=== PATIENT | male | born 1930 | race Caucasian/White ===

== ENCOUNTER 2018-02-16 07:30 | Inpatient (IN) | payer MEDICARE ==
[2018-02-16 07:47] LABS: ADD MAN DIFF? NO
[2018-02-16 07:58] LABS: ANION GAP 9 (6-14); BLOOD UREA NITROGEN 19 mg/dL (8-26); BUN/CREATININE RATIO 17 (6-20); CALCIUM 8.6 mg/dL (8.5-10.1); CARBON DIOXIDE 22 mmol/L (21-32); CHLORIDE 110 mmol/L (98-107); CREATININE 1.1 mg/dL (0.7-1.3); GFR 63.3; GLUCOSE 150 mg/dL (70-99); POTASSIUM 3.8 mmol/L (3.5-5.1); SODIUM 141 mmol/L (136-145)
[2018-02-16] MEDS: IV NORMAL SALINE 1000ML BAG 1,000 ML IV ×3 (07:58→09:30)
[2018-02-16 08:03] LABS: ALK PHOS 82 U/L (46-116); ALT (SGPT) 21 U/L (16-63); AST (SGOT) 17 U/L (15-37); TOTAL BILIRUBIN 0.6 mg/dL (0.2-1.0)
[2018-02-16 08:08] LABS: BASO # 0.1 x10^3/uL (0.0-0.2); BASO % 1 % (0-3); EOS # 0.2 x10^3/uL (0.0-0.7); EOS % 3 % (0-3); HEMATOCRIT 31.7 % (39.0-53.0); HEMOGLOBIN 10.9 g/dL (13.0-17.5); LYMPH # 2.5 x10^3/uL (1.0-4.8); LYMPH % 26 % (24-48); MEAN CORPUSCULAR HEMOGLOBIN 31 pg (25-35); MEAN CORPUSCULAR HGB CONC 34 g/dL (31-37); MEAN CORPUSCULAR VOLUME 89 fL (79-100); MONO # 0.8 x10^3/uL (0.0-1.1); MONO % 8 % (0-9); NEUT % 63 % (31-73); PLATELET COUNT 252 x10^3/uL (140-400); RED BLOOD COUNT 3.56 x10^6/uL (4.30-5.70); RED CELL DISTRIBUTION WIDTH 13.7 % (11.5-14.5); WHITE BLOOD COUNT 9.5 x10^3/uL (4.0-11.0)
[2018-02-16 08:19] LABS: INR 1.2 (0.8-1.1); PARTIAL THROMBOPLASTIN TIME 25 SEC (24-38); PROTHROMBIN TIME PATIENT 14.4 SEC (11.7-14.0)
[2018-02-16] MEDS: PANTOPRAZOLE IV PUSH 40 MG VIAL. IVP (08:54)
[2018-02-16] MEDS: PANTOPRAZOLE SODIUM IV DRIP 80 MG in IV NORMAL SALINE 100ML 100 ML IV ×2 (08:55→17:46)
[2018-02-16] MEDS: ONDANSETRON PF 4 MG/2 ML VIAL. IV ×2 (09:19→20:46)
[2018-02-16 18:10] LABS: HEMATOCRIT 24.6 % (39.0-53.0); HEMOGLOBIN 8.6 g/dL (13.0-17.5); MEAN CORPUSCULAR HEMOGLOBIN 32 pg (25-35); MEAN CORPUSCULAR HGB CONC 35 g/dL (31-37); MEAN CORPUSCULAR VOLUME 90 fL (79-100); PLATELET COUNT 191 x10^3/uL (140-400); RED BLOOD COUNT 2.73 x10^6/uL (4.30-5.70); RED CELL DISTRIBUTION WIDTH 14.1 % (11.5-14.5); WHITE BLOOD COUNT 10.3 x10^3/uL (4.0-11.0)
[2018-02-16] MEDS ORDERED: diphenhydrAMINE HCL 25 MG CAPSULE PO (19:00)
[2018-02-16] MEDS ORDERED: ACETAMINOPHEN 325 MG TABLET. PO (19:00)
[2018-02-16] MEDS ORDERED: diphenhydrAMINE ORAL ELIXIR 12.5 MG/5 ML ML PO (19:00)
[2018-02-16 19:40] LABS: IMMEDIATE SPIN CROSSMATCH 1 3
[2018-02-17 00:13] LABS: MRSA BY PCR Negative (Negative)
[2018-02-17] MEDS: PANTOPRAZOLE SODIUM IV DRIP 80 MG in IV NORMAL SALINE 100ML 100 ML IV ×2 (03:09→14:43)
[2018-02-17 05:43] LABS: HEMATOCRIT 24.4 % (39.0-53.0); HEMOGLOBIN 8.6 g/dL (13.0-17.5); MEAN CORPUSCULAR HEMOGLOBIN 32 pg (25-35); MEAN CORPUSCULAR HGB CONC 35 g/dL (31-37); MEAN CORPUSCULAR VOLUME 90 fL (79-100); PLATELET COUNT 157 x10^3/uL (140-400); RED BLOOD COUNT 2.71 x10^6/uL (4.30-5.70); RED CELL DISTRIBUTION WIDTH 13.7 % (11.5-14.5); WHITE BLOOD COUNT 10.4 x10^3/uL (4.0-11.0)
[2018-02-17] MEDS ORDERED: ePHEDrine PF IN SALINE 50 MG/5 ML DISP.SYRIN IV (12:00)
[2018-02-17] MEDS: IV RINGERS,LACTATED 1000ML 1,000 ML IV (12:47)
[2018-02-17] MEDS ORDERED: MORPHINE SULFATE 2 MG/ML DISP.SYRIN. IV (13:00)
[2018-02-17] MEDS ORDERED: PROCHLORPERAZINE 10 MG/2 ML VIAL. IV (13:00)
[2018-02-17] MEDS ORDERED: LIDOCAINE 1% PF 2 ML VIAL. ID (13:00)
[2018-02-17] MEDS ORDERED: fentaNYL PF VIAL 100 MCG/2 ML VIAL IV ×2 (13:00)
[2018-02-17] MEDS ORDERED: ONDANSETRON PF 4 MG/2 ML VIAL. IV (13:00)
[2018-02-17] MEDS: ALPRAZolam 0.5 MG TABLET PO (21:54)
[2018-02-18] MEDS: PANTOPRAZOLE SODIUM IV DRIP 80 MG in IV NORMAL SALINE 100ML 100 ML IV ×2 (01:17→10:05)
[2018-02-18] MEDS: ACETAMINOPHEN 500 MG TABLET PO (04:50)
[2018-02-18 07:30] LABS: HEMOGLOBIN 7.4 g/dL (13.0-17.5); MEAN CORPUSCULAR HGB CONC 36 g/dL (31-37)
[2018-02-18 07:48] LABS: HEMATOCRIT 20.7 % (39.0-53.0)
[2018-02-18 11:13] LABS: IMMEDIATE SPIN CROSSMATCH 1 1
[2018-02-18] MEDS: BENZOCAINE/MENTHOL LOZENGE. PO (20:46)
[2018-02-18] MEDS: ALPRAZolam 0.5 MG TABLET PO (23:30)
[2018-02-19] MEDS: PANTOPRAZOLE SODIUM IV DRIP 80 MG in IV NORMAL SALINE 100ML 100 ML IV ×3 (00:23→16:45)
[2018-02-19] MEDS: ACETAMINOPHEN 500 MG TABLET PO (06:41)
[2018-02-19 07:33] LABS: HEMATOCRIT 21.1 % (39.0-53.0); HEMOGLOBIN 7.5 g/dL (13.0-17.5); MEAN CORPUSCULAR HEMOGLOBIN 32 pg (25-35); MEAN CORPUSCULAR HGB CONC 36 g/dL (31-37); MEAN CORPUSCULAR VOLUME 89 fL (79-100); PLATELET COUNT 158 x10^3/uL (140-400); RED BLOOD COUNT 2.37 x10^6/uL (4.30-5.70); RED CELL DISTRIBUTION WIDTH 14.1 % (11.5-14.5); WHITE BLOOD COUNT 8.5 x10^3/uL (4.0-11.0)
[2018-02-19 07:46] LABS: ANION GAP 5 (6-14); BLOOD UREA NITROGEN 12 mg/dL (8-26); CALCIUM 7.4 mg/dL (8.5-10.1); CARBON DIOXIDE 27 mmol/L (21-32); CHLORIDE 110 mmol/L (98-107); GFR 70.7; GLUCOSE 100 mg/dL (70-99); POTASSIUM 3.7 mmol/L (3.5-5.1); SODIUM 142 mmol/L (136-145)
[2018-02-19] MEDS: MAGNESIUM CITRATE 296 ML SOLUTION. PO (17:29)
[2018-02-19] MEDS: POLYETHYLENE GLYCOL 3350 238 GM POWDER PO (17:30)
[2018-02-19] MEDS: BISACODYL 5 MG TABLET.DR. PO (22:04)
[2018-02-19] MEDS: ALPRAZolam 0.5 MG TABLET PO (22:07)
[2018-02-20] MEDS: PANTOPRAZOLE SODIUM IV DRIP 80 MG in IV NORMAL SALINE 100ML 100 ML IV ×2 (01:28→13:54)
[2018-02-20] MEDS: IV RINGERS,LACTATED 1000ML 1,000 ML IV ×3 (07:00→21:37)
[2018-02-20] MEDS ORDERED: PROPOFOL 20 ML IV (09:23)
[2018-02-20] MEDS ORDERED: LIDOCAINE 2% PF Vial for OR 5 ML VIAL. (09:23)
[2018-02-20] MEDS: ACETAMINOPHEN 500 MG TABLET PO (23:16)
[2018-02-20] MEDS: ALPRAZolam 0.5 MG TABLET PO (23:16)
[2018-02-21] MEDS: PANTOPRAZOLE IV PUSH 40 MG VIAL. IVP (07:54)
[2018-02-21] MEDS: ONDANSETRON PF 4 MG/2 ML VIAL. IV (07:55)
[2018-02-21] MEDS: ACETAMINOPHEN 500 MG TABLET PO (08:45)
== END 2018-02-21 13:08 | disposition home or self-care (01) | DRG 378 ==
LOC: 5 SOUTH 02-17 15:17 → ER 07:30 → 1 WEST ICU 09:00
PROC: 0DJ08ZZ Inspection of Upper Intestinal Tract, Via Natural or Artificial Opening Endoscopic (ICD-10-PCS; 2018-02-17 13:00)
PROC: 30233N1 Transfusion of Nonautologous Red Blood Cells into Peripheral Vein, Percutaneous Approach (ICD-10-PCS; principal; 2018-02-17 13:08)
PROC: 0DJD8ZZ Inspection of Lower Intestinal Tract, Via Natural or Artificial Opening Endoscopic (ICD-10-PCS; 2018-02-17 13:08)
DX: K57.31 Diverticulosis of large intestine without perforation or abscess with bleeding (principal); D62 Acute posthemorrhagic anemia; J90 Pleural effusion, not elsewhere classified; F03.90 Unspecified dementia, unspecified severity, without behavioral disturbance, psychotic disturbance, mood disturbance, and anxiety; F41.9 Anxiety disorder, unspecified; I10 Essential (primary) hypertension; I25.10 Atherosclerotic heart disease of native coronary artery without angina pectoris; K92.1 Melena; K44.9 Diaphragmatic hernia without obstruction or gangrene; K64.0 First degree hemorrhoids; Z82.49 Family history of ischemic heart disease and other diseases of the circulatory system; Z95.1 Presence of aortocoronary bypass graft; Z90.49 Acquired absence of other specified parts of digestive tract
CPT/HCPCS: 36415; 45378; 74176; 78278; 80048; 80053; 85014; 85018; 85025; 85027; 85610; 85730; 86850; 86900; 86901; 86920; 87641; 93005; 96361; 96374; 96375; 97110-GP; 97116-GP; 97162-GP; 97166-GO; 97530-GO; 97530-GP; 97535-GO; 99285; 99285-25; A9560; C9113; J2001; J2405; J2704; J7030; P9016

== ENCOUNTER 2018-12-25 15:29 | Inpatient (IN) | payer MEDICARE ==
[~2018-12-25] VITALS: Ht 172.7 cm; Wt 64.2 kg
[~2018-12-25 15:29] MED LIST: ALPR0.254 PO; CRESTOR10 MG PO; DONE5TAB56 PO; ESCITALOPRAM OX10 MG PO; METO1TAB32 PO; TAMS0.4C97 PO
[2018-12-25] MEDS ORDERED: FUROSEMIDE 20 MG/2 ML VIAL. IV ONE (16:00)
[2018-12-25] MEDS ORDERED: MORPHINE SULFATE 2 MG/ML VIAL. IV ONE (16:00)
--- NOTE | 2018-12-25 16:09 | PHYS DOC ---
Past Medical History Past Medical History: CAD, Dementia, High Cholesterol, Hypertension Past Surgical History: Appendectomy, Cholecystectomy, Coronary Bypass Surgery Alcohol Use: None Drug Use: None Adult General Chief Complaint Chief Complaint: SHORTNESS OF BREATH HPI HPI Patient is an 88-year-old male who presents to the emergency department for evaluation of multiple medical complaints. His main complaint is increasing shortness of breath, and dyspnea on exertion and orthopnea, which has been developing over the past several weeks, but worsening recently. The patient also complains of generalized fatigue and weakness. Additionally, yesterday, the patient fell asleep while at his kitchen table, and fell off the chair he was sitting on onto the floor, and injured his right ribs. He is having pain with palpation and movement of his right ribs. He has not had a cough. Exertion and laying flat worsen his shortness of breath. There are no alleviating factors to his symptoms. He denies any chest pain other than on his right ribs after the fall. Review of Systems Review of Systems Constitutional: Denies fever or chills [] Eyes: Denies change in visual acuity, redness, or eye pain [] HENT: Denies nasal congestion or sore throat [] Respiratory: Denies cough. Reports shortness of breath [] Cardiovascular: No additional information not addressed in HPI [] GI: Denies abdominal pain, nausea, vomiting, bloody stools or diarrhea [] : Denies dysuria or hematuria [] Musculoskeletal: Denies back pain or joint pain [] Integument: Denies rash or skin lesions [] Neurologic: Denies headache, focal weakness or sensory changes [] Endocrine: Denies polyuria or polydipsia [] All other systems were reviewed and found to be within normal limits, except as documented in this note. Current Medications Current Medications Current Medications Medications (Trade) Dose Ordered Sig/Cindy Start Time Stop Time Status Last Admin Dose Admin Furosemide (Lasix) 40 mg 1X ONCE 12/25/18 16:00 12/25/18 16:01 DC 12/25/18 16:09 40 MG Morphine Sulfate (Morphine Sulfate) 4 mg 1X ONCE 12/25/18 16:00 12/25/18 16:01 DC 12/25/18 16:10 4 MG Allergies Allergies Allergies Coded Allergies Type Severity Reaction Last Updated Verified No Known Drug Allergies 02/16/18 No Physical Exam Physical Exam PHYSICAL EXAM: CONSTITUTIONAL: Well developed, well nourished HEAD: normocephalic, atraumatic EENT: PERRL, EOMI. Conjunctivae normal color, sclerae non-icteric; moist mucous membranes. NECK: Supple, non-tender; no meningismus. LUNGS: There are diminished breath sounds at the lung bases bilaterally with some mild faint crackles, otherwise, Lungs CTA, breathing is mildly labored, Normal air movement. HEART: Regular rate and rhythm, no murmur CHEST: No deformity; there is tenderness to palpation to the right rib area, without crepitus or obvious deformity. ABDOMEN: The abdomen is soft, and non-tender, no masses or bruits. EXTREM: Normal ROM; no deformity, no calf tenderness. Normal pulses palpable in all extremities. There is trace bilateral pedal edema. SKIN: No rash; no diaphoresis NEURO: Alert; normal speech and cognition; CN's grossly intact; strength grossly intact without focal deficit. BACK: No CVA TTP. Current Patient Data Vital Signs Vital Signs Date Time Temp Pulse Resp B/P (MAP) Pulse Ox O2 Delivery O2 Flow Rate FiO2 12/25/18 15:29 97.9 89 25 109/76 (87) 94 Room Air 97.9 Lab Values Laboratory Tests Test 12/25/18 16:00 12/25/18 17:00 White Blood Count 9.6 x10^3/uL (4.0-11.0) Red Blood Count 3.83 x10^6/uL (4.30-5.70) L Hemoglobin 11.9 g/dL (13.0-17.5) L Hematocrit 35.1 % (39.0-53.0) L Mean Corpuscular Volume 92 fL (79-100) Mean Corpuscular Hemoglobin 31 pg (25-35) Mean Corpuscular Hemoglobin Concent 34 g/dL (31-37) Red Cell Distribution Width 14.2 % (11.5-14.5) Platelet Count 301 x10^3/uL (140-400) Neutrophils (%) (Auto) 78 % (31-73) H Lymphocytes (%) (Auto) 10 % (24-48) L Monocytes (%) (Auto) 11 % (0-9) H Eosinophils (%) (Auto) 1 % (0-3) Basophils (%) (Auto) 0 % (0-3) Neutrophils # (Auto) 7.5 x10^3uL (1.8-7.7) Lymphocytes # (Auto) 0.9 x10^3/uL (1.0-4.8) L Monocytes # (Auto) 1.1 x10^3/uL (0.0-1.1) Eosinophils # (Auto) 0.1 x10^3/uL (0.0-0.7) Basophils # (Auto) 0.0 x10^3/uL (0.0-0.2) Sodium Level 144 mmol/L (136-145) Potassium Level 4.0 mmol/L (3.5-5.1) Chloride Level 107 mmol/L (98-107) Carbon Dioxide Level 24 mmol/L (21-32) Anion Gap 13 (6-14) Blood Urea Nitrogen 29 mg/dL (8-26) H Creatinine 1.2 mg/dL (0.7-1.3) Estimated GFR (Cockcroft-Gault) 57.1 BUN/Creatinine Ratio 24 (6-20) H Glucose Level 97 mg/dL (70-99) Calcium Level 8.7 mg/dL (8.5-10.1) Magnesium Level 2.0 mg/dL (1.8-2.4) Total Bilirubin 1.5 mg/dL (0.2-1.0) H Aspartate Amino Transferase (AST) 26 U/L (15-37) Alanine Aminotransferase (ALT) 41 U/L (16-63) Alkaline Phosphatase 85 U/L (46-116) Troponin I Quantitative 0.099 ng/mL (0.000-0.055) AH-Mhh-L-Type Natriuretic Peptide 14254 pg/mL (0-449) H Total Protein 6.2 g/dL (6.4-8.2) L Albumin 3.2 g/dL (3.4-5.0) L Albumin/Globulin Ratio 1.1 (1.0-1.7) Thyroid Stimulating Hormone (TSH) 1.756 uIU/mL (0.358-3.74) Free Thyroxine 1.45 ng/dL (0.76-1.46) Urine Collection Type Unknown Urine Color Yellow Urine Clarity Clear Urine pH 5.5 Urine Specific Howard 1.015 Urine Protein 30 mg/dL (NEG-TRACE) Urine Glucose (UA) Negative mg/dL (NEG) Urine Ketones (Stick) Negative mg/dL (NEG) Urine Blood Negative (NEG) Urine Nitrite Negative (NEG) Urine Bilirubin Negative (NEG) Urine Urobilinogen Dipstick 0.2 mg/dL (0.2 mg/dL) Urine Leukocyte Esterase Negative (NEG) Urine RBC 0 /HPF (0-2) Urine WBC 0 /HPF (0-4) Urine Bacteria 0 /HPF (0-FEW) Urine Hyaline Casts Few /HPF Urine Mucus Mod /LPF Laboratory Tests 12/25/18 16:00 Laboratory Tests 12/25/18 16:00 EKG EKG [] Interpretation Time: Normal sinus rhythm at a rate of 81 bpm, left axis deviation, left anterior fascicular block, lateral T wave inversion, there are no acute ischemic ST/T changes, the EKG is unchanged compared to patient's prior EKG from January 2018. Radiology/Procedures Radiology/Procedures []PROCEDURE: RIBS RIGHT RIBS RIGHT, CHEST PA LATERAL Clinical indications: Shortness of breath. 2 VIEW CHEST X-RAY COMPARISON: None available. Findings: Bilateral pleural effusions left greater than right are seen. There is mild bilateral interstitial pulmonary edema present. Prominent left lung base consolidative infiltrate is seen which may represent alveolar pulmonary edema. No pneumothorax is seen. Heart size is enlarged. Sternotomy is evident. The mediastinum is unremarkable otherwise. The pulmonary vasculature is unremarkable. Mild compression deformity of a midthoracic vertebral body is seen of indeterminate age IMPRESSION: Mild to moderate CHF. Mild compression deformity of a midthoracic vertebral body of indeterminate age. 4 VIEW RIGHT RIB DETAIL SERIES FINDINGS: There is mild deformity of the lateral aspect of the right third rib and mild deformity of the lateral aspect of the right fifth rib consistent with old healed fractures. No acute-appearing fracture is evident. IMPRESSION: Old healed right third and fifth rib fractures. Course & Med Decision Making Course & Med Decision Making Pertinent Labs and Imaging studies reviewed. (See chart for details) []5:35 PM:The patient's condition remains stable. I spoke with the hospitalist, who accepted the patient to the hospital for further evaluation and treatment. Dragon Disclaimer Dragon Disclaimer This electronic medical record was generated, in whole or in part, using a voice recognition dictation system. Departure Departure Impression: Primary Impression: CHF exacerbation Additional Impression: Dyspnea Disposition: 09 ADMITTED INPATIENT Admitting Physician: JUN Condition: STABLE Referrals: RAINER SALES MD (PCP) Problem Qualifiers LAUREN RUBY MD Dec 25, 2018 16:08
[2018-12-25 16:10] LABS: BASO % 0 % (0-3); EOS # 0.1 x10^3/uL (0.0-0.7); EOS % 1 % (0-3); HEMATOCRIT 35.1 % (39.0-53.0); HEMOGLOBIN 11.9 g/dL (13.0-17.5); LYMPH # 0.9 x10^3/uL (1.0-4.8); LYMPH % 10 % (24-48); MEAN CORPUSCULAR HEMOGLOBIN 31 pg (25-35); MEAN CORPUSCULAR HGB CONC 34 g/dL (31-37); MEAN CORPUSCULAR VOLUME 92 fL (79-100); MONO # 1.1 x10^3/uL (0.0-1.1); MONO % 11 % (0-9); NEUT # 7.5 x10^3uL (1.8-7.7); NEUT % 78 % (31-73); PLATELET COUNT 301 x10^3/uL (140-400); RED BLOOD COUNT 3.83 x10^6/uL (4.30-5.70); RED CELL DISTRIBUTION WIDTH 14.2 % (11.5-14.5); WHITE BLOOD COUNT 9.6 x10^3/uL (4.0-11.0)
[2018-12-25 16:26] LABS: CALCIUM 8.7 mg/dL (8.5-10.1); CREATININE 1.2 mg/dL (0.7-1.3); GFR 57.1
[2018-12-25 16:32] LABS: ALBUMIN 3.2 g/dL (3.4-5.0); ALBUMIN/GLOBULIN RATIO 1.1 (1.0-1.7); TOTAL BILIRUBIN 1.5 mg/dL (0.2-1.0); TOTAL PROTEIN 6.2 g/dL (6.4-8.2)
[2018-12-25 16:40] LABS: FREE T4 1.45 ng/dL (0.76-1.46); THYROID STIM HORMONE (TSH) 1.756 uIU/mL (0.358-3.74)
[2018-12-25 17:13] LABS: BILIRUBIN,URINE NEGATIVE (NEG); COLOR,URINE YELLOW; NITRITE,URINE NEGATIVE (NEG); PH,URINE 5.5; PROTEIN,URINE 30 mg/dL (NEG-TRACE); UROBILINOGEN,URINE 0.2 mg/dL (0.2 mg/dL)
--- NOTE | 2018-12-25 17:15 | RAD ---
RIBS RIGHT, CHEST PA LATERAL Clinical indications: Shortness of breath. 2 VIEW CHEST X-RAY COMPARISON: None available. Findings: Bilateral pleural effusions left greater than right are seen. There is mild bilateral interstitial pulmonary edema present. Prominent left lung base consolidative infiltrate is seen which may represent alveolar pulmonary edema. No pneumothorax is seen. Heart size is enlarged. Sternotomy is evident. The mediastinum is unremarkable otherwise. The pulmonary vasculature is unremarkable. Mild compression deformity of a midthoracic vertebral body is seen of indeterminate age IMPRESSION: Mild to moderate CHF. Mild compression deformity of a midthoracic vertebral body of indeterminate age. 4 VIEW RIGHT RIB DETAIL SERIES FINDINGS: There is mild deformity of the lateral aspect of the right third rib and mild deformity of the lateral aspect of the right fifth rib consistent with old healed fractures. No acute-appearing fracture is evident. IMPRESSION: Old healed right third and fifth rib fractures. Electronically signed by: Alireza Bucio MD (12/25/2018 5:11 PM) [id number]
[2018-12-25 17:16] LABS: CLARITY,URINE CLEAR
[2018-12-25 17:17] LABS: BACTERIA,URINE 0 /HPF (0-FEW); HYALINE CASTS, URINE FEW /HPF; RBC,URINE 0 /HPF (0-2); WBC,URINE 0 /HPF (0-4)
[2018-12-25 18:45] VITALS: BP 116/71
[2018-12-25] MEDS: TEMAZEPAM 15 MG CAPSULE PO PRN (22:22)
--- NOTE | 2018-12-25 22:57 | HP ---
ADMIT DATE: 12/25/2018 CHIEF COMPLAINT: Shortness of breath. HISTORY OF PRESENT ILLNESS: The patient is a pleasant 88-year-old male who has dementia. He thinks it is 1980. He is very pleasantly confused though very nice and cooperative. He basically presented with shortness of breath today. While in the ER, we did some imaging including a chest x-ray, which is showing possible vascular congestion by my eye. He also has an elevated BNP of 17,038. Rates his symptoms at 9/10. He has associated weakness. It has been occurring off and on for weeks. Moving makes it worse. I discussed the case with ER physician. We are going to admit the patient and diurese him and consult Cardiology. PAST MEDICAL HISTORY: Dementia, hypertension, hyperlipidemia, appendectomy, cholecystectomy, coronary artery bypass grafting. ALLERGIES: None. FAMILY HISTORY: Diabetes. SOCIAL HISTORY: Does not drink, smoke or take drugs. MEDICATIONS: Reviewed, please refer to the MRAD. REVIEW OF SYSTEMS: Unable to obtain. The patient is too confused. PHYSICAL EXAMINATION: VITAL SIGNS: Temperature afebrile, pulse 82, respirations 16, blood pressure 112/73. GENERAL: He is alert, cooperative, very pleasantly confused. HEART: Distant S1, S2. LUNGS: Bibasilar crackles. ABDOMEN: Soft. EXTREMITIES: 1+ edema. SKIN: No rash. ENDOCRINE: No thyromegaly. LYMPHATICS: No cervical nodes. HEMATOPOIETIC: No bruises. PSYCHIATRIC: He is anxious. LABORATORY DATA: Electrolytes are normal other than a BUN of 29, BNP of 17,038, hemoglobin 11.9. ASSESSMENT AND PLAN: Acute on chronic systolic and diastolic heart failure. The patient will be admitted. We will consult Cardiology, cardiac monitoring, serial enzymes, serial EKGs, IV Lasix, home meds, PT, OT, frequent labs. DVT prophylaxis. Full code. KRYS COON DO DR: LAZARO/dylan JOB#: [id number] / [id number]
[2018-12-25 23:22] VITALS: BP 106/63
[2018-12-26] VITALS (17 sets, daily range): BP systolic 95–129; BP diastolic 57–74
--- NOTE | 2018-12-26 02:53 | EKG ---
[facility] [address] [place] [address] Test Date: 2018-12-25 Test Time: 15:55:38 Pat Name: PRITI NORTON Department: Room: Gender: M Help Desk Support Specialist: : [id number] Requested By: LAUREN RUBY Order Number: [id number] Reading MD: Measurements Intervals [place] Rate: 81 P: -24 AK: 118 QRS: -33 QRSD: 124 T: 142 QT: 430 QTc: 506 Interpretive Statements SINUS RHYTHM LEFT ATRIAL ABNORMALITY ABNORMAL LEFT AXIS DEVIATION LVH WITH REPOLARIZATION ABNORMALITY ABNORMAL ECG RI6.01 Unconfirmed report No previous ECG available for comparison
[2018-12-26 10:08] LABS: CALCIUM 8.6 mg/dL (8.5-10.1); CREATININE 1.3 mg/dL (0.7-1.3); GFR 52.1; MAGNESIUM 2.2 mg/dL (1.8-2.4); POTASSIUM 3.5 mmol/L (3.5-5.1)
[2018-12-26] MEDS ORDERED: POTASSIUM CHLORIDE 20 MEQ TABLET.ER. PO ONE (11:15)
[2018-12-26] MEDS ORDERED: FUROSEMIDE 40 MG/4 ML VIAL. IVP ONE (11:15)
--- NOTE | 2018-12-26 11:29 | PDOC2 ---
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 He has been having SOA in the last 2-3 days. Positive for orthopnea. He was sitting up in a chair and dozed off and fell forward and landed his right chest on his choes which is right now is tender to touch. Denies any passing out or frequent dizziness. Denies any chest tightness in the last few days but [employer]. Denies any nausea, palpitations or diaphoresis. He was noted with old right rib fractures but denies any frequent falls. No prior hx of VTE. Also he is almost out of his meds and has been skipping his meds as well. He has not seen a completion manager in a while. He lives alone and has a daughter that sees him. PAST MEDICAL HISTORY Cardiovascular: CAD, HTN, Hyperlipidemia Pulmonary: No pertinent hx CENTRAL NERVOUS SYSTEM: Dementia GI: Diverticulosis, GI bleed, Hemorrhoids Heme/Onc: Anemia NOS Hepatobiliary: No pertinent hx Psych: Anxiety Musculoskeletal: Osteoarthritis Rheumatologic: No pertinent hx Infectious disease: No pertinent hx ENT: Other (cataracts) Renal/: Benign prostatic enlarg. Endocrine: No pertinent hx Dermatology: No pertinent hx PAST SURGICAL HISTORY Past Surgical History: CABG, Cataract Removal FAMILY HISTORY Family History: Family History Unknown SOCIAL HISTORY Smoke: No ALCOHOL: none Drugs: None Lives: Alone CURRENT MEDICATIONS CURRENT MEDICATIONS Current Medications Medications (Trade) Dose Ordered Sig/Cindy Route PRN Reason Start Time Stop Time Status Last Admin Dose Admin Morphine Sulfate (Morphine Sulfate) 4 mg 1X ONCE IV 12/25/18 16:00 12/25/18 16:01 DC 12/25/18 16:10 Furosemide (Lasix) 40 mg 1X ONCE IV 12/25/18 16:00 12/25/18 16:01 DC 12/25/18 16:09 Temazepam (Restoril) 15 mg PRN QHS PRN PO INSOMNIA 12/25/18 22:15 12/25/18 22:22 ALLERGIES ALLERGIES: Coded Allergies: No Known Drug Allergies (Unverified , 02/16/18) ROS Review of System 14 point ROS evaluated with pertinent positives noted per HPI PHYSICAL EXAM General: Alert, Cooperative, No acute distress, Other (oriented to place) HEENT: Atraumatic, Mucous membr. moist/pink Heart: Regular rate (SR), Normal S1, Normal S2, Other (4/6 systolic murmur to NICOLE and 3/6 systolic murmur to LLS border) Abdomen: Soft, No tenderness Extremities: No cyanosis, Other (1+ bilateral LE pitting edema) Skin: No breakdown, No significant lesion Neuro: Normal speech, Sensation intact Psych/Mental Status: Other (Oriented to self and place, cooperative) MUSCULOSKELETAL: Osteoarthritic changes both hands VITALS VITALS Vital Signs Date Time Temp Pulse Resp B/P (MAP) Pulse Ox O2 Delivery O2 Flow Rate FiO2 12/26/18 08:00 Room Air 12/26/18 07:00 97.6 80 18 111/65 (80) 99 2.0 97.6 LABS Lab: Laboratory Tests Test 12/25/18 16:00 12/25/18 17:00 12/26/18 09:03 White Blood Count 9.6 x10^3/uL (4.0-11.0) Red Blood Count 3.83 x10^6/uL (4.30-5.70) Hemoglobin 11.9 g/dL (13.0-17.5) Hematocrit 35.1 % (39.0-53.0) Mean Corpuscular Volume 92 fL (79-100) Mean Corpuscular Hemoglobin 31 pg (25-35) Mean Corpuscular Hemoglobin Concent 34 g/dL (31-37) Red Cell Distribution Width 14.2 % (11.5-14.5) Platelet Count 301 x10^3/uL (140-400) Neutrophils (%) (Auto) 78 % (31-73) Lymphocytes (%) (Auto) 10 % (24-48) Monocytes (%) (Auto) 11 % (0-9) Eosinophils (%) (Auto) 1 % (0-3) Basophils (%) (Auto) 0 % (0-3) Neutrophils # (Auto) 7.5 x10^3uL (1.8-7.7) Lymphocytes # (Auto) 0.9 x10^3/uL (1.0-4.8) Monocytes # (Auto) 1.1 x10^3/uL (0.0-1.1) Eosinophils # (Auto) 0.1 x10^3/uL (0.0-0.7) Basophils # (Auto) 0.0 x10^3/uL (0.0-0.2) Sodium Level 144 mmol/L (136-145) 144 mmol/L (136-145) Potassium Level 4.0 mmol/L (3.5-5.1) 3.5 mmol/L (3.5-5.1) Chloride Level 107 mmol/L (98-107) 106 mmol/L (98-107) Carbon Dioxide Level 24 mmol/L (21-32) 24 mmol/L (21-32) Anion Gap 13 (6-14) 14 (6-14) Blood Urea Nitrogen 29 mg/dL (8-26) 32 mg/dL (8-26) Creatinine 1.2 mg/dL (0.7-1.3) 1.3 mg/dL (0.7-1.3) Estimated GFR (Cockcroft-Gault) 57.1 52.1 BUN/Creatinine Ratio 24 (6-20) Glucose Level 97 mg/dL (70-99) 158 mg/dL (70-99) Calcium Level 8.7 mg/dL (8.5-10.1) 8.6 mg/dL (8.5-10.1) Magnesium Level 2.0 mg/dL (1.8-2.4) 2.2 mg/dL (1.8-2.4) Total Bilirubin 1.5 mg/dL (0.2-1.0) Aspartate Amino Transf (AST/SGOT) 26 U/L (15-37) Alanine Aminotransferase (ALT/SGPT) 41 U/L (16-63) Alkaline Phosphatase 85 U/L (46-116) Troponin I Quantitative 0.099 ng/mL (0.000-0.055) 0.104 ng/mL (0.000-0.055) YH-Dro-A-Type Natriuretic Peptide 85004 pg/mL (0-449) Total Protein 6.2 g/dL (6.4-8.2) Albumin 3.2 g/dL (3.4-5.0) Albumin/Globulin Ratio 1.1 (1.0-1.7) Thyroid Stimulating Hormone (TSH) 1.756 uIU/mL (0.358-3.74) Free Thyroxine 1.45 ng/dL (0.76-1.46) Urine Collection Type Unknown Urine Color Yellow Urine Clarity Clear Urine pH 5.5 Urine Specific Mcintosh 1.015 Urine Protein 30 mg/dL (NEG-TRACE) Urine Glucose (UA) Negative mg/dL (NEG) Urine Ketones (Stick) Negative mg/dL (NEG) Urine Blood Negative (NEG) Urine Nitrite Negative (NEG) Urine Bilirubin Negative (NEG) Urine Urobilinogen Dipstick 0.2 mg/dL (0.2 mg/dL) Urine Leukocyte Esterase Negative (NEG) Urine RBC 0 /HPF (0-2) Urine WBC 0 /HPF (0-4) Urine Bacteria 0 /HPF (0-FEW) Urine Hyaline Casts Few /HPF Urine Mucus Mod /LPF Triglycerides Level 68 mg/dL (0-150) Cholesterol Level 108 mg/dL (0-200) LDL Cholesterol, Calculated 67 mg/dL (0-100) VLDL Cholesterol, Calculated 14 mg/dL (0-40) Non-HDL Cholesterol Calculated 81 mg/dL (0-129) HDL Cholesterol 27 mg/dL (40-60) Cholesterol/HDL Ratio 4.0 ASSESSMENT/PLAN ASSESSMENT/PLAN 1. Acute on chronic CHF with possible combined systolic/diastolic dysfunction: SOA better 2. Mechanical fall with no acute injuries 3. Suspect multiple past falls/osteoporosis given noted old right rib fractures and thoracic vertebral compression deformity. Syncope could not be ruled out. 4. Atypical CP: right chest: MSK. landed on his shoe with fall 5. CAD: remote CABG 6. HTN: controlled 7. HLP 8. High risk for falls/injury with underlying dementia: lives alone and still drives with possibly revoked license 9. Mild troponin elevation: peaked at 0.1, possibly demand mediated type 2. EKG SR/LVH virtually same by comparison 10. Noncompliance: has been skipping meds, some meds are gone. 11. Hx of GI bleed 12. Murmur Recommendations 1. Will need to address goals of care and better supervision or assisted living placement. Consult SS. 2. Will need ischemic workup, pending TTE result. 3. Lasix therapy. Resume home meds. ASA 4. Check CK. Check orthostatic readings. Addendum 1200 Will obtain records from [facility] Discussed with Daughter Yvette Soto and pt in regards to LHC with underlying CAD and severe cardiomyopathy, risks and benefits explained and agreeable to proceed. IBNA TOBIN MD 12/26/18 1603: CARDIAC CONSULT ASSESSMENT/PLAN ASSESSMENT/PLAN Pt. seen and examined. 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 Critically ill 88 y.o man with lifestyle limiting dyspnea. Will plan for LHC and AV assessment today. Likely plan for PCI today and aortic valvuloplasty on sunday. GERONIMO BROWN APRN Dec 26, 2018 11:29 BINA TOBIN MD Dec 26, 2018 16:03
[2018-12-26] MEDS: ASPIRIN ENTERIC COATED 81 MG TABLET.DR. PO SCH (11:41)
--- NOTE | 2018-12-26 11:48 | CARD ---
MR#: [id number] Date of Study: 12/26/2018 Ordering Physician: GERONIMO BROWN, Referring Physician: KRYS COON Tech: Eneida Guthrie RDCS APPROVED REPORT EXAM: Two-dimensional and M-mode echocardiogram with Doppler and color Doppler. Other Information Quality : Good INDICATION Congestive Heart Failure 2D DIMENSIONS RVDd3.6 (2.9-3.5cm)Left Atrium(2D)4.7 (1.6-4.0cm) IVSd1.1 (0.7-1.1cm)Aortic Root(2D)2.6 (2.0-3.7cm) LVDd5.6 (3.9-5.9cm)LVOT Diameter2.0 (1.8-2.4cm) PWd1.1 (0.7-1.1cm)LVDs5.3 (2.5-4.0cm) FS (%) 5.2 %SV17.9 ml LVEF(%)11.7 (>50%) Aortic Valve AoV Peak Manuel.382.1cm/sAoV VTI79.1cm AO Peak GR.58.4mmHgLVOT Peak Manuel.69.6cm/s AO Mean GR.38mmHgAVA (VMAX)0.60cm2 CHELY (VTI)0.51hl9TD P 1/2 Daqm588fg Mitral Valve MV E Gxdtplyx284.1cm/sMV DECEL YIBF47ph MV A Bbdbayeq13.8cm/sE/A Ratio2.2 Tricuspid Valve TR P. Jspzimvk431ln/sRAP TORHYOQE13egJj TR Peak Gr.62doBvRTFJ14nyNa LEFT VENTRICLE The left ventricle is normal size. There is normal left ventricular wall thickness. Left ventricle ej ection fraction is severely impaired. The Ejection Fraction is 10-15%. There is severe global hypokin esis of the left ventricle. Transmitral Doppler flow pattern is Grade I-abnormal relaxation pattern. RIGHT VENTRICLE The right ventricle is normal size. The right ventricular systolic function is normal. ATRIA The left atrium is mildly dilated. The right atrium size is normal. The interatrial septum is intact with no evidence for an atrial septal defect or patent foramen ovale as noted on 2-D or Doppler imagi ng. AORTIC VALVE The aortic valve is heavily calcified and displays decreased opening. Doppler and Color Flow revealed moderate to severe aortic regurgitation. Calculated aortic valve area is 0.6 cm2 with maximum pressu re gradient of 58 mmHg and mean pressure gradient of 38 mmHg. Doppler and color-flow analysis reveale d severe aortic stenosis. MITRAL VALVE The mitral valve is calcified but opens well. There is no evidence of mitral valve prolapse. There is no mitral valve stenosis. Doppler and Color-flow revealed mild to moderate mitral regurgitation. TRICUSPID VALVE The tricuspid valve is normal in structure and function. Doppler and Color Flow revealed mild tricusp id regurgitation. There is moderate-severe pulmonary hypertension. The PA pressure was estimated at 6 8 mmHg. There is no tricuspid valve stenosis. PULMONIC VALVE The pulmonary valve is normal in structure and function. Doppler and Color Flow revealed moderate pul senthil valvular regurgitation. There is no pulmonic valvular stenosis. GREAT VESSELS The aortic root is normal in size. The ascending aorta is mildly dilated at 3.5 cm. The IVC is dilate d and collapses <50% with inspiration. PERICARDIAL EFFUSION There is no evidence of significant pericardial effusion. Critical Notification Critical Value: No <Conclusion> Left ventricle ejection fraction is severely impaired. The Ejection Fraction is 10-15%. There is severe global hypokinesis of the left ventricle. Calculated aortic valve area is 0.6 cm2 with maximum pressure gradient of 58 mmHg and mean pressure g radient of 38 mmHg. Doppler and color-flow analysis revealed severe aortic stenosis. Doppler and Color-flow revealed mild to moderate mitral regurgitation. Doppler and Color Flow revealed mild tricuspid regurgitation. There is moderate-severe pulmonary hype rtension. The PA pressure was estimated at 68 mmHg. Doppler and Color Flow revealed moderate pulmonic valvular regurgitation. Signed by : Tim Leroy, Electronically Approved : 12/26/2018 11:48:08
--- NOTE | 2018-12-26 12:09 | NUR ---
SS following for discharge planning. SS reviewed pt chart. Pt is from home alone and does not have a drivers license but still drives. Pt having confusion and cognitive deficits. SS spoke with pt's daughter Brittney over the phone to discuss pt's previous living situation. Pt's daughter reported that pt has lived in his home for over forty years and refuses to leave. She reported that she has tried to convince pt to move in with her family but pt refuses. She reported that she has also looked at facilities for pt and pt refuses to go to facilities as well. Brittney reported that she assists with finances, home care, and meals but is aware pt needs to be in a facility or living with family. Brittney reported having no DPOA paperwork at this time. SS discussed the probable need for senior care unit for pt at discharge. Brittney agreed. PT/OT ordered. SS will continue to follow for discharge planning.
--- NOTE | 2018-12-26 15:27 | PDOC ---
PROGRESS NOTES Chief Complaint Chief Complaint Acute on chronic systolic heart failure. chest pain, angina, CKD 2-3 History of Present Illness History of Present Illness left heart cath in AM cont current CV following Vitals Vitals Vital Signs Date Time Temp Pulse Resp B/P (MAP) Pulse Ox O2 Delivery O2 Flow Rate FiO2 12/26/18 11:00 98.3 82 18 106/64 (78) 99 Nasal Cannula 2.0 98.3 Physical Exam General: Alert, Cooperative, No acute distress, Other (oriented to place) Heart: Regular rate (SR), Normal S1, Normal S2, Other (4/6 systolic murmur to NICOLE and 3/6 systolic murmur to LLS border) Lungs: Clear Abdomen: Soft, No tenderness Extremities: No cyanosis, Other (1+ bilateral LE pitting edema) Skin: No breakdown, No significant lesion Labs LABS Laboratory Tests Test 12/25/18 16:00 12/25/18 17:00 12/26/18 09:03 White Blood Count 9.6 x10^3/uL (4.0-11.0) Red Blood Count 3.83 x10^6/uL (4.30-5.70) Hemoglobin 11.9 g/dL (13.0-17.5) Hematocrit 35.1 % (39.0-53.0) Mean Corpuscular Volume 92 fL (79-100) Mean Corpuscular Hemoglobin 31 pg (25-35) Mean Corpuscular Hemoglobin Concent 34 g/dL (31-37) Red Cell Distribution Width 14.2 % (11.5-14.5) Platelet Count 301 x10^3/uL (140-400) Neutrophils (%) (Auto) 78 % (31-73) Lymphocytes (%) (Auto) 10 % (24-48) Monocytes (%) (Auto) 11 % (0-9) Eosinophils (%) (Auto) 1 % (0-3) Basophils (%) (Auto) 0 % (0-3) Neutrophils # (Auto) 7.5 x10^3uL (1.8-7.7) Lymphocytes # (Auto) 0.9 x10^3/uL (1.0-4.8) Monocytes # (Auto) 1.1 x10^3/uL (0.0-1.1) Eosinophils # (Auto) 0.1 x10^3/uL (0.0-0.7) Basophils # (Auto) 0.0 x10^3/uL (0.0-0.2) Sodium Level 144 mmol/L (136-145) 144 mmol/L (136-145) Potassium Level 4.0 mmol/L (3.5-5.1) 3.5 mmol/L (3.5-5.1) Chloride Level 107 mmol/L (98-107) 106 mmol/L (98-107) Carbon Dioxide Level 24 mmol/L (21-32) 24 mmol/L (21-32) Anion Gap 13 (6-14) 14 (6-14) Blood Urea Nitrogen 29 mg/dL (8-26) 32 mg/dL (8-26) Creatinine 1.2 mg/dL (0.7-1.3) 1.3 mg/dL (0.7-1.3) Estimated GFR (Cockcroft-Gault) 57.1 52.1 BUN/Creatinine Ratio 24 (6-20) Glucose Level 97 mg/dL (70-99) 158 mg/dL (70-99) Calcium Level 8.7 mg/dL (8.5-10.1) 8.6 mg/dL (8.5-10.1) Magnesium Level 2.0 mg/dL (1.8-2.4) 2.2 mg/dL (1.8-2.4) Total Bilirubin 1.5 mg/dL (0.2-1.0) Aspartate Amino Transf (AST/SGOT) 26 U/L (15-37) Alanine Aminotransferase (ALT/SGPT) 41 U/L (16-63) Alkaline Phosphatase 85 U/L (46-116) Troponin I Quantitative 0.099 ng/mL (0.000-0.055) 0.104 ng/mL (0.000-0.055) HY-Uin-E-Type Natriuretic Peptide 47507 pg/mL (0-449) Total Protein 6.2 g/dL (6.4-8.2) Albumin 3.2 g/dL (3.4-5.0) Albumin/Globulin Ratio 1.1 (1.0-1.7) Thyroid Stimulating Hormone (TSH) 1.756 uIU/mL (0.358-3.74) Free Thyroxine 1.45 ng/dL (0.76-1.46) Urine Collection Type Unknown Urine Color Yellow Urine Clarity Clear Urine pH 5.5 Urine Specific Ider 1.015 Urine Protein 30 mg/dL (NEG-TRACE) Urine Glucose (UA) Negative mg/dL (NEG) Urine Ketones (Stick) Negative mg/dL (NEG) Urine Blood Negative (NEG) Urine Nitrite Negative (NEG) Urine Bilirubin Negative (NEG) Urine Urobilinogen Dipstick 0.2 mg/dL (0.2 mg/dL) Urine Leukocyte Esterase Negative (NEG) Urine RBC 0 /HPF (0-2) Urine WBC 0 /HPF (0-4) Urine Bacteria 0 /HPF (0-FEW) Urine Hyaline Casts Few /HPF Urine Mucus Mod /LPF Creatine Kinase 96 U/L (39-308) Triglycerides Level 68 mg/dL (0-150) Cholesterol Level 108 mg/dL (0-200) LDL Cholesterol, Calculated 67 mg/dL (0-100) VLDL Cholesterol, Calculated 14 mg/dL (0-40) Non-HDL Cholesterol Calculated 81 mg/dL (0-129) HDL Cholesterol 27 mg/dL (40-60) Cholesterol/HDL Ratio 4.0 Assessment and Plan Assessmemt and Plan Problems Medical Problems: (1) CHF exacerbation Status: Acute (2) Dyspnea Status: Acute Comment Review of Relevant I have reviewed the following items jayce (where applicable) has been applied. Labs Laboratory Tests Test 12/25/18 16:00 12/25/18 17:00 12/26/18 09:03 White Blood Count 9.6 x10^3/uL (4.0-11.0) Red Blood Count 3.83 x10^6/uL (4.30-5.70) Hemoglobin 11.9 g/dL (13.0-17.5) Hematocrit 35.1 % (39.0-53.0) Mean Corpuscular Volume 92 fL (79-100) Mean Corpuscular Hemoglobin 31 pg (25-35) Mean Corpuscular Hemoglobin Concent 34 g/dL (31-37) Red Cell Distribution Width 14.2 % (11.5-14.5) Platelet Count 301 x10^3/uL (140-400) Neutrophils (%) (Auto) 78 % (31-73) Lymphocytes (%) (Auto) 10 % (24-48) Monocytes (%) (Auto) 11 % (0-9) Eosinophils (%) (Auto) 1 % (0-3) Basophils (%) (Auto) 0 % (0-3) Neutrophils # (Auto) 7.5 x10^3uL (1.8-7.7) Lymphocytes # (Auto) 0.9 x10^3/uL (1.0-4.8) Monocytes # (Auto) 1.1 x10^3/uL (0.0-1.1) Eosinophils # (Auto) 0.1 x10^3/uL (0.0-0.7) Basophils # (Auto) 0.0 x10^3/uL (0.0-0.2) Sodium Level 144 mmol/L (136-145) 144 mmol/L (136-145) Potassium Level 4.0 mmol/L (3.5-5.1) 3.5 mmol/L (3.5-5.1) Chloride Level 107 mmol/L (98-107) 106 mmol/L (98-107) Carbon Dioxide Level 24 mmol/L (21-32) 24 mmol/L (21-32) Anion Gap 13 (6-14) 14 (6-14) Blood Urea Nitrogen 29 mg/dL (8-26) 32 mg/dL (8-26) Creatinine 1.2 mg/dL (0.7-1.3) 1.3 mg/dL (0.7-1.3) Estimated GFR (Cockcroft-Gault) 57.1 52.1 BUN/Creatinine Ratio 24 (6-20) Glucose Level 97 mg/dL (70-99) 158 mg/dL (70-99) Calcium Level 8.7 mg/dL (8.5-10.1) 8.6 mg/dL (8.5-10.1) Magnesium Level 2.0 mg/dL (1.8-2.4) 2.2 mg/dL (1.8-2.4) Total Bilirubin 1.5 mg/dL (0.2-1.0) Aspartate Amino Transf (AST/SGOT) 26 U/L (15-37) Alanine Aminotransferase (ALT/SGPT) 41 U/L (16-63) Alkaline Phosphatase 85 U/L (46-116) Troponin I Quantitative 0.099 ng/mL (0.000-0.055) 0.104 ng/mL (0.000-0.055) SY-Ohz-D-Type Natriuretic Peptide 89483 pg/mL (0-449) Total Protein 6.2 g/dL (6.4-8.2) Albumin 3.2 g/dL (3.4-5.0) Albumin/Globulin Ratio 1.1 (1.0-1.7) Thyroid Stimulating Hormone (TSH) 1.756 uIU/mL (0.358-3.74) Free Thyroxine 1.45 ng/dL (0.76-1.46) Urine Collection Type Unknown Urine Color Yellow Urine Clarity Clear Urine pH 5.5 Urine Specific Ider 1.015 Urine Protein 30 mg/dL (NEG-TRACE) Urine Glucose (UA) Negative mg/dL (NEG) Urine Ketones (Stick) Negative mg/dL (NEG) Urine Blood Negative (NEG) Urine Nitrite Negative (NEG) Urine Bilirubin Negative (NEG) Urine Urobilinogen Dipstick 0.2 mg/dL (0.2 mg/dL) Urine Leukocyte Esterase Negative (NEG) Urine RBC 0 /HPF (0-2) Urine WBC 0 /HPF (0-4) Urine Bacteria 0 /HPF (0-FEW) Urine Hyaline Casts Few /HPF Urine Mucus Mod /LPF Creatine Kinase 96 U/L (39-308) Triglycerides Level 68 mg/dL (0-150) Cholesterol Level 108 mg/dL (0-200) LDL Cholesterol, Calculated 67 mg/dL (0-100) VLDL Cholesterol, Calculated 14 mg/dL (0-40) Non-HDL Cholesterol Calculated 81 mg/dL (0-129) HDL Cholesterol 27 mg/dL (40-60) Cholesterol/HDL Ratio 4.0 Laboratory Tests Test 12/25/18 16:00 12/25/18 17:00 12/26/18 09:03 White Blood Count 9.6 x10^3/uL (4.0-11.0) Red Blood Count 3.83 x10^6/uL (4.30-5.70) Hemoglobin 11.9 g/dL (13.0-17.5) Hematocrit 35.1 % (39.0-53.0) Mean Corpuscular Volume 92 fL (79-100) Mean Corpuscular Hemoglobin 31 pg (25-35) Mean Corpuscular Hemoglobin Concent 34 g/dL (31-37) Red Cell Distribution Width 14.2 % (11.5-14.5) Platelet Count 301 x10^3/uL (140-400) Neutrophils (%) (Auto) 78 % (31-73) Lymphocytes (%) (Auto) 10 % (24-48) Monocytes (%) (Auto) 11 % (0-9) Eosinophils (%) (Auto) 1 % (0-3) Basophils (%) (Auto) 0 % (0-3) Neutrophils # (Auto) 7.5 x10^3uL (1.8-7.7) Lymphocytes # (Auto) 0.9 x10^3/uL (1.0-4.8) Monocytes # (Auto) 1.1 x10^3/uL (0.0-1.1) Eosinophils # (Auto) 0.1 x10^3/uL (0.0-0.7) Basophils # (Auto) 0.0 x10^3/uL (0.0-0.2) Sodium Level 144 mmol/L (136-145) 144 mmol/L (136-145) Potassium Level 4.0 mmol/L (3.5-5.1) 3.5 mmol/L (3.5-5.1) Chloride Level 107 mmol/L (98-107) 106 mmol/L (98-107) Carbon Dioxide Level 24 mmol/L (21-32) 24 mmol/L (21-32) Anion Gap 13 (6-14) 14 (6-14) Blood Urea Nitrogen 29 mg/dL (8-26) 32 mg/dL (8-26) Creatinine 1.2 mg/dL (0.7-1.3) 1.3 mg/dL (0.7-1.3) Estimated GFR (Cockcroft-Gault) 57.1 52.1 BUN/Creatinine Ratio 24 (6-20) Glucose Level 97 mg/dL (70-99) 158 mg/dL (70-99) Calcium Level 8.7 mg/dL (8.5-10.1) 8.6 mg/dL (8.5-10.1) Magnesium Level 2.0 mg/dL (1.8-2.4) 2.2 mg/dL (1.8-2.4) Total Bilirubin 1.5 mg/dL (0.2-1.0) Aspartate Amino Transf (AST/SGOT) 26 U/L (15-37) Alanine Aminotransferase (ALT/SGPT) 41 U/L (16-63) Alkaline Phosphatase 85 U/L (46-116) Troponin I Quantitative 0.099 ng/mL (0.000-0.055) 0.104 ng/mL (0.000-0.055) UL-Nkw-I-Type Natriuretic Peptide 91809 pg/mL (0-449) Total Protein 6.2 g/dL (6.4-8.2) Albumin 3.2 g/dL (3.4-5.0) Albumin/Globulin Ratio 1.1 (1.0-1.7) Thyroid Stimulating Hormone (TSH) 1.756 uIU/mL (0.358-3.74) Free Thyroxine 1.45 ng/dL (0.76-1.46) Urine Collection Type Unknown Urine Color Yellow Urine Clarity Clear Urine pH 5.5 Urine Specific Ider 1.015 Urine Protein 30 mg/dL (NEG-TRACE) Urine Glucose (UA) Negative mg/dL (NEG) Urine Ketones (Stick) Negative mg/dL (NEG) Urine Blood Negative (NEG) Urine Nitrite Negative (NEG) Urine Bilirubin Negative (NEG) Urine Urobilinogen Dipstick 0.2 mg/dL (0.2 mg/dL) Urine Leukocyte Esterase Negative (NEG) Urine RBC 0 /HPF (0-2) Urine WBC 0 /HPF (0-4) Urine Bacteria 0 /HPF (0-FEW) Urine Hyaline Casts Few /HPF Urine Mucus Mod /LPF Creatine Kinase 96 U/L (39-308) Triglycerides Level 68 mg/dL (0-150) Cholesterol Level 108 mg/dL (0-200) LDL Cholesterol, Calculated 67 mg/dL (0-100) VLDL Cholesterol, Calculated 14 mg/dL (0-40) Non-HDL Cholesterol Calculated 81 mg/dL (0-129) HDL Cholesterol 27 mg/dL (40-60) Cholesterol/HDL Ratio 4.0 Medications Current Medications Morphine Sulfate (Morphine Sulfate) 4 mg 1X ONCE IV Last administered on 12/25/18at 16:10; Start 12/25/18 at 16:00; Stop 12/25/18 at 16:01; Status DC Furosemide (Lasix) 40 mg 1X ONCE IV Last administered on 12/25/18 16:09; Start 12/25/18 at 16:00; Stop 12/25/18 at 16:01; Status DC Temazepam (Restoril) 15 mg PRN QHS PRN PO INSOMNIA Last administered on 12/25/18at 22:22; Start 12/25/18 at 22:15 Furosemide (Lasix) 40 mg 1X ONCE IVP Last administered on 12/26/18at 11:41; Start 12/26/18 at 11:15; Stop 12/26/18 at 11:19; Status DC Potassium Chloride (Klor-Con) 20 meq 1X ONCE PO Last administered on 12/26/18at 11:41; Start 12/26/18 at 11:15; Stop 12/26/18 at 11:19; Status DC Aspirin (Ecotrin) 81 mg DAILYWBKFT PO Last administered on 12/26/18at 11:41; Start 12/26/18 at 12:00 Active Scripts Active Reported Metoprolol ER-Hctz 50-12.5 mg (Metoprolol Succinate/Hctz) 1 Each Tab.er.24h 1 Each PO DAILY Crestor (Rosuvastatin Calcium) 10 Mg Tablet 10 Mg PO HS Escitalopram Oxalate 10 Mg Tablet 1 Tab PO DAILY Aricept (Donepezil Hcl) 5 Mg Tablet 1 Tab PO DAILY Flomax (Tamsulosin Hcl) 0.4 Mg Cap.er.24h 0.4 Mg PO DAILY Vitals/I & O Vital Sign - Last 24 Hours 12/25/18 12/25/18 12/25/18 12/25/18 15:29 16:15 16:20 16:29 Temp 97.9 97.9 Pulse 89 80 78 80 Resp 19 21 B/P (MAP) 109/76 (87) 102/66 (78) 98/62 (74) 98/65 (76) Pulse Ox 94 95 92 96 O2 Delivery Room Air Room Air Room Air Room Air 12/25/18 12/25/18 12/25/18 12/25/18 16:33 17:04 17:34 18:04 Pulse 80 88 82 Resp 22 23 16 B/P (MAP) 110/71 (84) 114/77 (89) 123/78 (93) 119/73 (88) Pulse Ox 95 95 92 O2 Delivery Room Air Room Air Room Air Room Air 12/25/18 12/25/18 12/25/18 12/25/18 18:34 18:45 20:00 21:12 Temp 98.2 98.2 Pulse 84 82 Resp 19 B/P (MAP) 112/73 (86) 116/71 (86) Pulse Ox 95 O2 Delivery Room Air Room Air Room Air Room Air 12/25/18 12/26/18 12/26/18 12/26/18 23:22 03:20 07:00 08:00 Temp 98.1 98.2 97.6 98.1 98.2 97.6 Pulse 76 87 80 Resp 19 18 18 B/P (MAP) 106/63 (77) 129/71 (90) 111/65 (80) Pulse Ox 95 100 99 O2 Delivery Room Air Nasal Cannula Nasal Cannula Room Air O2 Flow Rate 2.0 2.0 12/26/18 11:00 Temp 98.3 98.3 Pulse 82 Resp 18 B/P (MAP) 106/64 (78) Pulse Ox 99 O2 Delivery Nasal Cannula O2 Flow Rate 2.0 Intake and Output 12/25/18 12/25/18 12/26/18 15:00 23:00 07:00 Intake Total 200 ml Output Total 1600 ml 300 ml Balance -1600 ml -100 ml LANIE DAVIS MD Dec 26, 2018 15:27
[2018-12-26] MEDS: TAMSULOSIN 0.4 MG CAP.ER.24H. PO SCH (16:00)
[2018-12-26] MEDS: ENOXAPARIN 40 MG/0.4 ML SYRINGE. SQ SCH (16:00)
[2018-12-26] MEDS: METOPROLOL SUCC 24HR ER 50 MG TAB.ER.24H. PO SCH (16:00)
[2018-12-26] MEDS: DONEPEZIL HCL 5 MG TABLET. PO SCH (16:00)
[2018-12-26] MEDS: hydroCHLOROthiazide 12.5 MG CAPSULE PO SCH (16:00)
[2018-12-26] MEDS: CITALOPRAM 20 MG TABLET. PO SCH (16:00)
[2018-12-26] MEDS ORDERED: LIDOCAINE 1% Multi-Dose 20 ML VIAL. ONE (16:05)
[2018-12-26] MEDS ORDERED: IODIXANOL 320 MG/ML 100 ML VIAL. ONE (16:05)
[2018-12-26] MEDS ORDERED: fentaNYL PF VIAL 100 MCG/2 ML VIAL ONE (16:15)
[2018-12-26] MEDS ORDERED: MIDAZOLAM HCL/PF 2 MG/2 ML VIAL. ONE (16:15)
[2018-12-26] MEDS ORDERED: IODIXANOL 320 MG/ML 100 ML VIAL. IART ONE (16:45)
[2018-12-26] MEDS ORDERED: fentaNYL PF VIAL 100 MCG/2 ML VIAL IV ONE (16:45)
[2018-12-26] MEDS ORDERED: MIDAZOLAM HCL/PF 2 MG/2 ML VIAL. IV ONE (16:45)
[2018-12-26] MEDS ORDERED: LIDOCAINE 1% Multi-Dose 20 ML VIAL. INJ ONE (16:45)
--- NOTE | 2018-12-26 17:28 | CARD ---
MR#: [id number] Date of Study: 12/26/2018 Ordering Physician: GERONIMO BROWN, Referring Physician: KRYS COON, Tech: RT Олег (R) ZORAIDA APPROVED REPORT Technologist: RT Олег (R) ZORAIDA Nurse: Katia Molina R.N. Procedure(s) performed: MOD SED: CONTRAST: 67ML FLUORO TIME: 10.7 MIN DOSE:38.9 Gycm2 LHC, Coronary angiography, Bypass angiography. Aortic valve study HISTORY The patient is a 88 year-old male with a history of : coronary artery disease, hypertension, dyslipid emia. INDICATION The indication(s) include : non-STEMI . Heart Failure Heart Failure: Yes If Yes, Newly Diagnosed: Yes If Yes, HF Type: Diastolic Systolic If Yes, NYHA Class: Class III PROCEDURE NARRATIVE After explaining the risks and benefits of the procedure and alternatives, informed consent was obtai dora from the patient's family. The patient was brought electively to the cardiac catheterization lab in a fasting state. A timeout was performed confirming the patient's name, date of , procedure, and site of procedure. All necessary personnel were wearing the appropriate protective equipment an d radiation monitor devices. (See nursing notes for medications administered). The right groin was sterilely prepped and draped in the usual fashion. The right groin was infiltrated with 10 mL of 2% lidocaine for subcutaneous anesthesia. A 6 F sheath was inserted into the right femoral artery witho ut difficulty. Right and left coronary angiography was performed using a JR4 and JL4 catheter. Left ventricular end diastolic pressure was obtained with a dual lumen pigtail catheter and pullback was performed after an aortic valve study. All catheter exchanges and advancements were performed over a guidewire. At case completion the right femoral sheath was removed and hemostasis was achieved with manual compression. There were no acute complications. HEMODYNAMICS: AO: 140/90 LVEDP 35 mm Hg Aortic valve gradient: 38 mm Hg. LEFT VENTRICULOGRAM: Deferred due to known EF of 15% by echo. CORONARY ANGIOGRAPHY: LM is a moderate caliber vessel with a diffuse 50% stenosis. LAD is a moderate caliber vessel with a proximal 100% occlusion. The mid to distal vessel fills via a patent STANFORD graft and has no significant disease. Ramus is a moderate caliber vessel with a proximal to mid 70% stenosis. LCx is a moderate caliber vessel with a proximal occlusion. The distal OM1 and LCx vessels are seen t o fill via RPDA collaterals. RCA is a large caliber dominant vessel with a proximal 100% occlusion. The distal vessel and PDA are seen to fill via a patent vein graft. BYPASS ANGIOGRAPHY: STANFORD to LAD - Widely patent, tortuous without anastomotic stenosis. SVG to RCA - Ectatic vein graft with patent proximal and mid stents. No anastomotic stenosis. Conclusion 1. Acute on chronic systolic and diastolic HF 2. Severe three vessel coronary artery disease. 3. 2/2 grafts patent 4. Severe aortic stenosis. Recommendations 1. Plan for medical optimization over the next 48 hours. Aortic valvuloplasty as a bridge to possible TAVR on Sunday12/30/2018. Signed by : Tim Leroy, Electronically Approved : 12/26/2018 17:27:35
[2018-12-26] MEDS: LIDO:MAALOX 1:1 20 ML SINGLE DOSE. PO PRN (21:34)
[2018-12-26] MEDS: ATORVASTATIN CALCIUM 40 MG TABLET. PO SCH (21:34)
[2018-12-26] MEDS: TEMAZEPAM 15 MG CAPSULE PO PRN (21:34)
[2018-12-27] MEDS ORDERED: TEMAZEPAM 15 MG CAPSULE PO ONE (01:00)
[2018-12-27] MEDS: ACETAMINOPHEN 325 MG TABLET. PO PRN (01:40)
[2018-12-27 07:00] VITALS: BP 101/56
[2018-12-27] MEDS ORDERED: METOPROLOL SUCCINATE PO SCH (09:00)
[2018-12-27] MEDS ORDERED: HCTZ PO SCH (09:00)
[2018-12-27] MEDS: METOPROLOL SUCC 24HR ER 50 MG TAB.ER.24H. PO SCH (09:00)
[2018-12-27] MEDS: hydroCHLOROthiazide 12.5 MG CAPSULE PO SCH (09:00)
[2018-12-27] MEDS: CITALOPRAM 20 MG TABLET. PO SCH (09:34)
[2018-12-27] MEDS: ASPIRIN ENTERIC COATED 81 MG TABLET.DR. PO SCH (09:34)
[2018-12-27] MEDS: TAMSULOSIN 0.4 MG CAP.ER.24H. PO SCH (09:35)
[2018-12-27] MEDS: DONEPEZIL HCL 5 MG TABLET. PO SCH (09:35)
[2018-12-27 11:00] VITALS: BP 100/63
--- NOTE | 2018-12-27 11:23 | NUR ---
SS following up with discharge planning. PT/OT recommending jail unit. SS contacted pt's daughter and discussed. Pt's daughter agreeable and requested that referral be sent to [facility], ; fax [phone]. SS phoned and faxed referral. SS awaiting acceptance decision and insurance determination and will proceed accordingly with discharge planning. Pt's RN notified.
--- NOTE | 2018-12-27 11:31 | PDOC ---
GERONIMO BROWN DIRECTOR DENTAL SERVICES 12/27/18 1131: CARDIO Progress Notes Date and Time Date of Service 12/27/2018 Time of Evaluation 1100 Subjective Subjective: No shortness of breath, No Palpitations, Other (right chest pain from fall) Vitals Vitals Vital Signs Date Time Temp Pulse Resp B/P (MAP) Pulse Ox O2 Delivery O2 Flow Rate FiO2 12/27/18 11:00 97.8 86 18 100/63 (75) 99 Room Air 97.8 12/26/18 19:36 2.0 Weight Weight [ ] Input and Output Intake and Output Intake and Output 12/27/18 07:00 Output Total 1100 ml Balance -1100 ml Output Urine Total 1100 ml Physical Exam HEENT: Neck Supple W Full Motion Chest: Symmetric LUNGS: Other (diminished bases) Heart: RRR (SR), murmurs (ssytolic murmur 4/6 to NICOLE border) Extremities: No Calf Tenderness, Other (trace LE edema) Neurology: alert, oriented (to self and place), follow commands Assessment Assessment 1. Acute on chronic diastolic/systolic CHF: compensated 2. Mechanical fall with no acute injuries 3. Suspect multiple past falls/osteoporosis given noted old right rib fractures and thoracic vertebral compression deformity. Syncope could not be ruled out. 4. Atypical CP: right chest: MSK. landed on his shoe with fall. better 5. CAD: remote CABG. STANFORD to LAD and SVG to RCA patent. See yesterday [facility] report no intervention 6. Severe NICM/ICM 7. Severe 8. HTN: controlled 9.. HLP 10. Dementia with med noncompliance 11. Hx of GI bleed Recommendations 1. Will need to address goals of care and better supervision or assisted living placement. SS following 2. ASA. Continue with secondary prevention measures. 3. Lasix therapy. Decrease toprol. 4. Valvuloplasty on Sunday and TAVR referral 5. Future AICD consideration pending optimization and family/pt decision in regards to goals of care. 6. High risk for falls and injuries, remains to drive despite license being revoked. SS following 7. Lidocaine patch to right chest BINA TOBIN MD 12/27/18 1524: CARDIO Progress Notes Plan Plan Pt. seen and examined. Agree with above ONLINE TRADER note. Doing well this morning. Mildly agitated. At nursing station because of confusion. No chest pain. No dyspnea. If family agreeable, plan for valvuloplasty sunday, otherwise, continue med tx. Would not recommend ICD given his dementia and age. Thanks GERONIMO BROWN APRN Dec 27, 2018 11:31 BINA TOBIN MD Dec 27, 2018 15:24
[2018-12-27] MEDS ORDERED: POLYETHYLENE GLYCOL 3350 17 GM PACKET. PO PRN (12:45)
[2018-12-27] MEDS: LIDOCAINE (700MG/PATCH) PATCH. TD SCH (12:55)
--- NOTE | 2018-12-27 12:55 | PDOC ---
PROGRESS NOTES Chief Complaint Chief Complaint Acute on chronic systolic heart failure. CAD known s/p CABG chest pain, angina, w. atypical pain, poss bruise CKD 2-3 Mechanical fall with acquired weakness and debility severe aortic stensosi dementia History of Present Illness History of Present Illness feels well, consitpated today str better no event cont current Valvuloplasty on Sunday and TAVR referral cont LASIX left heart cath in AM cont current CV following Vitals Vitals Vital Signs Date Time Temp Pulse Resp B/P (MAP) Pulse Ox O2 Delivery O2 Flow Rate FiO2 12/27/18 11:00 97.8 86 18 100/63 (75) 99 Room Air 97.8 12/26/18 19:36 2.0 Physical Exam General: Alert, Cooperative, No acute distress, Other (oriented to place) Heart: Regular rate (SR), Normal S1, Normal S2, Other (4/6 systolic murmur to NICOLE and 3/6 systolic murmur to LLS border) Lungs: Clear Abdomen: Soft, No tenderness Extremities: No cyanosis, Other (1+ bilateral LE pitting edema) Skin: No breakdown, No significant lesion Review of Systems Review of Systems n on.v.d Assessment and Plan Assessmemt and Plan Problems Medical Problems: (1) CHF exacerbation Status: Acute (2) Dyspnea Status: Acute Comment Review of Relevant I have reviewed the following items jayce (where applicable) has been applied. Labs Laboratory Tests Test 12/25/18 16:00 12/25/18 17:00 12/26/18 09:03 White Blood Count 9.6 x10^3/uL (4.0-11.0) Red Blood Count 3.83 x10^6/uL (4.30-5.70) Hemoglobin 11.9 g/dL (13.0-17.5) Hematocrit 35.1 % (39.0-53.0) Mean Corpuscular Volume 92 fL (79-100) Mean Corpuscular Hemoglobin 31 pg (25-35) Mean Corpuscular Hemoglobin Concent 34 g/dL (31-37) Red Cell Distribution Width 14.2 % (11.5-14.5) Platelet Count 301 x10^3/uL (140-400) Neutrophils (%) (Auto) 78 % (31-73) Lymphocytes (%) (Auto) 10 % (24-48) Monocytes (%) (Auto) 11 % (0-9) Eosinophils (%) (Auto) 1 % (0-3) Basophils (%) (Auto) 0 % (0-3) Neutrophils # (Auto) 7.5 x10^3uL (1.8-7.7) Lymphocytes # (Auto) 0.9 x10^3/uL (1.0-4.8) Monocytes # (Auto) 1.1 x10^3/uL (0.0-1.1) Eosinophils # (Auto) 0.1 x10^3/uL (0.0-0.7) Basophils # (Auto) 0.0 x10^3/uL (0.0-0.2) Sodium Level 144 mmol/L (136-145) 144 mmol/L (136-145) Potassium Level 4.0 mmol/L (3.5-5.1) 3.5 mmol/L (3.5-5.1) Chloride Level 107 mmol/L (98-107) 106 mmol/L (98-107) Carbon Dioxide Level 24 mmol/L (21-32) 24 mmol/L (21-32) Anion Gap 13 (6-14) 14 (6-14) Blood Urea Nitrogen 29 mg/dL (8-26) 32 mg/dL (8-26) Creatinine 1.2 mg/dL (0.7-1.3) 1.3 mg/dL (0.7-1.3) Estimated GFR (Cockcroft-Gault) 57.1 52.1 BUN/Creatinine Ratio 24 (6-20) Glucose Level 97 mg/dL (70-99) 158 mg/dL (70-99) Calcium Level 8.7 mg/dL (8.5-10.1) 8.6 mg/dL (8.5-10.1) Magnesium Level 2.0 mg/dL (1.8-2.4) 2.2 mg/dL (1.8-2.4) Total Bilirubin 1.5 mg/dL (0.2-1.0) Aspartate Amino Transf (AST/SGOT) 26 U/L (15-37) Alanine Aminotransferase (ALT/SGPT) 41 U/L (16-63) Alkaline Phosphatase 85 U/L (46-116) Troponin I Quantitative 0.099 ng/mL (0.000-0.055) 0.104 ng/mL (0.000-0.055) SN-Ygf-U-Type Natriuretic Peptide 77393 pg/mL (0-449) Total Protein 6.2 g/dL (6.4-8.2) Albumin 3.2 g/dL (3.4-5.0) Albumin/Globulin Ratio 1.1 (1.0-1.7) Thyroid Stimulating Hormone (TSH) 1.756 uIU/mL (0.358-3.74) Free Thyroxine 1.45 ng/dL (0.76-1.46) Urine Collection Type Unknown Urine Color Yellow Urine Clarity Clear Urine pH 5.5 Urine Specific [place] 1.015 Urine Protein 30 mg/dL (NEG-TRACE) Urine Glucose (UA) Negative mg/dL (NEG) Urine Ketones (Stick) Negative mg/dL (NEG) Urine Blood Negative (NEG) Urine Nitrite Negative (NEG) Urine Bilirubin Negative (NEG) Urine Urobilinogen Dipstick 0.2 mg/dL (0.2 mg/dL) Urine Leukocyte Esterase Negative (NEG) Urine RBC 0 /HPF (0-2) Urine WBC 0 /HPF (0-4) Urine Bacteria 0 /HPF (0-FEW) Urine Hyaline Casts Few /HPF Urine Mucus Mod /LPF Creatine Kinase 96 U/L (39-308) Triglycerides Level 68 mg/dL (0-150) Cholesterol Level 108 mg/dL (0-200) LDL Cholesterol, Calculated 67 mg/dL (0-100) VLDL Cholesterol, Calculated 14 mg/dL (0-40) Non-HDL Cholesterol Calculated 81 mg/dL (0-129) HDL Cholesterol 27 mg/dL (40-60) Cholesterol/HDL Ratio 4.0 Medications Current Medications Morphine Sulfate (Morphine Sulfate) 4 mg 1X ONCE IV Last administered on 12/25/18at 16:10; Start 12/25/18 at 16:00; Stop 12/25/18 at 16:01; Status DC Furosemide (Lasix) 40 mg 1X ONCE IV Last administered on 12/25/18at 16:09; Start 12/25/18 at 16:00; Stop 12/25/18 at 16:01; Status DC Temazepam (Restoril) 15 mg PRN QHS PRN PO INSOMNIA Last administered on 12/26/18at 21:34; Start 12/25/18 at 22:15; Stop 12/26/18 at 23:33; Status DC Furosemide (Lasix) 40 mg 1X ONCE IVP Last administered on 12/26/18at 11:41; Start 12/26/18 at 11:15; Stop 12/26/18 at 11:19; Status DC Potassium Chloride (Klor-Con) 20 meq 1X ONCE PO Last administered on 12/26/18at 11:41; Start 12/26/18 at 11:15; Stop 12/26/18 at 11:19; Status DC Aspirin (Ecotrin) 81 mg DAILYWBKFT PO Last administered on 12/27/18at 09:34; Start 12/26/18 at 12:00 Enoxaparin Sodium (Lovenox Per Pharmacy Prophylaxis Dosing) 1 each PRN DAILY PRN MC SEE COMMENTS; Start 12/26/18 at 15:15 Tamsulosin HCl (Flomax) 0.4 mg DAILY PO Last administered on 12/27/18at 09:35; Start 12/26/18 at 16:00 Donepezil HCl (Aricept) 5 mg DAILY PO Last administered on 12/27/18at 09:35; Start 12/26/18 at 16:00 Citalopram Hydrobromide (CeleXA) 20 mg DAILY PO Last administered on 12/27/18at 09:34; Start 12/26/18 at 16:00 Non-Formulary Medication (Metoprolol Succinate/Hctz (Metoprolol ER-Hctz 50-12.5 mg)) 1 each DAILY PO ; Start 12/27/18 at 09:00; Status UNV Atorvastatin Calcium (Lipitor) 40 mg QHS PO Last administered on 12/26/18at 21:34; Start 12/26/18 at 21:00 Metoprolol Succinate (Toprol Xl) 50 mg DAILY PO ; Start 12/26/18 at 16:00; Stop 12/27/18 at 11:26; Status DC Hydrochlorothiazide (Microzide) 12.5 mg DAILY PO ; Start 12/26/18 at 16:00; Stop 12/27/18 at 11:26; Status DC Enoxaparin Sodium (Lovenox 40mg Syringe) 40 mg Q24H SQ ; Start 12/26/18 at 16:00 Iodixanol (Visipaque 320) 100 ml STK-MED ONCE .ROUTE ; Start 12/26/18 at 16:05; Stop 12/26/18 at 16:06; Status DC Lidocaine HCl (Lidocaine 1% 20ml Vial) 20 ml STK-MED ONCE .ROUTE ; Start 12/26/18 at 16:05; Stop 12/26/18 at 16:06; Status DC Heparin Sodium/ Sodium Chloride 1,000 ml @ As Directed STK-MED ONCE .ROUTE ; Start 12/26/18 at 16:06; Stop 12/26/18 at 16:07; Status DC Fentanyl Citrate (Fentanyl 2ml Vial) 100 mcg STK-MED ONCE .ROUTE ; Start 12/26/18 at 16:15; Stop 12/26/18 at 16:16; Status DC Midazolam HCl (Versed) 2 mg STK-MED ONCE .ROUTE ; Start 12/26/18 at 16:15; Stop 12/26/18 at 16:16; Status DC Heparin Sodium/ Sodium Chloride (HEPARIN for ARTERIAL LINE FLUSH) 1,000 unit 1X ONCE IART Last administered on 12/26/18at 17:22; Start 12/26/18 at 16:45; Stop 12/26/18 at 16:46; Status DC Heparin Sodium/ Sodium Chloride (HEPARIN for ARTERIAL LINE FLUSH) 1,000 unit 1X ONCE IART Last administered on 12/26/18at 17:22; Start 12/26/18 at 16:45; Stop 12/26/18 at 16:46; Status DC Midazolam HCl (Versed) 2 mg 1X ONCE IV Last administered on 12/26/18 17:25; Start 12/26/18 at 16:45; Stop 12/26/18 at 16:46; Status DC Fentanyl Citrate (Fentanyl 2ml Vial) 100 mcg 1X ONCE IV Last administered on 12/26/18at 17:25; Start 12/26/18 at 16:45; Stop 12/26/18 at 16:46; Status DC Iodixanol (Visipaque 320) 100 ml 1X ONCE IART Last administered on 12/26/18at 17:23; Start 12/26/18 at 16:45; Stop 12/26/18 at 16:46; Status DC Lidocaine HCl (Lidocaine 1% 20ml Vial) 20 ml 1X ONCE INJ Last administered on 12/26/18at 17:24; Start 12/26/18 at 16:45; Stop 12/26/18 at 16:46; Status DC Multi-Ingredient Mouthwash/Gargle (Gi Cocktail) 20 ml PRN QID PRN PO CHEST PAIN Last administered on 12/26/18at 21:34; Start 12/26/18 at 21:30 Temazepam (Restoril) 15 mg PRN QHS PRN PO INSOMNIA, MAY REPEAT X1; Start 12/26/18 at 23:45 Temazepam (Restoril) 15 mg 1X ONCE PO Last administered on 12/27/18at 01:40; Start 12/27/18 at 01:00; Stop 12/27/18 at 01:01; Status DC Acetaminophen (Tylenol) 650 mg PRN Q6HRS PRN PO MILD PAIN 1-3 Last administered on 12/27/18at 01:40; Start 12/27/18 at 01:30 Oxycodone HCl (Roxicodone) 5 mg PRN Q6HRS PRN PO PAIN; Start 12/27/18 at 11:15 Metoprolol Succinate (Toprol Xl) 25 mg DAILY PO ; Start 12/28/18 at 09:00 Furosemide (Lasix) 20 mg DAILY PO ; Start 12/27/18 at 12:00 Potassium Chloride (Klor-Con) 10 meq DAILYWBKFT PO ; Start 12/27/18 at 12:00 Lidocaine (Lidoderm) 1 patch DAILY TD ; Start 12/27/18 at 12:00 Miscellaneous (Lidoderm Patch Removal) 1 ea QHS MC ; Start 12/27/18 at 21:00 Active Scripts Active Reported Metoprolol ER-Hctz 50-12.5 mg (Metoprolol Succinate/Hctz) 1 Each Tab.er.24h 1 Each PO DAILY Crestor (Rosuvastatin Calcium) 10 Mg Tablet 10 Mg PO HS Escitalopram Oxalate 10 Mg Tablet 1 Tab PO DAILY Aricept (Donepezil Hcl) 5 Mg Tablet 1 Tab PO DAILY Flomax (Tamsulosin Hcl) 0.4 Mg Cap.er.24h 0.4 Mg PO DAILY Vitals/I & O Vital Sign - Last 24 Hours 12/26/18 12/26/18 12/26/18 12/26/18 15:00 16:00 17:17 17:25 Temp 97.6 97.6 Pulse 82 82 85 Resp 18 14 18 B/P (MAP) 105/61 (76) 105/61 Pulse Ox 100 99 98 O2 Delivery Nasal Cannula Nasal Cannula Nasal Cannula O2 Flow Rate 2.0 2.0 2.0 12/26/18 12/26/18 12/26/18 12/26/18 17:36 17:51 18:00 18:06 Pulse 78 79 79 Resp 18 18 18 18 B/P (MAP) 118/72 (87) 113/70 (84) 113/70 (84) 109/65 (80) Pulse Ox 100 100 99 100 O2 Delivery Nasal Cannula Nasal Cannula Nasal Cannula Nasal Cannula O2 Flow Rate 2.0 2.0 2.0 2.0 12/26/18 12/26/18 12/26/18 12/26/18 18:21 18:51 19:06 19:20 Temp 97.9 97.9 Pulse 78 77 87 83 Resp 18 18 18 B/P (MAP) 103/63 (76) 100/62 (75) 97/64 (75) 97/64 (75) Pulse Ox 100 100 100 100 O2 Delivery Nasal Cannula Nasal Cannula Nasal Cannula Nasal Cannula O2 Flow Rate 2.0 2.0 2.0 2.0 12/26/18 12/26/18 12/26/18 12/26/18 19:33 19:34 19:36 19:45 Pulse 85 B/P (MAP) 98/62 (74) Pulse Ox 100 100 100 O2 Delivery Room Air Room Air Nasal Cannula Room Air O2 Flow Rate 2.0 2.0 2.0 12/26/18 12/26/18 12/26/18 12/27/18 20:36 21:36 23:11 02:50 Temp 98.0 98.0 Pulse 79 88 62 84 Resp 20 B/P (MAP) 100/65 (77) 95/62 (73) 104/57 (73) Pulse Ox 99 92 92 O2 Delivery Room Air Room Air Room Air 12/27/18 12/27/18 12/27/18 12/27/18 07:00 08:00 09:00 11:00 Temp 96.5 97.8 96.5 97.8 Pulse 83 86 Resp 18 18 B/P (MAP) 101/56 (71) 80/52 100/63 (75) Pulse Ox 97 99 O2 Delivery Room Air Room Air Room Air Intake and Output 12/26/18 12/26/18 12/27/18 15:00 23:00 07:00 Output Total 500 ml 200 ml 400 ml Balance -500 ml -200 ml -400 ml LANIE DAVIS MD Dec 27, 2018 12:55
[2018-12-27] MEDS: POTASSIUM CHLORIDE 10 MEQ TABLET.ER. PO SCH (12:57)
[2018-12-27] MEDS: FUROSEMIDE 20 MG TABLET PO SCH (12:58)
[2018-12-27] MEDS: oxyCODONE IR 5 MG TABLET PO PRN ×2 (12:59→20:26)
[2018-12-27] MEDS: POLYETHYLENE GLYCOL 3350 17 GM PACKET. PO SCH (13:00)
[2018-12-27] MEDS: DOCUSATE SODIUM 100 MG CAPSULE. PO SCH (13:00)
[2018-12-27 13:08] LABS: CALCIUM 8.7 mg/dL (8.5-10.1); CREATININE 1.4 mg/dL (0.7-1.3); GFR 47.8; MAGNESIUM 2.6 mg/dL (1.8-2.4); POTASSIUM 4.3 mmol/L (3.5-5.1)
[2018-12-27 14:35] VITALS: BP 111/78
[2018-12-27] MEDS: ENOXAPARIN 40 MG/0.4 ML SYRINGE. SQ SCH (16:00)
[2018-12-27 19:35] VITALS: BP 109/65
[2018-12-27] MEDS: PATCH REMOVAL. MC SCH (20:25)
[2018-12-27] MEDS: TEMAZEPAM 15 MG CAPSULE PO PRN (20:25)
[2018-12-27] MEDS: ATORVASTATIN CALCIUM 40 MG TABLET. PO SCH (20:26)
[2018-12-27 23:28] VITALS: BP 108/61
[2018-12-28] MEDS: oxyCODONE IR 5 MG TABLET PO PRN ×2 (02:47→20:56)
[2018-12-28 03:00] VITALS: BP 105/67
[2018-12-28 07:00] VITALS: BP 113/71
[2018-12-28] MEDS: DOCUSATE SODIUM 100 MG CAPSULE. PO SCH (08:14)
[2018-12-28] MEDS: TAMSULOSIN 0.4 MG CAP.ER.24H. PO SCH (08:17)
[2018-12-28] MEDS: POLYETHYLENE GLYCOL 3350 17 GM PACKET. PO SCH (08:17)
[2018-12-28] MEDS: DONEPEZIL HCL 5 MG TABLET. PO SCH (08:17)
[2018-12-28] MEDS: CITALOPRAM 20 MG TABLET. PO SCH (08:18)
[2018-12-28] MEDS: ASPIRIN ENTERIC COATED 81 MG TABLET.DR. PO SCH (08:18)
[2018-12-28] MEDS: FUROSEMIDE 20 MG TABLET PO SCH (08:18)
[2018-12-28] MEDS: POTASSIUM CHLORIDE 10 MEQ TABLET.ER. PO SCH (08:19)
[2018-12-28] MEDS: METOPROLOL SUCC 24HR ER 25 MG TAB.ER.24H. PO SCH (08:23)
[2018-12-28] MEDS: LIDOCAINE (700MG/PATCH) PATCH. TD SCH (08:28)
[2018-12-28 11:00] VITALS: BP 103/64
[2018-12-28] MEDS: ENOXAPARIN 40 MG/0.4 ML SYRINGE. SQ SCH (16:00)
--- NOTE | 2018-12-28 16:04 | PDOC ---
PROGRESS NOTES Chief Complaint Chief Complaint Acute on chronic systolic heart failure. CAD known s/p CABG chest pain, angina, w. atypical pain, poss bruise CKD 2-3 Mechanical fall with acquired weakness and debility severe aortic stensosi dementia History of Present Illness History of Present Illness feels well, some confusion, has sat at desk with staff for help with orientation str better no event cont current Valvuloplasty on Sunday and TAVR referral cont LASIX Vitals Vitals Vital Signs Date Time Temp Pulse Resp B/P (MAP) Pulse Ox O2 Delivery O2 Flow Rate FiO2 12/28/18 11:00 97.8 86 20 103/64 (77) 96 Room Air 97.8 12/27/18 13:59 2.0 Physical Exam General: Alert, Cooperative, No acute distress, Other (oriented to place) Heart: Regular rate (SR), Normal S1, Normal S2, Other (4/6 systolic murmur to NICOLE and 3/6 systolic murmur to LLS border) Lungs: Clear Abdomen: Soft, No tenderness Extremities: No cyanosis, Other (1+ bilateral LE pitting edema) Skin: No breakdown, No significant lesion Assessment and Plan Assessmemt and Plan Problems Medical Problems: (1) CHF exacerbation Status: Acute (2) Dyspnea Status: Acute Comment Review of Relevant I have reviewed the following items jayce (where applicable) has been applied. Labs Laboratory Tests Test 12/27/18 12:30 Sodium Level 142 mmol/L (136-145) Potassium Level 4.3 mmol/L (3.5-5.1) Chloride Level 107 mmol/L (98-107) Carbon Dioxide Level 24 mmol/L (21-32) Anion Gap 11 (6-14) Blood Urea Nitrogen 38 mg/dL (8-26) Creatinine 1.4 mg/dL (0.7-1.3) Estimated GFR (Cockcroft-Gault) 47.8 Glucose Level 133 mg/dL (70-99) Calcium Level 8.7 mg/dL (8.5-10.1) Magnesium Level 2.6 mg/dL (1.8-2.4) Medications Current Medications Morphine Sulfate (Morphine Sulfate) 4 mg 1X ONCE IV Last administered on 12/25/18at 16:10; Start 12/25/18 at 16:00; Stop 12/25/18 at 16:01; Status DC Furosemide (Lasix) 40 mg 1X ONCE IV Last administered on 12/25/18 16:09; Start 12/25/18 at 16:00; Stop 12/25/18 at 16:01; Status DC Temazepam (Restoril) 15 mg PRN QHS PRN PO INSOMNIA Last administered on 12/26/18at 21:34; Start 12/25/18 at 22:15; Stop 12/26/18 at 23:33; Status DC Furosemide (Lasix) 40 mg 1X ONCE IVP Last administered on 12/26/18 11:41; Start 12/26/18 at 11:15; Stop 12/26/18 at 11:19; Status DC Potassium Chloride (Klor-Con) 20 meq 1X ONCE PO Last administered on 12/26/18 11:41; Start 12/26/18 at 11:15; Stop 12/26/18 at 11:19; Status DC Aspirin (Ecotrin) 81 mg DAILYWBKFT PO Last administered on 12/28/18 08:18; Start 12/26/18 at 12:00 Enoxaparin Sodium (Lovenox Per Pharmacy Prophylaxis Dosing) 1 each PRN DAILY PRN MC SEE COMMENTS; Start 12/26/18 at 15:15 Tamsulosin HCl (Flomax) 0.4 mg DAILY PO Last administered on 12/28/18 08:17; Start 12/26/18 at 16:00 Donepezil HCl (Aricept) 5 mg DAILY PO Last administered on 12/28/18at 08:17; Start 12/26/18 at 16:00 Citalopram Hydrobromide (CeleXA) 20 mg DAILY PO Last administered on 12/28/18 08:18; Start 12/26/18 at 16:00 Non-Formulary Medication (Metoprolol Succinate/Hctz (Metoprolol ER-Hctz 50-12.5 mg)) 1 each DAILY PO ; Start 12/27/18 at 09:00; Status UNV Atorvastatin Calcium (Lipitor) 40 mg QHS PO Last administered on 12/27/18at 20:26; Start 12/26/18 at 21:00 Metoprolol Succinate (Toprol Xl) 50 mg DAILY PO ; Start 12/26/18 at 16:00; Stop 12/27/18 at 11:26; Status DC Hydrochlorothiazide (Microzide) 12.5 mg DAILY PO ; Start 12/26/18 at 16:00; Stop 12/27/18 at 11:26; Status DC Enoxaparin Sodium (Lovenox 40mg Syringe) 40 mg Q24H SQ ; Start 12/26/18 at 16:00 Iodixanol (Visipaque 320) 100 ml STK-MED ONCE .ROUTE ; Start 12/26/18 at 16:05; Stop 12/26/18 at 16:06; Status DC Lidocaine HCl (Lidocaine 1% 20ml Vial) 20 ml STK-MED ONCE .ROUTE ; Start 12/26/18 at 16:05; Stop 12/26/18 at 16:06; Status DC Heparin Sodium/ Sodium Chloride 1,000 ml @ As Directed STK-MED ONCE .ROUTE ; Start 12/26/18 at 16:06; Stop 12/26/18 at 16:07; Status DC Fentanyl Citrate (Fentanyl 2ml Vial) 100 mcg STK-MED ONCE .ROUTE ; Start 12/26/18 at 16:15; Stop 12/26/18 at 16:16; Status DC Midazolam HCl (Versed) 2 mg STK-MED ONCE .ROUTE ; Start 12/26/18 at 16:15; Stop 12/26/18 at 16:16; Status DC Heparin Sodium/ Sodium Chloride (HEPARIN for ARTERIAL LINE FLUSH) 1,000 unit 1X ONCE IART Last administered on 12/26/18at 17:22; Start 12/26/18 at 16:45; Stop 12/26/18 at 16:46; Status DC Heparin Sodium/ Sodium Chloride (HEPARIN for ARTERIAL LINE FLUSH) 1,000 unit 1X ONCE IART Last administered on 12/26/18at 17:22; Start 12/26/18 at 16:45; Stop 12/26/18 at 16:46; Status DC Midazolam HCl (Versed) 2 mg 1X ONCE IV Last administered on 12/26/18at 17:25; Start 12/26/18 at 16:45; Stop 12/26/18 at 16:46; Status DC Fentanyl Citrate (Fentanyl 2ml Vial) 100 mcg 1X ONCE IV Last administered on 12/26/18at 17:25; Start 12/26/18 at 16:45; Stop 12/26/18 at 16:46; Status DC Iodixanol (Visipaque 320) 100 ml 1X ONCE IART Last administered on 12/26/18 17:23; Start 12/26/18 at 16:45; Stop 12/26/18 at 16:46; Status DC Lidocaine HCl (Lidocaine 1% 20ml Vial) 20 ml 1X ONCE INJ Last administered on 12/26/18 17:24; Start 12/26/18 at 16:45; Stop 12/26/18 at 16:46; Status DC Multi-Ingredient Mouthwash/Gargle (Gi Cocktail) 20 ml PRN QID PRN PO CHEST PAIN Last administered on 12/26/18 21:34; Start 12/26/18 at 21:30 Temazepam (Restoril) 15 mg PRN QHS PRN PO INSOMNIA, MAY REPEAT X1 Last administered on 12/27/18 20:25; Start 12/26/18 at 23:45 Temazepam (Restoril) 15 mg 1X ONCE PO Last administered on 12/27/18 01:40; Start 12/27/18 at 01:00; Stop 12/27/18 at 01:01; Status DC Acetaminophen (Tylenol) 650 mg PRN Q6HRS PRN PO MILD PAIN 1-3 Last administered on 12/27/18 01:40; Start 12/27/18 at 01:30 Oxycodone HCl (Roxicodone) 5 mg PRN Q6HRS PRN PO PAIN Last administered on 12/28/18 02:47; Start 12/27/18 at 11:15 Metoprolol Succinate (Toprol Xl) 25 mg DAILY PO Last administered on 12/28/18 08:23; Start 12/28/18 at 09:00 Furosemide (Lasix) 20 mg DAILY PO Last administered on 12/28/18 08:18; Start 12/27/18 at 12:00 Potassium Chloride (Klor-Con) 10 meq DAILYWBKFT PO Last administered on 12/28/18 08:19; Start 12/27/18 at 12:00 Lidocaine (Lidoderm) 1 patch DAILY TD Last administered on 12/28/18 08:28; Start 12/27/18 at 12:00 Miscellaneous (Lidoderm Patch Removal) 1 ea QHS MC Last administered on 12/27/18 20:25; Start 12/27/18 at 21:00 Docusate Sodium (Colace) 100 mg DAILY PO Last administered on 12/28/18at 08:14; Start 12/27/18 at 13:00 Polyethylene Glycol (miraLAX PACKET) 17 gm PRN DAILY PRN PO CONSTIPATION; Start 12/27/18 at 12:45 Polyethylene Glycol (miraLAX PACKET) 17 gm DAILY PO Last administered on 12/28/18at 08:17; Start 12/27/18 at 13:00 Active Scripts Active Reported Metoprolol ER-Hctz 50-12.5 mg (Metoprolol Succinate/Hctz) 1 Each Tab.er.24h 1 Each PO DAILY Crestor (Rosuvastatin Calcium) 10 Mg Tablet 10 Mg PO HS Escitalopram Oxalate 10 Mg Tablet 1 Tab PO DAILY Aricept (Donepezil Hcl) 5 Mg Tablet 1 Tab PO DAILY Flomax (Tamsulosin Hcl) 0.4 Mg Cap.er.24h 0.4 Mg PO DAILY Vitals/I & O Vital Sign - Last 24 Hours 12/27/18 12/27/18 12/27/18 12/27/18 19:25 19:35 20:26 23:28 Temp 97.5 97.7 97.5 97.7 Pulse 81 75 Resp 19 17 B/P (MAP) 109/65 (80) 108/61 (77) Pulse Ox 98 96 O2 Delivery Room Air Room Air Nasal Cannula Room Air 12/28/18 12/28/18 12/28/18 12/28/18 03:00 03:47 07:00 08:00 Temp 97.1 97.8 97.1 97.8 Pulse 71 83 Resp 18 12 B/P (MAP) 105/67 (80) 113/71 (85) Pulse Ox 98 96 O2 Delivery Room Air Room Air Room Air Room Air 12/28/18 12/28/18 08:23 11:00 Temp 97.8 97.8 Pulse 89 86 Resp 20 B/P (MAP) 113/64 103/64 (77) Pulse Ox 96 O2 Delivery Room Air Intake and Output 12/27/18 12/27/18 12/28/18 14:59 22:59 06:59 Intake Total 360 ml Output Total 50 ml 400 ml Balance -50 ml 360 ml -400 ml LANIE DAVIS MD Dec 28, 2018 16:04
[2018-12-28 19:44] VITALS: BP 101/69
[2018-12-28] MEDS: ACETAMINOPHEN 325 MG TABLET. PO PRN (20:05)
[2018-12-28] MEDS: ATORVASTATIN CALCIUM 40 MG TABLET. PO SCH (20:55)
[2018-12-28] MEDS: TEMAZEPAM 15 MG CAPSULE PO PRN (20:55)
[2018-12-28] MEDS: PATCH REMOVAL. MC SCH (21:00)
[2018-12-28 23:18] VITALS: BP 95/60
[2018-12-29 03:42] VITALS: BP 115/66
[2018-12-29 07:00] VITALS: BP 117/69
[2018-12-29] MEDS: CITALOPRAM 20 MG TABLET. PO SCH (08:48)
[2018-12-29] MEDS: ACETAMINOPHEN 325 MG TABLET. PO PRN (08:48)
[2018-12-29] MEDS: POTASSIUM CHLORIDE 10 MEQ TABLET.ER. PO SCH (08:48)
[2018-12-29] MEDS: ASPIRIN ENTERIC COATED 81 MG TABLET.DR. PO SCH (08:48)
[2018-12-29] MEDS: DONEPEZIL HCL 5 MG TABLET. PO SCH (08:49)
[2018-12-29] MEDS: METOPROLOL SUCC 24HR ER 25 MG TAB.ER.24H. PO SCH (08:49)
[2018-12-29] MEDS: TAMSULOSIN 0.4 MG CAP.ER.24H. PO SCH (08:49)
[2018-12-29] MEDS: FUROSEMIDE 20 MG TABLET PO SCH (08:49)
[2018-12-29] MEDS: POLYETHYLENE GLYCOL 3350 17 GM PACKET. PO SCH (08:50)
[2018-12-29] MEDS: LIDOCAINE (700MG/PATCH) PATCH. TD SCH (08:50)
[2018-12-29] MEDS: DOCUSATE SODIUM 100 MG CAPSULE. PO SCH (08:50)
[2018-12-29 08:59] LABS: ALBUMIN 3.1 g/dL (3.4-5.0); ALBUMIN/GLOBULIN RATIO 0.9 (1.0-1.7); CALCIUM 8.8 mg/dL (8.5-10.1); CREATININE 1.4 mg/dL (0.7-1.3); GFR 47.8; POTASSIUM 4.2 mmol/L (3.5-5.1); TOTAL BILIRUBIN 1.1 mg/dL (0.2-1.0); TOTAL PROTEIN 6.6 g/dL (6.4-8.2)
[2018-12-29 11:12] VITALS: BP 94/60
[2018-12-29 15:00] VITALS: BP 90/60
[2018-12-29] MEDS: LIDO:MAALOX 1:1 20 ML SINGLE DOSE. PO PRN ×2 (16:18→21:56)
[2018-12-29] MEDS: ENOXAPARIN 40 MG/0.4 ML SYRINGE. SQ SCH (16:18)
--- NOTE | 2018-12-29 19:00 | PDOC ---
PROGRESS NOTES Chief Complaint Chief Complaint Acute on chronic systolic heart failure. CAD known s/p CABG chest pain, angina, w. atypical pain, poss bruise CKD 2-3 Mechanical fall with acquired weakness and debility severe aortic stenosis dementia History of Present Illness History of Present Illness has some complaints today, but feels improved has been confused, strength is cont to get better no event cont current Valvuloplasty on Sunday and TAVR referral cont LASIX Vitals Vitals Vital Signs Date Time Temp Pulse Resp B/P (MAP) Pulse Ox O2 Delivery O2 Flow Rate FiO2 12/29/18 15:00 97.6 81 20 90/60 (70) 98 Room Air 97.6 12/29/18 08:00 2.0 Physical Exam General: Alert, Cooperative, No acute distress, Other (oriented to place) Heart: Regular rate (SR), Normal S1, Normal S2, Other (4/6 systolic murmur to NICOLE and 3/6 systolic murmur to LLS border) Lungs: Clear Abdomen: Soft, No tenderness Extremities: No cyanosis, Other (1+ bilateral LE pitting edema) Skin: No breakdown, No significant lesion Labs LABS Laboratory Tests Test 12/29/18 08:15 Sodium Level 141 mmol/L (136-145) Potassium Level 4.2 mmol/L (3.5-5.1) Chloride Level 104 mmol/L (98-107) Carbon Dioxide Level 27 mmol/L (21-32) Anion Gap 10 (6-14) Blood Urea Nitrogen 30 mg/dL (8-26) Creatinine 1.4 mg/dL (0.7-1.3) Estimated GFR (Cockcroft-Gault) 47.8 BUN/Creatinine Ratio 21 (6-20) Glucose Level 154 mg/dL (70-99) Calcium Level 8.8 mg/dL (8.5-10.1) Total Bilirubin 1.1 mg/dL (0.2-1.0) Aspartate Amino Transf (AST/SGOT) 39 U/L (15-37) Alanine Aminotransferase (ALT/SGPT) 60 U/L (16-63) Alkaline Phosphatase 150 U/L (46-116) Total Protein 6.6 g/dL (6.4-8.2) Albumin 3.1 g/dL (3.4-5.0) Albumin/Globulin Ratio 0.9 (1.0-1.7) Assessment and Plan Assessmemt and Plan Problems Medical Problems: (1) CHF exacerbation Status: Acute (2) Dyspnea Status: Acute Comment Review of Relevant I have reviewed the following items jayce (where applicable) has been applied. Labs Laboratory Tests Test 12/29/18 08:15 Sodium Level 141 mmol/L (136-145) Potassium Level 4.2 mmol/L (3.5-5.1) Chloride Level 104 mmol/L (98-107) Carbon Dioxide Level 27 mmol/L (21-32) Anion Gap 10 (6-14) Blood Urea Nitrogen 30 mg/dL (8-26) Creatinine 1.4 mg/dL (0.7-1.3) Estimated GFR (Cockcroft-Gault) 47.8 BUN/Creatinine Ratio 21 (6-20) Glucose Level 154 mg/dL (70-99) Calcium Level 8.8 mg/dL (8.5-10.1) Total Bilirubin 1.1 mg/dL (0.2-1.0) Aspartate Amino Transf (AST/SGOT) 39 U/L (15-37) Alanine Aminotransferase (ALT/SGPT) 60 U/L (16-63) Alkaline Phosphatase 150 U/L (46-116) Total Protein 6.6 g/dL (6.4-8.2) Albumin 3.1 g/dL (3.4-5.0) Albumin/Globulin Ratio 0.9 (1.0-1.7) Laboratory Tests Test 12/29/18 08:15 Sodium Level 141 mmol/L (136-145) Potassium Level 4.2 mmol/L (3.5-5.1) Chloride Level 104 mmol/L (98-107) Carbon Dioxide Level 27 mmol/L (21-32) Anion Gap 10 (6-14) Blood Urea Nitrogen 30 mg/dL (8-26) Creatinine 1.4 mg/dL (0.7-1.3) Estimated GFR (Cockcroft-Gault) 47.8 BUN/Creatinine Ratio 21 (6-20) Glucose Level 154 mg/dL (70-99) Calcium Level 8.8 mg/dL (8.5-10.1) Total Bilirubin 1.1 mg/dL (0.2-1.0) Aspartate Amino Transf (AST/SGOT) 39 U/L (15-37) Alanine Aminotransferase (ALT/SGPT) 60 U/L (16-63) Alkaline Phosphatase 150 U/L (46-116) Total Protein 6.6 g/dL (6.4-8.2) Albumin 3.1 g/dL (3.4-5.0) Albumin/Globulin Ratio 0.9 (1.0-1.7) Medications Current Medications Morphine Sulfate (Morphine Sulfate) 4 mg 1X ONCE IV Last administered on 12/25/18 16:10; Start 12/25/18 at 16:00; Stop 12/25/18 at 16:01; Status DC Furosemide (Lasix) 40 mg 1X ONCE IV Last administered on 12/25/18 16:09; Start 12/25/18 at 16:00; Stop 12/25/18 at 16:01; Status DC Temazepam (Restoril) 15 mg PRN QHS PRN PO INSOMNIA Last administered on 12/26/18 21:34; Start 12/25/18 at 22:15; Stop 12/26/18 at 23:33; Status DC Furosemide (Lasix) 40 mg 1X ONCE IVP Last administered on 12/26/18 11:41; Start 12/26/18 at 11:15; Stop 12/26/18 at 11:19; Status DC Potassium Chloride (Klor-Con) 20 meq 1X ONCE PO Last administered on 12/26/18 11:41; Start 12/26/18 at 11:15; Stop 12/26/18 at 11:19; Status DC Aspirin (Ecotrin) 81 mg DAILYWBKFT PO Last administered on 12/29/18 08:48; Start 12/26/18 at 12:00 Enoxaparin Sodium (Lovenox Per Pharmacy Prophylaxis Dosing) 1 each PRN DAILY PRN MC SEE COMMENTS; Start 12/26/18 at 15:15 Tamsulosin HCl (Flomax) 0.4 mg DAILY PO Last administered on 12/29/18 08:49; Start 12/26/18 at 16:00 Donepezil HCl (Aricept) 5 mg DAILY PO Last administered on 12/29/18 08:49; Start 12/26/18 at 16:00 Citalopram Hydrobromide (CeleXA) 20 mg DAILY PO Last administered on 12/29/18at 08:48; Start 12/26/18 at 16:00 Non-Formulary Medication (Metoprolol Succinate/Hctz (Metoprolol ER-Hctz 50-12.5 mg)) 1 each DAILY PO ; Start 12/27/18 at 09:00; Status UNV Atorvastatin Calcium (Lipitor) 40 mg QHS PO Last administered on 12/28/18at 20:55; Start 12/26/18 at 21:00 Metoprolol Succinate (Toprol Xl) 50 mg DAILY PO ; Start 12/26/18 at 16:00; Stop 12/27/18 at 11:26; Status DC Hydrochlorothiazide (Microzide) 12.5 mg DAILY PO ; Start 12/26/18 at 16:00; Stop 12/27/18 at 11:26; Status DC Enoxaparin Sodium (Lovenox 40mg Syringe) 40 mg Q24H SQ Last administered on 12/29/18at 16:18; Start 12/26/18 at 16:00 Iodixanol (Visipaque 320) 100 ml STK-MED ONCE .ROUTE ; Start 12/26/18 at 16:05; Stop 12/26/18 at 16:06; Status DC Lidocaine HCl (Lidocaine 1% 20ml Vial) 20 ml STK-MED ONCE .ROUTE ; Start 12/26/18 at 16:05; Stop 12/26/18 at 16:06; Status DC Heparin Sodium/ Sodium Chloride 1,000 ml @ As Directed STK-MED ONCE .ROUTE ; Start 12/26/18 at 16:06; Stop 12/26/18 at 16:07; Status DC Fentanyl Citrate (Fentanyl 2ml Vial) 100 mcg STK-MED ONCE .ROUTE ; Start 12/26/18 at 16:15; Stop 12/26/18 at 16:16; Status DC Midazolam HCl (Versed) 2 mg STK-MED ONCE .ROUTE ; Start 12/26/18 at 16:15; Stop 12/26/18 at 16:16; Status DC Heparin Sodium/ Sodium Chloride (HEPARIN for ARTERIAL LINE FLUSH) 1,000 unit 1X ONCE IART Last administered on 12/26/18at 17:22; Start 12/26/18 at 16:45; Stop 12/26/18 at 16:46; Status DC Heparin Sodium/ Sodium Chloride (HEPARIN for ARTERIAL LINE FLUSH) 1,000 unit 1X ONCE IART Last administered on 12/26/18 17:22; Start 12/26/18 at 16:45; Stop 12/26/18 at 16:46; Status DC Midazolam HCl (Versed) 2 mg 1X ONCE IV Last administered on 12/26/18 17:25; Start 12/26/18 at 16:45; Stop 12/26/18 at 16:46; Status DC Fentanyl Citrate (Fentanyl 2ml Vial) 100 mcg 1X ONCE IV Last administered on 12/26/18 17:25; Start 12/26/18 at 16:45; Stop 12/26/18 at 16:46; Status DC Iodixanol (Visipaque 320) 100 ml 1X ONCE IART Last administered on 12/26/18 17:23; Start 12/26/18 at 16:45; Stop 12/26/18 at 16:46; Status DC Lidocaine HCl (Lidocaine 1% 20ml Vial) 20 ml 1X ONCE INJ Last administered on 12/26/18 17:24; Start 12/26/18 at 16:45; Stop 12/26/18 at 16:46; Status DC Multi-Ingredient Mouthwash/Gargle (Gi Cocktail) 20 ml PRN QID PRN PO CHEST PAIN Last administered on 12/29/18 16:18; Start 12/26/18 at 21:30 Temazepam (Restoril) 15 mg PRN QHS PRN PO INSOMNIA, MAY REPEAT X1 Last administered on 12/28/18 20:55; Start 12/26/18 at 23:45 Temazepam (Restoril) 15 mg 1X ONCE PO Last administered on 12/27/18 01:40; Start 12/27/18 at 01:00; Stop 12/27/18 at 01:01; Status DC Acetaminophen (Tylenol) 650 mg PRN Q6HRS PRN PO MILD PAIN 1-3 Last administered on 12/29/18 08:48; Start 12/27/18 at 01:30 Oxycodone HCl (Roxicodone) 5 mg PRN Q6HRS PRN PO PAIN Last administered on 12/28/18 20:56; Start 12/27/18 at 11:15 Metoprolol Succinate (Toprol Xl) 25 mg DAILY PO Last administered on 12/29/18 08:49; Start 12/28/18 at 09:00 Furosemide (Lasix) 20 mg DAILY PO Last administered on 12/29/18 08:49; Start 12/27/18 at 12:00 Potassium Chloride (Klor-Con) 10 meq DAILYWBKFT PO Last administered on 12/29/18 08:48; Start 12/27/18 at 12:00 Lidocaine (Lidoderm) 1 patch DAILY TD Last administered on 12/29/18 08:50; Start 12/27/18 at 12:00 Miscellaneous (Lidoderm Patch Removal) 1 ea QHS MC Last administered on 12/28/18 21:00; Start 12/27/18 at 21:00 Docusate Sodium (Colace) 100 mg DAILY PO Last administered on 12/29/18 08:50; Start 12/27/18 at 13:00 Polyethylene Glycol (miraLAX PACKET) 17 gm PRN DAILY PRN PO CONSTIPATION; Start 12/27/18 at 12:45 Polyethylene Glycol (miraLAX PACKET) 17 gm DAILY PO Last administered on 12/29/18 08:50; Start 12/27/18 at 13:00 Active Scripts Active Reported Metoprolol ER-Hctz 50-12.5 mg (Metoprolol Succinate/Hctz) 1 Each Tab.er.24h 1 Each PO DAILY Crestor (Rosuvastatin Calcium) 10 Mg Tablet 10 Mg PO HS Escitalopram Oxalate 10 Mg Tablet 1 Tab PO DAILY Aricept (Donepezil Hcl) 5 Mg Tablet 1 Tab PO DAILY Flomax (Tamsulosin Hcl) 0.4 Mg Cap.er.24h 0.4 Mg PO DAILY Vitals/I & O Vital Sign - Last 24 Hours 12/28/18 12/28/18 12/28/18 12/28/18 19:44 19:45 20:56 22:02 Temp 97.6 97.6 Pulse 86 Resp 24 B/P (MAP) 101/69 (80) Pulse Ox 99 O2 Delivery Room Air Room Air Room Air Room Air O2 Flow Rate 2.0 12/28/18 12/29/18 12/29/18 12/29/18 23:18 03:42 07:00 08:00 Temp 97.2 97.2 97.5 97.2 97.2 97.5 Pulse 72 80 87 Resp 16 20 B/P (MAP) 95/60 (72) 115/66 (82) 117/69 (85) Pulse Ox 98 96 O2 Delivery Room Air Room Air Room Air Room Air O2 Flow Rate 2.0 12/29/18 12/29/18 12/29/18 08:49 11:12 15:00 Temp 97.5 97.6 97.5 97.6 Pulse 83 83 81 Resp 24 20 B/P (MAP) 117/69 94/60 (71) 90/60 (70) Pulse Ox 100 98 O2 Delivery Room Air Room Air Intake and Output 12/28/18 12/28/18 12/29/18 15:00 23:00 07:00 Intake Total 510 ml 50 ml Output Total 150 ml 350 ml 0 ml Balance -150 ml 160 ml 50 ml LANIE DAVIS MD Dec 29, 2018 19:00
[2018-12-29 19:40] VITALS: BP 105/62
[2018-12-29] MEDS: PATCH REMOVAL. MC SCH (21:00)
[2018-12-29] MEDS: ATORVASTATIN CALCIUM 40 MG TABLET. PO SCH (21:54)
[2018-12-29] MEDS: oxyCODONE IR 5 MG TABLET PO PRN (21:55)
[2018-12-29] MEDS: TEMAZEPAM 15 MG CAPSULE PO PRN (21:55)
[2018-12-29 22:50] VITALS: BP 84/54
[2018-12-30] VITALS (21 sets, daily range): BP systolic 83–109; BP diastolic 44–67
[2018-12-30] MEDS ORDERED: LIDOCAINE 1% Multi-Dose 20 ML VIAL. ONE (07:48)
[2018-12-30] MEDS ORDERED: IODIXANOL 320 MG/ML 100 ML VIAL. ONE ×2 (07:48→09:08)
[2018-12-30] MEDS: ASPIRIN ENTERIC COATED 81 MG TABLET.DR. PO SCH (08:21)
[2018-12-30] MEDS: METOPROLOL SUCC 24HR ER 25 MG TAB.ER.24H. PO SCH (08:21)
[2018-12-30] MEDS ORDERED: fentaNYL PF VIAL 100 MCG/2 ML VIAL ONE (08:23)
[2018-12-30] MEDS ORDERED: MIDAZOLAM HCL/PF 2 MG/2 ML VIAL. ONE (08:24)
[2018-12-30] MEDS ORDERED: HEPARIN for IV BOLUS 10,000 UNIT/10 ML VIAL. ONE (08:29)
[2018-12-30] MEDS ORDERED: DEXTROSE 50% 25 GM / 50ML DISP.SYRIN. IV PRN (08:30)
[2018-12-30 08:41] LABS: PROTHROMBIN TIME PATIENT 16.1 SEC (11.7-14.0)
--- NOTE | 2018-12-30 09:03 | PDOC ---
Provider Note Provider Note Mr. Epstein is 88 y.o and with severe LV dysfunction, ischemic CMP and severe aortic stenosis. He has dementia and has been having lifestyle limiting dyspnea. His heart cath revealed patent grafts and no other clear intervenable lesions. He had severely elevated left sided filling pressures and has been diuresed over the weekend. I have discussed his issues with his family (daughter) and explained to her the nature of his disease. He is currently not a candidate for TAVR given his severe LV dysfunction and unclear prognosis and age. If we are able to help improve his AV stenosis with a valvuloplasty then he might derive some palliative benefit with respect to his breathing and if he has improved LV function (low probability), then he may eventually be a candidate for TAVR I have explained to family and the patient that this is high risk and due to his severe LV dysfunction, complications include bleeding, severe valvular insufficiency, stroke and . The family understands and wishes to proceed. BINA TOBIN MD Dec 30, 2018 09:03
--- NOTE | 2018-12-30 09:04 | PDOC ---
MODERATE SEDATION ASSESSMENT RISKS/ALTERNATIVES Risks/Alternatives Risks and alternatives of this type of sedation and procedure discussed with: RISK/ALTERNATIVES: Sig. Other H & P ON CHART H & P H & P on chart and reviewed for co-morbid conditions and appropriate labs. H&P ON CHART: Yes STATUS PREG STATUS ASSESSED: N/A MEDS/ALLERGIES REVIEWED Meds/Allergies Reviewed Medications and Allergies including time and route of recently administered narcotics and sedatives. MEDS/ALLERGIES REVIEWED: Yes ASA RATING ASA RATING: II AIRWAY ASSESSMENT Airway Assessment Airway patency, oral function limitations, presence of caps, crowns, dentures, partials, and ability to extend neck assessed. AIRWAY ASSESSMENT: Yes MALLAMPATI SCORE MALLAMPATI SCORE: II PRE-SEDATION ASSESSMENT PRE-SEDATION ASSESSMENT: Yes BINA TOBIN MD Dec 30, 2018 09:04
[2018-12-30] MEDS ORDERED: PHENYLEPHRINE in 0.9% NACL PF 1 MG/10 ML SYRINGE. IV ONE (09:14)
[2018-12-30] MEDS ORDERED: ASPIRIN 325 MG TABLET ONE (10:28)
[2018-12-30] MEDS ORDERED: CLOPIDOGREL BISULFATE 75 MG TABLET ONE (10:28)
[2018-12-30] MEDS ORDERED: ASPIRIN 325 MG TABLET PO ONE (10:30)
[2018-12-30] MEDS ORDERED: IODIXANOL 320 MG/ML 100 ML VIAL. IART ONE (10:30)
[2018-12-30] MEDS ORDERED: CONTRAST GIVEN. MC PRN (10:30)
[2018-12-30] MEDS ORDERED: CLOPIDOGREL BISULFATE 75 MG TABLET PO ONE (10:30)
[2018-12-30] MEDS ORDERED: MIDAZOLAM HCL/PF 2 MG/2 ML VIAL. IV ONE (10:30)
[2018-12-30] MEDS ORDERED: HEPARIN for IV BOLUS 10,000 UNIT/10 ML VIAL. IV ONE (10:30)
[2018-12-30] MEDS ORDERED: fentaNYL PF VIAL 100 MCG/2 ML VIAL IV ONE (10:30)
[2018-12-30] MEDS ORDERED: LIDOCAINE 1% Multi-Dose 20 ML VIAL. INJ ONE (10:30)
--- NOTE | 2018-12-30 10:58 | CARD ---
MR#: [id number] Date of Study: 12/30/2018 Ordering Physician: BINA LEROY, Referring Physician: KRYS COON Tech: RT Morro (R) ZORAIDA APPROVED REPORT Technologist: RT Morro (R) ZORAIDA Nurse: Katia Molina R.N. Procedure(s) performed: Fluoro time 13.6 minutes dose 35.6210 Gycm2 Contrast 12cc's Visipaque Moderate Sedation 94 minutes LHC, Aortic valvuloplasty HISTORY The patient is a 88 year-old male with a history of : coronary artery disease, hypertension, dyslipid emia. INDICATION The indication(s) include : dyspnea, valvular heart disease. PROCEDURE NARRATIVE After explaining the risks and benefits of the procedure and alternatives, informed consent was obtai dora. The patient was brought electively to the cardiac catheterization lab in a fasting state. A karina eout was performed confirming the patient's name, date of , procedure, and site of procedure. A ll necessary personnel were wearing the appropriate protective equipment and radiation monitor device s. (See nursing notes for medications administered). ACCESS: Under 2% lidocaine local anesthesia a 6 Swiss sheath was placed in the left common femoral artery vi a the modified Seldinger technique using a micropuncture kit and fluoroscopic guidance. Next, a 5 Fer nch sheath was placed in the left common femoral vein with a similar technique. PROCEDURE DETAILS: Heparin was used Swiss regulation. The ACT was 250. The venous sheath was upsized to a 6F 45 cm Cook sheath. Over this a 6 Swiss curved pacemaker was placed in the RV apex with excellent thresholds be ing obtained.Next, the 6 Swiss sheath was removed and the Precose suture device was placed. The fulton th was upsized to a 11 Swiss short 12 cm sheath. Next, with the aid of a JR4 catheter and a straigh t wire the left ventricle was accessed. Over a J-tipped guidewire a pigtail catheter was then placed in the left ventricle. EDP was obtained at 37 mmHg. Next, the pigtail catheter was removed and a Ampl tre Super Stiff wire was placed in the left ventricle. Over this wire, a true 18 mm aortic valvoplast y balloon was advanced to the aortic valve. Rapid pacing was initiated at 150 bpm and balloon aortic valvoplasty was performed twice. The balloon was removed and repeat aortic valve gradients were obtai dora and showed successful valvuloplasty with decrease of his mid gradients from 39-28. There is no ev idence of significant aortic regurgitation. The patient developed a left bundle branch block secondar y to the valvoplasty. No acute issues noted. After confirmation of excellent hemodynamics the 6 Swiss venous sheath was sutured in place. The paxton g Swiss sheath was removed and the previously deployed preclosed suture was then tied down. There wa s excellent hemostasis. Distal pulses were unchanged. The patient tolerated the procedure well and th ere were no immediate complications. HEMODYNAMICS: AO: 100/50 LVEDP 37mm Hg Conclusion 1. Severely elevated left sided filling pressures consistent with acute on chronic systolic and diast olic HF 2. Successful balloon aortic valvuloplasty with an 18 mm True balloon reducing the gradient from 39 m m (severe) to 28 mm Hg (moderate stenosis). Recommendations 1. Continued diuresis and medical optimization 2. Depending on goals of care and symptoms, could consider referral to [facility] for TAVR in 2-3 months. 3. ASA 81mg daily and Plavix 75mg daily for 1 month. Signed by : Bina Leroy, Electronically Approved : 12/30/2018 10:58:36
--- NOTE | 2018-12-30 11:35 | PDOC ---
PROGRESS NOTES Chief Complaint Chief Complaint Acute on chronic systolic heart failure. CAD known s/p CABG chest pain, angina, w. atypical pain, poss bruise CKD 2-3 Mechanical fall with acquired weakness and debility severe aortic stenosis dementia History of Present Illness History of Present Illness has some complaints today, but feels improved has been confused, strength is cont to get better no event cont current S/p aortic valvuloplasty and TAVR referral Cont LASIX Vitals Vitals Vital Signs Date Time Temp Pulse Resp B/P (MAP) Pulse Ox O2 Delivery O2 Flow Rate FiO2 12/30/18 10:45 97.4 81 20 109/65 (80) 94 Nasal Cannula 2.0 97.4 Physical Exam General: Alert, Cooperative, No acute distress, Other (oriented to place) Heart: Regular rate (SR), Normal S1, Normal S2, Other (4/6 systolic murmur to NICOLE and 3/6 systolic murmur to LLS border) Lungs: Clear Abdomen: Soft, No tenderness Extremities: No cyanosis, Other (1+ bilateral LE pitting edema) Skin: No breakdown, No significant lesion Labs LABS Laboratory Tests Test 12/30/18 08:20 Prothrombin Time 16.1 SEC (11.7-14.0) Prothromb Time International Ratio 1.3 (0.8-1.1) Assessment and Plan Assessmemt and Plan Problems Medical Problems: (1) CHF exacerbation Status: Acute (2) Dyspnea Status: Acute Comment Review of Relevant I have reviewed the following items jayce (where applicable) has been applied. Labs Laboratory Tests Test 12/29/18 08:15 12/30/18 08:20 Sodium Level 141 mmol/L (136-145) Potassium Level 4.2 mmol/L (3.5-5.1) Chloride Level 104 mmol/L (98-107) Carbon Dioxide Level 27 mmol/L (21-32) Anion Gap 10 (6-14) Blood Urea Nitrogen 30 mg/dL (8-26) Creatinine 1.4 mg/dL (0.7-1.3) Estimated GFR (Cockcroft-Gault) 47.8 BUN/Creatinine Ratio 21 (6-20) Glucose Level 154 mg/dL (70-99) Calcium Level 8.8 mg/dL (8.5-10.1) Total Bilirubin 1.1 mg/dL (0.2-1.0) Aspartate Amino Transf (AST/SGOT) 39 U/L (15-37) Alanine Aminotransferase (ALT/SGPT) 60 U/L (16-63) Alkaline Phosphatase 150 U/L (46-116) Total Protein 6.6 g/dL (6.4-8.2) Albumin 3.1 g/dL (3.4-5.0) Albumin/Globulin Ratio 0.9 (1.0-1.7) Prothrombin Time 16.1 SEC (11.7-14.0) Prothromb Time International Ratio 1.3 (0.8-1.1) Laboratory Tests Test 12/30/18 08:20 Prothrombin Time 16.1 SEC (11.7-14.0) Prothromb Time International Ratio 1.3 (0.8-1.1) Medications Current Medications Morphine Sulfate (Morphine Sulfate) 4 mg 1X ONCE IV Last administered on 12/25/18 16:10; Start 12/25/18 at 16:00; Stop 12/25/18 at 16:01; Status DC Furosemide (Lasix) 40 mg 1X ONCE IV Last administered on 12/25/18at 16:09; Start 12/25/18 at 16:00; Stop 12/25/18 at 16:01; Status DC Temazepam (Restoril) 15 mg PRN QHS PRN PO INSOMNIA Last administered on 12/26/18 21:34; Start 12/25/18 at 22:15; Stop 12/26/18 at 23:33; Status DC Furosemide (Lasix) 40 mg 1X ONCE IVP Last administered on 12/26/18 11:41; Start 12/26/18 at 11:15; Stop 12/26/18 at 11:19; Status DC Potassium Chloride (Klor-Con) 20 meq 1X ONCE PO Last administered on 12/26/18at 11:41; Start 12/26/18 at 11:15; Stop 12/26/18 at 11:19; Status DC Aspirin (Ecotrin) 81 mg DAILYWBKFT PO Last administered on 12/30/18at 08:21; Start 12/26/18 at 12:00 Enoxaparin Sodium (Lovenox Per Pharmacy Prophylaxis Dosing) 1 each PRN DAILY PRN MC SEE COMMENTS; Start 12/26/18 at 15:15 Tamsulosin HCl (Flomax) 0.4 mg DAILY PO Last administered on 12/29/18at 08:49; Start 12/26/18 at 16:00 Donepezil HCl (Aricept) 5 mg DAILY PO Last administered on 12/29/18at 08:49; Start 12/26/18 at 16:00 Citalopram Hydrobromide (CeleXA) 20 mg DAILY PO Last administered on 12/29/18at 08:48; Start 12/26/18 at 16:00 Non-Formulary Medication (Metoprolol Succinate/Hctz (Metoprolol ER-Hctz 50-12.5 mg)) 1 each DAILY PO ; Start 12/27/18 at 09:00; Status UNV Atorvastatin Calcium (Lipitor) 40 mg QHS PO Last administered on 12/29/18at 21:54; Start 12/26/18 at 21:00 Metoprolol Succinate (Toprol Xl) 50 mg DAILY PO ; Start 12/26/18 at 16:00; Stop 12/27/18 at 11:26; Status DC Hydrochlorothiazide (Microzide) 12.5 mg DAILY PO ; Start 12/26/18 at 16:00; Stop 12/27/18 at 11:26; Status DC Enoxaparin Sodium (Lovenox 40mg Syringe) 40 mg Q24H SQ Last administered on 12/29/18at 16:18; Start 12/26/18 at 16:00 Iodixanol (Visipaque 320) 100 ml STK-MED ONCE .ROUTE ; Start 12/26/18 at 16:05; Stop 12/26/18 at 16:06; Status DC Lidocaine HCl (Lidocaine 1% 20ml Vial) 20 ml STK-MED ONCE .ROUTE ; Start 12/26/18 at 16:05; Stop 12/26/18 at 16:06; Status DC Heparin Sodium/ Sodium Chloride 1,000 ml @ As Directed STK-MED ONCE .ROUTE ; Start 12/26/18 at 16:06; Stop 12/26/18 at 16:07; Status DC Fentanyl Citrate (Fentanyl 2ml Vial) 100 mcg STK-MED ONCE .ROUTE ; Start 12/26/18 at 16:15; Stop 12/26/18 at 16:16; Status DC Midazolam HCl (Versed) 2 mg STK-MED ONCE .ROUTE ; Start 12/26/18 at 16:15; Stop 12/26/18 at 16:16; Status DC Heparin Sodium/ Sodium Chloride (HEPARIN for ARTERIAL LINE FLUSH) 1,000 unit 1X ONCE IART Last administered on 12/26/18 17:22; Start 12/26/18 at 16:45; Stop 12/26/18 at 16:46; Status DC Heparin Sodium/ Sodium Chloride (HEPARIN for ARTERIAL LINE FLUSH) 1,000 unit 1X ONCE IART Last administered on 12/26/18at 17:22; Start 12/26/18 at 16:45; Stop 12/26/18 at 16:46; Status DC Midazolam HCl (Versed) 2 mg 1X ONCE IV Last administered on 12/26/18 17:25; Start 12/26/18 at 16:45; Stop 12/26/18 at 16:46; Status DC Fentanyl Citrate (Fentanyl 2ml Vial) 100 mcg 1X ONCE IV Last administered on 12/26/18 17:25; Start 12/26/18 at 16:45; Stop 12/26/18 at 16:46; Status DC Iodixanol (Visipaque 320) 100 ml 1X ONCE IART Last administered on 12/26/18 17:23; Start 12/26/18 at 16:45; Stop 12/26/18 at 16:46; Status DC Lidocaine HCl (Lidocaine 1% 20ml Vial) 20 ml 1X ONCE INJ Last administered on 12/26/18at 17:24; Start 12/26/18 at 16:45; Stop 12/26/18 at 16:46; Status DC Multi-Ingredient Mouthwash/Gargle (Gi Cocktail) 20 ml PRN QID PRN PO CHEST PAIN Last administered on 12/29/18 21:56; Start 12/26/18 at 21:30 Temazepam (Restoril) 15 mg PRN QHS PRN PO INSOMNIA, MAY REPEAT X1 Last administered on 12/29/18 21:55; Start 12/26/18 at 23:45 Temazepam (Restoril) 15 mg 1X ONCE PO Last administered on 12/27/18at 01:40; Start 12/27/18 at 01:00; Stop 12/27/18 at 01:01; Status DC Acetaminophen (Tylenol) 650 mg PRN Q6HRS PRN PO MILD PAIN 1-3 Last administered on 12/29/18 08:48; Start 12/27/18 at 01:30 Oxycodone HCl (Roxicodone) 5 mg PRN Q6HRS PRN PO PAIN Last administered on 12/29/18 21:55; Start 12/27/18 at 11:15 Metoprolol Succinate (Toprol Xl) 25 mg DAILY PO Last administered on 12/30/18 08:21; Start 12/28/18 at 09:00 Furosemide (Lasix) 20 mg DAILY PO Last administered on 12/29/18 08:49; Start 12/27/18 at 12:00 Potassium Chloride (Klor-Con) 10 meq DAILYWBKFT PO Last administered on 12/29/18 08:48; Start 12/27/18 at 12:00 Lidocaine (Lidoderm) 1 patch DAILY TD Last administered on 12/29/18 08:50; Start 12/27/18 at 12:00 Miscellaneous (Lidoderm Patch Removal) 1 ea QHS MC Last administered on 21:00; Start 12/27/18 at 21:00 Docusate Sodium (Colace) 100 mg DAILY PO Last administered on 12/29/18 08:50; Start 12/27/18 at 13:00 Polyethylene Glycol (miraLAX PACKET) 17 gm PRN DAILY PRN PO CONSTIPATION; Start 12/27/18 at 12:45 Polyethylene Glycol (miraLAX PACKET) 17 gm DAILY PO Last administered on 12/29/18 08:50; Start 12/27/18 at 13:00 Iodixanol (Visipaque 320) 100 ml STK-MED ONCE .ROUTE ; Start 12/30/18 at 07:48; Stop 12/30/18 at 07:49; Status DC Lidocaine HCl (Lidocaine 1% 20ml Vial) 20 ml STK-MED ONCE .ROUTE ; Start 12/30/18 at 07:48; Stop 12/30/18 at 07:49; Status DC Heparin Sodium/ Sodium Chloride 1,000 ml @ As Directed STK-MED ONCE .ROUTE ; Start 12/30/18 at 07:48; Stop 12/30/18 at 07:49; Status DC Heparin Sodium/ Sodium Chloride 500 ml @ As Directed STK-MED ONCE .ROUTE ; Start 12/30/18 at 07:59; Stop 12/30/18 at 08:00; Status DC Insulin Human Lispro (HumaLOG) 0-5 UNITS TIDWMEALS SQ ; Start 12/30/18 at 12:00 Dextrose (Dextrose 50%-Water Syringe) 12.5 gm PRN Q15MIN PRN IV SEE COMMENTS; Start 12/30/18 at 08:30 Fentanyl Citrate (Fentanyl 2ml Vial) 100 mcg STK-MED ONCE .ROUTE ; Start 12/30/18 at 08:23; Stop 12/30/18 at 08:24; Status DC Midazolam HCl (Versed) 2 mg STK-MED ONCE .ROUTE ; Start 12/30/18 at 08:24; Stop 12/30/18 at 08:25; Status DC Heparin Sodium (Porcine) (Heparin Sodium) 10,000 unit STK-MED ONCE .ROUTE ; Start 12/30/18 at 08:29; Stop 12/30/18 at 08:30; Status DC Iodixanol (Visipaque 320) 100 ml STK-MED ONCE .ROUTE ; Start 12/30/18 at 09:08; Stop 12/30/18 at 09:09; Status DC Dopamine HCl/ Dextrose 0 ml @ As Directed STK-MED ONCE IV ; Start 12/30/18 at 09:14; Stop 12/30/18 at 09:15; Status DC Phenylephrine HCl (PHENYLEPHRINE in 0.9% NACL PF) 1 mg STK-MED ONCE IV ; Start 12/30/18 at 09:14; Stop 12/30/18 at 09:15; Status DC Heparin Sodium/ Sodium Chloride (HEPARIN for ARTERIAL LINE FLUSH) 1,000 unit 1X ONCE IART Last administered on 12/30/18at 10:30; Start 12/30/18 at 10:30; Stop 12/30/18 at 10:31; Status DC Midazolam HCl (Versed) 1 mg 1X ONCE IV Last administered on 12/30/18at 10:30; Start 12/30/18 at 10:30; Stop 12/30/18 at 10:31; Status DC Fentanyl Citrate (Fentanyl 2ml Vial) 50 mcg 1X ONCE IV Last administered on 12/30/18at 10:30; Start 12/30/18 at 10:30; Stop 12/30/18 at 10:31; Status DC Iodixanol (Visipaque 320) 100 ml 1X ONCE IART Last administered on 12/30/18at 10:30; Start 12/30/18 at 10:30; Stop 12/30/18 at 10:31; Status DC Heparin Sodium (Porcine) (Heparin Sodium) 5,500 unit 1X ONCE IV Last administered on 12/30/18at 10:30; Start 12/30/18 at 10:30; Stop 12/30/18 at 10:31; Status DC Lidocaine HCl (Lidocaine 1% 20ml Vial) 17 ml 1X ONCE INJ Last administered on 12/30/18at 10:30; Start 12/30/18 at 10:30; Stop 12/30/18 at 10:31; Status DC Info (CONTRAST GIVEN -- Rx MONITORING) 1 each PRN DAILY PRN MC SEE COMMENTS; Start 12/30/18 at 10:30; Stop 01/01/19 at 10:29 Clopidogrel Bisulfate (Plavix) 600 mg 1X ONCE PO Last administered on 12/30/18 at 10:30; Start 12/30/18 at 10:30; Stop 12/30/18 at 10:33; Status DC Aspirin ([employer] Aspirin) 325 mg 1X ONCE PO Last administered on 12/30/18at 10:30; Start 12/30/18 at 10:30; Stop 12/30/18 at 10:33; Status DC Clopidogrel Bisulfate (Plavix) 75 mg STK-MED ONCE .ROUTE ; Start 12/30/18 at 10:28; Stop 12/30/18 at 10:29; Status DC Aspirin (Ry Aspirin) 325 mg STK-MED ONCE .ROUTE ; Start 12/30/18 at 10:28; Stop 12/30/18 at 10:29; Status DC Active Scripts Active Reported Metoprolol ER-Hctz 50-12.5 mg (Metoprolol Succinate/Hctz) 1 Each Tab.er.24h 1 Each PO DAILY Crestor (Rosuvastatin Calcium) 10 Mg Tablet 10 Mg PO HS Escitalopram Oxalate 10 Mg Tablet 1 Tab PO DAILY Aricept (Donepezil Hcl) 5 Mg Tablet 1 Tab PO DAILY Flomax (Tamsulosin Hcl) 0.4 Mg Cap.er.24h 0.4 Mg PO DAILY Vitals/I & O Vital Sign - Last 24 Hours 12/29/18 12/29/18 12/29/18 12/29/18 15:00 19:40 20:20 21:55 Temp 97.6 97.8 97.6 97.8 Pulse 81 85 Resp 20 18 20 B/P (MAP) 90/60 (70) 105/62 (76) Pulse Ox 98 99 99 O2 Delivery Room Air Room Air Room Air Nasal Cannula O2 Flow Rate 2.0 12/29/18 12/29/18 12/30/18 12/30/18 22:50 23:00 03:20 07:25 Temp 97.7 97.8 97.3 97.7 97.8 97.3 Pulse 73 79 80 Resp 20 16 20 18 B/P (MAP) 84/54 (64) 104/67 (79) 103/44 (63) Pulse Ox 96 96 99 99 O2 Delivery Nasal Cannula Room Air Nasal Cannula Nasal Cannula O2 Flow Rate 1.0 1.0 1.5 12/30/18 12/30/18 12/30/18 12/30/18 08:00 08:21 10:30 10:45 Temp 97.4 97.4 Pulse 80 81 Resp 18 20 B/P (MAP) 103/64 109/65 (80) Pulse Ox 94 O2 Delivery Nasal Cannula Nasal Cannula O2 Flow Rate 1.0 2.0 Intake and Output 12/29/18 12/29/18 12/30/18 15:00 23:00 07:00 Intake Total 178 ml 100 ml Output Total 100 ml 50 ml 150 ml Balance 78 ml -50 ml -50 ml Images 12/26/18 LHC - 1. Acute on chronic systolic and diastolic HF 2. Severe three vessel coronary artery disease. 3. 2/2 grafts patent 4. Severe aortic stenosis. STAS HIGUERA MD Dec 30, 2018 11:35
[2018-12-30] MEDS: INSULIN LISPRO 300 UNITS/3 ML INSULN.PEN. SQ SCH ×2 (12:00→17:00)
--- NOTE | 2018-12-30 12:04 | NUR ---
SS following up with discharge planning. SS phoned and faxed clinical updates to [facility] and [facility], ; fax [phone]. SS spoke with Jann in admissions. Jann reported that he would contact SS with an acceptance decision today.
--- NOTE | 2018-12-30 13:05 | NUR ---
SS following up with discharge planning. Pt accepted at [facility] pending insurance authorization.
[2018-12-30] MEDS: DOCUSATE SODIUM 100 MG CAPSULE. PO SCH (14:21)
[2018-12-30] MEDS: CITALOPRAM 20 MG TABLET. PO SCH (14:21)
[2018-12-30] MEDS: DONEPEZIL HCL 5 MG TABLET. PO SCH (14:21)
[2018-12-30] MEDS: POTASSIUM CHLORIDE 10 MEQ TABLET.ER. PO SCH (14:21)
[2018-12-30] MEDS: FUROSEMIDE 20 MG TABLET PO SCH (14:22)
[2018-12-30] MEDS: LIDOCAINE (700MG/PATCH) PATCH. TD SCH (14:22)
[2018-12-30] MEDS: TAMSULOSIN 0.4 MG CAP.ER.24H. PO SCH (14:22)
[2018-12-30] MEDS: POLYETHYLENE GLYCOL 3350 17 GM PACKET. PO SCH (14:23)
[2018-12-30] MEDS ORDERED: FUROSEMIDE 20 MG/2 ML VIAL. IVP ONE (16:00)
[2018-12-30] MEDS: LIDO:MAALOX 1:1 20 ML SINGLE DOSE. PO PRN (16:28)
[2018-12-30] MEDS: ENOXAPARIN 40 MG/0.4 ML SYRINGE. SQ SCH (16:30)
[2018-12-30] MEDS: oxyCODONE IR 5 MG TABLET PO PRN (18:21)
[2018-12-30] MEDS: PATCH REMOVAL. MC SCH (21:00)
[2018-12-30] MEDS: TEMAZEPAM 15 MG CAPSULE PO PRN (22:00)
[2018-12-30] MEDS: ATORVASTATIN CALCIUM 40 MG TABLET. PO SCH (22:04)
[2018-12-30] MEDS: ACETAMINOPHEN 325 MG TABLET. PO PRN (22:04)
[2018-12-31] VITALS (7 sets, daily range): BP systolic 86–99; BP diastolic 54–61
--- NOTE | 2018-12-31 07:51 | PDOC ---
PROGRESS NOTES Chief Complaint Chief Complaint Acute on chronic systolic heart failure. CAD known s/p CABG Chest pain, angina, w. atypical pain, poss bruise CKD 2-3 Mechanical fall with acquired weakness and debility Severe aortic stenosis s/p valvuloplasty Dementia History of Present Illness History of Present Illness Mr Munguia is a 88yo M w/ PMHx dementia, CAD s/p CABG, systolic CHF, CKD2. He thinks it is 1979. He is very pleasantly confused though very nice and cooperative. He presented with shortness of breath, found in ED with a chest x-ray showing possible vascular congestion and elevated BNP of 17,038. He has associated weakness. It had been occurring off and on for weeks. Moving makes it worse. Seen by cardiology, underwent LHC on 12/26/18, revealing acute on chronic systolic and diastolic HF with EF 15%, severe three vessel coronary artery disease, 2/2 grafts patent, and severe aortic stenosis. As he was symptom atic on 12/30/18 underwent aortic valvuloplasty with symptomatic improvement, and now will await TAVR referral from cardiology. Seen by PT/OT, needs skilled services. Feeling better today, less difficulty getting a deep breath. Still pleasantly confused. Eating breakfast currently, sitting up in bed. Vitals Vitals Vital Signs Date Time Temp Pulse Resp B/P (MAP) Pulse Ox O2 Delivery O2 Flow Rate FiO2 12/31/18 03:20 98.0 67 18 95/57 (70) 99 Nasal Cannula 1.0 98.0 Physical Exam General: Alert, Cooperative, No acute distress, Other (oriented to place) Heart: Regular rate (SR), Normal S1, Normal S2, Other (4/6 systolic murmur to NICOLE and 3/6 systolic murmur to LLS border) Lungs: Clear Abdomen: Soft, No tenderness Extremities: No cyanosis, Other (1+ bilateral LE pitting edema) Skin: No breakdown, No significant lesion Labs LABS Laboratory Tests Test 12/30/18 08:20 12/30/18 13:20 12/30/18 16:39 12/30/18 20:39 Prothrombin Time 16.1 SEC (11.7-14.0) Prothromb Time International Ratio 1.3 (0.8-1.1) Glucose (Fingerstick) 140 mg/dL (70-99) 139 mg/dL (70-99) 151 mg/dL (70-99) Assessment and Plan Assessmemt and Plan Problems Medical Problems: (1) CHF exacerbation Status: Acute (2) Dyspnea Status: Acute Comment Review of Relevant I have reviewed the following items jayce (where applicable) has been applied. Labs Laboratory Tests Test 12/29/18 08:15 12/30/18 08:20 12/30/18 13:20 12/30/18 16:39 Sodium Level 141 mmol/L (136-145) Potassium Level 4.2 mmol/L (3.5-5.1) Chloride Level 104 mmol/L (98-107) Carbon Dioxide Level 27 mmol/L (21-32) Anion Gap 10 (6-14) Blood Urea Nitrogen 30 mg/dL (8-26) Creatinine 1.4 mg/dL (0.7-1.3) Estimated GFR (Cockcroft-Gault) 47.8 BUN/Creatinine Ratio 21 (6-20) Glucose Level 154 mg/dL (70-99) Calcium Level 8.8 mg/dL (8.5-10.1) Total Bilirubin 1.1 mg/dL (0.2-1.0) Aspartate Amino Transf (AST/SGOT) 39 U/L (15-37) Alanine Aminotransferase (ALT/SGPT) 60 U/L (16-63) Alkaline Phosphatase 150 U/L (46-116) Total Protein 6.6 g/dL (6.4-8.2) Albumin 3.1 g/dL (3.4-5.0) Albumin/Globulin Ratio 0.9 (1.0-1.7) Prothrombin Time 16.1 SEC (11.7-14.0) Prothromb Time International Ratio 1.3 (0.8-1.1) Glucose (Fingerstick) 140 mg/dL (70-99) 139 mg/dL (70-99) Test 12/30/18 20:39 Glucose (Fingerstick) 151 mg/dL (70-99) Laboratory Tests Test 12/30/18 08:20 12/30/18 13:20 12/30/18 16:39 12/30/18 20:39 Prothrombin Time 16.1 SEC (11.7-14.0) Prothromb Time International Ratio 1.3 (0.8-1.1) Glucose (Fingerstick) 140 mg/dL (70-99) 139 mg/dL (70-99) 151 mg/dL (70-99) Medications Current Medications Morphine Sulfate (Morphine Sulfate) 4 mg 1X ONCE IV Last administered on 12/25/18 16:10; Start 12/25/18 at 16:00; Stop 12/25/18 at 16:01; Status DC Furosemide (Lasix) 40 mg 1X ONCE IV Last administered on 12/25/18 16:09; Start 12/25/18 at 16:00; Stop 12/25/18 at 16:01; Status DC Temazepam (Restoril) 15 mg PRN QHS PRN PO INSOMNIA Last administered on 12/26/18 21:34; Start 12/25/18 at 22:15; Stop 12/26/18 at 23:33; Status DC Furosemide (Lasix) 40 mg 1X ONCE IVP Last administered on 12/26/18 11:41; Start 12/26/18 at 11:15; Stop 12/26/18 at 11:19; Status DC Potassium Chloride (Klor-Con) 20 meq 1X ONCE PO Last administered on 12/26/18 11:41; Start 12/26/18 at 11:15; Stop 12/26/18 at 11:19; Status DC Aspirin (Ecotrin) 81 mg DAILYWBKFT PO Last administered on 12/30/18at 08:21; Start 12/26/18 at 12:00 Enoxaparin Sodium (Lovenox Per Pharmacy Prophylaxis Dosing) 1 each PRN DAILY PRN MC SEE COMMENTS; Start 12/26/18 at 15:15 Tamsulosin HCl (Flomax) 0.4 mg DAILY PO Last administered on 12/30/18at 14:22; Start 12/26/18 at 16:00 Donepezil HCl (Aricept) 5 mg DAILY PO Last administered on 12/30/18 14:21; Start 12/26/18 at 16:00 Citalopram Hydrobromide (CeleXA) 20 mg DAILY PO Last administered on 12/30/18 14:21; Start 12/26/18 at 16:00 Non-Formulary Medication (Metoprolol Succinate/Hctz (Metoprolol ER-Hctz 50-12.5 mg)) 1 each DAILY PO ; Start 12/27/18 at 09:00; Status UNV Atorvastatin Calcium (Lipitor) 40 mg QHS PO Last administered on 12/30/18at 22:04; Start 12/26/18 at 21:00 Metoprolol Succinate (Toprol Xl) 50 mg DAILY PO ; Start 12/26/18 at 16:00; Stop 12/27/18 at 11:26; Status DC Hydrochlorothiazide (Microzide) 12.5 mg DAILY PO ; Start 12/26/18 at 16:00; Stop 12/27/18 at 11:26; Status DC Enoxaparin Sodium (Lovenox 40mg Syringe) 40 mg Q24H SQ Last administered on 12/30/18at 16:30; Start 12/26/18 at 16:00 Iodixanol (Visipaque 320) 100 ml STK-MED ONCE .ROUTE ; Start 12/26/18 at 16:05; Stop 12/26/18 at 16:06; Status DC Lidocaine HCl (Lidocaine 1% 20ml Vial) 20 ml STK-MED ONCE .ROUTE ; Start 12/26/18 at 16:05; Stop 12/26/18 at 16:06; Status DC Heparin Sodium/ Sodium Chloride 1,000 ml @ As Directed STK-MED ONCE .ROUTE ; Start 12/26/18 at 16:06; Stop 12/26/18 at 16:07; Status DC Fentanyl Citrate (Fentanyl 2ml Vial) 100 mcg STK-MED ONCE .ROUTE ; Start 12/26/18 at 16:15; Stop 12/26/18 at 16:16; Status DC Midazolam HCl (Versed) 2 mg STK-MED ONCE .ROUTE ; Start 12/26/18 at 16:15; Stop 12/26/18 at 16:16; Status DC Heparin Sodium/ Sodium Chloride (HEPARIN for ARTERIAL LINE FLUSH) 1,000 unit 1X ONCE IART Last administered on 12/26/18at 17:22; Start 12/26/18 at 16:45; Stop 12/26/18 at 16:46; Status DC Heparin Sodium/ Sodium Chloride (HEPARIN for ARTERIAL LINE FLUSH) 1,000 unit 1X ONCE IART Last administered on 12/26/18at 17:22; Start 12/26/18 at 16:45; Stop 12/26/18 at 16:46; Status DC Midazolam HCl (Versed) 2 mg 1X ONCE IV Last administered on 12/26/18 17:25; Start 12/26/18 at 16:45; Stop 12/26/18 at 16:46; Status DC Fentanyl Citrate (Fentanyl 2ml Vial) 100 mcg 1X ONCE IV Last administered on 12/26/18 17:25; Start 12/26/18 at 16:45; Stop 12/26/18 at 16:46; Status DC Iodixanol (Visipaque 320) 100 ml 1X ONCE IART Last administered on 12/26/18 17:23; Start 12/26/18 at 16:45; Stop 12/26/18 at 16:46; Status DC Lidocaine HCl (Lidocaine 1% 20ml Vial) 20 ml 1X ONCE INJ Last administered on 12/26/18 17:24; Start 12/26/18 at 16:45; Stop 12/26/18 at 16:46; Status DC Multi-Ingredient Mouthwash/Gargle (Gi Cocktail) 20 ml PRN QID PRN PO CHEST PAIN Last administered on 12/30/18 16:28; Start 12/26/18 at 21:30 Temazepam (Restoril) 15 mg PRN QHS PRN PO INSOMNIA, MAY REPEAT X1 Last administered on 12/30/18 22:00; Start 12/26/18 at 23:45 Temazepam (Restoril) 15 mg 1X ONCE PO Last administered on 12/27/18 01:40; Start 12/27/18 at 01:00; Stop 12/27/18 at 01:01; Status DC Acetaminophen (Tylenol) 650 mg PRN Q6HRS PRN PO MILD PAIN 1-3 Last administered on 12/30/18 22:04; Start 12/27/18 at 01:30 Oxycodone HCl (Roxicodone) 5 mg PRN Q6HRS PRN PO PAIN Last administered on 12/30/18 18:21; Start 12/27/18 at 11:15 Metoprolol Succinate (Toprol Xl) 25 mg DAILY PO Last administered on 12/30/18 08:21; Start 12/28/18 at 09:00 Furosemide (Lasix) 20 mg DAILY PO Last administered on 12/30/18 14:22; Start 12/27/18 at 12:00 Potassium Chloride (Klor-Con) 10 meq DAILYWBKFT PO Last administered on 12/30/18at 14:21; Start 12/27/18 at 12:00 Lidocaine (Lidoderm) 1 patch DAILY TD Last administered on 12/30/18at 14:22; Start 12/27/18 at 12:00 Miscellaneous (Lidoderm Patch Removal) 1 ea QHS MC Last administered on 12/30/18at 21:00; Start 12/27/18 at 21:00 Docusate Sodium (Colace) 100 mg DAILY PO Last administered on 12/30/18at 14:21; Start 12/27/18 at 13:00 Polyethylene Glycol (miraLAX PACKET) 17 gm PRN DAILY PRN PO CONSTIPATION; Start 12/27/18 at 12:45 Polyethylene Glycol (miraLAX PACKET) 17 gm DAILY PO Last administered on 12/30/18at 14:23; Start 12/27/18 at 13:00 Iodixanol (Visipaque 320) 100 ml STK-MED ONCE .ROUTE ; Start 12/30/18 at 07:48; Stop 12/30/18 at 07:49; Status DC Lidocaine HCl (Lidocaine 1% 20ml Vial) 20 ml STK-MED ONCE .ROUTE ; Start 12/30/18 at 07:48; Stop 12/30/18 at 07:49; Status DC Heparin Sodium/ Sodium Chloride 1,000 ml @ As Directed STK-MED ONCE .ROUTE ; Start 12/30/18 at 07:48; Stop 12/30/18 at 07:49; Status DC Heparin Sodium/ Sodium Chloride 500 ml @ As Directed STK-MED ONCE .ROUTE ; Start 12/30/18 at 07:59; Stop 12/30/18 at 08:00; Status DC Insulin Human Lispro (HumaLOG) 0-5 UNITS TIDWMEALS SQ ; Start 12/30/18 at 12:00 Dextrose (Dextrose 50%-Water Syringe) 12.5 gm PRN Q15MIN PRN IV SEE COMMENTS; Start 12/30/18 at 08:30 Fentanyl Citrate (Fentanyl 2ml Vial) 100 mcg STK-MED ONCE .ROUTE ; Start 12/30/18 at 08:23; Stop 12/30/18 at 08:24; Status DC Midazolam HCl (Versed) 2 mg STK-MED ONCE .ROUTE ; Start 12/30/18 at 08:24; Stop 12/30/18 at 08:25; Status DC Heparin Sodium (Porcine) (Heparin Sodium) 10,000 unit STK-MED ONCE .ROUTE ; Start 12/30/18 at 08:29; Stop 12/30/18 at 08:30; Status DC Iodixanol (Visipaque 320) 100 ml STK-MED ONCE .ROUTE ; Start 12/30/18 at 09:08; Stop 12/30/18 at 09:09; Status DC Dopamine HCl/ Dextrose 0 ml @ As Directed STK-MED ONCE IV ; Start 12/30/18 at 09:14; Stop 12/30/18 at 09:15; Status DC Phenylephrine HCl (PHENYLEPHRINE in 0.9% NACL PF) 1 mg STK-MED ONCE IV ; Start 12/30/18 at 09:14; Stop 12/30/18 at 09:15; Status DC Heparin Sodium/ Sodium Chloride (HEPARIN for ARTERIAL LINE FLUSH) 1,000 unit 1X ONCE IART Last administered on 12/30/18at 10:30; Start 12/30/18 at 10:30; Stop 12/30/18 at 10:31; Status DC Midazolam HCl (Versed) 1 mg 1X ONCE IV Last administered on 12/30/18at 10:30; Start 12/30/18 at 10:30; Stop 12/30/18 at 10:31; Status DC Fentanyl Citrate (Fentanyl 2ml Vial) 50 mcg 1X ONCE IV Last administered on 12/30/18at 10:30; Start 12/30/18 at 10:30; Stop 12/30/18 at 10:31; Status DC Iodixanol (Visipaque 320) 100 ml 1X ONCE IART Last administered on 12/30/18at 10:30; Start 12/30/18 at 10:30; Stop 12/30/18 at 10:31; Status DC Heparin Sodium (Porcine) (Heparin Sodium) 5,500 unit 1X ONCE IV Last administered on 12/30/18at 10:30; Start 12/30/18 at 10:30; Stop 12/30/18 at 10:31; Status DC Lidocaine HCl (Lidocaine 1% 20ml Vial) 17 ml 1X ONCE INJ Last administered on 12/30/18at 10:30; Start 12/30/18 at 10:30; Stop 12/30/18 at 10:31; Status DC Info (CONTRAST GIVEN -- Rx MONITORING) 1 each PRN DAILY PRN MC SEE COMMENTS; Start 12/30/18 at 10:30; Stop 01/01/19 at 10:29 Clopidogrel Bisulfate (Plavix) 600 mg 1X ONCE PO Last administered on 12/30/18at 10:30; Start 12/30/18 at 10:30; Stop 12/30/18 at 10:33; Status DC Aspirin (Ry Aspirin) 325 mg 1X ONCE PO Last administered on 12/30/18at 10:30; Start 12/30/18 at 10:30; Stop 12/30/18 at 10:33; Status DC Clopidogrel Bisulfate (Plavix) 75 mg STK-MED ONCE .ROUTE ; Start 12/30/18 at 10:28; Stop 12/30/18 at 10:29; Status DC Aspirin (Ry Aspirin) 325 mg STK-MED ONCE .ROUTE ; Start 12/30/18 at 10:28; Stop 12/30/18 at 10:29; Status DC Furosemide (Lasix) 20 mg 1X ONCE IVP Last administered on 12/30/18at 16:29; Start 12/30/18 at 16:00; Stop 12/30/18 at 16:01; Status DC Active Scripts Active Reported Metoprolol ER-Hctz 50-12.5 mg (Metoprolol Succinate/Hctz) 1 Each Tab.er.24h 1 Each PO DAILY Crestor (Rosuvastatin Calcium) 10 Mg Tablet 10 Mg PO HS Escitalopram Oxalate 10 Mg Tablet 1 Tab PO DAILY Aricept (Donepezil Hcl) 5 Mg Tablet 1 Tab PO DAILY Flomax (Tamsulosin Hcl) 0.4 Mg Cap.er.24h 0.4 Mg PO DAILY Vitals/I & O Vital Sign - Last 24 Hours 12/30/18 12/30/18 12/30/18 12/30/18 08:00 08:21 10:30 10:45 Pulse 80 80 Resp 18 B/P (MAP) 103/64 Pulse Ox 94 O2 Delivery Nasal Cannula Nasal Cannula O2 Flow Rate 1.0 2.0 12/30/18 12/30/18 12/30/18 12/30/18 10:45 10:45 11:00 11:15 Temp 97.4 97.4 Pulse 81 109 80 80 Resp 20 B/P (MAP) 109/65 (80) Pulse Ox 94 97 94 94 O2 Delivery Nasal Cannula Nasal Cannula Nasal Cannula Nasal Cannula O2 Flow Rate 2.0 2.0 2.0 2.0 12/30/18 12/30/18 12/30/18 12/30/18 11:30 11:45 12:15 12:30 Pulse 80 80 80 80 Pulse Ox 97 97 97 97 O2 Delivery Nasal Cannula Nasal Cannula Nasal Cannula Nasal Cannula O2 Flow Rate 2.0 2.0 2.0 2.0 12/30/18 12/30/18 12/30/18 12/30/18 12:45 13:00 13:15 13:30 Pulse 80 80 80 80 Pulse Ox 97 97 97 97 O2 Delivery Nasal Cannula Nasal Cannula Nasal Cannula Nasal Cannula O2 Flow Rate 1.0 1.0 1.0 1.0 12/30/18 12/30/18 12/30/18 12/30/18 14:00 14:30 15:00 15:00 Temp 97.3 97.3 Pulse 80 80 79 74 Resp 18 B/P (MAP) 90/55 (67) Pulse Ox 97 97 100 99 O2 Delivery Nasal Cannula Nasal Cannula Nasal Cannula Nasal Cannula O2 Flow Rate 1.0 1.0 1.0 1.5 12/30/18 12/30/18 12/30/18 12/30/18 16:00 17:00 18:00 18:21 Pulse 79 87 85 Pulse Ox 100 100 100 100 O2 Delivery Nasal Cannula Nasal Cannula Nasal Cannula Room Air O2 Flow Rate 1.0 1.0 1.0 1.0 12/30/18 12/30/18 12/30/18 12/30/18 19:25 19:45 20:00 22:55 Temp 98.0 97.7 98.0 97.7 Pulse 84 70 Resp 22 20 18 B/P (MAP) 87/57 (67) 83/52 (62) Pulse Ox 96 96 95 O2 Delivery Nasal Cannula Nasal Cannula Nasal Cannula Nasal Cannula O2 Flow Rate 1.0 1.0 1.0 1.0 12/31/18 03:20 Temp 98.0 98.0 Pulse 67 Resp 18 B/P (MAP) 95/57 (70) Pulse Ox 99 O2 Delivery Nasal Cannula O2 Flow Rate 1.0 Intake and Output 12/30/18 12/30/18 12/31/18 14:59 22:59 06:59 Intake Total 0 ml 200 ml 200 ml Output Total 155 ml Balance 0 ml 45 ml 200 ml Images 12/30/18 - valvuloplasty: 1. Severely elevated left sided filling pressures consistent with acute on chronic systolic and diastolic HF 2. Successful balloon aortic valvuloplasty with an 18 mm True balloon reducing the gradient from 39 mm (severe) to 28 mm Hg (moderate stenosis). Cardiology Recommendations 1. Continued diuresis and medical optimization 2. Depending on goals of care and symptoms, could consider referral to [facility] for TAVR in 2-3 months. 3. ASA 81mg daily and Plavix 75mg daily for 1 month. Nutrition Consultation Dietary Evaluation: Recommendations by RD: Protein supplementation Comments: Continue w/cardaic diet as ordered, honor food preferences, and provide sncaks as requested REC Ensure (strawberry) w/dinner Expected Outcomes/Goals: PO intake to meet >75% est needs Malnutrition Findings: Food and Nutrition Intake (Mod: <75% est energy req 7days Weight Status: Appropriate STAS HIGEURA MD Dec 31, 2018 07:51
[2018-12-31] MEDS: INSULIN LISPRO 300 UNITS/3 ML INSULN.PEN. SQ SCH ×3 (08:00→17:00)
[2018-12-31] MEDS: ASPIRIN ENTERIC COATED 81 MG TABLET.DR. PO SCH (08:43)
[2018-12-31] MEDS: TAMSULOSIN 0.4 MG CAP.ER.24H. PO SCH (08:44)
[2018-12-31] MEDS: FUROSEMIDE 20 MG TABLET PO SCH (08:44)
[2018-12-31] MEDS: DOCUSATE SODIUM 100 MG CAPSULE. PO SCH (08:44)
[2018-12-31] MEDS: POTASSIUM CHLORIDE 10 MEQ TABLET.ER. PO SCH (08:44)
[2018-12-31] MEDS: CITALOPRAM 20 MG TABLET. PO SCH (08:44)
[2018-12-31] MEDS: DONEPEZIL HCL 5 MG TABLET. PO SCH (08:45)
[2018-12-31] MEDS: POLYETHYLENE GLYCOL 3350 17 GM PACKET. PO SCH (08:46)
[2018-12-31] MEDS: LIDOCAINE (700MG/PATCH) PATCH. TD SCH (08:46)
[2018-12-31] MEDS: METOPROLOL SUCC 24HR ER 25 MG TAB.ER.24H. PO SCH (08:48)
--- NOTE | 2018-12-31 10:04 | PDOC3 ---
Discharge Summary Visit Information Date of Admission: Dec 25, 2018 Date of Discharge: Jan 06, 2019 Admitting Diagnosis: Acute systolic CHF exacerbation, Severe aortic stenosis Final Diagnosis Problems Medical Problems: (1) CHF exacerbation Status: Acute (2) Dyspnea Status: Acute Brief Hospital Course Allergies Allergies Coded Allergies Type Severity Reaction Last Updated Verified No Known Drug Allergies 02/16/18 No Vital Signs Vital Signs Date Time Temp Pulse Resp B/P (MAP) Pulse Ox O2 Delivery O2 Flow Rate FiO2 12/31/18 08:48 74 99/61 12/31/18 07:47 Room Air 12/31/18 07:00 97.4 16 97 1.0 97.4 Lab Results Laboratory Tests Test 12/30/18 08:20 12/30/18 13:20 12/30/18 16:39 12/30/18 20:39 Prothrombin Time 16.1 SEC (11.7-14.0) Prothromb Time International Ratio 1.3 (0.8-1.1) Glucose (Fingerstick) 140 mg/dL (70-99) 139 mg/dL (70-99) 151 mg/dL (70-99) Test 12/31/18 07:35 Glucose (Fingerstick) 93 mg/dL (70-99) Laboratory Tests Test 12/30/18 13:20 12/30/18 16:39 12/30/18 20:39 12/31/18 07:35 Glucose (Fingerstick) 140 mg/dL (70-99) 139 mg/dL (70-99) 151 mg/dL (70-99) 93 mg/dL (70-99) Brief Hospital Course Mr Munguia is a 88yo M w/ PMHx dementia, CAD s/p CABG, systolic CHF, CKD2. He thinks it is 1979. He is very pleasantly confused though very nice and cooperative. He presented with shortness of breath, found in ED with a chest x- ray showing possible vascular congestion and elevated BNP of 17,038. He has associated weakness. It had been occurring off and on for weeks. Moving makes it worse. Seen by cardiology, underwent LHC on 12/26/18, revealing acute on chronic systolic and diastolic HF with EF 15%, severe three vessel coronary artery disease, 2/2 grafts patent, and severe aortic stenosis. As he was symptomatic on 12/30/18 underwent aortic valvuloplasty with symptomatic improvement, and now will await TAVR referral from cardiology. Placed on milrinone GTT with lasix after procedure, stabilized for acute rehabilitation. weaned off milrinone. Long d/w family about goals of care results in DNR/DNI, however he wishes to continue to recuperate. Seen by PT/OT, needs skilled services. Acute on chronic systolic heart failure. CAD known s/p CABG Chest pain, angina, w. atypical pain, poss bruise CKD 2-3 Mechanical fall with acquired weakness and debility Severe aortic stenosis s/p valvuloplasty Dementia [facility] 12/30 with valvuloplasty of aortic valve - Conclusion 1. Severely elevated left sided filling pressures consistent with acute on chronic systolic and diastolic HF 2. Successful balloon aortic valvuloplasty with an 18 mm True balloon reducing the gradient from 39 mm (severe) to 28 mm Hg (moderate stenosis). Recommendations 1. Continued diuresis and medical optimization 2. Depending on goals of care and symptoms, could consider referral to [facility] for TAVR in 2-3 months. 3. ASA 81mg daily and Plavix 75mg daily for 1 month. Greater than 30 minutes spent on discharge. Discharge Information Condition at Discharge: Improved Follow Up: Weeks (2) Disposition/Orders: D/C to Another Facility ([facility]) Scheduled Aspirin (Aspirin Ec) 325 Mg Tablet., 1 TAB PO DAILY for CAD/CHF for 30 Days, #30 Ref 5 Prescribed by: STAS HIGUERA MD on 12/31/18 1007 Clopidogrel Bisulfate (Clopidogrel) 75 Mg Tablet, 1 TAB PO DAILY for CD for 30 Days, #30 Ref 5 Prescribed by: STAS HIGUERA MD on 12/31/18 1007 Docusate Sodium (Colace) 100 Mg Capsule, 100 MG PO DAILY for Constipation for 30 Days, #30 Prescribed by: STAS HIGUERA MD on 12/31/18 1007 Escitalopram Oxalate (Escitalopram Oxalate) 10 Mg Tablet, 1 TAB PO DAILY, #30 Ref 3 (Reported) Entered as Reported by: JOSHUA LARSON on 02/18/18 0910 Last Action: Converted on 12/26/18 1527 by LANIE DAVIS Furosemide (Furosemide) 20 Mg Tablet, 20 MG PO DAILY for CHF for 30 Days, #30 Prescribed by: STAS HIGUERA MD on 12/31/18 1007 Metoprolol Succinate (Metoprolol Succinate ( Xl )) 25 Mg Tab.er.24h, 25 MG PO DAILY for CAD/CHF for 30 Days, #30 Ref 5 Prescribed by: STAS HIGUERA MD on 12/31/18 1007 Potassium Chloride (Klor-Con 10) 10 Meq Tablet.er, 10 MEQ PO DAILYWBKFT for CHF/Hypokalemia for 30 Days, #30 Prescribed by: STAS HIGUERA MD on 12/31/18 1007 Rosuvastatin Calcium (Crestor) 10 Mg Tablet, 10 MG PO HS for FOR CHOLESTEROL, #3 0 Ref 0 (Reported) Entered as Reported by: JOSHUA LARSON on 02/18/18909 Last Action: Converted on 12/26/181526 by LANIE DAVIS Tamsulosin Hcl (Flomax) 0.4 Mg Cap.er.24h, 0.4 MG PO DAILY, (Reported) Entered as Reported by: JOSHUA LARSON on 02/18/18909 Last Action: Continued on 12/26/181526 by LANIE DAVIS Scheduled PRN Acetaminophen (Tylenol) 325 Mg Tablet, 650 MG PO PRN Q6HRS PRN for MILD PAIN 1-3 for 30 Days, #120 Prescribed by: STAS HIGUERA MD on 12/31/18 1007 Polyethylene Glycol 3350 (Polyethylene Glycol 3350) 17 Gm Powd.pack, 17 GM PO PRN DAILY PRN for CONSTIPATION for 30 Days, #30 Prescribed by: STAS HIGUERA MD on 12/31/18 1007 Discontinued Medications Donepezil Hcl (Aricept) 5 Mg Tablet, 1 TAB PO DAILY, #90 Ref 3 (Reported) Entered as Reported by: JOSHUA LARSON on 02/18/18909 Last Action: Converted on 12/26/181526 by LANIE DAVIS Metoprolol Succinate/Hctz (Metoprolol ER-Hctz 50-12.5 mg) 1 Each Tab.er.24h, 1 EACH PO DAILY, (Reported) Entered as Reported by: JOSHUA LARSON on 02/18/18909 Last Action: Converted on 12/26/181526 by STAS WHIPPLE MD Dec 31, 2018 10:03
[2018-12-31] MEDS ORDERED: ASPI325T11 PO (10:07)
[2018-12-31] MEDS ORDERED: METO-239 PO (10:07)
[2018-12-31] MEDS ORDERED: ACET325T9 PO (10:07)
[2018-12-31] MEDS ORDERED: CLOP75TA PO (10:07)
[2018-12-31] MEDS ORDERED: POTA10TA12 PO (10:07)
[2018-12-31] MEDS ORDERED: DOCU-109 PO (10:07)
[2018-12-31] MEDS ORDERED: FURO20TA3 PO (10:07)
[2018-12-31] MEDS ORDERED: POLY17PO28 PO (10:07)
--- NOTE | 2018-12-31 10:09 | SNU/HH DC ---
DISCHARGE ORDERS DISCHARGE INFORMATION: DISCHARGE DATE: Jan 06, 2019 FINAL DIAGNOSIS Problems Medical Problems: (1) CHF exacerbation Status: Acute (2) Dyspnea Status: Acute CONDITION ON DISCHARGE: Stable CODE STATUS: Code Status: DNR/DNI PRISON: SNF STAY <30 DAYS: Yes POST DISCHARGE ORDERS: ACTIVITY ORDERS: Resume previous activity WEIGHT BEARING STATUS: Full weight bearing DIET AFTER DISCHARGE: Cardiac WOUND/INCISION CARE: Ice to area for comfort CHECKS AFTER DISCHARGE: CHECKS AFTER DISCHARGE: Check blood press - daily, Check your Temp as needed, Weigh Yourself Daily FOLLOW-UP: PHYSICIAN FOLLOW-UP: Dr. Tim Leroy - Cardiology 2-3 weeks LAB ORDERS FOR FOLLOW-UP: BMP and Mag 01/07/19 TREATMENT/EQUIPMENT ORDERS: Physical Therapy For: Evalulation/Treatment Occupational Therapy For: Evaluation/Treatment DISCHARGE MEDICATIONS: Home Meds Active Scripts Aspirin (ASPIRIN EC) 325 Mg Tablet.dr, 1 TAB PO DAILY for CAD/CHF for 30 Days, #30 TAB 5 Refills Prov:STAS HIGUERA MD 12/31/18 Clopidogrel Bisulfate (CLOPIDOGREL) 75 Mg Tablet, 1 TAB PO DAILY for CD for 30 Days, #30 TAB 5 Refills Prov:STAS HIGUERA MD 12/31/18 Polyethylene Glycol 3350 (POLYETHYLENE GLYCOL 3350) 17 Gm Powd.pack, 17 GM PO PRN DAILY PRN for CONSTIPATION for 30 Days, #30 PKT Prov:STAS HIGUERA MD 12/31/18 Docusate Sodium (COLACE) 100 Mg Capsule, 100 MG PO DAILY for Constipation for 30 Days, #30 CAP Prov:STAS HIGUERA MD 12/31/18 Furosemide (FUROSEMIDE) 20 Mg Tablet, 20 MG PO DAILY for CHF for 30 Days, #30 TAB Prov:STAS HIGUERA MD 12/31/18 Potassium Chloride (KLOR-CON 10) 10 Meq Tablet.er, 10 MEQ PO DAILYWBKFT for CHF/Hypokalemia for 30 Days, #30 TAB.SR Prov:STAS HIGUERA MD 12/31/18 Acetaminophen (TYLENOL) 325 Mg Tablet, 650 MG PO PRN Q6HRS PRN for MILD PAIN 1-3 for 30 Days, #120 TAB Prov:STAS HIGUERA MD 12/31/18 Metoprolol Succinate (METOPROLOL SUCCINATE ( XL )) 25 Mg Tab.er.24h, 25 MG PO DAILY for CAD/CHF for 30 Days, #30 TAB.SR 5 Refills Prov:STAS HIGUERA MD 12/31/18 Reported Medications Rosuvastatin Calcium (CRESTOR) 10 Mg Tablet, 10 MG PO HS for FOR CHOLESTEROL, #30 TAB 0 Refills 02/18/18 Escitalopram Oxalate (ESCITALOPRAM OXALATE) 10 Mg Tablet, 1 TAB PO DAILY, #30 TAB 3 Refills 02/18/18 Tamsulosin Hcl (FLOMAX) 0.4 Mg Cap.er.24h, 0.4 MG PO DAILY, TAB 02/18/18 Discontinued Reported Medications Metoprolol Succinate/Hctz (Metoprolol ER-Hctz 50-12.5 mg) 1 Each Tab.er.24h, 1 EACH PO DAILY, TAB.SR 02/18/18 Donepezil Hcl (ARICEPT) 5 Mg Tablet, 1 TAB PO DAILY, #90 TAB 3 Refills 02/18/18 STAS HIGUERA MD Dec 31, 2018 10:09
[2018-12-31 10:23] LABS: BASO % 0 % (0-3); EOS % 0 % (0-3); HEMATOCRIT 37.6 % (39.0-53.0); HEMOGLOBIN 12.1 g/dL (13.0-17.5); LYMPH # 0.7 x10^3/uL (1.0-4.8); LYMPH % 5 % (24-48); MEAN CORPUSCULAR HEMOGLOBIN 31 pg (25-35); MEAN CORPUSCULAR HGB CONC 32 g/dL (31-37); MEAN CORPUSCULAR VOLUME 96 fL (79-100); MONO # 0.8 x10^3/uL (0.0-1.1); MONO % 6 % (0-9); NEUT # 11.6 x10^3uL (1.8-7.7); NEUT % 88 % (31-73); PLATELET COUNT 223 x10^3/uL (140-400); RED BLOOD COUNT 3.91 x10^6/uL (4.30-5.70); WHITE BLOOD COUNT 13.1 x10^3/uL (4.0-11.0)
[2018-12-31 10:26] LABS: PROTHROMBIN TIME PATIENT 16.1 SEC (11.7-14.0)
[2018-12-31 10:35] LABS: ALBUMIN 2.6 g/dL (3.4-5.0); ALBUMIN/GLOBULIN RATIO 0.9 (1.0-1.7); CALCIUM 8.4 mg/dL (8.5-10.1); CREATININE 1.5 mg/dL (0.7-1.3); GFR 44.2; TOTAL BILIRUBIN 1.1 mg/dL (0.2-1.0); TOTAL PROTEIN 5.6 g/dL (6.4-8.2)
[2018-12-31 10:37] LABS: POTASSIUM 4.7 mmol/L (3.5-5.1)
--- NOTE | 2018-12-31 10:42 | NUR ---
SS following up with discharge planning. SS phoned and faxed discharge orders to [facility], ; fax [phone]. SS currently waiting on insurance authorization through [employer]. SS will await insurance authorization and will proceed accordingly. Pt's RN notified.
[2018-12-31 10:59] LABS: % BANDS 5 % (0-9); % LYMPHS 6 % (24-48); % MONOS 3 % (0-10); % SEGS 86 % (35-66)
[2018-12-31 11:00] LABS: ANISOCYTOSIS SLIGHT; BIZZARE CELLS OCC; PLT ESTIMATE ADEQUATE (ADEQUATE)
[2018-12-31] MEDS ORDERED: FUROSEMIDE 20 MG/2 ML VIAL. IVP ONE (13:45)
--- NOTE | 2018-12-31 15:58 | PDOC2 ---
PALLIATIVE CARE Palliative Care Note Palliative Care Consult requested by Dr. Leroy to address goals of care Medical Assessment per medical record; Acute on chronic systolic heart failure. CAD known s/p CABG Chest pain, angina, w. atypical pain, poss bruise CKD 2-3 Mechanical fall with acquired weakness and debility Severe aortic stenosis s/p valvuloplasty Dementia EF 15 % Patient alert. Sitting up in chair. Patient has little understanding of his medical condition. "Just wants to feel better" No appetite. Denies pain. Spoke with his daughter Yvette. Code Status: Full code. Plan family meeting tomorrow at 1030 JOSÉ MARTIN Dec 31, 2018 15:58
--- NOTE | 2018-12-31 16:06 | PDOC ---
GERONIMO BROWN HAND MODEL 12/31/18 1606: CARDIO Progress Notes Date and Time Date of Service 12/31/2018 Time of Evaluation 1540 Subjective Subjective: No shortness of breath, No Palpitations, Other (right chest pain from fall) Vitals Vitals Vital Signs Date Time Temp Pulse Resp B/P (MAP) Pulse Ox O2 Delivery O2 Flow Rate FiO2 12/31/18 15:00 97.8 82 94/55 (68) 98 Room Air 97.8 12/31/18 11:00 16 1.0 Weight Weight [ ] Input and Output Intake and Output Intake and Output 12/31/18 07:00 Intake Total 400 ml Output Total 155 ml Balance 245 ml Intake Oral 400 ml Output Urine Total 155 ml Laboratory Labs Laboratory Tests Test 12/30/18 16:39 12/30/18 20:39 12/31/18 07:35 12/31/18 09:50 Glucose (Fingerstick) 139 mg/dL (70-99) 151 mg/dL (70-99) 93 mg/dL (70-99) White Blood Count 13.1 x10^3/uL (4.0-11.0) Red Blood Count 3.91 x10^6/uL (4.30-5.70) Hemoglobin 12.1 g/dL (13.0-17.5) Hematocrit 37.6 % (39.0-53.0) Mean Corpuscular Volume 96 fL (79-100) Mean Corpuscular Hemoglobin 31 pg (25-35) Mean Corpuscular Hemoglobin Concent 32 g/dL (31-37) Red Cell Distribution Width 15.0 % (11.5-14.5) Platelet Count 223 x10^3/uL (140-400) Neutrophils (%) (Auto) 88 % (31-73) Lymphocytes (%) (Auto) 5 % (24-48) Monocytes (%) (Auto) 6 % (0-9) Eosinophils (%) (Auto) 0 % (0-3) Basophils (%) (Auto) 0 % (0-3) Neutrophils # (Auto) 11.6 x10^3uL (1.8-7.7) Lymphocytes # (Auto) 0.7 x10^3/uL (1.0-4.8) Monocytes # (Auto) 0.8 x10^3/uL (0.0-1.1) Eosinophils # (Auto) 0.0 x10^3/uL (0.0-0.7) Basophils # (Auto) 0.0 x10^3/uL (0.0-0.2) Segmented Neutrophils % 86 % (35-66) Band Neutrophils % 5 % (0-9) Lymphocytes % 6 % (24-48) Monocytes % 3 % (0-10) Platelet Estimate Adequate (ADEQUATE) Anisocytosis Slight RBC Morphology Bizarre Forms Occ Prothrombin Time 16.1 SEC (11.7-14.0) Prothromb Time International Ratio 1.3 (0.8-1.1) Sodium Level 141 mmol/L (136-145) Potassium Level 4.7 mmol/L (3.5-5.1) Chloride Level 105 mmol/L (98-107) Carbon Dioxide Level 24 mmol/L (21-32) Anion Gap 12 (6-14) Blood Urea Nitrogen 41 mg/dL (8-26) Creatinine 1.5 mg/dL (0.7-1.3) Estimated GFR (Cockcroft-Gault) 44.2 BUN/Creatinine Ratio 27 (6-20) Glucose Level 141 mg/dL (70-99) Calcium Level 8.4 mg/dL (8.5-10.1) Total Bilirubin 1.1 mg/dL (0.2-1.0) Aspartate Amino Transf (AST/SGOT) 287 U/L (15-37) Alanine Aminotransferase (ALT/SGPT) 288 U/L (16-63) Alkaline Phosphatase 355 U/L (46-116) Total Protein 5.6 g/dL (6.4-8.2) Albumin 2.6 g/dL (3.4-5.0) Albumin/Globulin Ratio 0.9 (1.0-1.7) Test 12/31/18 12:03 Glucose (Fingerstick) 143 mg/dL (70-99) Physical Exam HEENT: Neck Supple W Full Motion Chest: Symmetric LUNGS: Other (diminished bases) Heart: RRR (SR no significant ectopies in the last 48 hours. ), murmurs (ssytolic murmur 4/6 to NICOLE border) Extremities: No Calf Tenderness, Other (trace LE edema) Neurology: alert, oriented (to self and place), follow commands Other Exams left groin arteriotomy site intact, no erythema or swelling, neurovascular status to bilateral LE intact. Assessment Assessment 1. 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 Mechanical fall with no acute injuries: syncope could not be ruled out 3. CAD: remote CABG. [place] to LAD and SVG to RCA patent per [facility] 6. 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 Severe : S/P successful valvuloplasty reducing to moderate degree 8. HTN: controlled 9.. HLP 10. Dementia with med noncompliance 11. Transaminitis/diarrhea/leukocytosis 12. Suspect CKD3 13. Hx of GI bleed Recommendations 1. outpt TAVR referral 2. ASA. Continue with secondary prevention measures. 3. Low dose lasix therapy may hold if continued watery stool, continue toprol, 1.5 FR. Discussed with RN hydration adequacy 4. Consult GI 5. ECASA 81 mg/plavix for a month BINA TOBIN MD 12/31/18 0374: CARDIO Progress Notes Plan Plan Patient seen and examined. Agree with above nurse practitioner note. The patient actually has had some decline in his status. He has more dyspnea today. He is severely volume overloaded and has not had a significant urinary response. We will plan for a family meeting to determine goals of care. Options would be aggressive care including initiation of inotropic support and right heart ca theterization and continued optimization. If patient's family wish more conservative options then we'll plan for hospice initiation and continue medical therapy. Aortic valvoplasty was performed for palliation for his dyspnea. He at this time does not appear to be a good candidate for TAVR. GERONIMO BROWN APRN Dec 31, 2018 16:06 BINA TOBIN MD Dec 31, 2018 18:24
[2018-12-31] MEDS ORDERED: CLOPIDOGREL BISULFATE 75 MG TABLET PO ONE (16:15)
--- NOTE | 2018-12-31 16:33 | PDOC2 ---
GI CONSULT Reason For Consult: Transaminitis, diarrhea HPI: HPI: 88 y/o male, questionable historian. H/o CHF and NICM (EF 10-15%) and s/p valvuloplasty today w/ plans for referral for AVR as outpt. Hypotension noted on review of vitals. D/w cardiology - asked to see for abnormal LFTs and loose stools. Palliative care is involved - family meeting tomorrow. He denies reflux/heartburn, dysphagia/odynophagia, n/v, abd pain, diarrhea, con stipation, hematochezia, and melena. Admits to decreased appetite ("food doesn't look good") and weight loss. Denies liver history. Doesn't think he's had blood transfusions. Colonoscopy by Dr. Gonzalez on 02/20/18 for hematochezia and anemia showed diver ticulosis and internal hemorrhoids. Pt does not recall this. Large hiatal hernia and normal liver noted on CT on 02/17/18. He thinks he might have had his gallbladder removal. Has never heard the word pancreas before. Denies h/o PUD. Per RN, had two loose stools today - previous to this had not stooled since 12/28 and was getting Miralax. She says he doesn't eat much and told her he wasn't eating much at home either. No c/o pain. PMH: PMH: CAD, HTN, HLD, dementia, hiatal hernia, diverticulosis, hemorrhoids, anxiety, OA, BPH, CKD CABG, cataract removal FH: Family History: No pertinent hx Social History: Smoke: No ALCOHOL: none Drugs: None ROS: GEN: Denies fevers, chills, sweats HEENT: Denies blurred vision, sore throat CV: Denies chest pain RESP: Denies shortness of air, cough GI: Per HPI : Denies hematuria, dysuria ENDO: Denies weight changes NEURO: Denies confusion, dizziness MSK: Denies weakness, joint pain/swelling SKIN: Denies jaundice, pruritus Vitals: Vitals: Vital Signs Date Time Temp Pulse Resp B/P (MAP) Pulse Ox O2 Delivery O2 Flow Rate FiO2 12/31/18 15:00 97.8 82 94/55 (68) 98 Room Air 97.8 12/31/18 11:00 16 1.0 Labs: Labs: Laboratory Tests Test 12/30/18 16:39 12/30/18 20:39 12/31/18 07:35 12/31/18 09:50 Glucose (Fingerstick) 139 mg/dL (70-99) 151 mg/dL (70-99) 93 mg/dL (70-99) White Blood Count 13.1 x10^3/uL (4.0-11.0) Red Blood Count 3.91 x10^6/uL (4.30-5.70) Hemoglobin 12.1 g/dL (13.0-17.5) Hematocrit 37.6 % (39.0-53.0) Mean Corpuscular Volume 96 fL (79-100) Mean Corpuscular Hemoglobin 31 pg (25-35) Mean Corpuscular Hemoglobin Concent 32 g/dL (31-37) Red Cell Distribution Width 15.0 % (11.5-14.5) Platelet Count 223 x10^3/uL (140-400) Neutrophils (%) (Auto) 88 % (31-73) Lymphocytes (%) (Auto) 5 % (24-48) Monocytes (%) (Auto) 6 % (0-9) Eosinophils (%) (Auto) 0 % (0-3) Basophils (%) (Auto) 0 % (0-3) Neutrophils # (Auto) 11.6 x10^3uL (1.8-7.7) Lymphocytes # (Auto) 0.7 x10^3/uL (1.0-4.8) Monocytes # (Auto) 0.8 x10^3/uL (0.0-1.1) Eosinophils # (Auto) 0.0 x10^3/uL (0.0-0.7) Basophils # (Auto) 0.0 x10^3/uL (0.0-0.2) Segmented Neutrophils % 86 % (35-66) Band Neutrophils % 5 % (0-9) Lymphocytes % 6 % (24-48) Monocytes % 3 % (0-10) Platelet Estimate Adequate (ADEQUATE) Anisocytosis Slight RBC Morphology Bizarre Forms Occ Prothrombin Time 16.1 SEC (11.7-14.0) Prothromb Time International Ratio 1.3 (0.8-1.1) Sodium Level 141 mmol/L (136-145) Potassium Level 4.7 mmol/L (3.5-5.1) Chloride Level 105 mmol/L (98-107) Carbon Dioxide Level 24 mmol/L (21-32) Anion Gap 12 (6-14) Blood Urea Nitrogen 41 mg/dL (8-26) Creatinine 1.5 mg/dL (0.7-1.3) Estimated GFR (Cockcroft-Gault) 44.2 BUN/Creatinine Ratio 27 (6-20) Glucose Level 141 mg/dL (70-99) Calcium Level 8.4 mg/dL (8.5-10.1) Total Bilirubin 1.1 mg/dL (0.2-1.0) Aspartate Amino Transf (AST/SGOT) 287 U/L (15-37) Alanine Aminotransferase (ALT/SGPT) 288 U/L (16-63) Alkaline Phosphatase 355 U/L (46-116) Total Protein 5.6 g/dL (6.4-8.2) Albumin 2.6 g/dL (3.4-5.0) Albumin/Globulin Ratio 0.9 (1.0-1.7) Test 12/31/18 12:03 Glucose (Fingerstick) 143 mg/dL (70-99) Allergies: Coded Allergies: No Known Drug Allergies (Unverified , 02/16/18) Medications: Current Medications Medications (Trade) Dose Ordered Sig/Cindy Route PRN Reason Start Time Stop Time Status Last Admin Dose Admin Furosemide (Lasix) 20 mg 1X ONCE IVP 12/31/18 13:45 12/31/18 13:53 DC 12/31/18 14:35 Imaging: Imaging: CXR IMPRESSION: Mild to moderate CHF. Rib X-Ray IMPRESSION: Old healed right third and fifth rib fractures. Echocardiogram <Conclusion> Left ventricle ejection fraction is severely impaired. The Ejection Fraction is 10-15%. There is severe global hypokinesis of the left ventricle. Calculated aortic valve area is 0.6 cm2 with maximum pressure gradient of 58 mmHg and mean pressure gradient of 38 mmHg. Doppler and color-flow analysis revealed severe aortic stenosis. Doppler and Color-flow revealed mild to moderate mitral regurgitation. Doppler and Color Flow revealed mild tricuspid regurgitation. There is moderate- severe pulmonary hypertension. The PA pressure was estimated at 68 mmHg. Doppler and Color Flow revealed moderate pulmonic valvular regurgitation. Cardiac Cath Conclusion 1. Acute on chronic systolic and diastolic HF 2. Severe three vessel coronary artery disease. 3. 2/2 grafts patent 4. Severe aortic stenosis. Recommendations 1. Plan for medical optimization over the next 48 hours. Aortic valvuloplasty as a bridge to possible TAVR on Sunday12/30/2018. Web Development Director Procedure Conclusion 1. Severely elevated left sided filling pressures consistent with acute on chronic systolic and diastolic HF 2. Successful balloon aortic valvuloplasty with an 18 mm True balloon reducing the gradient from 39 mm (severe) to 28 mm Hg (moderate stenosis). Recommendations 1. Continued diuresis and medical optimization 2. Depending on goals of care and symptoms, could consider referral to [facility] for TAVR in 2-3 months. 3. ASA 81mg daily and Plavix 75mg daily for 1 month. PE: GEN: NAD HEENT: Atraumatic, PERRL LUNGS: CTAB HEART: RRR ABD: NABS, S/ND/NT EXTREMITY: No edema SKIN: No rashes, no jaundice NEURO/PSYCH: awake and alert, forgetful A/P: A/P: CHF, NICM, s/p valvuloplasty, dementia Abnormal LFTs, normocytic anemia Loose stools after Miralax Decreased appetite, weight loss Large hiatal hernia CRC screen - UTD (2018) Diverticulosis, hemorrhoids ?s/p cholecystectomy -- ?related to cardiac issues Will check US and Hepatitis panel for completeness. Await palliative discussion. Monitor stools and check stool studies if indicate. Encourage PO. ?empiric PPI Other per Dr. Gonzalez. STEPHANI STONE Dec 31, 2018 16:33
[2018-12-31] MEDS: ENOXAPARIN 40 MG/0.4 ML SYRINGE. SQ SCH ×2 (17:22→17:28)
[2018-12-31] MEDS: PATCH REMOVAL. MC SCH (21:00)
[2018-12-31] MEDS: ATORVASTATIN CALCIUM 40 MG TABLET. PO SCH (21:42)
[2018-12-31] MEDS: TEMAZEPAM 15 MG CAPSULE PO PRN (21:52)
[2019-01-01] VITALS (18 sets, daily range): BP systolic 75–109; BP diastolic 43–65
--- NOTE | 2019-01-01 07:57 | PDOC ---
PROGRESS NOTES Chief Complaint Chief Complaint Acute on chronic systolic heart failure. EF 10-15% CAD known s/p CABG Chest pain, angina, w. atypical pain, poss bruise CKD 2-3 Mechanical fall with acquired weakness and debility Severe aortic stenosis s/p valvuloplasty Dementia Transaminitis History of Present Illness History of Present Illness Mr Munguia is a 88yo M w/ PMHx dementia, CAD s/p CABG, systolic CHF, CKD2. He thinks it is 1979. He is very pleasantly confused though very nice and cooperative. He presented with shortness of breath, found in ED with a chest x- ray showing possible vascular congestion and elevated BNP of 17,038. He has associated weakness. It had been occurring off and on for weeks. Moving makes it worse. Seen by cardiology, underwent LHC on 12/26/18, revealing acute on chron ic systolic and diastolic HF with EF 15%, severe three vessel coronary artery disease, 2/2 grafts patent, and severe aortic stenosis. As he was symptomatic on 12/30/18 underwent aortic valvuloplasty with symptomatic improvement, and now will await TAVR referral from cardiology. Seen by PT/OT, needs skilled services. Feeling better today, less difficulty getting a deep breath. Still pleasantly confused. Eating breakfast currently, sitting up in bed. Liver enzymes up 12/31 - GI consulted. RUQ US unrevealing except GB sludge. D/W cardiology for further diuresis and milrinone GTT. Based on EF likely not TAVR candidate. D/w family he is a DNR/DNI Vitals Vitals Vital Signs Date Time Temp Pulse Resp B/P (MAP) Pulse Ox O2 Delivery O2 Flow Rate FiO2 01/01/19 03:15 98.1 70 18 108/65 (79) 98 Nasal Cannula 1.0 98.1 Physical Exam General: Alert, Cooperative, No acute distress, Other (oriented to place) Heart: Regular rate (SR), Normal S1, Normal S2, Other (4/6 systolic murmur to NICOLE and 3/6 systolic murmur to LLS border) Lungs: Clear Abdomen: Soft, No tenderness Extremities: No cyanosis, Other (1+ bilateral LE pitting edema) Skin: No breakdown, No significant lesion Labs LABS Laboratory Tests Test 12/31/18 09:50 12/31/18 12:03 12/31/18 16:36 12/31/18 20:53 White Blood Count 13.1 x10^3/uL (4.0-11.0) Red Blood Count 3.91 x10^6/uL (4.30-5.70) Hemoglobin 12.1 g/dL (13.0-17.5) Hematocrit 37.6 % (39.0-53.0) Mean Corpuscular Volume 96 fL (79-100) Mean Corpuscular Hemoglobin 31 pg (25-35) Mean Corpuscular Hemoglobin Concent 32 g/dL (31-37) Red Cell Distribution Width 15.0 % (11.5-14.5) Platelet Count 223 x10^3/uL (140-400) Neutrophils (%) (Auto) 88 % (31-73) Lymphocytes (%) (Auto) 5 % (24-48) Monocytes (%) (Auto) 6 % (0-9) Eosinophils (%) (Auto) 0 % (0-3) Basophils (%) (Auto) 0 % (0-3) Neutrophils # (Auto) 11.6 x10^3uL (1.8-7.7) Lymphocytes # (Auto) 0.7 x10^3/uL (1.0-4.8) Monocytes # (Auto) 0.8 x10^3/uL (0.0-1.1) Eosinophils # (Auto) 0.0 x10^3/uL (0.0-0.7) Basophils # (Auto) 0.0 x10^3/uL (0.0-0.2) Segmented Neutrophils % 86 % (35-66) Band Neutrophils % 5 % (0-9) Lymphocytes % 6 % (24-48) Monocytes % 3 % (0-10) Platelet Estimate Adequate (ADEQUATE) Anisocytosis Slight RBC Morphology Bizarre Forms Occ Prothrombin Time 16.1 SEC (11.7-14.0) Prothromb Time International Ratio 1.3 (0.8-1.1) Sodium Level 141 mmol/L (136-145) Potassium Level 4.7 mmol/L (3.5-5.1) Chloride Level 105 mmol/L (98-107) Carbon Dioxide Level 24 mmol/L (21-32) Anion Gap 12 (6-14) Blood Urea Nitrogen 41 mg/dL (8-26) Creatinine 1.5 mg/dL (0.7-1.3) Estimated GFR (Cockcroft-Gault) 44.2 BUN/Creatinine Ratio 27 (6-20) Glucose Level 141 mg/dL (70-99) Calcium Level 8.4 mg/dL (8.5-10.1) Total Bilirubin 1.1 mg/dL (0.2-1.0) Aspartate Amino Transf (AST/SGOT) 287 U/L (15-37) Alanine Aminotransferase (ALT/SGPT) 288 U/L (16-63) Alkaline Phosphatase 355 U/L (46-116) Total Protein 5.6 g/dL (6.4-8.2) Albumin 2.6 g/dL (3.4-5.0) Albumin/Globulin Ratio 0.9 (1.0-1.7) Hepatitis A IgM Antibody Nonreactive (Nonreactive) Hepatitis B Surface Antigen Nonreactive (Nonreactive) Hepatitis B Core IgM Antibody Nonreactive (Nonreactive) Hepatitis C IgG Antibody Nonreactive (Nonreactive) Glucose (Fingerstick) 143 mg/dL (70-99) 136 mg/dL (70-99) 103 mg/dL (70-99) Assessment and Plan Assessmemt and Plan Problems Medical Problems: (1) CHF exacerbation Status: Acute (2) Dyspnea Status: Acute Comment Review of Relevant I have reviewed the following items jayce (where applicable) has been applied. Labs Laboratory Tests Test 12/30/18 08:20 12/30/18 13:20 12/30/18 16:39 12/30/18 20:39 Prothrombin Time 16.1 SEC (11.7-14.0) Prothromb Time International Ratio 1.3 (0.8-1.1) Glucose (Fingerstick) 140 mg/dL (70-99) 139 mg/dL (70-99) 151 mg/dL (70-99) Test 12/31/18 07:35 12/31/18 09:50 12/31/18 12:03 12/31/18 16:36 Glucose (Fingerstick) 93 mg/dL (70-99) 143 mg/dL (70-99) 136 mg/dL (70-99) White Blood Count 13.1 x10^3/uL (4.0-11.0) Red Blood Count 3.91 x10^6/uL (4.30-5.70) Hemoglobin 12.1 g/dL (13.0-17.5) Hematocrit 37.6 % (39.0-53.0) Mean Corpuscular Volume 96 fL (79-100) Mean Corpuscular Hemoglobin 31 pg (25-35) Mean Corpuscular Hemoglobin Concent 32 g/dL (31-37) Red Cell Distribution Width 15.0 % (11.5-14.5) Platelet Count 223 x10^3/uL (140-400) Neutrophils (%) (Auto) 88 % (31-73) Lymphocytes (%) (Auto) 5 % (24-48) Monocytes (%) (Auto) 6 % (0-9) Eosinophils (%) (Auto) 0 % (0-3) Basophils (%) (Auto) 0 % (0-3) Neutrophils # (Auto) 11.6 x10^3uL (1.8-7.7) Lymphocytes # (Auto) 0.7 x10^3/uL (1.0-4.8) Monocytes # (Auto) 0.8 x10^3/uL (0.0-1.1) Eosinophils # (Auto) 0.0 x10^3/uL (0.0-0.7) Basophils # (Auto) 0.0 x10^3/uL (0.0-0.2) Segmented Neutrophils % 86 % (35-66) Band Neutrophils % 5 % (0-9) Lymphocytes % 6 % (24-48) Monocytes % 3 % (0-10) Platelet Estimate Adequate (ADEQUATE) Anisocytosis Slight RBC Morphology Bizarre Forms Occ Prothrombin Time 16.1 SEC (11.7-14.0) Prothromb Time International Ratio 1.3 (0.8-1.1) Sodium Level 141 mmol/L (136-145) Potassium Level 4.7 mmol/L (3.5-5.1) Chloride Level 105 mmol/L (98-107) Carbon Dioxide Level 24 mmol/L (21-32) Anion Gap 12 (6-14) Blood Urea Nitrogen 41 mg/dL (8-26) Creatinine 1.5 mg/dL (0.7-1.3) Estimated GFR (Cockcroft-Gault) 44.2 BUN/Creatinine Ratio 27 (6-20) Glucose Level 141 mg/dL (70-99) Calcium Level 8.4 mg/dL (8.5-10.1) Total Bilirubin 1.1 mg/dL (0.2-1.0) Aspartate Amino Transf (AST/SGOT) 287 U/L (15-37) Alanine Aminotransferase (ALT/SGPT) 288 U/L (16-63) Alkaline Phosphatase 355 U/L (46-116) Total Protein 5.6 g/dL (6.4-8.2) Albumin 2.6 g/dL (3.4-5.0) Albumin/Globulin Ratio 0.9 (1.0-1.7) Hepatitis A IgM Antibody Nonreactive (Nonreactive) Hepatitis B Surface Antigen Nonreactive (Nonreactive) Hepatitis B Core IgM Antibody Nonreactive (Nonreactive) Hepatitis C IgG Antibody Nonreactive (Nonreactive) Test 12/31/18 20:53 Glucose (Fingerstick) 103 mg/dL (70-99) Laboratory Tests Test 12/31/18 09:50 12/31/18 12:03 12/31/18 16:36 12/31/18 20:53 White Blood Count 13.1 x10^3/uL (4.0-11.0) Red Blood Count 3.91 x10^6/uL (4.30-5.70) Hemoglobin 12.1 g/dL (13.0-17.5) Hematocrit 37.6 % (39.0-53.0) Mean Corpuscular Volume 96 fL (79-100) Mean Corpuscular Hemoglobin 31 pg (25-35) Mean Corpuscular Hemoglobin Concent 32 g/dL (31-37) Red Cell Distribution Width 15.0 % (11.5-14.5) Platelet Count 223 x10^3/uL (140-400) Neutrophils (%) (Auto) 88 % (31-73) Lymphocytes (%) (Auto) 5 % (24-48) Monocytes (%) (Auto) 6 % (0-9) Eosinophils (%) (Auto) 0 % (0-3) Basophils (%) (Auto) 0 % (0-3) Neutrophils # (Auto) 11.6 x10^3uL (1.8-7.7) Lymphocytes # (Auto) 0.7 x10^3/uL (1.0-4.8) Monocytes # (Auto) 0.8 x10^3/uL (0.0-1.1) Eosinophils # (Auto) 0.0 x10^3/uL (0.0-0.7) Basophils # (Auto) 0.0 x10^3/uL (0.0-0.2) Segmented Neutrophils % 86 % (35-66) Band Neutrophils % 5 % (0-9) Lymphocytes % 6 % (24-48) Monocytes % 3 % (0-10) Platelet Estimate Adequate (ADEQUATE) Anisocytosis Slight RBC Morphology Bizarre Forms Occ Prothrombin Time 16.1 SEC (11.7-14.0) Prothromb Time International Ratio 1.3 (0.8-1.1) Sodium Level 141 mmol/L (136-145) Potassium Level 4.7 mmol/L (3.5-5.1) Chloride Level 105 mmol/L (98-107) Carbon Dioxide Level 24 mmol/L (21-32) Anion Gap 12 (6-14) Blood Urea Nitrogen 41 mg/dL (8-26) Creatinine 1.5 mg/dL (0.7-1.3) Estimated GFR (Cockcroft-Gault) 44.2 BUN/Creatinine Ratio 27 (6-20) Glucose Level 141 mg/dL (70-99) Calcium Level 8.4 mg/dL (8.5-10.1) Total Bilirubin 1.1 mg/dL (0.2-1.0) Aspartate Amino Transf (AST/SGOT) 287 U/L (15-37) Alanine Aminotransferase (ALT/SGPT) 288 U/L (16-63) Alkaline Phosphatase 355 U/L (46-116) Total Protein 5.6 g/dL (6.4-8.2) Albumin 2.6 g/dL (3.4-5.0) Albumin/Globulin Ratio 0.9 (1.0-1.7) Hepatitis A IgM Antibody Nonreactive (Nonreactive) Hepatitis B Surface Antigen Nonreactive (Nonreactive) Hepatitis B Core IgM Antibody Nonreactive (Nonreactive) Hepatitis C IgG Antibody Nonreactive (Nonreactive) Glucose (Fingerstick) 143 mg/dL (70-99) 136 mg/dL (70-99) 103 mg/dL (70-99) Medications Current Medications Morphine Sulfate (Morphine Sulfate) 4 mg 1X ONCE IV Last administered on 12/25/18at 16:10; Start 12/25/18 at 16:00; Stop 12/25/18 at 16:01; Status DC Furosemide (Lasix) 40 mg 1X ONCE IV Last administered on 12/25/18at 16:09; Start 12/25/18 at 16:00; Stop 12/25/18 at 16:01; Status DC Temazepam (Restoril) 15 mg PRN QHS PRN PO INSOMNIA Last administered on 12/26/18at 21:34; Start 12/25/18 at 22:15; Stop 12/26/18 at 23:33; Status DC Furosemide (Lasix) 40 mg 1X ONCE IVP Last administered on 12/26/18 11:41; Start 12/26/18 at 11:15; Stop 12/26/18 at 11:19; Status DC Potassium Chloride (Klor-Con) 20 meq 1X ONCE PO Last administered on 12/26/18at 11:41; Start 12/26/18 at 11:15; Stop 12/26/18 at 11:19; Status DC Aspirin (Ecotrin) 81 mg DAILYWBKFT PO Last administered on 12/31/18at 08:43; Start 12/26/18 at 12:00 Enoxaparin Sodium (Lovenox Per Pharmacy Prophylaxis Dosing) 1 each PRN DAILY PRN MC SEE COMMENTS; Start 12/26/18 at 15:15 Tamsulosin HCl (Flomax) 0.4 mg DAILY PO Last administered on 12/31/18at 08:44; Start 12/26/18 at 16:00 Donepezil HCl (Aricept) 5 mg DAILY PO Last administered on 12/31/18at 08:45; Start 12/26/18 at 16:00 Citalopram Hydrobromide (CeleXA) 20 mg DAILY PO Last administered on 12/31/18 08:44; Start 12/26/18 at 16:00 Non-Formulary Medication (Metoprolol Succinate/Hctz (Metoprolol ER-Hctz 50-12.5 mg)) 1 each DAILY PO ; Start 12/27/18 at 09:00; Status UNV Atorvastatin Calcium (Lipitor) 40 mg QHS PO Last administered on 12/31/18at 21:42; Start 12/26/18 at 21:00 Metoprolol Succinate (Toprol Xl) 50 mg DAILY PO ; Start 12/26/18 at 16:00; Stop 12/27/18 at 11:26; Status DC Hydrochlorothiazide (Microzide) 12.5 mg DAILY PO ; Start 12/26/18 at 16:00; Stop 12/27/18 at 11:26; Status DC Enoxaparin Sodium (Lovenox 40mg Syringe) 40 mg Q24H SQ Last administered on 12/31/18at 17:28; Start 12/26/18 at 16:00 Iodixanol (Visipaque 320) 100 ml STK-MED ONCE .ROUTE ; Start 12/26/18 at 16:05; Stop 12/26/18 at 16:06; Status DC Lidocaine HCl (Lidocaine 1% 20ml Vial) 20 ml STK-MED ONCE .ROUTE ; Start 12/26/18 at 16:05; Stop 12/26/18 at 16:06; Status DC Heparin Sodium/ Sodium Chloride 1,000 ml @ As Directed STK-MED ONCE .ROUTE ; Start 12/26/18 at 16:06; Stop 12/26/18 at 16:07; Status DC Fentanyl Citrate (Fentanyl 2ml Vial) 100 mcg STK-MED ONCE .ROUTE ; Start 12/26/18 at 16:15; Stop 12/26/18 at 16:16; Status DC Midazolam HCl (Versed) 2 mg STK-MED ONCE .ROUTE ; Start 12/26/18 at 16:15; Stop 12/26/18 at 16:16; Status DC Heparin Sodium/ Sodium Chloride (HEPARIN for ARTERIAL LINE FLUSH) 1,000 unit 1X ONCE IART Last administered on 12/26/18at 17:22; Start 12/26/18 at 16:45; Stop 12/26/18 at 16:46; Status DC Heparin Sodium/ Sodium Chloride (HEPARIN for ARTERIAL LINE FLUSH) 1,000 unit 1X ONCE IART Last administered on 12/26/18at 17:22; Start 12/26/18 at 16:45; Stop 12/26/18 at 16:46; Status DC Midazolam HCl (Versed) 2 mg 1X ONCE IV Last administered on 12/26/18at 17:25; Start 12/26/18 at 16:45; Stop 12/26/18 at 16:46; Status DC Fentanyl Citrate (Fentanyl 2ml Vial) 100 mcg 1X ONCE IV Last administered on 12/26/18 17:25; Start 12/26/18 at 16:45; Stop 12/26/18 at 16:46; Status DC Iodixanol (Visipaque 320) 100 ml 1X ONCE IART Last administered on 12/26/18 17:23; Start 12/26/18 at 16:45; Stop 12/26/18 at 16:46; Status DC Lidocaine HCl (Lidocaine 1% 20ml Vial) 20 ml 1X ONCE INJ Last administered on 12/26/18 17:24; Start 12/26/18 at 16:45; Stop 12/26/18 at 16:46; Status DC Multi-Ingredient Mouthwash/Gargle (Gi Cocktail) 20 ml PRN QID PRN PO CHEST PAIN Last administered on 12/30/18 16:28; Start 12/26/18 at 21:30 Temazepam (Restoril) 15 mg PRN QHS PRN PO INSOMNIA, MAY REPEAT X1 Last administered on 12/31/18 21:52; Start 12/26/18 at 23:45 Temazepam (Restoril) 15 mg 1X ONCE PO Last administered on 12/27/18 01:40; Start 12/27/18 at 01:00; Stop 12/27/18 at 01:01; Status DC Acetaminophen (Tylenol) 650 mg PRN Q6HRS PRN PO MILD PAIN 1-3 Last administered on 12/30/18 22:04; Start 12/27/18 at 01:30 Oxycodone HCl (Roxicodone) 5 mg PRN Q6HRS PRN PO PAIN Last administered on 12/30/18 18:21; Start 12/27/18 at 11:15 Metoprolol Succinate (Toprol Xl) 25 mg DAILY PO Last administered on 12/31/18 08:48; Start 12/28/18 at 09:00 Furosemide (Lasix) 20 mg DAILY PO Last administered on 12/31/18 08:44; Start 12/27/18 at 12:00 Potassium Chloride (Klor-Con) 10 meq DAILYWBKFT PO Last administered on 12/31/18 08:44; Start 12/27/18 at 12:00 Lidocaine (Lidoderm) 1 patch DAILY TD Last administered on 6/11/19at 08:46; Start 12/27/18 at 12:00 Miscellaneous (Lidoderm Patch Removal) 1 ea QHS MC Last administered on 12/30/18at 21:00; Start 12/27/18 at 21:00 Docusate Sodium (Colace) 100 mg DAILY PO Last administered on 12/31/18at 08:44; Start 12/27/18 at 13:00 Polyethylene Glycol (miraLAX PACKET) 17 gm PRN DAILY PRN PO CONSTIPATION; Start 12/27/18 at 12:45 Polyethylene Glycol (miraLAX PACKET) 17 gm DAILY PO Last administered on 12/31/18at 08:46; Start 12/27/18 at 13:00 Iodixanol (Visipaque 320) 100 ml STK-MED ONCE .ROUTE ; Start 12/30/18 at 07:48; Stop 12/30/18 at 07:49; Status DC Lidocaine HCl (Lidocaine 1% 20ml Vial) 20 ml STK-MED ONCE .ROUTE ; Start 12/30/18 at 07:48; Stop 12/30/18 at 07:49; Status DC Heparin Sodium/ Sodium Chloride 1,000 ml @ As Directed STK-MED ONCE .ROUTE ; Start 12/30/18 at 07:48; Stop 12/30/18 at 07:49; Status DC Heparin Sodium/ Sodium Chloride 500 ml @ As Directed STK-MED ONCE .ROUTE ; Start 12/30/18 at 07:59; Stop 12/30/18 at 08:00; Status DC Insulin Human Lispro (HumaLOG) 0-5 UNITS TIDWMEALS SQ ; Start 12/30/18 at 12:00 Dextrose (Dextrose 50%-Water Syringe) 12.5 gm PRN Q15MIN PRN IV SEE COMMENTS; Start 12/30/18 at 08:30 Fentanyl Citrate (Fentanyl 2ml Vial) 100 mcg STK-MED ONCE .ROUTE ; Start 12/30/18 at 08:23; Stop 12/30/18 at 08:24; Status DC Midazolam HCl (Versed) 2 mg STK-MED ONCE .ROUTE ; Start 12/30/18 at 08:24; Stop 12/30/18 at 08:25; Status DC Heparin Sodium (Porcine) (Heparin Sodium) 10,000 unit STK-MED ONCE .ROUTE ; Start 12/30/18 at 08:29; Stop 12/30/18 at 08:30; Status DC Iodixanol (Visipaque 320) 100 ml STK-MED ONCE .ROUTE ; Start 12/30/18 at 09:08; Stop 12/30/18 at 09:09; Status DC Dopamine HCl/ Dextrose 0 ml @ As Directed STK-MED ONCE IV ; Start 12/30/18 at 09:14; Stop 12/30/18 at 09:15; Status DC Phenylephrine HCl (PHENYLEPHRINE in 0.9% NACL PF) 1 mg STK-MED ONCE IV ; Start 12/30/18 at 09:14; Stop 12/30/18 at 09:15; Status DC Heparin Sodium/ Sodium Chloride (HEPARIN for ARTERIAL LINE FLUSH) 1,000 unit 1X ONCE IART Last administered on 12/30/18at 10:30; Start 12/30/18 at 10:30; Stop 12/30/18 at 10:31; Status DC Midazolam HCl (Versed) 1 mg 1X ONCE IV Last administered on 12/30/18at 10:30; Start 12/30/18 at 10:30; Stop 12/30/18 at 10:31; Status DC Fentanyl Citrate (Fentanyl 2ml Vial) 50 mcg 1X ONCE IV Last administered on 12/30/18at 10:30; Start 12/30/18 at 10:30; Stop 12/30/18 at 10:31; Status DC Iodixanol (Visipaque 320) 100 ml 1X ONCE IART Last administered on 12/30/18at 10:30; Start 12/30/18 at 10:30; Stop 12/30/18 at 10:31; Status DC Heparin Sodium (Porcine) (Heparin Sodium) 5,500 unit 1X ONCE IV Last administered on 12/30/18at 10:30; Start 12/30/18 at 10:30; Stop 12/30/18 at 10:31; Status DC Lidocaine HCl (Lidocaine 1% 20ml Vial) 17 ml 1X ONCE INJ Last administered on 12/30/18at 10:30; Start 12/30/18 at 10:30; Stop 12/30/18 at 10:31; Status DC Info (CONTRAST GIVEN -- Rx MONITORING) 1 each PRN DAILY PRN MC SEE COMMENTS; Start 12/30/18 at 10:30; Stop 01/01/19 at 10:29 Clopidogrel Bisulfate (Plavix) 600 mg 1X ONCE PO Last administered on 12/30/18at 10:30; Start 12/30/18 at 10:30; Stop 12/30/18 at 10:33; Status DC Aspirin (Ry Aspirin) 325 mg 1X ONCE PO Last administered on 12/30/18at 10:30; Start 12/30/18 at 10:30; Stop 12/30/18 at 10:33; Status DC Clopidogrel Bisulfate (Plavix) 75 mg STK-MED ONCE .ROUTE ; Start 12/30/18 at 10:28; Stop 12/30/18 at 10:29; Status DC Aspirin (Ry Aspirin) 325 mg STK-MED ONCE .ROUTE ; Start 12/30/18 at 10:28; Stop 12/30/18 at 10:29; Status DC Furosemide (Lasix) 20 mg 1X ONCE IVP Last administered on 12/30/18at 16:29; Start 12/30/18 at 16:00; Stop 12/30/18 at 16:01; Status DC Furosemide (Lasix) 20 mg 1X ONCE IVP Last administered on 12/31/18at 14:35; Start 12/31/18 at 13:45; Stop 12/31/18 at 13:53; Status DC Clopidogrel Bisulfate (Plavix) 75 mg DAILYWBKFT PO ; Start 01/01/19 at 08:00 Clopidogrel Bisulfate (Plavix) 75 mg 1X ONCE PO Last administered on 12/31/18at 17:23; Start 12/31/18 at 16:15; Stop 12/31/18 at 16:16; Status DC Pantoprazole Sodium (Protonix) 40 mg DAILYAC PO ; Start 01/01/19 at 07:30 Active Scripts Active Aspirin Ec (Aspirin) 325 Mg Tablet.dr 1 Tab PO DAILY 30 Days Clopidogrel (Clopidogrel Bisulfate) 75 Mg Tablet 1 Tab PO DAILY 30 Days Polyethylene Glycol 3350 17 Gm Powd.pack 17 Gm PO PRN DAILY PRN 30 Days Colace (Docusate Sodium) 100 Mg Capsule 100 Mg PO DAILY 30 Days Furosemide 20 Mg Tablet 20 Mg PO DAILY 30 Days Klor-Con 10 (Potassium Chloride) 10 Meq Tablet.er 10 Meq PO DAILYWBKFT 30 Days Tylenol (Acetaminophen) 325 Mg Tablet 650 Mg PO PRN Q6HRS PRN 30 Days Metoprolol Succinate ( Xl ) (Metoprolol Succinate) 25 Mg Tab.er.24h 25 Mg PO DAILY 30 Days Reported Crestor (Rosuvastatin Calcium) 10 Mg Tablet 10 Mg PO HS Escitalopram Oxalate 10 Mg Tablet 1 Tab PO DAILY Flomax (Tamsulosin Hcl) 0.4 Mg Cap.er.24h 0.4 Mg PO DAILY Vitals/I & O Vital Sign - Last 24 Hours 12/31/18 12/31/18 12/31/18 12/31/18 08:48 11:00 11:04 15:00 Temp 97.5 97.8 97.5 97.8 Pulse 74 71 79 82 Resp 16 B/P (MAP) 99/61 86/54 (65) 94/59 (71) 94/55 (68) Pulse Ox 96 98 O2 Delivery Nasal Cannula Room Air O2 Flow Rate 1.0 12/31/18 12/31/18 12/31/18 01/01/19 19:20 20:00 23:15 03:15 Temp 97.9 98.0 98.1 97.9 98.0 98.1 Pulse 76 81 70 Resp 18 18 18 B/P (MAP) 91/54 (66) 99/61 (74) 108/65 (79) Pulse Ox 98 92 98 O2 Delivery Room Air Room Air Room Air Nasal Cannula O2 Flow Rate 1.0 1.0 Intake and Output 12/31/18 12/31/18 01/01/19 14:59 22:59 06:59 Intake Total 340 ml 220 ml Output Total 350 ml 200 ml Balance 340 ml -350 ml 20 ml Nutrition Consultation Dietary Evaluation: Recommendations by RD: Protein supplementation Comments: Continue w/cardaic diet as ordered, honor food preferences, and provide sncaks as requested REC Ensure (strawberry) w/dinner Expected Outcomes/Goals: PO intake to meet >75% est needs Malnutrition Findings: Food and Nutrition Intake (Mod: <75% est energy req 7days Weight Status: Appropriate STAS HIGUERA MD Jan 01, 2019 07:57
[2019-01-01] MEDS: INSULIN LISPRO 300 UNITS/3 ML INSULN.PEN. SQ SCH ×3 (08:00→17:00)
--- NOTE | 2019-01-01 08:28 | RAD ---
Abdominal ultrasound, 12/31/2018: HISTORY: Elevated liver function tests, decreased appetite The gallbladder is within normal limits in size. There is echogenic material along its dependent wall without posterior acoustic shadowing. The appearance that of biliary sludge. No definite gallstones are seen. The gallbladder wall is mildly thickened. The common hepatic duct is of normal caliber. A 1.3 cm hyperechoic nodule is noted in the left lobe of the liver. No other hepatic lesion is seen. The pancreas was poorly defined due to overlying bowel. The spleen is of normal size. The kidneys are of normal size. There is no evidence of hydronephrosis. There is a 3.5 cm cyst arising from the lower pole the left kidney. An additional 1.2 cm left renal cyst is also noted. There is atherosclerotic plaquing of the abdominal aorta. There is slight dilatation of the infrarenal abdominal aorta which measures 2.9 cm. There appears to be a trace amount of ascites. Incidental note is made of small bilateral pleural effusions. IMPRESSION: 1. The gallbladder contains sludge with mild thickening of its kimble. This wall thickening can be due to a variety of causes including liver disease, hypoproteinemia, cardiac disease or cholecystitis. 2. Small hyperechoic liver lesion, most likely a hemangioma. 3. Left renal cysts. 4. Aortic atherosclerosis with slight dilatation of the infrarenal abdominal aorta. 5. Trace ascites. 6. Small bilateral pleural effusions. Electronically signed by: Mukesh Lee MD (01/01/2019 8:25 AM) [facility]
[2019-01-01] MEDS: PANTOPRAZOLE 40 MG TABLET.DR. PO SCH (08:30)
[2019-01-01] MEDS: TAMSULOSIN 0.4 MG CAP.ER.24H. PO SCH (08:30)
[2019-01-01] MEDS: FUROSEMIDE 20 MG TABLET PO SCH (08:30)
[2019-01-01] MEDS: CITALOPRAM 20 MG TABLET. PO SCH (08:31)
[2019-01-01] MEDS: POTASSIUM CHLORIDE 10 MEQ TABLET.ER. PO SCH (08:31)
[2019-01-01] MEDS: CLOPIDOGREL BISULFATE 75 MG TABLET PO SCH (08:31)
[2019-01-01] MEDS: ASPIRIN ENTERIC COATED 81 MG TABLET.DR. PO SCH (08:31)
[2019-01-01] MEDS: DONEPEZIL HCL 5 MG TABLET. PO SCH (08:31)
[2019-01-01] MEDS: METOPROLOL SUCC 24HR ER 25 MG TAB.ER.24H. PO SCH (08:32)
[2019-01-01] MEDS: DOCUSATE SODIUM 100 MG CAPSULE. PO SCH (08:32)
[2019-01-01] MEDS: POLYETHYLENE GLYCOL 3350 17 GM PACKET. PO SCH (08:32)
[2019-01-01] MEDS: LIDOCAINE (700MG/PATCH) PATCH. TD SCH (08:34)
[2019-01-01 09:04] LABS: CALCIUM 8.5 mg/dL (8.5-10.1); CREATININE 1.5 mg/dL (0.7-1.3); GFR 44.2; POTASSIUM 4.3 mmol/L (3.5-5.1)
[2019-01-01 09:11] LABS: ALBUMIN 2.4 g/dL (3.4-5.0); DIRECT BILIRUBIN 0.5 mg/dL (0.0-0.2); TOTAL PROTEIN 5.3 g/dL (6.4-8.2)
--- NOTE | 2019-01-01 09:53 | PDOC ---
TYLER BARKER TOUCHER UP 01/01/19 0953: CARDIO Progress Notes Date and Time Date of Service 01/01/19 Time of Evaluation 0950 Subjective Subjective: No shortness of breath, No Palpitations, Other (dyspneic with minimal exertion. ) Vitals Vitals Vital Signs Date Time Temp Pulse Resp B/P (MAP) Pulse Ox O2 Delivery O2 Flow Rate FiO2 01/01/19 08:32 72 109/62 01/01/19 08:00 Room Air 01/01/19 07:00 97.9 12 95 97.9 01/01/19 03:15 1.0 Weight Weight [ ] Input and Output Intake and Output Intake and Output 01/01/19 07:00 Intake Total 560 ml Output Total 550 ml Balance 10 ml Intake Oral 560 ml Output Urine Total 550 ml # Voids 2 # Bowel Movements 2 Laboratory Labs Laboratory Tests Test 12/31/18 09:50 12/31/18 12:03 12/31/18 16:36 12/31/18 20:53 White Blood Count 13.1 x10^3/uL (4.0-11.0) Red Blood Count 3.91 x10^6/uL (4.30-5.70) Hemoglobin 12.1 g/dL (13.0-17.5) Hematocrit 37.6 % (39.0-53.0) Mean Corpuscular Volume 96 fL (79-100) Mean Corpuscular Hemoglobin 31 pg (25-35) Mean Corpuscular Hemoglobin Concent 32 g/dL (31-37) Red Cell Distribution Width 15.0 % (11.5-14.5) Platelet Count 223 x10^3/uL (140-400) Neutrophils (%) (Auto) 88 % (31-73) Lymphocytes (%) (Auto) 5 % (24-48) Monocytes (%) (Auto) 6 % (0-9) Eosinophils (%) (Auto) 0 % (0-3) Basophils (%) (Auto) 0 % (0-3) Neutrophils # (Auto) 11.6 x10^3uL (1.8-7.7) Lymphocytes # (Auto) 0.7 x10^3/uL (1.0-4.8) Monocytes # (Auto) 0.8 x10^3/uL (0.0-1.1) Eosinophils # (Auto) 0.0 x10^3/uL (0.0-0.7) Basophils # (Auto) 0.0 x10^3/uL (0.0-0.2) Segmented Neutrophils % 86 % (35-66) Band Neutrophils % 5 % (0-9) Lymphocytes % 6 % (24-48) Monocytes % 3 % (0-10) Platelet Estimate Adequate (ADEQUATE) Anisocytosis Slight RBC Morphology Bizarre Forms Occ Prothrombin Time 16.1 SEC (11.7-14.0) Prothromb Time International Ratio 1.3 (0.8-1.1) Sodium Level 141 mmol/L (136-145) Potassium Level 4.7 mmol/L (3.5-5.1) Chloride Level 105 mmol/L (98-107) Carbon Dioxide Level 24 mmol/L (21-32) Anion Gap 12 (6-14) Blood Urea Nitrogen 41 mg/dL (8-26) Creatinine 1.5 mg/dL (0.7-1.3) Estimated GFR (Cockcroft-Gault) 44.2 BUN/Creatinine Ratio 27 (6-20) Glucose Level 141 mg/dL (70-99) Calcium Level 8.4 mg/dL (8.5-10.1) Total Bilirubin 1.1 mg/dL (0.2-1.0) Aspartate Amino Transf (AST/SGOT) 287 U/L (15-37) Alanine Aminotransferase (ALT/SGPT) 288 U/L (16-63) Alkaline Phosphatase 355 U/L (46-116) Total Protein 5.6 g/dL (6.4-8.2) Albumin 2.6 g/dL (3.4-5.0) Albumin/Globulin Ratio 0.9 (1.0-1.7) Hepatitis A IgM Antibody Nonreactive (Nonreactive) Hepatitis B Surface Antigen Nonreactive (Nonreactive) Hepatitis B Core IgM Antibody Nonreactive (Nonreactive) Hepatitis C IgG Antibody Nonreactive (Nonreactive) Glucose (Fingerstick) 143 mg/dL (70-99) 136 mg/dL (70-99) 103 mg/dL (70-99) Test 01/01/19 07:45 01/01/19 08:30 Glucose (Fingerstick) 93 mg/dL (70-99) Sodium Level 141 mmol/L (136-145) Potassium Level 4.3 mmol/L (3.5-5.1) Chloride Level 105 mmol/L (98-107) Carbon Dioxide Level 26 mmol/L (21-32) Anion Gap 10 (6-14) Blood Urea Nitrogen 42 mg/dL (8-26) Creatinine 1.5 mg/dL (0.7-1.3) Estimated GFR (Cockcroft-Gault) 44.2 Glucose Level 122 mg/dL (70-99) Calcium Level 8.5 mg/dL (8.5-10.1) Total Bilirubin 1.0 mg/dL (0.2-1.0) Direct Bilirubin 0.5 mg/dL (0.0-0.2) Aspartate Amino Transf (AST/SGOT) 109 U/L (15-37) Alanine Aminotransferase (ALT/SGPT) 219 U/L (16-63) Alkaline Phosphatase 376 U/L (46-116) Total Protein 5.3 g/dL (6.4-8.2) Albumin 2.4 g/dL (3.4-5.0) Physical Exam HEENT: Neck Supple W Full Motion Chest: Symmetric LUNGS: Other (bibasilar crackles) Heart: RRR (SR no significant ectopies in the last 48 hours. ), murmurs (ssytolic murmur 4/6 to NICOLE border) Extremities: No Calf Tenderness, Other (trace LE edema) Neurology: alert, oriented (to self and place), follow commands Assessment Assessment 1. 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 CAD: remote CABG. [place] to LAD and SVG to RCA patent per C 3. 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 Severe : S/P successful valvuloplasty reducing to moderate degree 5. HTN: controlled 6.. HLP 7. Dementia 8. Transaminitis; ? secondary to hypoperfusion with severe CMP 9. CKD; Recommendations Family wants aggressive care at this time and rehab upon discharge. If no s ignificant improvement following, will go home with hospice. Will start inotropic support with milrinone and diuresis with Lasix. Monitor renal function Catheter for accurate I and O's. D/w RN Supportive care BINA TOBIN MD 01/01/19 2639: CARDIO Progress Notes Plan Plan Pt. seen and examined. Agree with above MANAGER WELLNESS note. He is still volume overloaded. Needs more diuresis. Will plan for medical therapy as above. Thanks TYLER BARKER APRN Jan 01, 2019 09:53 BINA TOBIN MD Jan 01, 2019 17:29
--- NOTE | 2019-01-01 11:21 | PDOC ---
Objective: Objective: Reviewed w/ nurse - drank half an Ensure, no c/o pain, no loose stools. Vital Signs: Vital Signs Date Time Temp Pulse Resp B/P (MAP) Pulse Ox O2 Delivery O2 Flow Rate FiO2 01/01/19 08:32 72 109/62 01/01/19 08:00 Room Air 01/01/19 07:00 97.9 12 95 97.9 01/01/19 03:15 1.0 Labs: Laboratory Tests Test 12/31/18 12:03 12/31/18 16:36 12/31/18 20:53 01/01/19 07:45 Glucose (Fingerstick) 143 mg/dL 136 mg/dL 103 mg/dL 93 mg/dL Test 01/01/19 08:30 Sodium Level 141 mmol/L Potassium Level 4.3 mmol/L Chloride Level 105 mmol/L Carbon Dioxide Level 26 mmol/L Anion Gap 10 Blood Urea Nitrogen 42 mg/dL Creatinine 1.5 mg/dL Estimated GFR (Cockcroft-Gault) 44.2 Glucose Level 122 mg/dL Calcium Level 8.5 mg/dL Total Bilirubin 1.0 mg/dL Direct Bilirubin 0.5 mg/dL Aspartate Amino Transf (AST/SGOT) 109 U/L Alanine Aminotransferase (ALT/SGPT) 219 U/L Alkaline Phosphatase 376 U/L Total Protein 5.3 g/dL Albumin 2.4 g/dL Imaging: Abd US IMPRESSION: 1. The gallbladder contains sludge with mild thickening of its kimble. This wall thickening can be due to a variety of causes including liver disease, hypoproteinemia, cardiac disease or cholecystitis. 2. Small hyperechoic liver lesion, most likely a hemangioma. 3. Left renal cysts. 4. Aortic atherosclerosis with slight dilatation of the infrarenal abdominal aorta. 5. Trace ascites. 6. Small bilateral pleural effusions. PE: palliative care discussion in progress A/P: CHF, h/o hypotension Decreased appetite Abnormal LFTs - AST and ALT a little better, Alk Phos a little worse, bili remains normal GB sludge, mild wall thickening -- Await palliative care discussion. STEPHANI STONE Jan 01, 2019 11:21
[2019-01-01] MEDS ORDERED: FUROSEMIDE 40 MG/4 ML VIAL. IVP ONE (11:45)
--- NOTE | 2019-01-01 11:56 | PDOC2 ---
PALLIATIVE CARE Palliative Care Note Palliative Care Met with patient, daughter Michelle and her Boogie. No other family involved in his care. . Reviewed medical condition; CHF, CKD 3 weakness and debility, severe aortic stenosis s/p valvuloplasy, dementia, Decreased appetite Per GI: Abnormal LFTs - AST and ALT a little better, Alk Phos a little worse, bili remains normal GB sludge Patient was living by himself. No longer driving. Understands his heart is weak. Discussed Code Status; Patient does not want any resuscitation efforts. Daughter confirmed and supports his wishes. Outside the Hospital DNR/DNI form signed. Dr. Ac choe Discussed options for discharge care; Option for Rehabilitation has been discussed: [facility] to try to get stronger. With low EF (15%) patient would qualify for Hospice. Daughter is encouraging patient to come live with her. Does not feel he can care for himself at home. Patient and daughter request to continue with plan for Rehab. Understand that patient would still qualify for Hospice after Rehab. This would provide more support when discharged if goal was to stay home and stay comfortable. Reviewed Rehab serviced. Spoke with [facility] Cardiology. May attempt to diurese more prior to moving to Rehab. Plan: DNR/DNI per patient and family request. Rehab for strengthening. Hospice discussed as option after rehab if patient does not improve significantly JOSÉ MARTIN Jan 01, 2019 11:56
--- NOTE | 2019-01-01 12:12 | NUR ---
SS following up with discharge planning. Pt's family currently requesting full aggressive care. Per cardiology pt not stable for discharge at this time. Pt accepted at [facility]. Pt's RN notified.
[2019-01-01] MEDS: MILRINONE 20MG/100ML PREMIX 100 ML IV PRN (12:50)
[2019-01-01] MEDS: ENOXAPARIN 40 MG/0.4 ML SYRINGE. SQ SCH (17:27)
[2019-01-01] MEDS: PATCH REMOVAL. MC SCH (21:00)
[2019-01-01] MEDS: ATORVASTATIN CALCIUM 40 MG TABLET. PO SCH (22:08)
[2019-01-01] MEDS: TEMAZEPAM 15 MG CAPSULE PO PRN (22:08)
[2019-01-02] VITALS (12 sets, daily range): BP systolic 89–108; BP diastolic 50–69
[2019-01-02] MEDS: PANTOPRAZOLE 40 MG TABLET.DR. PO SCH (07:41)
[2019-01-02] MEDS: ACETAMINOPHEN 325 MG TABLET. PO PRN ×2 (07:41→20:47)
[2019-01-02] MEDS: INSULIN LISPRO 300 UNITS/3 ML INSULN.PEN. SQ SCH ×3 (08:00→17:00)
--- NOTE | 2019-01-02 08:07 | PDOC ---
PROGRESS NOTES Chief Complaint Chief Complaint Acute on chronic systolic heart failure. EF 10-15% CAD known s/p CABG Chest pain, angina, w. atypical pain, poss bruise CKD 2-3 Mechanical fall with acquired weakness and debility Severe aortic stenosis s/p valvuloplasty Dementia Transaminitis History of Present Illness History of Present Illness Mr Munguia is a 88yo M w/ PMHx dementia, CAD s/p CABG, systolic CHF, CKD2. He thinks it is 1979. He is very pleasantly confused though very nice and cooperative. He presented with shortness of breath, found in ED with a chest x- ray showing possible vascular congestion and elevated BNP of 17,038. He has associated weakness. It had been occurring off and on for weeks. Moving makes it worse. Seen by cardiology, underwent LHC on 12/26/18, revealing acute on chron ic systolic and diastolic HF with EF 15%, severe three vessel coronary artery disease, 2/2 grafts patent, and severe aortic stenosis. As he was symptomatic on 12/30/18 underwent aortic valvuloplasty with symptomatic improvement, and now will await TAVR referral from cardiology. Seen by PT/OT, needs skilled services. Feeling better today, less difficulty getting a deep breath. Still pleasantly confused. Eating breakfast currently, sitting up in bed. Liver enzymes up 12/31 - GI consulted. RUQ US unrevealing except GB sludge. D/W cardiology for further diuresis and milrinone GTT. Based on EF likely not TAVR candidate. D/w family he is a DNR/DNI Vitals Vitals Vital Signs Date Time Temp Pulse Resp B/P (MAP) Pulse Ox O2 Delivery O2 Flow Rate FiO2 01/02/19 03:00 98.1 80 18 108/55 (72) 93 Room Air 98.1 Physical Exam General: Alert, Cooperative, No acute distress, Other (oriented to place) Heart: Regular rate (SR), Normal S1, Normal S2, Other (4/6 systolic murmur to NICOLE and 3/6 systolic murmur to LLS border) Lungs: Clear Abdomen: Soft, No tenderness Extremities: No cyanosis, Other (1+ bilateral LE pitting edema) Skin: No breakdown, No significant lesion Labs LABS Laboratory Tests Test 01/01/19 08:30 01/01/19 11:43 01/01/19 17:05 01/01/19 21:47 Sodium Level 141 mmol/L (136-145) Potassium Level 4.3 mmol/L (3.5-5.1) Chloride Level 105 mmol/L (98-107) Carbon Dioxide Level 26 mmol/L (21-32) Anion Gap 10 (6-14) Blood Urea Nitrogen 42 mg/dL (8-26) Creatinine 1.5 mg/dL (0.7-1.3) Estimated GFR (Cockcroft-Gault) 44.2 Glucose Level 122 mg/dL (70-99) Calcium Level 8.5 mg/dL (8.5-10.1) Total Bilirubin 1.0 mg/dL (0.2-1.0) Direct Bilirubin 0.5 mg/dL (0.0-0.2) Aspartate Amino Transf (AST/SGOT) 109 U/L (15-37) Alanine Aminotransferase (ALT/SGPT) 219 U/L (16-63) Alkaline Phosphatase 376 U/L (46-116) Total Protein 5.3 g/dL (6.4-8.2) Albumin 2.4 g/dL (3.4-5.0) Glucose (Fingerstick) 149 mg/dL (70-99) 125 mg/dL (70-99) 141 mg/dL (70-99) Test 01/02/19 07:37 Glucose (Fingerstick) 74 mg/dL (70-99) Assessment and Plan Assessmemt and Plan Problems Medical Problems: (1) CHF exacerbation Status: Acute (2) Dyspnea Status: Acute Comment Review of Relevant I have reviewed the following items jayce (where applicable) has been applied. Labs Laboratory Tests Test 12/31/18 09:50 12/31/18 12:03 12/31/18 16:36 12/31/18 20:53 White Blood Count 13.1 x10^3/uL (4.0-11.0) Red Blood Count 3.91 x10^6/uL (4.30-5.70) Hemoglobin 12.1 g/dL (13.0-17.5) Hematocrit 37.6 % (39.0-53.0) Mean Corpuscular Volume 96 fL (79-100) Mean Corpuscular Hemoglobin 31 pg (25-35) Mean Corpuscular Hemoglobin Concent 32 g/dL (31-37) Red Cell Distribution Width 15.0 % (11.5-14.5) Platelet Count 223 x10^3/uL (140-400) Neutrophils (%) (Auto) 88 % (31-73) Lymphocytes (%) (Auto) 5 % (24-48) Monocytes (%) (Auto) 6 % (0-9) Eosinophils (%) (Auto) 0 % (0-3) Basophils (%) (Auto) 0 % (0-3) Neutrophils # (Auto) 11.6 x10^3uL (1.8-7.7) Lymphocytes # (Auto) 0.7 x10^3/uL (1.0-4.8) Monocytes # (Auto) 0.8 x10^3/uL (0.0-1.1) Eosinophils # (Auto) 0.0 x10^3/uL (0.0-0.7) Basophils # (Auto) 0.0 x10^3/uL (0.0-0.2) Segmented Neutrophils % 86 % (35-66) Band Neutrophils % 5 % (0-9) Lymphocytes % 6 % (24-48) Monocytes % 3 % (0-10) Platelet Estimate Adequate (ADEQUATE) Anisocytosis Slight RBC Morphology Bizarre Forms Occ Prothrombin Time 16.1 SEC (11.7-14.0) Prothromb Time International Ratio 1.3 (0.8-1.1) Sodium Level 141 mmol/L (136-145) Potassium Level 4.7 mmol/L (3.5-5.1) Chloride Level 105 mmol/L (98-107) Carbon Dioxide Level 24 mmol/L (21-32) Anion Gap 12 (6-14) Blood Urea Nitrogen 41 mg/dL (8-26) Creatinine 1.5 mg/dL (0.7-1.3) Estimated GFR (Cockcroft-Gault) 44.2 BUN/Creatinine Ratio 27 (6-20) Glucose Level 141 mg/dL (70-99) Calcium Level 8.4 mg/dL (8.5-10.1) Total Bilirubin 1.1 mg/dL (0.2-1.0) Aspartate Amino Transf (AST/SGOT) 287 U/L (15-37) Alanine Aminotransferase (ALT/SGPT) 288 U/L (16-63) Alkaline Phosphatase 355 U/L (46-116) Total Protein 5.6 g/dL (6.4-8.2) Albumin 2.6 g/dL (3.4-5.0) Albumin/Globulin Ratio 0.9 (1.0-1.7) Hepatitis A IgM Antibody Nonreactive (Nonreactive) Hepatitis B Surface Antigen Nonreactive (Nonreactive) Hepatitis B Core IgM Antibody Nonreactive (Nonreactive) Hepatitis C IgG Antibody Nonreactive (Nonreactive) Glucose (Fingerstick) 143 mg/dL (70-99) 136 mg/dL (70-99) 103 mg/dL (70-99) Test 01/01/19 07:45 01/01/19 08:30 01/01/19 11:43 01/01/19 17:05 Glucose (Fingerstick) 93 mg/dL (70-99) 149 mg/dL (70-99) 125 mg/dL (70-99) Sodium Level 141 mmol/L (136-145) Potassium Level 4.3 mmol/L (3.5-5.1) Chloride Level 105 mmol/L (98-107) Carbon Dioxide Level 26 mmol/L (21-32) Anion Gap 10 (6-14) Blood Urea Nitrogen 42 mg/dL (8-26) Creatinine 1.5 mg/dL (0.7-1.3) Estimated GFR (Cockcroft-Gault) 44.2 Glucose Level 122 mg/dL (70-99) Calcium Level 8.5 mg/dL (8.5-10.1) Total Bilirubin 1.0 mg/dL (0.2-1.0) Direct Bilirubin 0.5 mg/dL (0.0-0.2) Aspartate Amino Transf (AST/SGOT) 109 U/L (15-37) Alanine Aminotransferase (ALT/SGPT) 219 U/L (16-63) Alkaline Phosphatase 376 U/L (46-116) Total Protein 5.3 g/dL (6.4-8.2) Albumin 2.4 g/dL (3.4-5.0) Test 01/01/19 21:47 01/02/19 07:37 Glucose (Fingerstick) 141 mg/dL (70-99) 74 mg/dL (70-99) Laboratory Tests Test 01/01/19 08:30 01/01/19 11:43 01/01/19 17:05 01/01/19 21:47 Sodium Level 141 mmol/L (136-145) Potassium Level 4.3 mmol/L (3.5-5.1) Chloride Level 105 mmol/L (98-107) Carbon Dioxide Level 26 mmol/L (21-32) Anion Gap 10 (6-14) Blood Urea Nitrogen 42 mg/dL (8-26) Creatinine 1.5 mg/dL (0.7-1.3) Estimated GFR (Cockcroft-Gault) 44.2 Glucose Level 122 mg/dL (70-99) Calcium Level 8.5 mg/dL (8.5-10.1) Total Bilirubin 1.0 mg/dL (0.2-1.0) Direct Bilirubin 0.5 mg/dL (0.0-0.2) Aspartate Amino Transf (AST/SGOT) 109 U/L (15-37) Alanine Aminotransferase (ALT/SGPT) 219 U/L (16-63) Alkaline Phosphatase 376 U/L (46-116) Total Protein 5.3 g/dL (6.4-8.2) Albumin 2.4 g/dL (3.4-5.0) Glucose (Fingerstick) 149 mg/dL (70-99) 125 mg/dL (70-99) 141 mg/dL (70-99) Test 01/02/19 07:37 Glucose (Fingerstick) 74 mg/dL (70-99) Medications Current Medications Morphine Sulfate (Morphine Sulfate) 4 mg 1X ONCE IV Last administered on 12/25/18at 16:10; Start 12/25/18 at 16:00; Stop 12/25/18 at 16:01; Status DC Furosemide (Lasix) 40 mg 1X ONCE IV Last administered on 12/25/18at 16:09; Start 12/25/18 at 16:00; Stop 12/25/18 at 16:01; Status DC Temazepam (Restoril) 15 mg PRN QHS PRN PO INSOMNIA Last administered on 12/26/18at 21:34; Start 12/25/18 at 22:15; Stop 12/26/18 at 23:33; Status DC Furosemide (Lasix) 40 mg 1X ONCE IVP Last administered on 12/26/18at 11:41; Start 12/26/18 at 11:15; Stop 12/26/18 at 11:19; Status DC Potassium Chloride (Klor-Con) 20 meq 1X ONCE PO Last administered on 12/26/18at 11:41; Start 12/26/18 at 11:15; Stop 12/26/18 at 11:19; Status DC Aspirin (Ecotrin) 81 mg DAILYWBKFT PO Last administered on 01/01/19at 08:31; Start 12/26/18 at 12:00 Enoxaparin Sodium (Lovenox Per Pharmacy Prophylaxis Dosing) 1 each PRN DAILY PRN MC SEE COMMENTS; Start 12/26/18 at 15:15 Tamsulosin HCl (Flomax) 0.4 mg DAILY PO Last administered on 01/01/19at 08:30; Start 12/26/18 at 16:00 Donepezil HCl (Aricept) 5 mg DAILY PO Last administered on 01/01/19at 08:31; Start 12/26/18 at 16:00 Citalopram Hydrobromide (CeleXA) 20 mg DAILY PO Last administered on 01/01/19at 08:31; Start 12/26/18 at 16:00 Non-Formulary Medication (Metoprolol Succinate/Hctz (Metoprolol ER-Hctz 50-12.5 mg)) 1 each DAILY PO ; Start 12/27/18 at 09:00; Status UNV Atorvastatin Calcium (Lipitor) 40 mg QHS PO Last administered on 01/01/19at 22:08; Start 12/26/18 at 21:00 Metoprolol Succinate (Toprol Xl) 50 mg DAILY PO ; Start 12/26/18 at 16:00; Stop 12/27/18 at 11:26; Status DC Hydrochlorothiazide (Microzide) 12.5 mg DAILY PO ; Start 12/26/18 at 16:00; Stop 12/27/18 at 11:26; Status DC Enoxaparin Sodium (Lovenox 40mg Syringe) 40 mg Q24H SQ Last administered on 01/01/19at 17:27; Start 12/26/18 at 16:00 Iodixanol (Visipaque 320) 100 ml STK-MED ONCE .ROUTE ; Start 12/26/18 at 16:05; Stop 12/26/18 at 16:06; Status DC Lidocaine HCl (Lidocaine 1% 20ml Vial) 20 ml STK-MED ONCE .ROUTE ; Start 12/26/18 at 16:05; Stop 12/26/18 at 16:06; Status DC Heparin Sodium/ Sodium Chloride 1,000 ml @ As Directed STK-MED ONCE .ROUTE ; Start 12/26/18 at 16:06; Stop 12/26/18 at 16:07; Status DC Fentanyl Citrate (Fentanyl 2ml Vial) 100 mcg STK-MED ONCE .ROUTE ; Start 12/26/18 at 16:15; Stop 12/26/18 at 16:16; Status DC Midazolam HCl (Versed) 2 mg STK-MED ONCE .ROUTE ; Start 12/26/18 at 16:15; Stop 12/26/18 at 16:16; Status DC Heparin Sodium/ Sodium Chloride (HEPARIN for ARTERIAL LINE FLUSH) 1,000 unit 1X ONCE IART Last administered on 12/26/18at 17:22; Start 12/26/18 at 16:45; Stop 12/26/18 at 16:46; Status DC Heparin Sodium/ Sodium Chloride (HEPARIN for ARTERIAL LINE FLUSH) 1,000 unit 1X ONCE IART Last administered on 12/26/18at 17:22; Start 12/26/18 at 16:45; Stop 12/26/18 at 16:46; Status DC Midazolam HCl (Versed) 2 mg 1X ONCE IV Last administered on 12/26/18 17:25; Start 12/26/18 at 16:45; Stop 12/26/18 at 16:46; Status DC Fentanyl Citrate (Fentanyl 2ml Vial) 100 mcg 1X ONCE IV Last administered on 12/26/18 17:25; Start 12/26/18 at 16:45; Stop 12/26/18 at 16:46; Status DC Iodixanol (Visipaque 320) 100 ml 1X ONCE IART Last administered on 12/26/18 17:23; Start 12/26/18 at 16:45; Stop 12/26/18 at 16:46; Status DC Lidocaine HCl (Lidocaine 1% 20ml Vial) 20 ml 1X ONCE INJ Last administered on 12/26/18at 17:24; Start 12/26/18 at 16:45; Stop 12/26/18 at 16:46; Status DC Multi-Ingredient Mouthwash/Gargle (Gi Cocktail) 20 ml PRN QID PRN PO CHEST PAIN Last administered on 12/30/18 16:28; Start 12/26/18 at 21:30 Temazepam (Restoril) 15 mg PRN QHS PRN PO INSOMNIA, MAY REPEAT X1 Last administered on 01/01/19 22:08; Start 12/26/18 at 23:45 Temazepam (Restoril) 15 mg 1X ONCE PO Last administered on 12/27/18 01:40; Start 12/27/18 at 01:00; Stop 12/27/18 at 01:01; Status DC Acetaminophen (Tylenol) 650 mg PRN Q6HRS PRN PO MILD PAIN 1-3 Last administered on 01/02/19 07:41; Start 12/27/18 at 01:30 Oxycodone HCl (Roxicodone) 5 mg PRN Q6HRS PRN PO PAIN Last administered on 12/30/18 18:21; Start 12/27/18 at 11:15 Metoprolol Succinate (Toprol Xl) 25 mg DAILY PO Last administered on 01/01/19 08:32; Start 12/28/18 at 09:00 Furosemide (Lasix) 20 mg DAILY PO Last administered on 01/01/19 08:30; Start 12/27/18 at 12:00 Potassium Chloride (Klor-Con) 10 meq DAILYWBKFT PO Last administered on 01/01/19 08:31; Start 12/27/18 at 12:00 Lidocaine (Lidoderm) 1 patch DAILY TD Last administered on 01/01/19 08:34; Start 12/27/18 at 12:00 Miscellaneous (Lidoderm Patch Removal) 1 ea QHS MC Last administered on 01/01/19 21:00; Start 12/27/18 at 21:00 Docusate Sodium (Colace) 100 mg DAILY PO Last administered on 12/31/18 08:44; Start 12/27/18 at 13:00 Polyethylene Glycol (miraLAX PACKET) 17 gm PRN DAILY PRN PO CONSTIPATION; Start 12/27/18 at 12:45 Polyethylene Glycol (miraLAX PACKET) 17 gm DAILY PO Last administered on 12/31/18 08:46; Start 12/27/18 at 13:00 Iodixanol (Visipaque 320) 100 ml STK-MED ONCE .ROUTE ; Start 12/30/18 at 07:48; Stop 12/30/18 at 07:49; Status DC Lidocaine HCl (Lidocaine 1% 20ml Vial) 20 ml STK-MED ONCE .ROUTE ; Start 12/30/18 at 07:48; Stop 12/30/18 at 07:49; Status DC Heparin Sodium/ Sodium Chloride 1,000 ml @ As Directed STK-MED ONCE .ROUTE ; Start 12/30/18 at 07:48; Stop 12/30/18 at 07:49; Status DC Heparin Sodium/ Sodium Chloride 500 ml @ As Directed STK-MED ONCE .ROUTE ; Start 12/30/18 at 07:59; Stop 12/30/18 at 08:00; Status DC Insulin Human Lispro (HumaLOG) 0-5 UNITS TIDWMEALS SQ ; Start 12/30/18 at 12:00 Dextrose (Dextrose 50%-Water Syringe) 12.5 gm PRN Q15MIN PRN IV SEE COMMENTS; Start 12/30/18 at 08:30 Fentanyl Citrate (Fentanyl 2ml Vial) 100 mcg STK-MED ONCE .ROUTE ; Start 12/30/18 at 08:23; Stop 12/30/18 at 08:24; Status DC Midazolam HCl (Versed) 2 mg STK-MED ONCE .ROUTE ; Start 12/30/18 at 08:24; Stop 12/30/18 at 08:25; Status DC Heparin Sodium (Porcine) (Heparin Sodium) 10,000 unit STK-MED ONCE .ROUTE ; Start 12/30/18 at 08:29; Stop 12/30/18 at 08:30; Status DC Iodixanol (Visipaque 320) 100 ml STK-MED ONCE .ROUTE ; Start 12/30/18 at 09:08; Stop 12/30/18 at 09:09; Status DC Dopamine HCl/ Dextrose 0 ml @ As Directed STK-MED ONCE IV ; Start 12/30/18 at 09 :14; Stop 12/30/18 at 09:15; Status DC Phenylephrine HCl (PHENYLEPHRINE in 0.9% NACL PF) 1 mg STK-MED ONCE IV ; Start 12/30/18 at 09:14; Stop 12/30/18 at 09:15; Status DC Heparin Sodium/ Sodium Chloride (HEPARIN for ARTERIAL LINE FLUSH) 1,000 unit 1X ONCE IART Last administered on 12/30/18at 10:30; Start 12/30/18 at 10:30; Stop 12/30/18 at 10:31; Status DC Midazolam HCl (Versed) 1 mg 1X ONCE IV Last administered on 12/30/18 10:30; Start 12/30/18 at 10:30; Stop 12/30/18 at 10:31; Status DC Fentanyl Citrate (Fentanyl 2ml Vial) 50 mcg 1X ONCE IV Last administered on 12/30/18 10:30; Start 12/30/18 at 10:30; Stop 12/30/18 at 10:31; Status DC Iodixanol (Visipaque 320) 100 ml 1X ONCE IART Last administered on 12/30/18 10:30; Start 12/30/18 at 10:30; Stop 12/30/18 at 10:31; Status DC Heparin Sodium (Porcine) (Heparin Sodium) 5,500 unit 1X ONCE IV Last administered on 12/30/18 10:30; Start 12/30/18 at 10:30; Stop 12/30/18 at 10:31; Status DC Lidocaine HCl (Lidocaine 1% 20ml Vial) 17 ml 1X ONCE INJ Last administered on 12/30/18at 10:30; Start 12/30/18 at 10:30; Stop 12/30/18 at 10:31; Status DC Info (CONTRAST GIVEN -- Rx MONITORING) 1 each PRN DAILY PRN MC SEE COMMENTS; Start 12/30/18 at 10:30; Stop 01/01/19 at 10:29; Status DC Clopidogrel Bisulfate (Plavix) 600 mg 1X ONCE PO Last administered on 12/30/18at 10:30; Start 12/30/18 at 10:30; Stop 12/30/18 at 10:33; Status DC Aspirin (CoupFlip Aspirin) 325 mg 1X ONCE PO Last administered on 12/30/18at 10:30; Start 12/30/18 at 10:30; Stop 12/30/18 at 10:33; Status DC Clopidogrel Bisulfate (Plavix) 75 mg STK-MED ONCE .ROUTE ; Start 12/30/18 at 10:28; Stop 12/30/18 at 10:29; Status DC Aspirin (Ry Aspirin) 325 mg STK-MED ONCE .ROUTE ; Start 12/30/18 at 10:28; Stop 12/30/18 at 10:29; Status DC Furosemide (Lasix) 20 mg 1X ONCE IVP Last administered on 12/30/18at 16:29; Start 12/30/18 at 16:00; Stop 12/30/18 at 16:01; Status DC Furosemide (Lasix) 20 mg 1X ONCE IVP Last administered on 12/31/18at 14:35; Start 12/31/18 at 13:45; Stop 12/31/18 at 13:53; Status DC Clopidogrel Bisulfate (Plavix) 75 mg DAILYWBKFT PO Last administered on 01/01/19at 08:31; Start 01/01/19 at 08:00 Clopidogrel Bisulfate (Plavix) 75 mg 1X ONCE PO Last administered on 12/31/18at 17:23; Start 12/31/18 at 16:15; Stop 12/31/18 at 16:16; Status DC Pantoprazole Sodium (Protonix) 40 mg DAILYAC PO Last administered on 01/02/19at 07:41; Start 01/01/19 at 07:30 Milrinone Lactate/ Dextrose 100 ml @ 0 mls/hr CONT PRN IV SEE I/O RECORD Last administered on 01/01/19at 12:50; Start 01/01/19 at 11:45 Furosemide (Lasix) 40 mg 1X ONCE IVP Last administered on 01/01/19at 12:35; Start 01/01/19 at 11:45; Stop 01/01/19 at 11:46; Status DC Active Scripts Active Aspirin Ec (Aspirin) 325 Mg Tablet.dr 1 Tab PO DAILY 30 Days Clopidogrel (Clopidogrel Bisulfate) 75 Mg Tablet 1 Tab PO DAILY 30 Days Polyethylene Glycol 3350 17 Gm Powd.pack 17 Gm PO PRN DAILY PRN 30 Days Colace (Docusate Sodium) 100 Mg Capsule 100 Mg PO DAILY 30 Days Furosemide 20 Mg Tablet 20 Mg PO DAILY 30 Days Klor-Con 10 (Potassium Chloride) 10 Meq Tablet.er 10 Meq PO DAILYWBKFT 30 Days Tylenol (Acetaminophen) 325 Mg Tablet 650 Mg PO PRN Q6HRS PRN 30 Days Metoprolol Succinate ( Xl ) (Metoprolol Succinate) 25 Mg Tab.er.24h 25 Mg PO DAILY 30 Days Reported Crestor (Rosuvastatin Calcium) 10 Mg Tablet 10 Mg PO HS Escitalopram Oxalate 10 Mg Tablet 1 Tab PO DAILY Flomax (Tamsulosin Hcl) 0.4 Mg Cap.er.24h 0.4 Mg PO DAILY Vitals/I & O Vital Sign - Last 24 Hours 01/01/19 01/01/19 01/01/19 01/01/19 08:32 11:00 12:18 12:56 Temp 97.6 97.6 Pulse 72 76 74 78 Resp 16 B/P (MAP) 109/62 78/43 (55) 88/53 (65) 96/57 (70) Pulse Ox 99 O2 Delivery Room Air 01/01/19 01/01/19 01/01/19 01/01/19 13:56 14:33 14:56 15:00 Temp 98.2 98.2 Pulse 76 76 80 79 Resp 12 B/P (MAP) 90/52 (65) 91/53 (66) 96/57 (70) 91/53 (66) Pulse Ox 97 O2 Delivery Room Air 01/01/19 01/01/19 01/01/19 01/01/19 15:56 16:56 17:56 19:00 Temp 97.6 97.6 Pulse 76 80 81 80 Resp 18 B/P (MAP) 93/55 (68) 94/53 (67) 85/49 (61) 90/53 (65) Pulse Ox 97 O2 Delivery Room Air 01/01/19 01/01/19 01/01/19 01/01/19 20:03 21:00 22:00 22:30 Pulse 80 80 78 B/P (MAP) 93/52 (66) 91/51 (64) 84/55 (65) O2 Delivery Room Air 01/01/19 01/01/19 01/01/19 01/02/19 23:00 23:00 23:56 01:00 Temp 97.9 97.9 Pulse 78 80 79 88 Resp 18 B/P (MAP) 75/46 (56) 84/55 (65) 93/57 (69) 103/65 (78) Pulse Ox 96 O2 Delivery Room Air 01/02/19 01/02/19 02:00 03:00 Temp 98.1 98.1 Pulse 78 80 Resp 18 B/P (MAP) 101/64 (76) 108/55 (72) Pulse Ox 93 O2 Delivery Room Air Intake and Output 01/01/19 01/01/19 01/02/19 15:00 23:00 07:00 Intake Total 240 ml 360 ml Output Total 400 ml 550 ml 250 ml Balance -160 ml -190 ml -250 ml Nutrition Consultation Dietary Evaluation: Recommendations by RD: Protein supplementation Comments: Continue w/cardaic diet as ordered, honor food preferences, and provide sncaks as requested REC Ensure (strawberry) w/dinner Expected Outcomes/Goals: PO intake to meet >75% est needs Malnutrition Findings: Food and Nutrition Intake (Mod: <75% est energy req 7days Weight Status: Appropriate STAS HIGUERA MD Jan 02, 2019 08:07
[2019-01-02 08:40] LABS: BASO % 0 % (0-3); EOS # 0.1 x10^3/uL (0.0-0.7); EOS % 1 % (0-3); HEMATOCRIT 34.5 % (39.0-53.0); HEMOGLOBIN 11.5 g/dL (13.0-17.5); LYMPH # 0.7 x10^3/uL (1.0-4.8); LYMPH % 6 % (24-48); MEAN CORPUSCULAR HEMOGLOBIN 30 pg (25-35); MEAN CORPUSCULAR HGB CONC 33 g/dL (31-37); MEAN CORPUSCULAR VOLUME 90 fL (79-100); MONO # 1.3 x10^3/uL (0.0-1.1); MONO % 12 % (0-9); NEUT # 9.3 x10^3uL (1.8-7.7); NEUT % 81 % (31-73); PLATELET COUNT 259 x10^3/uL (140-400); RED BLOOD COUNT 3.83 x10^6/uL (4.30-5.70); RED CELL DISTRIBUTION WIDTH 14.4 % (11.5-14.5); WHITE BLOOD COUNT 11.5 x10^3/uL (4.0-11.0)
[2019-01-02 09:05] LABS: ALBUMIN 2.1 g/dL (3.4-5.0); ALBUMIN/GLOBULIN RATIO 0.6 (1.0-1.7); CALCIUM 8.2 mg/dL (8.5-10.1); CREATININE 1.4 mg/dL (0.7-1.3); GFR 47.8; POTASSIUM 3.8 mmol/L (3.5-5.1); TOTAL BILIRUBIN 0.9 mg/dL (0.2-1.0); TOTAL PROTEIN 5.4 g/dL (6.4-8.2)
[2019-01-02] MEDS: ASPIRIN ENTERIC COATED 81 MG TABLET.DR. PO SCH (09:12)
[2019-01-02] MEDS: DOCUSATE SODIUM 100 MG CAPSULE. PO SCH (09:12)
[2019-01-02] MEDS: TAMSULOSIN 0.4 MG CAP.ER.24H. PO SCH (09:13)
[2019-01-02] MEDS: DONEPEZIL HCL 5 MG TABLET. PO SCH (09:13)
[2019-01-02] MEDS: METOPROLOL SUCC 24HR ER 25 MG TAB.ER.24H. PO SCH (09:13)
[2019-01-02] MEDS: POTASSIUM CHLORIDE 10 MEQ TABLET.ER. PO SCH (09:13)
[2019-01-02] MEDS: CLOPIDOGREL BISULFATE 75 MG TABLET PO SCH (09:14)
[2019-01-02] MEDS: CITALOPRAM 20 MG TABLET. PO SCH (09:14)
[2019-01-02] MEDS: POLYETHYLENE GLYCOL 3350 17 GM PACKET. PO SCH (09:14)
[2019-01-02] MEDS: LIDOCAINE (700MG/PATCH) PATCH. TD SCH (09:16)
[2019-01-02] MEDS: FUROSEMIDE 20 MG TABLET PO SCH (09:20)
--- NOTE | 2019-01-02 12:03 | PDOC ---
Subjective: Subjective: Doesn't feel good, can't elaborate. Wants a pillow for his feet and an extra one for his head. Objective: Vital Signs: Vital Signs Date Time Temp Pulse Resp B/P (MAP) Pulse Ox O2 Delivery O2 Flow Rate FiO2 01/02/19 11:00 97.6 68 16 93/50 (64) 96 Room Air 97.6 Labs: Laboratory Tests Test 01/01/19 17:05 01/01/19 21:47 01/02/19 07:37 01/02/19 08:27 Glucose (Fingerstick) 125 mg/dL 141 mg/dL 74 mg/dL White Blood Count 11.5 x10^3/uL Red Blood Count 3.83 x10^6/uL Hemoglobin 11.5 g/dL Hematocrit 34.5 % Mean Corpuscular Volume 90 fL Mean Corpuscular Hemoglobin 30 pg Mean Corpuscular Hemoglobin Concent 33 g/dL Red Cell Distribution Width 14.4 % Platelet Count 259 x10^3/uL Neutrophils (%) (Auto) 81 % Lymphocytes (%) (Auto) 6 % Monocytes (%) (Auto) 12 % Eosinophils (%) (Auto) 1 % Basophils (%) (Auto) 0 % Neutrophils # (Auto) 9.3 x10^3uL Lymphocytes # (Auto) 0.7 x10^3/uL Monocytes # (Auto) 1.3 x10^3/uL Eosinophils # (Auto) 0.1 x10^3/uL Basophils # (Auto) 0.0 x10^3/uL Sodium Level 142 mmol/L Potassium Level 3.8 mmol/L Chloride Level 105 mmol/L Carbon Dioxide Level 28 mmol/L Anion Gap 9 Blood Urea Nitrogen 43 mg/dL Creatinine 1.4 mg/dL Estimated GFR (Cockcroft-Gault) 47.8 BUN/Creatinine Ratio 31 Glucose Level 112 mg/dL Calcium Level 8.2 mg/dL Total Bilirubin 0.9 mg/dL Aspartate Amino Transf (AST/SGOT) 129 U/L Alanine Aminotransferase (ALT/SGPT) 208 U/L Alkaline Phosphatase 304 U/L Total Protein 5.4 g/dL Albumin 2.1 g/dL Albumin/Globulin Ratio 0.6 PE: GEN: NAD LUNGS: CTAB HEART: RRR ABD: S/ND/NT NEURO/PSYCH: probably confused A/P: CHF, h/o hypotension Decreased appetite Abnormal LFTs - fluctuating -- Continue support per GI. STEPHANI STONE Jan 02, 2019 12:03
--- NOTE | 2019-01-02 12:38 | PDOC ---
TYLER BARKER SLP TEACHER 01/02/19 1238: CARDIO Progress Notes Date and Time Date of Service 01/02/19 Time of Evaluation 1230 Subjective Subjective: No shortness of breath, No Palpitations, Other (c/o feeling tired. Wanting to sleep.) Vitals Vitals Vital Signs Date Time Temp Pulse Resp B/P (MAP) Pulse Ox O2 Delivery O2 Flow Rate FiO2 01/02/19 11:00 97.6 68 16 93/50 (64) 96 Room Air 97.6 Weight Weight [ ] Input and Output Intake and Output Intake and Output 01/02/19 07:00 Intake Total 600 ml Output Total 1200 ml Balance -600 ml Intake Oral 600 ml Output Urine Total 1200 ml Laboratory Labs Laboratory Tests Test 01/01/19 17:05 01/01/19 21:47 01/02/19 07:37 01/02/19 08:27 Glucose (Fingerstick) 125 mg/dL (70-99) 141 mg/dL (70-99) 74 mg/dL (70-99) White Blood Count 11.5 x10^3/uL (4.0-11.0) Red Blood Count 3.83 x10^6/uL (4.30-5.70) Hemoglobin 11.5 g/dL (13.0-17.5) Hematocrit 34.5 % (39.0-53.0) Mean Corpuscular Volume 90 fL (79-100) Mean Corpuscular Hemoglobin 30 pg (25-35) Mean Corpuscular Hemoglobin Concent 33 g/dL (31-37) Red Cell Distribution Width 14.4 % (11.5-14.5) Platelet Count 259 x10^3/uL (140-400) Neutrophils (%) (Auto) 81 % (31-73) Lymphocytes (%) (Auto) 6 % (24-48) Monocytes (%) (Auto) 12 % (0-9) Eosinophils (%) (Auto) 1 % (0-3) Basophils (%) (Auto) 0 % (0-3) Neutrophils # (Auto) 9.3 x10^3uL (1.8-7.7) Lymphocytes # (Auto) 0.7 x10^3/uL (1.0-4.8) Monocytes # (Auto) 1.3 x10^3/uL (0.0-1.1) Eosinophils # (Auto) 0.1 x10^3/uL (0.0-0.7) Basophils # (Auto) 0.0 x10^3/uL (0.0-0.2) Sodium Level 142 mmol/L (136-145) Potassium Level 3.8 mmol/L (3.5-5.1) Chloride Level 105 mmol/L (98-107) Carbon Dioxide Level 28 mmol/L (21-32) Anion Gap 9 (6-14) Blood Urea Nitrogen 43 mg/dL (8-26) Creatinine 1.4 mg/dL (0.7-1.3) Estimated GFR (Cockcroft-Gault) 47.8 BUN/Creatinine Ratio 31 (6-20) Glucose Level 112 mg/dL (70-99) Calcium Level 8.2 mg/dL (8.5-10.1) Total Bilirubin 0.9 mg/dL (0.2-1.0) Aspartate Amino Transf (AST/SGOT) 129 U/L (15-37) Alanine Aminotransferase (ALT/SGPT) 208 U/L (16-63) Alkaline Phosphatase 304 U/L (46-116) Total Protein 5.4 g/dL (6.4-8.2) Albumin 2.1 g/dL (3.4-5.0) Albumin/Globulin Ratio 0.6 (1.0-1.7) Test 01/02/19 11:56 Glucose (Fingerstick) 122 mg/dL (70-99) Physical Exam HEENT: Neck Supple W Full Motion Chest: Symmetric LUNGS: Other (bibasilar crackles) Heart: RRR (SR no significant ectopies in the last 48 hours. ), murmurs (ssytolic murmur 4/6 to NICOLE border) Extremities: No Calf Tenderness, Other (trace LE edema) Neurology: alert, oriented (to self and place), follow commands Assessment Assessment 1. Acute on chronic diastolic/systolic CHF. Neg 600cc over last 24 hrs 2. CAD: remote CABG. [place] to LAD and SVG to RCA patent per [facility] 3. 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 Severe : S/P successful valvuloplasty 5. HTN: marginally low 6. HLP 7. Dementia 8. Transaminitis 9. CKD 10. Ventricular arrhythmia. Occasional bigeminy and 8- beat NSVT on milrinone Recommendations CXR Mg level Continue milrinone and lasix. Monitor tele; if arrhythmias persist, will have to discontinue milrinone Supportive care BINA TOBIN MD 01/02/191951: CARDIO Progress Notes Plan Plan Pt.seen and examined. Agree with above HOME SERVICE TECHNICIAN note Fluid removal has been difficult. Poor snf prognosis. Would discuss with family again regarding hospice care Thanks TYLER BARKER APRN Jan 02, 2019 12:38 BINA TOBIN MD Jan 02, 2019 19:52
[2019-01-02] MEDS ORDERED: FUROSEMIDE 40 MG/4 ML VIAL. IVP ONE (13:30)
--- NOTE | 2019-01-02 14:33 | RAD ---
Chest, 2 views, 01/02/2019: HISTORY: Shortness of breath, congestive heart failure Comparison is made to a study from 12/25/2018. There has been a previous median sternotomy. The heart is enlarged. There is calcific plaquing of the aorta. There are persistent small bilateral pleural effusions effusions with bibasilar atelectasis. The left basilar findings appear to have improved slightly. An inferomedial retrocardiac density on the left has been shown on a previous CT study to be due to a large hiatal hernia. No new pulmonary abnormality is seen. IMPRESSION: 1. Ongoing small bilateral pleural effusions and mild bibasilar atelectasis/infiltrate, with slight interval improvement on the left. 2. Cardiomegaly and aortic atherosclerosis. 3. Large hiatal hernia. Electronically signed by: Mukesh Lee MD (01/02/2019 2:30 PM) [facility]
--- NOTE | 2019-01-02 15:00 | NUR ---
Emar Documentation: only 20mg of IV lasix given per Carmella Cooney APRN due to low blood pressure.
[2019-01-02] MEDS: ENOXAPARIN 40 MG/0.4 ML SYRINGE. SQ SCH (17:37)
[2019-01-02] MEDS: MILRINONE 20MG/100ML PREMIX 100 ML IV PRN (19:28)
[2019-01-02] MEDS: ATORVASTATIN CALCIUM 40 MG TABLET. PO SCH (20:47)
[2019-01-02] MEDS: TEMAZEPAM 15 MG CAPSULE PO PRN (20:47)
[2019-01-02] MEDS: PATCH REMOVAL. MC SCH (20:50)
[2019-01-03] VITALS (23 sets, daily range): BP systolic 86–107; BP diastolic 49–84
[2019-01-03 04:32] LABS: BASO % 0 % (0-3); EOS # 0.2 x10^3/uL (0.0-0.7); EOS % 3 % (0-3); HEMOGLOBIN 10.8 g/dL (13.0-17.5); LYMPH # 0.8 x10^3/uL (1.0-4.8); LYMPH % 9 % (24-48); MEAN CORPUSCULAR HEMOGLOBIN 30 pg (25-35); MEAN CORPUSCULAR HGB CONC 34 g/dL (31-37); MEAN CORPUSCULAR VOLUME 90 fL (79-100); MONO % 12 % (0-9); NEUT # 6.9 x10^3uL (1.8-7.7); NEUT % 77 % (31-73); PLATELET COUNT 233 x10^3/uL (140-400); RED BLOOD COUNT 3.57 x10^6/uL (4.30-5.70); RED CELL DISTRIBUTION WIDTH 14.6 % (11.5-14.5); WHITE BLOOD COUNT 8.9 x10^3/uL (4.0-11.0)
[2019-01-03 04:52] LABS: ALBUMIN 1.9 g/dL (3.4-5.0); ALBUMIN/GLOBULIN RATIO 0.6 (1.0-1.7); CALCIUM 7.9 mg/dL (8.5-10.1); CREATININE 1.3 mg/dL (0.7-1.3); GFR 52.1; POTASSIUM 3.9 mmol/L (3.5-5.1); TOTAL BILIRUBIN 0.6 mg/dL (0.2-1.0); TOTAL PROTEIN 5.1 g/dL (6.4-8.2)
[2019-01-03] MEDS: PANTOPRAZOLE 40 MG TABLET.DR. PO SCH (07:37)
[2019-01-03] MEDS: INSULIN LISPRO 300 UNITS/3 ML INSULN.PEN. SQ SCH ×3 (08:00→17:00)
[2019-01-03] MEDS: CITALOPRAM 20 MG TABLET. PO SCH (08:43)
[2019-01-03] MEDS: DOCUSATE SODIUM 100 MG CAPSULE. PO SCH (08:43)
[2019-01-03] MEDS: TAMSULOSIN 0.4 MG CAP.ER.24H. PO SCH (08:43)
[2019-01-03] MEDS: ASPIRIN ENTERIC COATED 81 MG TABLET.DR. PO SCH (08:43)
[2019-01-03] MEDS: CLOPIDOGREL BISULFATE 75 MG TABLET PO SCH (08:43)
[2019-01-03] MEDS: POTASSIUM CHLORIDE 10 MEQ TABLET.ER. PO SCH (08:43)
[2019-01-03] MEDS: FUROSEMIDE 20 MG TABLET PO SCH (08:43)
[2019-01-03] MEDS: DONEPEZIL HCL 5 MG TABLET. PO SCH (08:44)
[2019-01-03] MEDS: METOPROLOL SUCC 24HR ER 25 MG TAB.ER.24H. PO SCH (08:44)
[2019-01-03] MEDS: LIDOCAINE (700MG/PATCH) PATCH. TD SCH (08:45)
[2019-01-03] MEDS: POLYETHYLENE GLYCOL 3350 17 GM PACKET. PO SCH (08:46)
--- NOTE | 2019-01-03 10:33 | PDOC ---
PROGRESS NOTES Chief Complaint Chief Complaint Acute on chronic systolic heart failure. EF 10-15% CAD known s/p CABG Chest pain, angina, w. atypical pain, poss bruise CKD 2-3 Mechanical fall with acquired weakness and debility Severe aortic stenosis s/p valvuloplasty Dementia Transaminitis History of Present Illness History of Present Illness Mr Munguia is a 88yo M w/ PMHx dementia, CAD s/p CABG, systolic CHF, CKD2. He thinks it is 1979. He is very pleasantly confused though very nice and cooperative. He presented with shortness of breath, found in ED with a chest x- ray showing possible vascular congestion and elevated BNP of 17,038. He has associated weakness. It had been occurring off and on for weeks. Moving makes it worse. Seen by cardiology, underwent LHC on 12/26/18, revealing acute on chron ic systolic and diastolic HF with EF 15%, severe three vessel coronary artery disease, 2/2 grafts patent, and severe aortic stenosis. As he was symptomatic on 12/30/18 underwent aortic valvuloplasty with symptomatic improvement, and now will await TAVR referral from cardiology. Seen by PT/OT, needs skilled services. Feeling better today, less difficulty getting a deep breath. Still pleasantly confused. Eating breakfast currently, sitting up in bed. Liver enzymes up 12/31 - GI consulted. RUQ US unrevealing except GB sludge. LFTs up again today. Cr and BUN down. D/W cardiology for further diuresis and milrinone GTT. Based on EF likely not TAVR candidate. D/w family he is a DNR/DNI Vitals Vitals Vital Signs Date Time Temp Pulse Resp B/P (MAP) Pulse Ox O2 Delivery O2 Flow Rate FiO2 01/03/19 08:44 72 107/60 01/03/19 08:01 Room Air 01/03/19 07:00 96.1 16 95 96.1 Physical Exam General: Alert, Cooperative, No acute distress, Other (oriented to place) Heart: Regular rate (SR), Normal S1, Normal S2, Other (4/6 systolic murmur to NICOLE and 3/6 systolic murmur to LLS border) Lungs: Clear Abdomen: Soft, No tenderness Extremities: No cyanosis, Other (1+ bilateral LE pitting edema) Skin: No breakdown, No significant lesion Labs LABS Laboratory Tests Test 01/02/19 11:56 01/02/19 16:55 01/02/19 20:55 01/03/19 04:25 Glucose (Fingerstick) 122 mg/dL (70-99) 107 mg/dL (70-99) 114 mg/dL (70-99) White Blood Count 8.9 x10^3/uL (4.0-11.0) Red Blood Count 3.57 x10^6/uL (4.30-5.70) Hemoglobin 10.8 g/dL (13.0-17.5) Hematocrit 32.0 % (39.0-53.0) Mean Corpuscular Volume 90 fL (79-100) Mean Corpuscular Hemoglobin 30 pg (25-35) Mean Corpuscular Hemoglobin Concent 34 g/dL (31-37) Red Cell Distribution Width 14.6 % (11.5-14.5) Platelet Count 233 x10^3/uL (140-400) Neutrophils (%) (Auto) 77 % (31-73) Lymphocytes (%) (Auto) 9 % (24-48) Monocytes (%) (Auto) 12 % (0-9) Eosinophils (%) (Auto) 3 % (0-3) Basophils (%) (Auto) 0 % (0-3) Neutrophils # (Auto) 6.9 x10^3uL (1.8-7.7) Lymphocytes # (Auto) 0.8 x10^3/uL (1.0-4.8) Monocytes # (Auto) 1.0 x10^3/uL (0.0-1.1) Eosinophils # (Auto) 0.2 x10^3/uL (0.0-0.7) Basophils # (Auto) 0.0 x10^3/uL (0.0-0.2) Sodium Level 141 mmol/L (136-145) Potassium Level 3.9 mmol/L (3.5-5.1) Chloride Level 105 mmol/L (98-107) Carbon Dioxide Level 30 mmol/L (21-32) Anion Gap 6 (6-14) Blood Urea Nitrogen 36 mg/dL (8-26) Creatinine 1.3 mg/dL (0.7-1.3) Estimated GFR (Cockcroft-Gault) 52.1 BUN/Creatinine Ratio 28 (6-20) Glucose Level 133 mg/dL (70-99) Calcium Level 7.9 mg/dL (8.5-10.1) Total Bilirubin 0.6 mg/dL (0.2-1.0) Aspartate Amino Transf (AST/SGOT) 331 U/L (15-37) Alanine Aminotransferase (ALT/SGPT) 339 U/L (16-63) Alkaline Phosphatase 287 U/L (46-116) Total Protein 5.1 g/dL (6.4-8.2) Albumin 1.9 g/dL (3.4-5.0) Albumin/Globulin Ratio 0.6 (1.0-1.7) Test 01/03/19 07:36 Glucose (Fingerstick) 140 mg/dL (70-99) Assessment and Plan Assessmemt and Plan Problems Medical Problems: (1) CHF exacerbation Status: Acute (2) Dyspnea Status: Acute Comment Review of Relevant I have reviewed the following items jayce (where applicable) has been applied. Labs Laboratory Tests Test 01/01/19 11:43 01/01/19 17:05 01/01/19 21:47 01/02/19 07:37 Glucose (Fingerstick) 149 mg/dL (70-99) 125 mg/dL (70-99) 141 mg/dL (70-99) 74 mg/dL (70-99) Test 01/02/19 08:27 01/02/19 11:56 01/02/19 16:55 01/02/19 20:55 White Blood Count 11.5 x10^3/uL (4.0-11.0) Red Blood Count 3.83 x10^6/uL (4.30-5.70) Hemoglobin 11.5 g/dL (13.0-17.5) Hematocrit 34.5 % (39.0-53.0) Mean Corpuscular Volume 90 fL (79-100) Mean Corpuscular Hemoglobin 30 pg (25-35) Mean Corpuscular Hemoglobin Concent 33 g/dL (31-37) Red Cell Distribution Width 14.4 % (11.5-14.5) Platelet Count 259 x10^3/uL (140-400) Neutrophils (%) (Auto) 81 % (31-73) Lymphocytes (%) (Auto) 6 % (24-48) Monocytes (%) (Auto) 12 % (0-9) Eosinophils (%) (Auto) 1 % (0-3) Basophils (%) (Auto) 0 % (0-3) Neutrophils # (Auto) 9.3 x10^3uL (1.8-7.7) Lymphocytes # (Auto) 0.7 x10^3/uL (1.0-4.8) Monocytes # (Auto) 1.3 x10^3/uL (0.0-1.1) Eosinophils # (Auto) 0.1 x10^3/uL (0.0-0.7) Basophils # (Auto) 0.0 x10^3/uL (0.0-0.2) Sodium Level 142 mmol/L (136-145) Potassium Level 3.8 mmol/L (3.5-5.1) Chloride Level 105 mmol/L (98-107) Carbon Dioxide Level 28 mmol/L (21-32) Anion Gap 9 (6-14) Blood Urea Nitrogen 43 mg/dL (8-26) Creatinine 1.4 mg/dL (0.7-1.3) Estimated GFR (Cockcroft-Gault) 47.8 BUN/Creatinine Ratio 31 (6-20) Glucose Level 112 mg/dL (70-99) Calcium Level 8.2 mg/dL (8.5-10.1) Magnesium Level 2.5 mg/dL (1.8-2.4) Total Bilirubin 0.9 mg/dL (0.2-1.0) Aspartate Amino Transf (AST/SGOT) 129 U/L (15-37) Alanine Aminotransferase (ALT/SGPT) 208 U/L (16-63) Alkaline Phosphatase 304 U/L (46-116) Total Protein 5.4 g/dL (6.4-8.2) Albumin 2.1 g/dL (3.4-5.0) Albumin/Globulin Ratio 0.6 (1.0-1.7) Glucose (Fingerstick) 122 mg/dL (70-99) 107 mg/dL (70-99) 114 mg/dL (70-99) Test 01/03/19 04:25 01/03/19 07:36 White Blood Count 8.9 x10^3/uL (4.0-11.0) Red Blood Count 3.57 x10^6/uL (4.30-5.70) Hemoglobin 10.8 g/dL (13.0-17.5) Hematocrit 32.0 % (39.0-53.0) Mean Corpuscular Volume 90 fL (79-100) Mean Corpuscular Hemoglobin 30 pg (25-35) Mean Corpuscular Hemoglobin Concent 34 g/dL (31-37) Red Cell Distribution Width 14.6 % (11.5-14.5) Platelet Count 233 x10^3/uL (140-400) Neutrophils (%) (Auto) 77 % (31-73) Lymphocytes (%) (Auto) 9 % (24-48) Monocytes (%) (Auto) 12 % (0-9) Eosinophils (%) (Auto) 3 % (0-3) Basophils (%) (Auto) 0 % (0-3) Neutrophils # (Auto) 6.9 x10^3uL (1.8-7.7) Lymphocytes # (Auto) 0.8 x10^3/uL (1.0-4.8) Monocytes # (Auto) 1.0 x10^3/uL (0.0-1.1) Eosinophils # (Auto) 0.2 x10^3/uL (0.0-0.7) Basophils # (Auto) 0.0 x10^3/uL (0.0-0.2) Sodium Level 141 mmol/L (136-145) Potassium Level 3.9 mmol/L (3.5-5.1) Chloride Level 105 mmol/L (98-107) Carbon Dioxide Level 30 mmol/L (21-32) Anion Gap 6 (6-14) Blood Urea Nitrogen 36 mg/dL (8-26) Creatinine 1.3 mg/dL (0.7-1.3) Estimated GFR (Cockcroft-Gault) 52.1 BUN/Creatinine Ratio 28 (6-20) Glucose Level 133 mg/dL (70-99) Calcium Level 7.9 mg/dL (8.5-10.1) Total Bilirubin 0.6 mg/dL (0.2-1.0) Aspartate Amino Transf (AST/SGOT) 331 U/L (15-37) Alanine Aminotransferase (ALT/SGPT) 339 U/L (16-63) Alkaline Phosphatase 287 U/L (46-116) Total Protein 5.1 g/dL (6.4-8.2) Albumin 1.9 g/dL (3.4-5.0) Albumin/Globulin Ratio 0.6 (1.0-1.7) Glucose (Fingerstick) 140 mg/dL (70-99) Laboratory Tests Test 01/02/19 11:56 01/02/19 16:55 01/02/19 20:55 01/03/19 04:25 Glucose (Fingerstick) 122 mg/dL (70-99) 107 mg/dL (70-99) 114 mg/dL (70-99) White Blood Count 8.9 x10^3/uL (4.0-11.0) Red Blood Count 3.57 x10^6/uL (4.30-5.70) Hemoglobin 10.8 g/dL (13.0-17.5) Hematocrit 32.0 % (39.0-53.0) Mean Corpuscular Volume 90 fL (79-100) Mean Corpuscular Hemoglobin 30 pg (25-35) Mean Corpuscular Hemoglobin Concent 34 g/dL (31-37) Red Cell Distribution Width 14.6 % (11.5-14.5) Platelet Count 233 x10^3/uL (140-400) Neutrophils (%) (Auto) 77 % (31-73) Lymphocytes (%) (Auto) 9 % (24-48) Monocytes (%) (Auto) 12 % (0-9) Eosinophils (%) (Auto) 3 % (0-3) Basophils (%) (Auto) 0 % (0-3) Neutrophils # (Auto) 6.9 x10^3uL (1.8-7.7) Lymphocytes # (Auto) 0.8 x10^3/uL (1.0-4.8) Monocytes # (Auto) 1.0 x10^3/uL (0.0-1.1) Eosinophils # (Auto) 0.2 x10^3/uL (0.0-0.7) Basophils # (Auto) 0.0 x10^3/uL (0.0-0.2) Sodium Level 141 mmol/L (136-145) Potassium Level 3.9 mmol/L (3.5-5.1) Chloride Level 105 mmol/L (98-107) Carbon Dioxide Level 30 mmol/L (21-32) Anion Gap 6 (6-14) Blood Urea Nitrogen 36 mg/dL (8-26) Creatinine 1.3 mg/dL (0.7-1.3) Estimated GFR (Cockcroft-Gault) 52.1 BUN/Creatinine Ratio 28 (6-20) Glucose Level 133 mg/dL (70-99) Calcium Level 7.9 mg/dL (8.5-10.1) Total Bilirubin 0.6 mg/dL (0.2-1.0) Aspartate Amino Transf (AST/SGOT) 331 U/L (15-37) Alanine Aminotransferase (ALT/SGPT) 339 U/L (16-63) Alkaline Phosphatase 287 U/L (46-116) Total Protein 5.1 g/dL (6.4-8.2) Albumin 1.9 g/dL (3.4-5.0) Albumin/Globulin Ratio 0.6 (1.0-1.7) Test 01/03/19 07:36 Glucose (Fingerstick) 140 mg/dL (70-99) Medications Current Medications Morphine Sulfate (Morphine Sulfate) 4 mg 1X ONCE IV Last administered on 12/25/18 16:10; Start 12/25/18 at 16:00; Stop 12/25/18 at 16:01; Status DC Furosemide (Lasix) 40 mg 1X ONCE IV Last administered on 12/25/18 16:09; Start 12/25/18 at 16:00; Stop 12/25/18 at 16:01; Status DC Temazepam (Restoril) 15 mg PRN QHS PRN PO INSOMNIA Last administered on 12/26/18at 21:34; Start 12/25/18 at 22:15; Stop 12/26/18 at 23:33; Status DC Furosemide (Lasix) 40 mg 1X ONCE IVP Last administered on 12/26/18at 11:41; Sta rt 12/26/18 at 11:15; Stop 12/26/18 at 11:19; Status DC Potassium Chloride (Klor-Con) 20 meq 1X ONCE PO Last administered on 12/26/18at 11:41; Start 12/26/18 at 11:15; Stop 12/26/18 at 11:19; Status DC Aspirin (Ecotrin) 81 mg DAILYWBKFT PO Last administered on 01/03/19at 08:43; Start 12/26/18 at 12:00 Enoxaparin Sodium (Lovenox Per Pharmacy Prophylaxis Dosing) 1 each PRN DAILY PRN MC SEE COMMENTS; Start 12/26/18 at 15:15 Tamsulosin HCl (Flomax) 0.4 mg DAILY PO Last administered on 01/03/19at 08:43; Start 12/26/18 at 16:00 Donepezil HCl (Aricept) 5 mg DAILY PO Last administered on 01/03/19at 08:44; Start 12/26/18 at 16:00 Citalopram Hydrobromide (CeleXA) 20 mg DAILY PO Last administered on 01/03/19at 08:43; Start 12/26/18 at 16:00 Non-Formulary Medication (Metoprolol Succinate/Hctz (Metoprolol ER-Hctz 50-12.5 mg)) 1 each DAILY PO ; Start 12/27/18 at 09:00; Status UNV Atorvastatin Calcium (Lipitor) 40 mg QHS PO Last administered on 01/02/19at 20:47; Start 12/26/18 at 21:00 Metoprolol Succinate (Toprol Xl) 50 mg DAILY PO ; Start 12/26/18 at 16:00; Stop 12/27/18 at 11:26; Status DC Hydrochlorothiazide (Microzide) 12.5 mg DAILY PO ; Start 12/26/18 at 16:00; Stop 12/27/18 at 11:26; Status DC Enoxaparin Sodium (Lovenox 40mg Syringe) 40 mg Q24H SQ Last administered on 01/02/19at 17:37; Start 12/26/18 at 16:00 Iodixanol (Visipaque 320) 100 ml STK-MED ONCE .ROUTE ; Start 12/26/18 at 16:05; Stop 12/26/18 at 16:06; Status DC Lidocaine HCl (Lidocaine 1% 20ml Vial) 20 ml STK-MED ONCE .ROUTE ; Start 12/26/18 at 16:05; Stop 12/26/18 at 16:06; Status DC Heparin Sodium/ Sodium Chloride 1,000 ml @ As Directed STK-MED ONCE .ROUTE ; Start 12/26/18 at 16:06; Stop 12/26/18 at 16:07; Status DC Fentanyl Citrate (Fentanyl 2ml Vial) 100 mcg STK-MED ONCE .ROUTE ; Start 12/26/18 at 16:15; Stop 12/26/18 at 16:16; Status DC Midazolam HCl (Versed) 2 mg STK-MED ONCE .ROUTE ; Start 12/26/18 at 16:15; Stop 12/26/18 at 16:16; Status DC Heparin Sodium/ Sodium Chloride (HEPARIN for ARTERIAL LINE FLUSH) 1,000 unit 1X ONCE IART Last administered on 12/26/18at 17:22; Start 12/26/18 at 16:45; Stop 12/26/18 at 16:46; Status DC Heparin Sodium/ Sodium Chloride (HEPARIN for ARTERIAL LINE FLUSH) 1,000 unit 1X ONCE IART Last administered on 12/26/18at 17:22; Start 12/26/18 at 16:45; Stop 12/26/18 at 16:46; Status DC Midazolam HCl (Versed) 2 mg 1X ONCE IV Last administered on 12/26/18at 17:25; Start 12/26/18 at 16:45; Stop 12/26/18 at 16:46; Status DC Fentanyl Citrate (Fentanyl 2ml Vial) 100 mcg 1X ONCE IV Last administered on 12/26/18 17:25; Start 12/26/18 at 16:45; Stop 12/26/18 at 16:46; Status DC Iodixanol (Visipaque 320) 100 ml 1X ONCE IART Last administered on 12/26/18 17:23; Start 12/26/18 at 16:45; Stop 12/26/18 at 16:46; Status DC Lidocaine HCl (Lidocaine 1% 20ml Vial) 20 ml 1X ONCE INJ Last administered on 12/26/18 17:24; Start 12/26/18 at 16:45; Stop 12/26/18 at 16:46; Status DC Multi-Ingredient Mouthwash/Gargle (Gi Cocktail) 20 ml PRN QID PRN PO CHEST PAIN Last administered on 12/30/18at 16:28; Start 12/26/18 at 21:30 Temazepam (Restoril) 15 mg PRN QHS PRN PO INSOMNIA, MAY REPEAT X1 Last administered on 01/02/19at 20:47; Start 12/26/18 at 23:45 Temazepam (Restoril) 15 mg 1X ONCE PO Last administered on 12/27/18 01:40; Start 12/27/18 at 01:00; Stop 12/27/18 at 01:01; Status DC Acetaminophen (Tylenol) 650 mg PRN Q6HRS PRN PO MILD PAIN 1-3 Last administered on 01/02/19 20:47; Start 12/27/18 at 01:30 Oxycodone HCl (Roxicodone) 5 mg PRN Q6HRS PRN PO MODERATE, SEVERE PAIN Last administered on 12/30/18 18:21; Start 12/27/18 at 11:15 Metoprolol Succinate (Toprol Xl) 25 mg DAILY PO Last administered on 01/03/19 08:44; Start 12/28/18 at 09:00 Furosemide (Lasix) 20 mg DAILY PO Last administered on 01/03/19 08:43; Start 12/27/18 at 12:00 Potassium Chloride (Klor-Con) 10 meq DAILYWBKFT PO Last administered on 01/03/19 08:43; Start 12/27/18 at 12:00 Lidocaine (Lidoderm) 1 patch DAILY TD Last administered on 01/03/19 08:45; Start 12/27/18 at 12:00 Miscellaneous (Lidoderm Patch Removal) 1 ea QHS MC Last administered on 01/02/19 20:50; Start 12/27/18 at 21:00 Docusate Sodium (Colace) 100 mg DAILY PO Last administered on 01/03/19 08:43; Start 12/27/18 at 13:00 Polyethylene Glycol (miraLAX PACKET) 17 gm PRN DAILY PRN PO CONSTIPATION; Start 12/27/18 at 12:45 Polyethylene Glycol (miraLAX PACKET) 17 gm DAILY PO Last administered on 01/03 08:46; Start 12/27/18 at 13:00 Iodixanol (Visipaque 320) 100 ml STK-MED ONCE .ROUTE ; Start 12/30/18 at 07:48; Stop 12/30/18 at 07:49; Status DC Lidocaine HCl (Lidocaine 1% 20ml Vial) 20 ml STK-MED ONCE .ROUTE ; Start 12/30/18 at 07:48; Stop 12/30/18 at 07:49; Status DC Heparin Sodium/ Sodium Chloride 1,000 ml @ As Directed STK-MED ONCE .ROUTE ; Start 12/30/18 at 07:48; Stop 12/30/18 at 07:49; Status DC Heparin Sodium/ Sodium Chloride 500 ml @ As Directed STK-MED ONCE .ROUTE ; Start 12/30/18 at 07:59; Stop 12/30/18 at 08:00; Status DC Insulin Human Lispro (HumaLOG) 0-5 UNITS TIDWMEALS SQ ; Start 12/30/18 at 12:00 Dextrose (Dextrose 50%-Water Syringe) 12.5 gm PRN Q15MIN PRN IV SEE COMMENTS; Start 12/30/18 at 08:30 Fentanyl Citrate (Fentanyl 2ml Vial) 100 mcg STK-MED ONCE .ROUTE ; Start 12/30/18 at 08:23; Stop 12/30/18 at 08:24; Status DC Midazolam HCl (Versed) 2 mg STK-MED ONCE .ROUTE ; Start 12/30/18 at 08:24; Stop 12/30/18 at 08:25; Status DC Heparin Sodium (Porcine) (Heparin Sodium) 10,000 unit STK-MED ONCE .ROUTE ; Start 12/30/18 at 08:29; Stop 12/30/18 at 08:30; Status DC Iodixanol (Visipaque 320) 100 ml STK-MED ONCE .ROUTE ; Start 12/30/18 at 09:08; Stop 12/30/18 at 09:09; Status DC Dopamine HCl/ Dextrose 0 ml @ As Directed STK-MED ONCE IV ; Start 12/30/18 at 09:14; Stop 12/30/18 at 09:15; Status DC Phenylephrine HCl (PHENYLEPHRINE in 0.9% NACL PF) 1 mg STK-MED ONCE IV ; Start 12/30/18 at 09:14; Stop 12/30/18 at 09:15; Status DC Heparin Sodium/ Sodium Chloride (HEPARIN for ARTERIAL LINE FLUSH) 1,000 unit 1X ONCE IART Last administered on 12/30/18at 10:30; Start 12/30/18 at 10:30; Stop 12/30/18 at 10:31; Status DC Midazolam HCl (Versed) 1 mg 1X ONCE IV Last administered on 12/30/18at 10:30; Start 12/30/18 at 10:30; Stop 12/30/18 at 10:31; Status DC Fentanyl Citrate (Fentanyl 2ml Vial) 50 mcg 1X ONCE IV Last administered on 12/30/18at 10:30; Start 12/30/18 at 10:30; Stop 12/30/18 at 10:31; Status DC Iodixanol (Visipaque 320) 100 ml 1X ONCE IART Last administered on 12/30/18at 10:30; Start 12/30/18 at 10:30; Stop 12/30/18 at 10:31; Status DC Heparin Sodium (Porcine) (Heparin Sodium) 5,500 unit 1X ONCE IV Last administered on 12/30/18at 10:30; Start 12/30/18 at 10:30; Stop 12/30/18 at 10:31; Status DC Lidocaine HCl (Lidocaine 1% 20ml Vial) 17 ml 1X ONCE INJ Last administered on 12/30/18at 10:30; Start 12/30/18 at 10:30; Stop 12/30/18 at 10:31; Status DC Info (CONTRAST GIVEN -- Rx MONITORING) 1 each PRN DAILY PRN MC SEE COMMENTS; Start 12/30/18 at 10:30; Stop 01/01/19 at 10:29; Status DC Clopidogrel Bisulfate (Plavix) 600 mg 1X ONCE PO Last administered on 12/30/18at 10:30; Start 12/30/18 at 10:30; Stop 12/30/18 at 10:33; Status DC Aspirin (Ry Aspirin) 325 mg 1X ONCE PO Last administered on 12/30/18at 10:30; Start 12/30/18 at 10:30; Stop 12/30/18 at 10:33; Status DC Clopidogrel Bisulfate (Plavix) 75 mg STK-MED ONCE .ROUTE ; Start 12/30/18 at 10:28; Stop 12/30/18 at 10:29; Status DC Aspirin (Ry Aspirin) 325 mg STK-MED ONCE .ROUTE ; Start 12/30/18 at 10:28; Stop 12/30/18 at 10:29; Status DC Furosemide (Lasix) 20 mg 1X ONCE IVP Last administered on 12/30/18at 16:29; Start 12/30/18 at 16:00; Stop 12/30/18 at 16:01; Status DC Furosemide (Lasix) 20 mg 1X ONCE IVP Last administered on 12/31/18at 14:35; Start 12/31/18 at 13:45; Stop 12/31/18 at 13:53; Status DC Clopidogrel Bisulfate (Plavix) 75 mg DAILYWBKFT PO Last administered on 01/03/19at 08:43; Start 01/01/19 at 08:00 Clopidogrel Bisulfate (Plavix) 75 mg 1X ONCE PO Last administered on 12/31/18at 17:23; Start 12/31/18 at 16:15; Stop 12/31/18 at 16:16; Status DC Pantoprazole Sodium (Protonix) 40 mg DAILYAC PO Last administered on 01/03/19at 07:37; Start 01/01/19 at 07:30 Milrinone Lactate/ Dextrose 100 ml @ 0 mls/hr CONT PRN IV SEE I/O RECORD Last administered on 01/02/19at 19:28; Start 01/01/19 at 11:45 Furosemide (Lasix) 40 mg 1X ONCE IVP Last administered on 01/01/19at 12:35; Start 01/01/19 at 11:45; Stop 01/01/19 at 11:46; Status DC Furosemide (Lasix) 40 mg 1X ONCE IVP Last administered on 01/02/19at 14:39; Start 01/02/19 at 13:30; Stop 01/02/19 at 13:31; Status DC Active Scripts Active Aspirin Ec (Aspirin) 325 Mg Tablet.dr 1 Tab PO DAILY 30 Days Clopidogrel (Clopidogrel Bisulfate) 75 Mg Tablet 1 Tab PO DAILY 30 Days Polyethylene Glycol 3350 17 Gm Powd.pack 17 Gm PO PRN DAILY PRN 30 Days Colace (Docusate Sodium) 100 Mg Capsule 100 Mg PO DAILY 30 Days Furosemide 20 Mg Tablet 20 Mg PO DAILY 30 Days Klor-Con 10 (Potassium Chloride) 10 Meq Tablet.er 10 Meq PO DAILYWBKFT 30 Days Tylenol (Acetaminophen) 325 Mg Tablet 650 Mg PO PRN Q6HRS PRN 30 Days Metoprolol Succinate ( Xl ) (Metoprolol Succinate) 25 Mg Tab.er.24h 25 Mg PO DAILY 30 Days Reported Crestor (Rosuvastatin Calcium) 10 Mg Tablet 10 Mg PO HS Escitalopram Oxalate 10 Mg Tablet 1 Tab PO DAILY Flomax (Tamsulosin Hcl) 0.4 Mg Cap.er.24h 0.4 Mg PO DAILY Vitals/I & O Vital Sign - Last 24 Hours 01/02/19 01/02/19 01/02/19 01/02/19 11:00 15:00 19:32 19:45 Temp 97.6 97.7 97.9 97.6 97.7 97.9 Pulse 68 70 74 74 Resp 16 16 17 B/P (MAP) 93/50 (64) 93/56 (68) 100/57 (71) 97/69 (78) Pulse Ox 96 97 99 O2 Delivery Room Air Room Air Room Air 01/02/19 01/02/19 01/02/19 01/02/19 20:00 20:45 21:45 22:45 Pulse 71 75 72 B/P (MAP) 90/54 (66) 93/55 (68) 96/50 (65) O2 Delivery Room Air 01/02/19 01/03/19 01/03/19 01/03/19 22:59 00:45 02:15 02:45 Temp 97.9 98.1 97.9 98.1 Pulse 78 74 80 74 Resp 18 18 B/P (MAP) 89/50 (63) 92/53 (66) 94/54 (67) 86/50 (62) Pulse Ox 94 96 O2 Delivery Room Air Room Air 01/03/19 01/03/19 01/03/19 01/03/19 03:45 04:45 05:45 07:00 Temp 96.1 96.1 Pulse 74 74 74 70 Resp 16 B/P (MAP) 88/53 (65) 87/53 (64) 87/84 (85) 93/50 (64) Pulse Ox 95 O2 Delivery Room Air 01/03/19 01/03/19 08:01 08:44 Pulse 72 B/P (MAP) 107/60 O2 Delivery Room Air Intake and Output 01/02/19 01/02/19 01/03/19 15:00 23:00 07:00 Intake Total 180 ml 100 ml Output Total 800 ml 100 ml Balance 180 ml -700 ml -100 ml Nutrition Consultation Dietary Evaluation: Recommendations by RD: Protein supplementation Comments: Continue w/cardaic diet as ordered, honor food preferences, and provide sncaks as requested REC Ensure (strawberry) w/dinner Expected Outcomes/Goals: PO intake to meet >75% est needs Malnutrition Findings: Food and Nutrition Intake (Mod: <75% est energy req 7days Weight Status: Appropriate STAS HIGUERA MD Jan 03, 2019 10:33
--- NOTE | 2019-01-03 11:04 | NUR ---
SS following up with discharge planing. Pt still on Milrinone drip. Pt accepted at [facility] but will need to be off Milrinone drip prior to discharge. SS discussed with [facility]. Pt's insurance authorization for prison unit will today and will need new insurance authorization after today. SS requested that PT/OT see pt on Sunday. SS will continue to follow for discharge planning.
--- NOTE | 2019-01-03 11:39 | PDOC ---
Subjective: Subjective: Ate a little breakfast, can't remember what. Says he ordered some Ensure for lunch. No n/v. Stooling. Just not a great appetite. Objective: Objective: Plans for rehab when off milrinone. Vital Signs: Vital Signs Date Time Temp Pulse Resp B/P (MAP) Pulse Ox O2 Delivery O2 Flow Rate FiO2 01/03/19 11:05 78 87/55 (66) 01/03/19 11:00 97.7 18 96 Room Air 97.7 Labs: Laboratory Tests Test 01/02/19 11:56 01/02/19 16:55 01/02/19 20:55 01/03/19 04:25 Glucose (Fingerstick) 122 mg/dL 107 mg/dL 114 mg/dL White Blood Count 8.9 x10^3/uL Red Blood Count 3.57 x10^6/uL Hemoglobin 10.8 g/dL Hematocrit 32.0 % Mean Corpuscular Volume 90 fL Mean Corpuscular Hemoglobin 30 pg Mean Corpuscular Hemoglobin Concent 34 g/dL Red Cell Distribution Width 14.6 % Platelet Count 233 x10^3/uL Neutrophils (%) (Auto) 77 % Lymphocytes (%) (Auto) 9 % Monocytes (%) (Auto) 12 % Eosinophils (%) (Auto) 3 % Basophils (%) (Auto) 0 % Neutrophils # (Auto) 6.9 x10^3uL Lymphocytes # (Auto) 0.8 x10^3/uL Monocytes # (Auto) 1.0 x10^3/uL Eosinophils # (Auto) 0.2 x10^3/uL Basophils # (Auto) 0.0 x10^3/uL Sodium Level 141 mmol/L Potassium Level 3.9 mmol/L Chloride Level 105 mmol/L Carbon Dioxide Level 30 mmol/L Anion Gap 6 Blood Urea Nitrogen 36 mg/dL Creatinine 1.3 mg/dL Estimated GFR (Cockcroft-Gault) 52.1 BUN/Creatinine Ratio 28 Glucose Level 133 mg/dL Calcium Level 7.9 mg/dL Total Bilirubin 0.6 mg/dL Aspartate Amino Transf (AST/SGOT) 331 U/L Alanine Aminotransferase (ALT/SGPT) 339 U/L Alkaline Phosphatase 287 U/L Total Protein 5.1 g/dL Albumin 1.9 g/dL Albumin/Globulin Ratio 0.6 Test 01/03/19 07:36 01/03/19 11:27 Glucose (Fingerstick) 140 mg/dL 115 mg/dL PE: GEN: NAD, up to chair ABD: NABS, S/ND/NT NEURO/PSYCH: A & O �3 A/P: CHF, anorexia, elevated LFTs -- Encouraged PO. LFTs still fluctuating. Continue PPI. STEPHANI STONE Jan 03, 2019 11:39
--- NOTE | 2019-01-03 12:38 | PDOC ---
CARDIO Progress Notes Date and Time Date of Service 01/03/2019 Time of Evaluation 1220 Subjective Subjective: No Chest Pain, No Palpitations, Other (SOA better) Vitals Vitals Vital Signs Date Time Temp Pulse Resp B/P (MAP) Pulse Ox O2 Delivery O2 Flow Rate FiO2 01/03/19 11:05 78 87/55 (66) 01/03/19 11:00 97.7 18 96 Room Air 97.7 Weight Weight [ ] Input and Output Intake and Output Intake and Output 01/03/19 06:59 Intake Total 280 ml Output Total 900 ml Balance -620 ml Intake Oral 180 ml IV Total 100 ml Output Urine Total 900 ml Laboratory Labs Laboratory Tests Test 01/02/19 16:55 01/02/19 20:55 01/03/19 04:25 01/03/19 07:36 Glucose (Fingerstick) 107 mg/dL (70-99) 114 mg/dL (70-99) 140 mg/dL (70-99) White Blood Count 8.9 x10^3/uL (4.0-11.0) Red Blood Count 3.57 x10^6/uL (4.30-5.70) Hemoglobin 10.8 g/dL (13.0-17.5) Hematocrit 32.0 % (39.0-53.0) Mean Corpuscular Volume 90 fL (79-100) Mean Corpuscular Hemoglobin 30 pg (25-35) Mean Corpuscular Hemoglobin Concent 34 g/dL (31-37) Red Cell Distribution Width 14.6 % (11.5-14.5) Platelet Count 233 x10^3/uL (140-400) Neutrophils (%) (Auto) 77 % (31-73) Lymphocytes (%) (Auto) 9 % (24-48) Monocytes (%) (Auto) 12 % (0-9) Eosinophils (%) (Auto) 3 % (0-3) Basophils (%) (Auto) 0 % (0-3) Neutrophils # (Auto) 6.9 x10^3uL (1.8-7.7) Lymphocytes # (Auto) 0.8 x10^3/uL (1.0-4.8) Monocytes # (Auto) 1.0 x10^3/uL (0.0-1.1) Eosinophils # (Auto) 0.2 x10^3/uL (0.0-0.7) Basophils # (Auto) 0.0 x10^3/uL (0.0-0.2) Sodium Level 141 mmol/L (136-145) Potassium Level 3.9 mmol/L (3.5-5.1) Chloride Level 105 mmol/L (98-107) Carbon Dioxide Level 30 mmol/L (21-32) Anion Gap 6 (6-14) Blood Urea Nitrogen 36 mg/dL (8-26) Creatinine 1.3 mg/dL (0.7-1.3) Estimated GFR (Cockcroft-Gault) 52.1 BUN/Creatinine Ratio 28 (6-20) Glucose Level 133 mg/dL (70-99) Calcium Level 7.9 mg/dL (8.5-10.1) Total Bilirubin 0.6 mg/dL (0.2-1.0) Aspartate Amino Transf (AST/SGOT) 331 U/L (15-37) Alanine Aminotransferase (ALT/SGPT) 339 U/L (16-63) Alkaline Phosphatase 287 U/L (46-116) Total Protein 5.1 g/dL (6.4-8.2) Albumin 1.9 g/dL (3.4-5.0) Albumin/Globulin Ratio 0.6 (1.0-1.7) Test 01/03/19 11:27 Glucose (Fingerstick) 115 mg/dL (70-99) Physical Exam HEENT: Neck Supple W Full Motion Chest: Symmetric LUNGS: Other (bibasilar crackles) Heart: RRR (SR with PVCs), murmurs (ssytolic murmur 3/6 to NICOLE border) Extremities: No Edema, No Calf Tenderness Neurology: alert, oriented (to self and place), follow commands Assessment Assessment 1. 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 CAD: remote CABG. [place] to LAD and SVG to RCA patent per C 3. 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 Severe : S/P successful valvuloplasty 5. HTN: marginally low 6. HLP 7. Dementia 8. Transaminitis: per GI. 9. CKD3 10. Ventricular arrhythmia: periods of brief NSVT overnight otherwise SR with PVCs, less per comparison. Recommendations 1. Lasix and PRN. K replacement. Continue milrinone 2. Toprol XL.ASA/plavix. ACEi/ARB prior to DC pending BP trend 3. Further conversation with family when present in regards to goals of care and treatment plan with pt's poor prognosis. Consider hospice. 4. Supportive care at this time GERONIMO BROWN P[employer]LTRY CUTTER Jan 03, 2019 12:38
[2019-01-03] MEDS ORDERED: POTASSIUM CHLORIDE 20 MEQ TABLET.ER. PO ONE (13:00)
[2019-01-03] MEDS ORDERED: FUROSEMIDE 20 MG/2 ML VIAL. IVP ONE (13:00)
[2019-01-03] MEDS: ENOXAPARIN 40 MG/0.4 ML SYRINGE. SQ SCH (16:31)
[2019-01-03] MEDS: BENZOCAINE/MENTHOL LOZENGE. PO PRN ×2 (18:42→22:30)
[2019-01-03] MEDS: ATORVASTATIN CALCIUM 40 MG TABLET. PO SCH (20:55)
[2019-01-03] MEDS: PATCH REMOVAL. MC SCH (21:00)
[2019-01-03] MEDS: DICLOFENAC SODIUM 1% TOPICAL GEL 100GM TUBE. TP SCH (21:21)
[2019-01-03] MEDS: ACETAMINOPHEN 325 MG TABLET. PO PRN (21:55)
[2019-01-03] MEDS: TEMAZEPAM 15 MG CAPSULE PO PRN (23:56)
[2019-01-04 03:00] VITALS: BP 111/58
[2019-01-04] MEDS: oxyCODONE IR 5 MG TABLET PO PRN ×2 (03:01→21:51)
[2019-01-04 07:00] VITALS: BP 90/50
[2019-01-04] MEDS: INSULIN LISPRO 300 UNITS/3 ML INSULN.PEN. SQ SCH ×3 (08:00→17:00)
--- NOTE | 2019-01-04 08:32 | PDOC ---
PROGRESS NOTES Chief Complaint Chief Complaint Acute on chronic systolic heart failure. EF 10-15% CAD known s/p CABG Chest pain, angina, w. atypical pain, poss bruise CKD 2-3 Mechanical fall with acquired weakness and debility Severe aortic stenosis s/p valvuloplasty Dementia Transaminitis History of Present Illness History of Present Illness Mr Munguia is a 88yo M w/ PMHx dementia, CAD s/p CABG, systolic CHF, CKD2. He thinks it is 1979. He is very pleasantly confused though very nice and cooperative. He presented with shortness of breath, found in ED with a chest x- ray showing possible vascular congestion and elevated BNP of 17,038. He has associated weakness. It had been occurring off and on for weeks. Moving makes it worse. Seen by cardiology, underwent LHC on 12/26/18, revealing acute on chron ic systolic and diastolic HF with EF 15%, severe three vessel coronary artery disease, 2/2 grafts patent, and severe aortic stenosis. As he was symptomatic on 12/30/18 underwent aortic valvuloplasty with symptomatic improvement, and now will await TAVR referral from cardiology. Seen by PT/OT, needs skilled services. Liver enzymes up 12/31 - GI consulted. RUQ US unrevealing except GB sludge. Feeling better today, less difficulty getting a deep breath. Still pleasantly confused. States he has decreased appetite and our food smells badly. LFTs up again today. Cr and BUN down. D/W cardiology for further diuresis and milrinone GTT. Based on EF likely not TAVR candidate. D/w family he is a DNR/DNI. Overall disposition is difficult while on milrinone. Vitals Vitals Vital Signs Date Time Temp Pulse Resp B/P (MAP) Pulse Ox O2 Delivery O2 Flow Rate FiO2 01/04/19 04:06 18 Room Air 01/04/19 03:01 96 01/04/19 03:00 98.6 86 111/58 (75) 98.6 Physical Exam General: Alert, Cooperative, No acute distress, Other (oriented to place) Heart: Regular rate (SR), Normal S1, Normal S2, Other (4/6 systolic murmur to NICOLE and 3/6 systolic murmur to LLS border) Lungs: Clear Abdomen: Soft, No tenderness Extremities: No cyanosis, Other (1+ bilateral LE pitting edema) Skin: No breakdown, No significant lesion Labs LABS Laboratory Tests Test 01/03/19 11:27 01/03/19 17:29 01/03/19 20:37 01/04/19 07:35 Glucose (Fingerstick) 115 mg/dL (70-99) 97 mg/dL (70-99) 131 mg/dL (70-99) 101 mg/dL (70-99) Assessment and Plan Assessmemt and Plan Problems Medical Problems: (1) CHF exacerbation Status: Acute (2) Dyspnea Status: Acute Comment Review of Relevant I have reviewed the following items jayce (where applicable) has been applied. Labs Laboratory Tests Test 01/02/19 11:56 01/02/19 16:55 01/02/19 20:55 01/03/19 04:25 Glucose (Fingerstick) 122 mg/dL (70-99) 107 mg/dL (70-99) 114 mg/dL (70-99) White Blood Count 8.9 x10^3/uL (4.0-11.0) Red Blood Count 3.57 x10^6/uL (4.30-5.70) Hemoglobin 10.8 g/dL (13.0-17.5) Hematocrit 32.0 % (39.0-53.0) Mean Corpuscular Volume 90 fL (79-100) Mean Corpuscular Hemoglobin 30 pg (25-35) Mean Corpuscular Hemoglobin Concent 34 g/dL (31-37) Red Cell Distribution Width 14.6 % (11.5-14.5) Platelet Count 233 x10^3/uL (140-400) Neutrophils (%) (Auto) 77 % (31-73) Lymphocytes (%) (Auto) 9 % (24-48) Monocytes (%) (Auto) 12 % (0-9) Eosinophils (%) (Auto) 3 % (0-3) Basophils (%) (Auto) 0 % (0-3) Neutrophils # (Auto) 6.9 x10^3uL (1.8-7.7) Lymphocytes # (Auto) 0.8 x10^3/uL (1.0-4.8) Monocytes # (Auto) 1.0 x10^3/uL (0.0-1.1) Eosinophils # (Auto) 0.2 x10^3/uL (0.0-0.7) Basophils # (Auto) 0.0 x10^3/uL (0.0-0.2) Sodium Level 141 mmol/L (136-145) Potassium Level 3.9 mmol/L (3.5-5.1) Chloride Level 105 mmol/L (98-107) Carbon Dioxide Level 30 mmol/L (21-32) Anion Gap 6 (6-14) Blood Urea Nitrogen 36 mg/dL (8-26) Creatinine 1.3 mg/dL (0.7-1.3) Estimated GFR (Cockcroft-Gault) 52.1 BUN/Creatinine Ratio 28 (6-20) Glucose Level 133 mg/dL (70-99) Calcium Level 7.9 mg/dL (8.5-10.1) Total Bilirubin 0.6 mg/dL (0.2-1.0) Aspartate Amino Transf (AST/SGOT) 331 U/L (15-37) Alanine Aminotransferase (ALT/SGPT) 339 U/L (16-63) Alkaline Phosphatase 287 U/L (46-116) Total Protein 5.1 g/dL (6.4-8.2) Albumin 1.9 g/dL (3.4-5.0) Albumin/Globulin Ratio 0.6 (1.0-1.7) Test 01/03/19 07:36 01/03/19 11:27 01/03/19 17:29 01/03/19 20:37 Glucose (Fingerstick) 140 mg/dL (70-99) 115 mg/dL (70-99) 97 mg/dL (70-99) 131 mg/dL (70-99) Test 01/04/19 07:35 Glucose (Fingerstick) 101 mg/dL (70-99) Laboratory Tests Test 01/03/19 11:27 01/03/19 17:29 01/03/19 20:37 01/04/19 07:35 Glucose (Fingerstick) 115 mg/dL (70-99) 97 mg/dL (70-99) 131 mg/dL (70-99) 101 mg/dL (70-99) Medications Current Medications Morphine Sulfate (Morphine Sulfate) 4 mg 1X ONCE IV Last administered on 12/25/18at 16:10; Start 12/25/18 at 16:00; Stop 12/25/18 at 16:01; Status DC Furosemide (Lasix) 40 mg 1X ONCE IV Last administered on 12/25/18at 16:09; Start 12/25/18 at 16:00; Stop 12/25/18 at 16:01; Status DC Temazepam (Restoril) 15 mg PRN QHS PRN PO INSOMNIA Last administered on 12/26/18at 21:34; Start 12/25/18 at 22:15; Stop 12/26/18 at 23:33; Status DC Furosemide (Lasix) 40 mg 1X ONCE IVP Last administered on 12/26/18 11:41; Start 12/26/18 at 11:15; Stop 12/26/18 at 11:19; Status DC Potassium Chloride (Klor-Con) 20 meq 1X ONCE PO Last administered on 12/26/18at 11:41; Start 12/26/18 at 11:15; Stop 12/26/18 at 11:19; Status DC Aspirin (Ecotrin) 81 mg DAILYWBKFT PO Last administered on 01/03/19at 08:43; Start 12/26/18 at 12:00 Enoxaparin Sodium (Lovenox Per Pharmacy Prophylaxis Dosing) 1 each PRN DAILY PRN MC SEE COMMENTS; Start 12/26/18 at 15:15 Tamsulosin HCl (Flomax) 0.4 mg DAILY PO Last administered on 01/03/19at 08:43; Start 12/26/18 at 16:00 Donepezil HCl (Aricept) 5 mg DAILY PO Last administered on 01/03/19at 08:44; Start 12/26/18 at 16:00 Citalopram Hydrobromide (CeleXA) 20 mg DAILY PO Last administered on 01/03/19 08:43; Start 12/26/18 at 16:00 Non-Formulary Medication (Metoprolol Succinate/Hctz (Metoprolol ER-Hctz 50-12.5 mg)) 1 each DAILY PO ; Start 12/27/18 at 09:00; Status UNV Atorvastatin Calcium (Lipitor) 40 mg QHS PO Last administered on 01/03/19at 20:55; Start 12/26/18 at 21:00 Metoprolol Succinate (Toprol Xl) 50 mg DAILY PO ; Start 12/26/18 at 16:00; Stop 12/27/18 at 11:26; Status DC Hydrochlorothiazide (Microzide) 12.5 mg DAILY PO ; Start 12/26/18 at 16:00; Stop 12/27/18 at 11:26; Status DC Enoxaparin Sodium (Lovenox 40mg Syringe) 40 mg Q24H SQ Last administered on 01/03/19at 16:31; Start 12/26/18 at 16:00 Iodixanol (Visipaque 320) 100 ml STK-MED ONCE .ROUTE ; Start 12/26/18 at 16:05; Stop 12/26/18 at 16:06; Status DC Lidocaine HCl (Lidocaine 1% 20ml Vial) 20 ml STK-MED ONCE .ROUTE ; Start 12/26/18 at 16:05; Stop 12/26/18 at 16:06; Status DC Heparin Sodium/ Sodium Chloride 1,000 ml @ As Directed STK-MED ONCE .ROUTE ; Start 12/26/18 at 16:06; Stop 12/26/18 at 16:07; Status DC Fentanyl Citrate (Fentanyl 2ml Vial) 100 mcg STK-MED ONCE .ROUTE ; Start 12/26/18 at 16:15; Stop 12/26/18 at 16:16; Status DC Midazolam HCl (Versed) 2 mg STK-MED ONCE .ROUTE ; Start 12/26/18 at 16:15; Stop 12/26/18 at 16:16; Status DC Heparin Sodium/ Sodium Chloride (HEPARIN for ARTERIAL LINE FLUSH) 1,000 unit 1X ONCE IART Last administered on 12/26/18at 17:22; Start 12/26/18 at 16:45; Stop 12/26/18 at 16:46; Status DC Heparin Sodium/ Sodium Chloride (HEPARIN for ARTERIAL LINE FLUSH) 1,000 unit 1X ONCE IART Last administered on 12/26/18at 17:22; Start 12/26/18 at 16:45; Stop 12/26/18 at 16:46; Status DC Midazolam HCl (Versed) 2 mg 1X ONCE IV Last administered on 12/26/18at 17:25; Start 12/26/18 at 16:45; Stop 12/26/18 at 16:46; Status DC Fentanyl Citrate (Fentanyl 2ml Vial) 100 mcg 1X ONCE IV Last administered on 12/26/18at 17:25; Start 12/26/18 at 16:45; Stop 12/26/18 at 16:46; Status DC Iodixanol (Visipaque 320) 100 ml 1X ONCE IART Last administered on 12/26/18 17:23; Start 12/26/18 at 16:45; Stop 12/26/18 at 16:46; Status DC Lidocaine HCl (Lidocaine 1% 20ml Vial) 20 ml 1X ONCE INJ Last administered on 12/26/18 17:24; Start 12/26/18 at 16:45; Stop 12/26/18 at 16:46; Status DC Multi-Ingredient Mouthwash/Gargle (Gi Cocktail) 20 ml PRN QID PRN PO CHEST PAIN Last administered on 12/30/18 16:28; Start 12/26/18 at 21:30 Temazepam (Restoril) 15 mg PRN QHS PRN PO INSOMNIA, MAY REPEAT X1 Last administered on 01/03/19 23:56; Start 12/26/18 at 23:45 Temazepam (Restoril) 15 mg 1X ONCE PO Last administered on 12/27/18 01:40; Start 12/27/18 at 01:00; Stop 12/27/18 at 01:01; Status DC Acetaminophen (Tylenol) 650 mg PRN Q6HRS PRN PO MILD PAIN 1-3 Last administered on 01/03/19 21:55; Start 12/27/18 at 01:30 Oxycodone HCl (Roxicodone) 5 mg PRN Q6HRS PRN PO MODERATE, SEVERE PAIN Last administered on 01/04/19 03:01; Start 12/27/18 at 11:15 Metoprolol Succinate (Toprol Xl) 25 mg DAILY PO Last administered on 01/03/19 08:44; Start 12/28/18 at 09:00 Furosemide (Lasix) 20 mg DAILY PO Last administered on 01/03/19 08:43; Start 12/27/18 at 12:00 Potassium Chloride (Klor-Con) 10 meq DAILYWBKFT PO Last administered on 01/03/19 08:43; Start 12/27/18 at 12:00 Lidocaine (Lidoderm) 1 patch DAILY TD Last administered on 01/03/19 08:45; Start 12/27/18 at 12:00 Miscellaneous (Lidoderm Patch Removal) 1 ea QHS MC Last administered on 01/03/19at 21:00; Start 12/27/18 at 21:00 Docusate Sodium (Colace) 100 mg DAILY PO Last administered on 01/03/19at 08:43; Start 12/27/18 at 13:00 Polyethylene Glycol (miraLAX PACKET) 17 gm PRN DAILY PRN PO CONSTIPATION; Start 12/27/18 at 12:45 Polyethylene Glycol (miraLAX PACKET) 17 gm DAILY PO Last administered on 01/03/19at 08:46; Start 12/27/18 at 13:00 Iodixanol (Visipaque 320) 100 ml STK-MED ONCE .ROUTE ; Start 12/30/18 at 07:48; Stop 12/30/18 at 07:49; Status DC Lidocaine HCl (Lidocaine 1% 20ml Vial) 20 ml STK-MED ONCE .ROUTE ; Start 12/30/18 at 07:48; Stop 12/30/18 at 07:49; Status DC Heparin Sodium/ Sodium Chloride 1,000 ml @ As Directed STK-MED ONCE .ROUTE ; Start 12/30/18 at 07:48; Stop 12/30/18 at 07:49; Status DC Heparin Sodium/ Sodium Chloride 500 ml @ As Directed STK-MED ONCE .ROUTE ; Start 12/30/18 at 07:59; Stop 12/30/18 at 08:00; Status DC Insulin Human Lispro (HumaLOG) 0-5 UNITS TIDWMEALS SQ ; Start 12/30/18 at 12:00 Dextrose (Dextrose 50%-Water Syringe) 12.5 gm PRN Q15MIN PRN IV SEE COMMENTS; Start 12/30/18 at 08:30 Fentanyl Citrate (Fentanyl 2ml Vial) 100 mcg STK-MED ONCE .ROUTE ; Start 12/30/18 at 08:23; Stop 12/30/18 at 08:24; Status DC Midazolam HCl (Versed) 2 mg STK-MED ONCE .ROUTE ; Start 12/30/18 at 08:24; Stop 12/30/18 at 08:25; Status DC Heparin Sodium (Porcine) (Heparin Sodium) 10,000 unit STK-MED ONCE .ROUTE ; Start 12/30/18 at 08:29; Stop 12/30/18 at 08:30; Status DC Iodixanol (Visipaque 320) 100 ml STK-MED ONCE .ROUTE ; Start 12/30/18 at 09:08; Stop 12/30/18 at 09:09; Status DC Dopamine HCl/ Dextrose 0 ml @ As Directed STK-MED ONCE IV ; Start 12/30/18 at 09:14; Stop 12/30/18 at 09:15; Status DC Phenylephrine HCl (PHENYLEPHRINE in 0.9% NACL PF) 1 mg STK-MED ONCE IV ; Start 12/30/18 at 09:14; Stop 12/30/18 at 09:15; Status DC Heparin Sodium/ Sodium Chloride (HEPARIN for ARTERIAL LINE FLUSH) 1,000 unit 1X ONCE IART Last administered on 12/30/18at 10:30; Start 12/30/18 at 10:30; Stop 12/30/18 at 10:31; Status DC Midazolam HCl (Versed) 1 mg 1X ONCE IV Last administered on 12/30/18at 10:30; Start 12/30/18 at 10:30; Stop 12/30/18 at 10:31; Status DC Fentanyl Citrate (Fentanyl 2ml Vial) 50 mcg 1X ONCE IV Last administered on 12/30/18at 10:30; Start 12/30/18 at 10:30; Stop 12/30/18 at 10:31; Status DC Iodixanol (Visipaque 320) 100 ml 1X ONCE IART Last administered on 12/30/18at 10:30; Start 12/30/18 at 10:30; Stop 12/30/18 at 10:31; Status DC Heparin Sodium (Porcine) (Heparin Sodium) 5,500 unit 1X ONCE IV Last administered on 12/30/18at 10:30; Start 12/30/18 at 10:30; Stop 12/30/18 at 10:31; Status DC Lidocaine HCl (Lidocaine 1% 20ml Vial) 17 ml 1X ONCE INJ Last administered on 12/30/18at 10:30; Start 12/30/18 at 10:30; Stop 12/30/18 at 10:31; Status DC Info (CONTRAST GIVEN -- Rx MONITORING) 1 each PRN DAILY PRN MC SEE COMMENTS; Start 12/30/18 at 10:30; Stop 01/01/19 at 10:29; Status DC Clopidogrel Bisulfate (Plavix) 600 mg 1X ONCE PO Last administered on 12/30/18 10:30; Start 12/30/18 at 10:30; Stop 12/30/18 at 10:33; Status DC Aspirin (Ry Aspirin) 325 mg 1X ONCE PO Last administered on 12/30/18at 10:30; Start 12/30/18 at 10:30; Stop 12/30/18 at 10:33; Status DC Clopidogrel Bisulfate (Plavix) 75 mg STK-MED ONCE .ROUTE ; Start 12/30/18 at 10:28; Stop 12/30/18 at 10:29; Status DC Aspirin (Ry Aspirin) 325 mg STK-MED ONCE .ROUTE ; Start 12/30/18 at 10:28; Stop 12/30/18 at 10:29; Status DC Furosemide (Lasix) 20 mg 1X ONCE IVP Last administered on 12/30/18at 16:29; Start 12/30/18 at 16:00; Stop 12/30/18 at 16:01; Status DC Furosemide (Lasix) 20 mg 1X ONCE IVP Last administered on 12/31/18at 14:35; Start 12/31/18 at 13:45; Stop 12/31/18 at 13:53; Status DC Clopidogrel Bisulfate (Plavix) 75 mg DAILYWBKFT PO Last administered on 01/03/19at 08:43; Start 01/01/19 at 08:00 Clopidogrel Bisulfate (Plavix) 75 mg 1X ONCE PO Last administered on 12/31/18 17:23; Start 12/31/18 at 16:15; Stop 12/31/18 at 16:16; Status DC Pantoprazole Sodium (Protonix) 40 mg DAILYAC PO Last administered on 01/03/19at 07:37; Start 01/01/19 at 07:30 Milrinone Lactate/ Dextrose 100 ml @ 0 mls/hr CONT PRN IV SEE I/O RECORD Last administered on 01/02/19 19:28; Start 01/01/19 at 11:45 Furosemide (Lasix) 40 mg 1X ONCE IVP Last administered on 01/01/19at 12:35; Start 01/01/19 at 11:45; Stop 01/01/19 at 11:46; Status DC Furosemide (Lasix) 40 mg 1X ONCE IVP Last administered on 01/02/19at 14:39; Start 01/02/19 at 13:30; Stop 01/02/19 at 13:31; Status DC Furosemide (Lasix) 20 mg 1X ONCE IVP Last administered on 01/03/19at 13:24; Start 01/03/19 at 13:00; Stop 01/03/19 at 13:01; Status DC Potassium Chloride (Klor-Con) 20 meq 1X ONCE PO Last administered on 01/03/19at 13:24; Start 01/03/19 at 13:00; Stop 01/03/19 at 13:01; Status DC Throat Lozenges (Cepacol Sore Throat Lozenge) 1 nikita PRN Q2HRS PRN PO SORE THROAT Last administered on 01/03/19at 22:30; Start 01/03/19 at 18:30 Diclofenac Sodium (Voltaren) 1 natalie BID TP Last administered on 01/03/19at 21:21; Start 01/03/19 at 21:15 Active Scripts Active Aspirin Ec (Aspirin) 325 Mg Tablet.dr 1 Tab PO DAILY 30 Days Clopidogrel (Clopidogrel Bisulfate) 75 Mg Tablet 1 Tab PO DAILY 30 Days Polyethylene Glycol 3350 17 Gm Powd.pack 17 Gm PO PRN DAILY PRN 30 Days Colace (Docusate Sodium) 100 Mg Capsule 100 Mg PO DAILY 30 Days Furosemide 20 Mg Tablet 20 Mg PO DAILY 30 Days Klor-Con 10 (Potassium Chloride) 10 Meq Tablet.er 10 Meq PO DAILYWBKFT 30 Days Tylenol (Acetaminophen) 325 Mg Tablet 650 Mg PO PRN Q6HRS PRN 30 Days Metoprolol Succinate ( Xl ) (Metoprolol Succinate) 25 Mg Tab.er.24h 25 Mg PO DAILY 30 Days Reported Crestor (Rosuvastatin Calcium) 10 Mg Tablet 10 Mg PO HS Escitalopram Oxalate 10 Mg Tablet 1 Tab PO DAILY Flomax (Tamsulosin Hcl) 0.4 Mg Cap.er.24h 0.4 Mg PO DAILY Vitals/I & O Vital Sign - Last 24 Hours 01/03/19 01/03/19 01/03/19 01/03/19 08:41 08:44 11:00 11:05 Temp 97.7 97.7 Pulse 84 72 78 78 Resp 18 B/P (MAP) 107/60 (76) 107/60 88/49 (62) 87/55 (66) Pulse Ox 96 O2 Delivery Room Air 01/03/19 01/03/19 01/03/19 01/03/19 11:41 12:41 13:41 14:23 Pulse 76 82 82 88 B/P (MAP) 98/56 (70) 99/55 (70) 98/58 (71) 104/55 (71) 01/03/19 01/03/19 01/03/19 01/03/19 14:25 14:41 15:00 15:41 Temp 98.0 98.0 Pulse 86 82 86 82 Resp 18 B/P (MAP) 98/53 (68) 105/57 (73) 103/57 (72) 100/56 (71) Pulse Ox 95 O2 Delivery Room Air 01/03/19 01/03/19 01/03/19 01/03/19 16:41 19:16 20:00 23:15 Temp 98.9 99.1 98.9 99.1 Pulse 84 87 86 Resp 16 16 B/P (MAP) 97/56 (70) 93/54 (67) 95/53 (67) Pulse Ox 98 96 O2 Delivery Room Air Room Air Room Air 01/04/19 01/04/19 01/04/19 03:00 03:01 04:06 Temp 98.6 98.6 Pulse 86 Resp 14 18 B/P (MAP) 111/58 (75) Pulse Ox 97 96 O2 Delivery Room Air Room Air Room Air Intake and Output 01/03/19 01/03/19 01/04/19 15:00 23:00 07:00 Intake Total 240 ml 880 ml 200 ml Output Total 370 ml 600 ml 395 ml Balance -130 ml 280 ml -195 ml Nutrition Consultation Dietary Evaluation: Recommendations by RD: Protein supplementation Comments: Continue w/cardaic diet as ordered, honor food preferences, and provide sncaks as requested REC Ensure (strawberry) TID Expected Outcomes/Goals: PO intake to meet >75% est needs - not met, goal ongoing Malnutrition Findings: Food and Nutrition Intake (Mod: <75% est energy req 7days Weight Status: Appropriate STAS HIGUERA MD Jan 04, 2019 08:32
[2019-01-04] MEDS: POLYETHYLENE GLYCOL 3350 17 GM PACKET. PO SCH (09:00)
[2019-01-04] MEDS: DICLOFENAC SODIUM 1% TOPICAL GEL 100GM TUBE. TP SCH ×2 (09:00→20:36)
[2019-01-04] MEDS: METOPROLOL SUCC 24HR ER 25 MG TAB.ER.24H. PO SCH ×2 (09:00→09:58)
[2019-01-04 09:43] LABS: ALBUMIN 2.1 g/dL (3.4-5.0); ALBUMIN/GLOBULIN RATIO 0.6 (1.0-1.7); CALCIUM 8.3 mg/dL (8.5-10.1); CREATININE 1.1 mg/dL (0.7-1.3); GFR 63.2; POTASSIUM 4.2 mmol/L (3.5-5.1); TOTAL BILIRUBIN 0.6 mg/dL (0.2-1.0); TOTAL PROTEIN 5.5 g/dL (6.4-8.2)
[2019-01-04] MEDS: TAMSULOSIN 0.4 MG CAP.ER.24H. PO SCH (09:57)
[2019-01-04] MEDS: CLOPIDOGREL BISULFATE 75 MG TABLET PO SCH (09:57)
[2019-01-04] MEDS: DOCUSATE SODIUM 100 MG CAPSULE. PO SCH (09:57)
[2019-01-04] MEDS: POTASSIUM CHLORIDE 10 MEQ TABLET.ER. PO SCH (09:58)
[2019-01-04] MEDS: DONEPEZIL HCL 5 MG TABLET. PO SCH (09:58)
[2019-01-04] MEDS: FUROSEMIDE 20 MG TABLET PO SCH (09:59)
[2019-01-04] MEDS: PANTOPRAZOLE 40 MG TABLET.DR. PO SCH (09:59)
[2019-01-04] MEDS: ASPIRIN ENTERIC COATED 81 MG TABLET.DR. PO SCH (09:59)
[2019-01-04] MEDS: LIDOCAINE (700MG/PATCH) PATCH. TD SCH (10:00)
[2019-01-04] MEDS: CITALOPRAM 20 MG TABLET. PO SCH (10:01)
[2019-01-04] MEDS ORDERED: guaiFENesin ORAL 200 MG/10 ML LIQUID. PO PRN (10:45)
[2019-01-04 11:00] VITALS: BP 99/55
[2019-01-04] MEDS: MILRINONE 20MG/100ML PREMIX 100 ML IV PRN (13:13)
[2019-01-04] MEDS: BENZOCAINE/MENTHOL LOZENGE. PO PRN (14:42)
[2019-01-04 15:00] VITALS: BP 93/60
[2019-01-04] MEDS: ENOXAPARIN 40 MG/0.4 ML SYRINGE. SQ SCH (16:21)
[2019-01-04 19:25] VITALS: BP 132/69
[2019-01-04] MEDS: LIDO:MAALOX 1:1 20 ML SINGLE DOSE. PO PRN (20:36)
[2019-01-04] MEDS: ATORVASTATIN CALCIUM 40 MG TABLET. PO SCH (20:36)
[2019-01-04] MEDS: PATCH REMOVAL. MC SCH (21:00)
[2019-01-04] MEDS: TEMAZEPAM 15 MG CAPSULE PO PRN (22:05)
[2019-01-04 23:38] VITALS: BP 85/74
[2019-01-05 03:05] VITALS: BP 113/53
[2019-01-05 07:00] VITALS: BP 79/53
[2019-01-05] MEDS: INSULIN LISPRO 300 UNITS/3 ML INSULN.PEN. SQ SCH ×3 (07:28→17:00)
--- NOTE | 2019-01-05 07:57 | PDOC ---
PROGRESS NOTES Chief Complaint Chief Complaint Acute on chronic systolic heart failure. EF 10-15% CAD known s/p CABG Chest pain, angina, w. atypical pain, poss bruise CKD 2-3 Mechanical fall with acquired weakness and debility Severe aortic stenosis s/p valvuloplasty Dementia Transaminitis History of Present Illness History of Present Illness Mr Munguia is a 88yo M w/ PMHx dementia, CAD s/p CABG, systolic CHF, CKD2. He thinks it is 1979. He is very pleasantly confused though very nice and cooperative. He presented with shortness of breath, found in ED with a chest x- ray showing possible vascular congestion and elevated BNP of 17,038. He has associated weakness. It had been occurring off and on for weeks. Moving makes it worse. Seen by cardiology, underwent LHC on 12/26/18, revealing acute on chron ic systolic and diastolic HF with EF 15%, severe three vessel coronary artery disease, 2/2 grafts patent, and severe aortic stenosis. As he was symptomatic on 12/30/18 underwent aortic valvuloplasty with symptomatic improvement, and now will await TAVR referral from cardiology. Seen by PT/OT, needs skilled services. Liver enzymes up 12/31 - GI consulted. RUQ US unrevealing except GB sludge. Feeling better today, less difficulty getting a deep breath. Still pleasantly confused. States he has decreased appetite and our food smells badly. LFTs down as well as Cr. He ambulated down the halls with therapy today, wishes to go to rehab D/W cardiology for further diuresis and milrinone GTT. Based on EF likely not TAVR candidate. D/w family he is a DNR/DNI. Overall disposition is difficult while on milrinone, will downtitrate with plans to d/c to rehab, hopefully in next 24 hours. Vitals Vitals Vital Signs Date Time Temp Pulse Resp B/P (MAP) Pulse Ox O2 Delivery O2 Flow Rate FiO2 01/05/19 07:00 97.5 89 14 79/53 (62) 92 Nasal Cannula 1.0 97.5 Physical Exam General: Alert, Cooperative, No acute distress, Other (oriented to place) Heart: Regular rate (SR), Normal S1, Normal S2, Other (4/6 systolic murmur to NICOLE and 3/6 systolic murmur to LLS border) Lungs: Clear Abdomen: Soft, No tenderness Extremities: No cyanosis, Other (1+ bilateral LE pitting edema) Skin: No breakdown, No significant lesion Labs LABS Laboratory Tests Test 01/04/19 09:05 01/04/19 12:07 01/04/19 17:12 01/04/19 20:36 Sodium Level 138 mmol/L (136-145) Potassium Level 4.2 mmol/L (3.5-5.1) Chloride Level 102 mmol/L (98-107) Carbon Dioxide Level 31 mmol/L (21-32) Anion Gap 5 (6-14) Blood Urea Nitrogen 33 mg/dL (8-26) Creatinine 1.1 mg/dL (0.7-1.3) Estimated GFR (Cockcroft-Gault) 63.2 BUN/Creatinine Ratio 30 (6-20) Glucose Level 139 mg/dL (70-99) Calcium Level 8.3 mg/dL (8.5-10.1) Total Bilirubin 0.6 mg/dL (0.2-1.0) Aspartate Amino Transf (AST/SGOT) 193 U/L (15-37) Alanine Aminotransferase (ALT/SGPT) 317 U/L (16-63) Alkaline Phosphatase 261 U/L (46-116) Total Protein 5.5 g/dL (6.4-8.2) Albumin 2.1 g/dL (3.4-5.0) Albumin/Globulin Ratio 0.6 (1.0-1.7) Glucose (Fingerstick) 101 mg/dL (70-99) 124 mg/dL (70-99) 96 mg/dL (70-99) Test 01/05/19 07:16 Glucose (Fingerstick) 100 mg/dL (70-99) Assessment and Plan Assessmemt and Plan Problems Medical Problems: (1) CHF exacerbation Status: Acute (2) Dyspnea Status: Acute Comment Review of Relevant I have reviewed the following items jayce (where applicable) has been applied. Labs Laboratory Tests Test 01/03/19 11:27 01/03/19 17:29 01/03/19 20:37 01/04/19 07:35 Glucose (Fingerstick) 115 mg/dL (70-99) 97 mg/dL (70-99) 131 mg/dL (70-99) 101 mg/dL (70-99) Test 01/04/19 09:05 01/04/19 12:07 01/04/19 17:12 01/04/19 20:36 Sodium Level 138 mmol/L (136-145) Potassium Level 4.2 mmol/L (3.5-5.1) Chloride Level 102 mmol/L (98-107) Carbon Dioxide Level 31 mmol/L (21-32) Anion Gap 5 (6-14) Blood Urea Nitrogen 33 mg/dL (8-26) Creatinine 1.1 mg/dL (0.7-1.3) Estimated GFR (Cockcroft-Gault) 63.2 BUN/Creatinine Ratio 30 (6-20) Glucose Level 139 mg/dL (70-99) Calcium Level 8.3 mg/dL (8.5-10.1) Total Bilirubin 0.6 mg/dL (0.2-1.0) Aspartate Amino Transf (AST/SGOT) 193 U/L (15-37) Alanine Aminotransferase (ALT/SGPT) 317 U/L (16-63) Alkaline Phosphatase 261 U/L (46-116) Total Protein 5.5 g/dL (6.4-8.2) Albumin 2.1 g/dL (3.4-5.0) Albumin/Globulin Ratio 0.6 (1.0-1.7) Glucose (Fingerstick) 101 mg/dL (70-99) 124 mg/dL (70-99) 96 mg/dL (70-99) Test 01/05/19 07:16 Glucose (Fingerstick) 100 mg/dL (70-99) Laboratory Tests Test 01/04/19 09:05 01/04/19 12:07 01/04/19 17:12 01/04/19 20:36 Sodium Level 138 mmol/L (136-145) Potassium Level 4.2 mmol/L (3.5-5.1) Chloride Level 102 mmol/L (98-107) Carbon Dioxide Level 31 mmol/L (21-32) Anion Gap 5 (6-14) Blood Urea Nitrogen 33 mg/dL (8-26) Creatinine 1.1 mg/dL (0.7-1.3) Estimated GFR (Cockcroft-Gault) 63.2 BUN/Creatinine Ratio 30 (6-20) Glucose Level 139 mg/dL (70-99) Calcium Level 8.3 mg/dL (8.5-10.1) Total Bilirubin 0.6 mg/dL (0.2-1.0) Aspartate Amino Transf (AST/SGOT) 193 U/L (15-37) Alanine Aminotransferase (ALT/SGPT) 317 U/L (16-63) Alkaline Phosphatase 261 U/L (46-116) Total Protein 5.5 g/dL (6.4-8.2) Albumin 2.1 g/dL (3.4-5.0) Albumin/Globulin Ratio 0.6 (1.0-1.7) Glucose (Fingerstick) 101 mg/dL (70-99) 124 mg/dL (70-99) 96 mg/dL (70-99) Test 01/05/19 07:16 Glucose (Fingerstick) 100 mg/dL (70-99) Medications Current Medications Morphine Sulfate (Morphine Sulfate) 4 mg 1X ONCE IV Last administered on 12/25/18 16:10; Start 12/25/18 at 16:00; Stop 12/25/18 at 16:01; Status DC Furosemide (Lasix) 40 mg 1X ONCE IV Last administered on 12/25/18at 16:09; Start 12/25/18 at 16:00; Stop 12/25/18 at 16:01; Status DC Temazepam (Restoril) 15 mg PRN QHS PRN PO INSOMNIA Last administered on 12/26/18at 21:34; Start 12/25/18 at 22:15; Stop 12/26/18 at 23:33; Status DC Furosemide (Lasix) 40 mg 1X ONCE IVP Last administered on 12/26/18at 11:41; Start 12/26/18 at 11:15; Stop 12/26/18 at 11:19; Status DC Potassium Chloride (Klor-Con) 20 meq 1X ONCE PO Last administered on 12/26/18 11:41; Start 12/26/18 at 11:15; Stop 12/26/18 at 11:19; Status DC Aspirin (Ecotrin) 81 mg DAILYWBKFT PO Last administered on 01/04/19at 09:59; Start 12/26/18 at 12:00 Enoxaparin Sodium (Lovenox Per Pharmacy Prophylaxis Dosing) 1 each PRN DAILY PRN MC SEE COMMENTS; Start 12/26/18 at 15:15 Tamsulosin HCl (Flomax) 0.4 mg DAILY PO Last administered on 01/04/19at 09:57; Start 12/26/18 at 16:00 Donepezil HCl (Aricept) 5 mg DAILY PO Last administered on 01/04/19at 09:58; Start 12/26/18 at 16:00 Citalopram Hydrobromide (CeleXA) 20 mg DAILY PO Last administered on 01/04/19at 10:01; Start 12/26/18 at 16:00 Non-Formulary Medication (Metoprolol Succinate/Hctz (Metoprolol ER-Hctz 50-12.5 mg)) 1 each DAILY PO ; Start 12/27/18 at 09:00; Status UNV Atorvastatin Calcium (Lipitor) 40 mg QHS PO Last administered on 01/04/19at 20:36; Start 12/26/18 at 21:00 Metoprolol Succinate (Toprol Xl) 50 mg DAILY PO ; Start 12/26/18 at 16:00; Stop 12/27/18 at 11:26; Status DC Hydrochlorothiazide (Microzide) 12.5 mg DAILY PO ; Start 12/26/18 at 16:00; Stop 12/27/18 at 11:26; Status DC Enoxaparin Sodium (Lovenox 40mg Syringe) 40 mg Q24H SQ Last administered on 01/04/19at 16:21; Start 12/26/18 at 16:00 Iodixanol (Visipaque 320) 100 ml STK-MED ONCE .ROUTE ; Start 12/26/18 at 16:05; Stop 12/26/18 at 16:06; Status DC Lidocaine HCl (Lidocaine 1% 20ml Vial) 20 ml STK-MED ONCE .ROUTE ; Start 12/26/18 at 16:05; Stop 12/26/18 at 16:06; Status DC Heparin Sodium/ Sodium Chloride 1,000 ml @ As Directed STK-MED ONCE .ROUTE ; Start 12/26/18 at 16:06; Stop 12/26/18 at 16:07; Status DC Fentanyl Citrate (Fentanyl 2ml Vial) 100 mcg STK-MED ONCE .ROUTE ; Start 12/26/18 at 16:15; Stop 12/26/18 at 16:16; Status DC Midazolam HCl (Versed) 2 mg STK-MED ONCE .ROUTE ; Start 12/26/18 at 16:15; Stop 12/26/18 at 16:16; Status DC Heparin Sodium/ Sodium Chloride (HEPARIN for ARTERIAL LINE FLUSH) 1,000 unit 1X ONCE IART Last administered on 12/26/18 17:22; Start 12/26/18 at 16:45; Stop 12/26/18 at 16:46; Status DC Heparin Sodium/ Sodium Chloride (HEPARIN for ARTERIAL LINE FLUSH) 1,000 unit 1X ONCE IART Last administered on 12/26/18at 17:22; Start 12/26/18 at 16:45; Stop 12/26/18 at 16:46; Status DC Midazolam HCl (Versed) 2 mg 1X ONCE IV Last administered on 12/26/18 17:25; Start 12/26/18 at 16:45; Stop 12/26/18 at 16:46; Status DC Fentanyl Citrate (Fentanyl 2ml Vial) 100 mcg 1X ONCE IV Last administered on 12/26/18 17:25; Start 12/26/18 at 16:45; Stop 12/26/18 at 16:46; Status DC Iodixanol (Visipaque 320) 100 ml 1X ONCE IART Last administered on 12/26/18 17:23; Start 12/26/18 at 16:45; Stop 12/26/18 at 16:46; Status DC Lidocaine HCl (Lidocaine 1% 20ml Vial) 20 ml 1X ONCE INJ Last administered on 12/26/18 17:24; Start 12/26/18 at 16:45; Stop 12/26/18 at 16:46; Status DC Multi-Ingredient Mouthwash/Gargle (Gi Cocktail) 20 ml PRN QID PRN PO CHEST PAIN Last administered on 01/04/19 20:36; Start 12/26/18 at 21:30 Temazepam (Restoril) 15 mg PRN QHS PRN PO INSOMNIA, MAY REPEAT X1 Last administered on 01/04/19at 22:05; Start 12/26/18 at 23:45 Temazepam (Restoril) 15 mg 1X ONCE PO Last administered on 12/27/18 01:40; Start 12/27/18 at 01:00; Stop 12/27/18 at 01:01; Status DC Acetaminophen (Tylenol) 650 mg PRN Q6HRS PRN PO MILD PAIN 1-3 Last administered on 01/03/19 21:55; Start 12/27/18 at 01:30 Oxycodone HCl (Roxicodone) 5 mg PRN Q6HRS PRN PO MODERATE, SEVERE PAIN Last administered on 01/04/19 21:51; Start 12/27/18 at 11:15 Metoprolol Succinate (Toprol Xl) 25 mg DAILY PO Last administered on 01/03/19 08:44; Start 12/28/18 at 09:00 Furosemide (Lasix) 20 mg DAILY PO Last administered on 01/04/19 09:59; Start 12/27/18 at 12:00 Potassium Chloride (Klor-Con) 10 meq DAILYWBKFT PO Last administered on 01/04/19 09:58; Start 12/27/18 at 12:00 Lidocaine (Lidoderm) 1 patch DAILY TD Last administered on 01/04/19 10:00; Start 12/27/18 at 12:00 Miscellaneous (Lidoderm Patch Removal) 1 ea QHS MC Last administered on 01/04/19 21:00; Start 12/27/18 at 21:00 Docusate Sodium (Colace) 100 mg DAILY PO Last administered on 01/04/19 09:57; Start 12/27/18 at 13:00 Polyethylene Glycol (miraLAX PACKET) 17 gm PRN DAILY PRN PO CONSTIPATION; Start 12/27/18 at 12:45 Polyethylene Glycol (miraLAX PACKET) 17 gm DAILY PO Last administered on 01/03/19 08:46; Start 12/27/18 at 13:00 Iodixanol (Visipaque 320) 100 ml STK-MED ONCE .ROUTE ; Start 12/30/18 at 07:48; Stop 12/30/18 at 07:49; Status DC Lidocaine HCl (Lidocaine 1% 20ml Vial) 20 ml STK-MED ONCE .ROUTE ; Start 12/30/18 at 07:48; Stop 12/30/18 at 07:49; Status DC Heparin Sodium/ Sodium Chloride 1,000 ml @ As Directed STK-MED ONCE .ROUTE ; Start 12/30/18 at 07:48; Stop 12/30/18 at 07:49; Status DC Heparin Sodium/ Sodium Chloride 500 ml @ As Directed STK-MED ONCE .ROUTE ; Start 12/30/18 at 07:59; Stop 12/30/18 at 08:00; Status DC Insulin Human Lispro (HumaLOG) 0-5 UNITS TIDWMEALS SQ ; Start 12/30/18 at 12:00 Dextrose (Dextrose 50%-Water Syringe) 12.5 gm PRN Q15MIN PRN IV SEE COMMENTS; Start 12/30/18 at 08:30 Fentanyl Citrate (Fentanyl 2ml Vial) 100 mcg STK-MED ONCE .ROUTE ; Start 12/30/18 at 08:23; Stop 12/30/18 at 08:24; Status DC Midazolam HCl (Versed) 2 mg STK-MED ONCE .ROUTE ; Start 12/30/18 at 08:24; Stop 12/30/18 at 08:25; Status DC Heparin Sodium (Porcine) (Heparin Sodium) 10,000 unit STK-MED ONCE .ROUTE ; Start 12/30/18 at 08:29; Stop 12/30/18 at 08:30; Status DC Iodixanol (Visipaque 320) 100 ml STK-MED ONCE .ROUTE ; Start 12/30/18 at 09:08; Stop 12/30/18 at 09:09; Status DC Dopamine HCl/ Dextrose 0 ml @ As Directed STK-MED ONCE IV ; Start 12/30/18 at 09:14; Stop 12/30/18 at 09:15; Status DC Phenylephrine HCl (PHENYLEPHRINE in 0.9% NACL PF) 1 mg STK-MED ONCE IV ; Start 12/30/18 at 09:14; Stop 12/30/18 at 09:15; Status DC Heparin Sodium/ Sodium Chloride (HEPARIN for ARTERIAL LINE FLUSH) 1,000 unit 1X ONCE IART Last administered on 12/30/18at 10:30; Start 12/30/18 at 10:30; Stop 12/30/18 at 10:31; Status DC Midazolam HCl (Versed) 1 mg 1X ONCE IV Last administered on 12/30/18at 10:30; Start 12/30/18 at 10:30; Stop 12/30/18 at 10:31; Status DC Fentanyl Citrate (Fentanyl 2ml Vial) 50 mcg 1X ONCE IV Last administered on 12/30/18at 10:30; Start 12/30/18 at 10:30; Stop 12/30/18 at 10:31; Status DC Iodixanol (Visipaque 320) 100 ml 1X ONCE IART Last administered on 12/30/18at 10:30; Start 12/30/18 at 10:30; Stop 12/30/18 at 10:31; Status DC Heparin Sodium (Porcine) (Heparin Sodium) 5,500 unit 1X ONCE IV Last administered on 12/30/18at 10:30; Start 12/30/18 at 10:30; Stop 12/30/18 at 10:31; Status DC Lidocaine HCl (Lidocaine 1% 20ml Vial) 17 ml 1X ONCE INJ Last administered on 12/30/18at 10:30; Start 12/30/18 at 10:30; Stop 12/30/18 at 10:31; Status DC Info (CONTRAST GIVEN -- Rx MONITORING) 1 each PRN DAILY PRN MC SEE COMMENTS; Start 12/30/18 at 10:30; Stop 01/01/19 at 10:29; Status DC Clopidogrel Bisulfate (Plavix) 600 mg 1X ONCE PO Last administered on 12/30/18at 10:30; Start 12/30/18 at 10:30; Stop 12/30/18 at 10:33; Status DC Aspirin ([place] Aspirin) 325 mg 1X ONCE PO Last administered on 12/30/18at 10:30; Start 12/30/18 at 10:30; Stop 12/30/18 at 10:33; Status DC Clopidogrel Bisulfate (Plavix) 75 mg STK-MED ONCE .ROUTE ; Start 12/30/18 at 10:28; Stop 12/30/18 at 10:29; Status DC Aspirin (Ry Aspirin) 325 mg STK-MED ONCE .ROUTE ; Start 12/30/18 at 10:28; Stop 12/30/18 at 10:29; Status DC Furosemide (Lasix) 20 mg 1X ONCE IVP Last administered on 12/30/18at 16:29; Start 12/30/18 at 16:00; Stop 12/30/18 at 16:01; Status DC Furosemide (Lasix) 20 mg 1X ONCE IVP Last administered on 12/31/18at 14:35; Start 12/31/18 at 13:45; Stop 12/31/18 at 13:53; Status DC Clopidogrel Bisulfate (Plavix) 75 mg DAILYWBKFT PO Last administered on 01/04/19 09:57; Start 01/01/19 at 08:00 Clopidogrel Bisulfate (Plavix) 75 mg 1X ONCE PO Last administered on 12/31/18 17:23; Start 12/31/18 at 16:15; Stop 12/31/18 at 16:16; Status DC Pantoprazole Sodium (Protonix) 40 mg DAILYAC PO Last administered on 01/04/19 09:59; Start 01/01/19 at 07:30 Milrinone Lactate/ Dextrose 100 ml @ 0 mls/hr CONT PRN IV SEE I/O RECORD Last administered on 01/04/19 13:13; Start 01/01/19 at 11:45 Furosemide (Lasix) 40 mg 1X ONCE IVP Last administered on 01/01/19 12:35; Start 01/01/19 at 11:45; Stop 01/01/19 at 11:46; Status DC Furosemide (Lasix) 40 mg 1X ONCE IVP Last administered on 01/02/19 14:39; Start 01/02/19 at 13:30; Stop 01/02/19 at 13:31; Status DC Furosemide (Lasix) 20 mg 1X ONCE IVP Last administered on 01/03/19 13:24; Start 01/03/19 at 13:00; Stop 01/03/19 at 13:01; Status DC Potassium Chloride (Klor-Con) 20 meq 1X ONCE PO Last administered on 01/03/19 13:24; Start 01/03/19 at 13:00; Stop 01/03/19 at 13:01; Status DC Throat Lozenges (Cepacol Sore Throat Lozenge) 1 nikita PRN Q2HRS PRN PO SORE THROAT Last administered on 01/04/19 14:42; Start 01/03/19 at 18:30 Diclofenac Sodium (Voltaren) 1 natalie BID TP Last administered on 01/04/19 20:36; Start 01/03/19 at 21:15 Guaifenesin (Robitussin) 200 mg PRN Q4HRS PRN PO COUGH Last administered on 01/04/19 13:20; Start 01/04/19 at 10:45 Active Scripts Active Aspirin Ec (Aspirin) 325 Mg Tablet.dr 1 Tab PO DAILY 30 Days Clopidogrel (Clopidogrel Bisulfate) 75 Mg Tablet 1 Tab PO DAILY 30 Days Polyethylene Glycol 3350 17 Gm Powd.pack 17 Gm PO PRN DAILY PRN 30 Days Colace (Docusate Sodium) 100 Mg Capsule 100 Mg PO DAILY 30 Days Furosemide 20 Mg Tablet 20 Mg PO DAILY 30 Days Klor-Con 10 (Potassium Chloride) 10 Meq Tablet.er 10 Meq PO DAILYWBKFT 30 Days Tylenol (Acetaminophen) 325 Mg Tablet 650 Mg PO PRN Q6HRS PRN 30 Days Metoprolol Succinate ( Xl ) (Metoprolol Succinate) 25 Mg Tab.er.24h 25 Mg PO DAILY 30 Days Reported Crestor (Rosuvastatin Calcium) 10 Mg Tablet 10 Mg PO HS Escitalopram Oxalate 10 Mg Tablet 1 Tab PO DAILY Flomax (Tamsulosin Hcl) 0.4 Mg Cap.er.24h 0.4 Mg PO DAILY Vitals/I & O Vital Sign - Last 24 Hours 01/04/19 01/04/19 01/04/19 01/04/19 08:00 09:00 11:00 15:00 Temp 98.0 98.4 98.0 98.4 Pulse 81 85 94 Resp 16 12 B/P (MAP) 86/52 99/55 (70) 93/60 (71) Pulse Ox 96 94 O2 Delivery Room Air Nasal Cannula Room Air O2 Flow Rate 2.0 01/04/19 01/04/19 01/04/19 01/04/19 19:25 20:20 21:51 23:00 Temp 98.7 98.7 Pulse 99 Resp 19 16 16 B/P (MAP) 132/69 (90) Pulse Ox 99 O2 Delivery Room Air Room Air Room Air 01/04/19 01/05/19 01/05/19 23:38 03:05 07:00 Temp 98.4 97.5 98.4 97.5 Pulse 96 84 89 Resp 17 18 14 B/P (MAP) 85/74 (78) 113/53 (73) 79/53 (62) Pulse Ox 94 92 O2 Delivery Room Air Room Air Nasal Cannula O2 Flow Rate 1.0 Intake and Output 01/04/19 01/04/19 01/05/19 15:00 23:00 07:00 Intake Total 573 ml 250 ml 228.8 ml Output Total 300 ml 120 ml 750 ml Balance 273 ml 130 ml -521.2 ml Nutrition Consultation Dietary Evaluation: Recommendations by RD: Protein supplementation Comments: Continue w/cardaic diet as ordered, honor food preferences, and provide sncaks as requested REC Ensure (strawberry) TID Expected Outcomes/Goals: PO intake to meet >75% est needs - not met, goal ongoing Malnutrition Findings: Food and Nutrition Intake (Mod: <75% est energy req 7days Weight Status: Appropriate STAS HIGUERA MD Jan 05, 2019 07:57
[2019-01-05] MEDS: DICLOFENAC SODIUM 1% TOPICAL GEL 100GM TUBE. TP SCH ×2 (09:00→21:00)
[2019-01-05] MEDS: METOPROLOL SUCC 24HR ER 25 MG TAB.ER.24H. PO SCH (09:00)
[2019-01-05] MEDS: POLYETHYLENE GLYCOL 3350 17 GM PACKET. PO SCH (09:00)
[2019-01-05] MEDS: DOCUSATE SODIUM 100 MG CAPSULE. PO SCH (09:44)
[2019-01-05] MEDS: TAMSULOSIN 0.4 MG CAP.ER.24H. PO SCH (09:44)
[2019-01-05] MEDS: CLOPIDOGREL BISULFATE 75 MG TABLET PO SCH (09:45)
[2019-01-05] MEDS: DONEPEZIL HCL 5 MG TABLET. PO SCH (09:45)
[2019-01-05] MEDS: ASPIRIN ENTERIC COATED 81 MG TABLET.DR. PO SCH (09:45)
[2019-01-05] MEDS: CITALOPRAM 20 MG TABLET. PO SCH (09:45)
[2019-01-05] MEDS: PANTOPRAZOLE 40 MG TABLET.DR. PO SCH (09:45)
[2019-01-05] MEDS: POTASSIUM CHLORIDE 10 MEQ TABLET.ER. PO SCH (09:45)
[2019-01-05] MEDS: LIDOCAINE (700MG/PATCH) PATCH. TD SCH (09:45)
[2019-01-05] MEDS: FUROSEMIDE 20 MG TABLET PO SCH (09:46)
[2019-01-05 11:00] VITALS: BP 92/54
--- NOTE | 2019-01-05 12:35 | PDOC ---
G I PROGRESS NOTE Subjective Seems in pretty good spirits. Eating better. Likes Ensure. Physical Exam Lungs clear anteriorly. RRR Abdomen soft, not tender nor distended. Review of Relevant I have reviewed the following items jayce (where applicable) has been applied. Labs Laboratory Tests Test 01/03/19 17:29 01/03/19 20:37 01/04/19 07:35 01/04/19 09:05 Glucose (Fingerstick) 97 mg/dL (70-99) 131 mg/dL (70-99) 101 mg/dL (70-99) Sodium Level 138 mmol/L (136-145) Potassium Level 4.2 mmol/L (3.5-5.1) Chloride Level 102 mmol/L (98-107) Carbon Dioxide Level 31 mmol/L (21-32) Anion Gap 5 (6-14) Blood Urea Nitrogen 33 mg/dL (8-26) Creatinine 1.1 mg/dL (0.7-1.3) Estimated GFR (Cockcroft-Gault) 63.2 BUN/Creatinine Ratio 30 (6-20) Glucose Level 139 mg/dL (70-99) Calcium Level 8.3 mg/dL (8.5-10.1) Total Bilirubin 0.6 mg/dL (0.2-1.0) Aspartate Amino Transf (AST/SGOT) 193 U/L (15-37) Alanine Aminotransferase (ALT/SGPT) 317 U/L (16-63) Alkaline Phosphatase 261 U/L (46-116) Total Protein 5.5 g/dL (6.4-8.2) Albumin 2.1 g/dL (3.4-5.0) Albumin/Globulin Ratio 0.6 (1.0-1.7) Test 01/04/19 12:07 01/04/19 17:12 01/04/19 20:36 01/05/19 07:16 Glucose (Fingerstick) 101 mg/dL (70-99) 124 mg/dL (70-99) 96 mg/dL (70-99) 100 mg/dL (70-99) Test 01/05/19 11:30 Glucose (Fingerstick) 131 mg/dL (70-99) Laboratory Tests Test 01/04/19 17:12 01/04/19 20:36 01/05/19 07:16 01/05/19 11:30 Glucose (Fingerstick) 124 mg/dL (70-99) 96 mg/dL (70-99) 100 mg/dL (70-99) 131 mg/dL (70-99) Vitals/I & O Vital Sign - Last 24 Hours 01/04/19 01/04/19 01/04/19 01/04/19 15:00 19:25 20:20 21:51 Temp 98.4 98.7 98.4 98.7 Pulse 94 99 Resp 07 10 16 B/P (MAP) 93/60 (71) 132/69 (90) Pulse Ox 94 99 O2 Delivery Room Air Room Air Room Air 01/04/19 01/04/19 01/05/19 01/05/19 23:00 23:38 03:05 07:00 Temp 98.4 97.5 98.4 97.5 Pulse 96 84 89 Resp 16 17 18 14 B/P (MAP) 85/74 (78) 113/53 (73) 79/53 (62) Pulse Ox 94 92 O2 Delivery Room Air Room Air Room Air Nasal Cannula O2 Flow Rate 1.0 01/05/19 01/05/19 09:00 11:00 Temp 98.1 98.1 Pulse 89 85 Resp 14 B/P (MAP) 85/49 92/54 (67) Pulse Ox 97 O2 Delivery Nasal Cannula O2 Flow Rate 1.0 Intake and Output 01/04/19 01/04/19 01/05/19 15:00 23:00 07:00 Intake Total 573 ml 250 ml 228.8 ml Output Total 300 ml 120 ml 750 ml Balance 273 ml 130 ml -521.2 ml Problem List Problems Medical Problems: (1) CHF exacerbation Status: Acute (2) Dyspnea Status: Acute Assessment Abnormal LFT's; still most likely meds and/or congestive hepatopathy. Plan of Care: Continue current Tx, Mgmt PAL MILLS MD Jan 05, 2019 12:35
[2019-01-05 15:00] VITALS: BP 94/53
[2019-01-05] MEDS: ENOXAPARIN 40 MG/0.4 ML SYRINGE. SQ SCH (16:45)
[2019-01-05 19:52] VITALS: BP 97/55
[2019-01-05] MEDS: PATCH REMOVAL. MC SCH (21:00)
[2019-01-05] MEDS: ATORVASTATIN CALCIUM 40 MG TABLET. PO SCH (21:35)
[2019-01-05] MEDS: TEMAZEPAM 15 MG CAPSULE PO PRN (21:35)
[2019-01-05] MEDS: oxyCODONE IR 5 MG TABLET PO PRN (21:35)
[2019-01-05 23:19] VITALS: BP 98/61
[2019-01-06 03:14] VITALS: BP 132/84
[2019-01-06 07:00] VITALS: BP 98/56
[2019-01-06] MEDS: INSULIN LISPRO 300 UNITS/3 ML INSULN.PEN. SQ SCH ×3 (08:00→17:00)
[2019-01-06] MEDS: POLYETHYLENE GLYCOL 3350 17 GM PACKET. PO SCH (08:32)
[2019-01-06] MEDS: LIDOCAINE (700MG/PATCH) PATCH. TD SCH (08:33)
[2019-01-06] MEDS: METOPROLOL SUCC 24HR ER 25 MG TAB.ER.24H. PO SCH (08:34)
[2019-01-06] MEDS: CLOPIDOGREL BISULFATE 75 MG TABLET PO SCH (08:34)
[2019-01-06] MEDS: POTASSIUM CHLORIDE 10 MEQ TABLET.ER. PO SCH (08:35)
[2019-01-06] MEDS: FUROSEMIDE 20 MG TABLET PO SCH (08:35)
[2019-01-06] MEDS: ASPIRIN ENTERIC COATED 81 MG TABLET.DR. PO SCH (08:35)
[2019-01-06] MEDS: TAMSULOSIN 0.4 MG CAP.ER.24H. PO SCH (08:35)
[2019-01-06] MEDS: CITALOPRAM 20 MG TABLET. PO SCH (08:35)
[2019-01-06] MEDS: PANTOPRAZOLE 40 MG TABLET.DR. PO SCH (08:36)
[2019-01-06] MEDS: DOCUSATE SODIUM 100 MG CAPSULE. PO SCH (08:36)
[2019-01-06] MEDS: DONEPEZIL HCL 5 MG TABLET. PO SCH (08:36)
[2019-01-06] MEDS: MILRINONE 20MG/100ML PREMIX 100 ML IV PRN (08:44)
[2019-01-06] MEDS: DICLOFENAC SODIUM 1% TOPICAL GEL 100GM TUBE. TP SCH ×2 (08:44→20:55)
[2019-01-06 10:51] VITALS: BP 98/56
--- NOTE | 2019-01-06 11:29 | PDOC ---
Subjective: Subjective: Still doesn't feel good. Out of breath but was up walking. Likes vanilla Ensure better than strawberry now. Objective: Objective: D/w RN - drinks Ensure but not eating much otherwise. Vital Signs: Vital Signs Date Time Temp Pulse Resp B/P (MAP) Pulse Ox O2 Delivery O2 Flow Rate FiO2 01/06/19 10:51 98.2 82 18 98/56 (70) 98 Nasal Cannula 1.0 98.2 Labs: Laboratory Tests Test 01/05/19 11:30 01/05/19 16:56 01/05/19 20:22 01/06/19 07:39 Glucose (Fingerstick) 131 mg/dL 115 mg/dL 130 mg/dL 135 mg/dL PE: GEN: NAD, up in recliner LUNGS: NC HEART: RRR ABD: NABS, S/ND/NT NEURO/PSYCH: A & O �3 A/P: Elevated LFTs likely 2/2 CHF Anorexia -- Continue PPI and Ensure. STEPHANI STONE Jan 06, 2019 11:29
--- NOTE | 2019-01-06 12:22 | NUR ---
SS following up with discharge planning. Pt currently on Milrinone drip. SS phoned and faxed clinical updates to [facility], ; fax [phone]. [facility] submitting for insurance authorization. SS will continue to follow for discharge planning. Pt will need to be off drip prior to discharge to nursing home unit.
--- NOTE | 2019-01-06 14:21 | PDOC ---
PROGRESS NOTES Chief Complaint Chief Complaint Acute on chronic systolic heart failure. EF 10-15% CAD known s/p CABG Chest pain, angina, w. atypical pain, poss bruise CKD 2-3 Mechanical fall with acquired weakness and debility Severe aortic stenosis s/p valvuloplasty Dementia Transaminitis History of Present Illness History of Present Illness Asleep I did not awaken Still on milrinone drip Colleague note: Mr Munguia is a 88yo M w/ PMHx dementia, CAD s/p CABG, systolic CHF, CKD2. He thinks it is 1979. He is very pleasantly confused though very nice and cooperative. He presented with shortness of breath, found in ED with a chest x- ray showing possible vascular congestion and elevated BNP of 17,038. GI consulted. RUQ US unrevealing except GB sludge. . D/w family he is a DNR/DNI. Overall disposition is difficult while on milrinone, will downtitrate with plans to d/c to rehab, hopefully in next 24 hours. Vitals Vitals Vital Signs Date Time Temp Pulse Resp B/P (MAP) Pulse Ox O2 Delivery O2 Flow Rate FiO2 01/06/19 10:51 98.2 82 18 98/56 (70) 98 Nasal Cannula 1.0 98.2 Physical Exam General: Alert, Cooperative, No acute distress, Other (oriented to place) Heart: Regular rate (SR), Normal S1, Normal S2, Other (4/6 systolic murmur to NICOLE and 3/6 systolic murmur to LLS border) Lungs: Clear Abdomen: Soft, No tenderness Extremities: No cyanosis, Other (1+ bilateral LE pitting edema) Skin: No breakdown, No significant lesion Labs LABS Laboratory Tests Test 01/05/19 16:56 01/05/19 20:22 01/06/19 07:39 01/06/19 11:33 Glucose (Fingerstick) 115 mg/dL (70-99) 130 mg/dL (70-99) 135 mg/dL (70-99) 126 mg/dL (70-99) Review of Systems Review of Systems A 14 point ROS was completed with the following noted as positive: Other systems reviewed and negative. \CONSTITUTIONAL: No fever or chills EYES: No recent changes SKIN: No rash or itching CARDIOVASCULAR: No chest pain, syncope, palpitations, or edema RESPIRATORY: No SOB or cough GASTROINTESTINAL: No nausea, vomiting or abdominal pain NEUROLOGICAL: No headaches or weakness ENDOCRINE: No cold or heat intolerance GENITOURINARY: No urgency or frequency of urination MUSCULOSKELETAL: No back pain or joint pain LYMPHATICS: No enlarged lymph nodes PSYCHIATRIC: No anxiety or depression Assessment and Plan Assessmemt and Plan Problems Medical Problems: (1) CHF exacerbation Status: Acute (2) Dyspnea Status: Acute Comment Review of Relevant I have reviewed the following items jayce (where applicable) has been applied. Labs Laboratory Tests Test 01/04/19 17:12 01/04/19 20:36 01/05/19 07:16 01/05/19 11:30 Glucose (Fingerstick) 124 mg/dL (70-99) 96 mg/dL (70-99) 100 mg/dL (70-99) 131 mg/dL (70-99) Test 01/05/19 16:56 01/05/19 20:22 01/06/19 07:39 01/06/19 11:33 Glucose (Fingerstick) 115 mg/dL (70-99) 130 mg/dL (70-99) 135 mg/dL (70-99) 126 mg/dL (70-99) Laboratory Tests Test 01/05/19 16:56 01/05/19 20:22 01/06/19 07:39 01/06/19 11:33 Glucose (Fingerstick) 115 mg/dL (70-99) 130 mg/dL (70-99) 135 mg/dL (70-99) 126 mg/dL (70-99) Medications Current Medications Morphine Sulfate (Morphine Sulfate) 4 mg 1X ONCE IV Last administered on 12/25/18at 16:10; Start 12/25/18 at 16:00; Stop 12/25/18 at 16:01; Status DC Furosemide (Lasix) 40 mg 1X ONCE IV Last administered on 12/25/18at 16:09; Start 12/25/18 at 16:00; Stop 12/25/18 at 16:01; Status DC Temazepam (Restoril) 15 mg PRN QHS PRN PO INSOMNIA Last administered on 12/26/18at 21:34; Start 12/25/18 at 22:15; Stop 12/26/18 at 23:33; Status DC Furosemide (Lasix) 40 mg 1X ONCE IVP Last administered on 12/26/18at 11:41; Start 12/26/18 at 11:15; Stop 12/26/18 at 11:19; Status DC Potassium Chloride (Klor-Con) 20 meq 1X ONCE PO Last administered on 12/26/18at 11:41; Start 12/26/18 at 11:15; Stop 12/26/18 at 11:19; Status DC Aspirin (Ecotrin) 81 mg DAILYWBKFT PO Last administered on 01/06/19at 08:35; Start 12/26/18 at 12:00 Enoxaparin Sodium (Lovenox Per Pharmacy Prophylaxis Dosing) 1 each PRN DAILY PRN MC SEE COMMENTS; Start 12/26/18 at 15:15 Tamsulosin HCl (Flomax) 0.4 mg DAILY PO Last administered on 01/06/19at 08:35; Start 12/26/18 at 16:00 Donepezil HCl (Aricept) 5 mg DAILY PO Last administered on 01/06/19at 08:36; Start 12/26/18 at 16:00 Citalopram Hydrobromide (CeleXA) 20 mg DAILY PO Last administered on 01/06/19at 08:35; Start 12/26/18 at 16:00 Non-Formulary Medication (Metoprolol Succinate/Hctz (Metoprolol ER-Hctz 50-12.5 mg)) 1 each DAILY PO ; Start 12/27/18 at 09:00; Status UNV Atorvastatin Calcium (Lipitor) 40 mg QHS PO Last administered on 01/05/19at 21:35; Start 12/26/18 at 21:00 Metoprolol Succinate (Toprol Xl) 50 mg DAILY PO ; Start 12/26/18 at 16:00; Stop 12/27/18 at 11:26; Status DC Hydrochlorothiazide (Microzide) 12.5 mg DAILY PO ; Start 12/26/18 at 16:00; Stop 12/27/18 at 11:26; Status DC Enoxaparin Sodium (Lovenox 40mg Syringe) 40 mg Q24H SQ Last administered on 01/05/19at 16:45; Start 12/26/18 at 16:00 Iodixanol (Visipaque 320) 100 ml STK-MED ONCE .ROUTE ; Start 12/26/18 at 16:05; Stop 12/26/18 at 16:06; Status DC Lidocaine HCl (Lidocaine 1% 20ml Vial) 20 ml STK-MED ONCE .ROUTE ; Start 12/26/18 at 16:05; Stop 12/26/18 at 16:06; Status DC Heparin Sodium/ Sodium Chloride 1,000 ml @ As Directed STK-MED ONCE .ROUTE ; Start 12/26/18 at 16:06; Stop 12/26/18 at 16:07; Status DC Fentanyl Citrate (Fentanyl 2ml Vial) 100 mcg STK-MED ONCE .ROUTE ; Start 12/26/18 at 16:15; Stop 12/26/18 at 16:16; Status DC Midazolam HCl (Versed) 2 mg STK-MED ONCE .ROUTE ; Start 12/26/18 at 16:15; Stop 12/26/18 at 16:16; Status DC Heparin Sodium/ Sodium Chloride (HEPARIN for ARTERIAL LINE FLUSH) 1,000 unit 1X ONCE IART Last administered on 12/26/18at 17:22; Start 12/26/18 at 16:45; Stop 12/26/18 at 16:46; Status DC Heparin Sodium/ Sodium Chloride (HEPARIN for ARTERIAL LINE FLUSH) 1,000 unit 1X ONCE IART Last administered on 12/26/18at 17:22; Start 12/26/18 at 16:45; Stop 12/26/18 at 16:46; Status DC Midazolam HCl (Versed) 2 mg 1X ONCE IV Last administered on 12/26/18at 17:25; Start 12/26/18 at 16:45; Stop 12/26/18 at 16:46; Status DC Fentanyl Citrate (Fentanyl 2ml Vial) 100 mcg 1X ONCE IV Last administered on 12/26/18at 17:25; Start 12/26/18 at 16:45; Stop 12/26/18 at 16:46; Status DC Iodixanol (Visipaque 320) 100 ml 1X ONCE IART Last administered on 12/26/18at 17:23; Start 12/26/18 at 16:45; Stop 12/26/18 at 16:46; Status DC Lidocaine HCl (Lidocaine 1% 20ml Vial) 20 ml 1X ONCE INJ Last administered on 12/26/18at 17:24; Start 12/26/18 at 16:45; Stop 12/26/18 at 16:46; Status DC Multi-Ingredient Mouthwash/Gargle (Gi Cocktail) 20 ml PRN QID PRN PO CHEST PAIN Last administered on 01/04/19 20:36; Start 12/26/18 at 21:30 Temazepam (Restoril) 15 mg PRN QHS PRN PO INSOMNIA, MAY REPEAT X1 Last administered on 01/05/19 21:35; Start 12/26/18 at 23:45 Temazepam (Restoril) 15 mg 1X ONCE PO Last administered on 12/27/18 01:40; Start 12/27/18 at 01:00; Stop 12/27/18 at 01:01; Status DC Acetaminophen (Tylenol) 650 mg PRN Q6HRS PRN PO MILD PAIN 1-3 Last administered on 01/03/19 21:55; Start 12/27/18 at 01:30 Oxycodone HCl (Roxicodone) 5 mg PRN Q6HRS PRN PO MODERATE, SEVERE PAIN Last administered on 01/05/19 21:35; Start 12/27/18 at 11:15 Metoprolol Succinate (Toprol Xl) 25 mg DAILY PO Last administered on 01/06/19 08:34; Start 12/28/18 at 09:00 Furosemide (Lasix) 20 mg DAILY PO Last administered on 01/06/19 08:35; Start 12/27/18 at 12:00 Potassium Chloride (Klor-Con) 10 meq DAILYWBKFT PO Last administered on 01/06/19 08:35; Start 12/27/18 at 12:00 Lidocaine (Lidoderm) 1 patch DAILY TD Last administered on 01/06/19 08:33; Start 12/27/18 at 12:00 Miscellaneous (Lidoderm Patch Removal) 1 ea QHS MC Last administered on 21:00; Start 12/27/18 at 21:00 Docusate Sodium (Colace) 100 mg DAILY PO Last administered on 01/06/19 08:36; Start 12/27/18 at 13:00 Polyethylene Glycol (miraLAX PACKET) 17 gm PRN DAILY PRN PO CONSTIPATION; Start 12/27/18 at 12:45 Polyethylene Glycol (miraLAX PACKET) 17 gm DAILY PO Last administered on 6/17/19at 08:32; Start 12/27/18 at 13:00 Iodixanol (Visipaque 320) 100 ml STK-MED ONCE .ROUTE ; Start 12/30/18 at 07:48; Stop 12/30/18 at 07:49; Status DC Lidocaine HCl (Lidocaine 1% 20ml Vial) 20 ml STK-MED ONCE .ROUTE ; Start 12/30/18 at 07:48; Stop 12/30/18 at 07:49; Status DC Heparin Sodium/ Sodium Chloride 1,000 ml @ As Directed STK-MED ONCE .ROUTE ; Start 12/30/18 at 07:48; Stop 12/30/18 at 07:49; Status DC Heparin Sodium/ Sodium Chloride 500 ml @ As Directed STK-MED ONCE .ROUTE ; Start 12/30/18 at 07:59; Stop 12/30/18 at 08:00; Status DC Insulin Human Lispro (HumaLOG) 0-5 UNITS TIDWMEALS SQ ; Start 12/30/18 at 12:00 Dextrose (Dextrose 50%-Water Syringe) 12.5 gm PRN Q15MIN PRN IV SEE COMMENTS; Start 12/30/18 at 08:30 Fentanyl Citrate (Fentanyl 2ml Vial) 100 mcg STK-MED ONCE .ROUTE ; Start 12/30/18 at 08:23; Stop 12/30/18 at 08:24; Status DC Midazolam HCl (Versed) 2 mg STK-MED ONCE .ROUTE ; Start 12/30/18 at 08:24; Stop 12/30/18 at 08:25; Status DC Heparin Sodium (Porcine) (Heparin Sodium) 10,000 unit STK-MED ONCE .ROUTE ; Start 12/30/18 at 08:29; Stop 12/30/18 at 08:30; Status DC Iodixanol (Visipaque 320) 100 ml STK-MED ONCE .ROUTE ; Start 12/30/18 at 09:08; Stop 12/30/18 at 09:09; Status DC Dopamine HCl/ Dextrose 0 ml @ As Directed STK-MED ONCE IV ; Start 12/30/18 at 09:14; Stop 12/30/18 at 09:15; Status DC Phenylephrine HCl (PHENYLEPHRINE in 0.9% NACL PF) 1 mg STK-MED ONCE IV ; Start 12/30/18 at 09:14; Stop 12/30/18 at 09:15; Status DC Heparin Sodium/ Sodium Chloride (HEPARIN for ARTERIAL LINE FLUSH) 1,000 unit 1X ONCE IART Last administered on 12/30/18at 10:30; Start 12/30/18 at 10:30; Stop 12/30/18 at 10:31; Status DC Midazolam HCl (Versed) 1 mg 1X ONCE IV Last administered on 12/30/18at 10:30; Start 12/30/18 at 10:30; Stop 12/30/18 at 10:31; Status DC Fentanyl Citrate (Fentanyl 2ml Vial) 50 mcg 1X ONCE IV Last administered on 12/30/18 10:30; Start 12/30/18 at 10:30; Stop 12/30/18 at 10:31; Status DC Iodixanol (Visipaque 320) 100 ml 1X ONCE IART Last administered on 12/30/18at 10:30; Start 12/30/18 at 10:30; Stop 12/30/18 at 10:31; Status DC Heparin Sodium (Porcine) (Heparin Sodium) 5,500 unit 1X ONCE IV Last administered on 12/30/18at 10:30; Start 12/30/18 at 10:30; Stop 12/30/18 at 10:31; Status DC Lidocaine HCl (Lidocaine 1% 20ml Vial) 17 ml 1X ONCE INJ Last administered on 12/30/18 10:30; Start 12/30/18 at 10:30; Stop 12/30/18 at 10:31; Status DC Info (CONTRAST GIVEN -- Rx MONITORING) 1 each PRN DAILY PRN MC SEE COMMENTS; Start 12/30/18 at 10:30; Stop 01/01/19 at 10:29; Status DC Clopidogrel Bisulfate (Plavix) 600 mg 1X ONCE PO Last administered on 12/30/18at 10:30; Start 12/30/18 at 10:30; Stop 12/30/18 at 10:33; Status DC Aspirin ([facility] Aspirin) 325 mg 1X ONCE PO Last administered on 12/30/18at 10:30; Start 12/30/18 at 10:30; Stop 12/30/18 at 10:33; Status DC Clopidogrel Bisulfate (Plavix) 75 mg STK-MED ONCE .ROUTE ; Start 12/30/18 at 10:28; Stop 12/30/18 at 10:29; Status DC Aspirin (Ry Aspirin) 325 mg STK-MED ONCE .ROUTE ; Start 12/30/18 at 10:28; Stop 12/30/18 at 10:29; Status DC Furosemide (Lasix) 20 mg 1X ONCE IVP Last administered on 12/30/18at 16:29; Start 12/30/18 at 16:00; Stop 12/30/18 at 16:01; Status DC Furosemide (Lasix) 20 mg 1X ONCE IVP Last administered on 12/31/18at 14:35; Start 12/31/18 at 13:45; Stop 12/31/18 at 13:53; Status DC Clopidogrel Bisulfate (Plavix) 75 mg DAILYWBKFT PO Last administered on 01/06/19at 08:34; Start 01/01/19 at 08:00 Clopidogrel Bisulfate (Plavix) 75 mg 1X ONCE PO Last administered on 12/31/18at 17:23; Start 12/31/18 at 16:15; Stop 12/31/18 at 16:16; Status DC Pantoprazole Sodium (Protonix) 40 mg DAILYAC PO Last administered on 01/06/19at 08:36; Start 01/01/19 at 07:30 Milrinone Lactate/ Dextrose 100 ml @ 0 mls/hr CONT PRN IV SEE I/O RECORD Last administered on 01/06/19at 08:44; Start 01/01/19 at 11:45 Furosemide (Lasix) 40 mg 1X ONCE IVP Last administered on 01/01/19at 12:35; Start 01/01/19 at 11:45; Stop 01/01/19 at 11:46; Status DC Furosemide (Lasix) 40 mg 1X ONCE IVP Last administered on 01/02/19at 14:39; Start 01/02/19 at 13:30; Stop 01/02/19 at 13:31; Status DC Furosemide (Lasix) 20 mg 1X ONCE IVP Last administered on 01/03/19at 13:24; Start 01/03/19 at 13:00; Stop 01/03/19 at 13:01; Status DC Potassium Chloride (Klor-Con) 20 meq 1X ONCE PO Last administered on 01/03/19at 13:24; Start 01/03/19 at 13:00; Stop 01/03/19 at 13:01; Status DC Throat Lozenges (Cepacol Sore Throat Lozenge) 1 nikita PRN Q2HRS PRN PO SORE THROAT Last administered on 01/04/19 14:42; Start 01/03/19 at 18:30 Diclofenac Sodium (Voltaren) 1 natalie BID TP Last administered on 01/04/19at 20:36; Start 01/03/19 at 21:15 Guaifenesin (Robitussin) 200 mg PRN Q4HRS PRN PO COUGH Last administered on 01/04/19at 13:20; Start 01/04/19 at 10:45 Active Scripts Active Aspirin Ec (Aspirin) 325 Mg Tablet.dr 1 Tab PO DAILY 30 Days Clopidogrel (Clopidogrel Bisulfate) 75 Mg Tablet 1 Tab PO DAILY 30 Days Polyethylene Glycol 3350 17 Gm Powd.pack 17 Gm PO PRN DAILY PRN 30 Days Colace (Docusate Sodium) 100 Mg Capsule 100 Mg PO DAILY 30 Days Furosemide 20 Mg Tablet 20 Mg PO DAILY 30 Days Klor-Con 10 (Potassium Chloride) 10 Meq Tablet.er 10 Meq PO DAILYWBKFT 30 Days Tylenol (Acetaminophen) 325 Mg Tablet 650 Mg PO PRN Q6HRS PRN 30 Days Metoprolol Succinate ( Xl ) (Metoprolol Succinate) 25 Mg Tab.er.24h 25 Mg PO DAILY 30 Days Reported Crestor (Rosuvastatin Calcium) 10 Mg Tablet 10 Mg PO HS Escitalopram Oxalate 10 Mg Tablet 1 Tab PO DAILY Flomax (Tamsulosin Hcl) 0.4 Mg Cap.er.24h 0.4 Mg PO DAILY Vitals/I & O Vital Sign - Last 24 Hours 01/05/19 01/05/19 01/05/19 01/05/19 15:00 19:25 19:52 21:35 Temp 97.6 97.8 97.6 97.8 Pulse 86 93 Resp 16 17 B/P (MAP) 94/53 (67) 97/55 (69) Pulse Ox 95 99 O2 Delivery Nasal Cannula Nasal Cannula Nasal Cannula Nasal Cannula O2 Flow Rate 1.0 1.5 1.0 1.5 01/05/19 01/06/19 01/06/19 01/06/19 23:19 03:14 07:00 08:00 Temp 97.9 98.0 98.0 97.9 98.0 98.0 Pulse 85 77 85 Resp 17 18 18 B/P (MAP) 98/61 (73) 132/84 (100) 98/56 (70) Pulse Ox 97 99 96 O2 Delivery Nasal Cannula Nasal Cannula Nasal Cannula Nasal Cannula O2 Flow Rate 1.0 1.0 1.0 1.5 01/06/19 01/06/19 08:34 10:51 Temp 98.2 98.2 Pulse 85 82 Resp 18 B/P (MAP) 98/56 98/56 (70) Pulse Ox 98 O2 Delivery Nasal Cannula O2 Flow Rate 1.0 Intake and Output 01/05/19 01/05/19 01/06/19 15:00 23:00 07:00 Intake Total 473 ml 273 ml 829 ml Output Total 225 ml 200 ml 550 ml Balance 248 ml 73 ml 279 ml Nutrition Consultation Dietary Evaluation: Recommendations by RD: Protein supplementation Comments: Continue w/cardaic diet as ordered, honor food preferences, and provide sncaks as requested REC Ensure (strawberry) TID Expected Outcomes/Goals: PO intake to meet >75% est needs - not met, goal ongoing Malnutrition Findings: Food and Nutrition Intake (Mod: <75% est energy req 7days Weight Status: Appropriate KIEL RIZZO MD Jan 06, 2019 14:21
[2019-01-06 15:00] VITALS: BP 87/51
[2019-01-06] MEDS: ACETAMINOPHEN 325 MG TABLET. PO PRN (16:51)
[2019-01-06] MEDS: ENOXAPARIN 40 MG/0.4 ML SYRINGE. SQ SCH (16:53)
--- NOTE | 2019-01-06 17:01 | PDOC ---
CARDIO Progress Notes Date and Time Date of Service 01/06/19 Time of Evaluation 1410 Subjective Subjective: No Chest Pain, No Palpitations, Other (mild SOA upon exertion. Much better at rest. Wanting to go to rehab) Vitals Vitals Vital Signs Date Time Temp Pulse Resp B/P (MAP) Pulse Ox O2 Delivery O2 Flow Rate FiO2 01/06/19 15:00 97.9 86 16 87/51 (63) 99 Nasal Cannula 1.0 97.9 Weight Weight [ ] Input and Output Intake and Output Intake and Output 01/06/19 07:00 Intake Total 1575 ml Output Total 975 ml Balance 600 ml Intake Oral 1546 ml IV Total 29 ml Output Urine Total 975 ml Laboratory Labs Laboratory Tests Test 01/05/19 16:56 01/05/19 20:22 01/06/19 07:39 01/06/19 11:33 Glucose (Fingerstick) 115 mg/dL (70-99) 130 mg/dL (70-99) 135 mg/dL (70-99) 126 mg/dL (70-99) Physical Exam HEENT: Neck Supple W Full Motion Chest: Symmetric LUNGS: Other (diminished bases) Heart: RRR (SR with PVCs), murmurs (ssytolic murmur 3/6 to NICOLE border) Extremities: No Edema, No Calf Tenderness Neurology: alert, oriented (to self and place), follow commands Assessment Assessment 1. Acute on chronic diastolic/systolic CHF. 2. CAD: remote CABG. [place] to LAD and SVG to RCA patent per LHC 3. 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 Severe : S/P successful valvuloplasty 5. HTN: marginally low 6. HLP 7. Dementia 8. Transaminitis; better Recommendations Titrate off milrinone Continue oral Lasix. No PAUL/ARB due to hypotension ASA/Plavix. Toprol as able. No statin with elevated LFTs Supportive care Long-term prognosis guarded TYLER BARKER APRN Jan 06, 2019 17:01
[2019-01-06 19:36] VITALS: BP 92/53
[2019-01-06] MEDS: LIDO:MAALOX 1:1 20 ML SINGLE DOSE. PO PRN (20:50)
[2019-01-06] MEDS: oxyCODONE IR 5 MG TABLET PO PRN (20:51)
[2019-01-06] MEDS: PATCH REMOVAL. MC SCH (20:55)
[2019-01-06 23:30] VITALS: BP 102/66
[2019-01-07] MEDS: TEMAZEPAM 15 MG CAPSULE PO PRN ×2 (00:04→22:34)
[2019-01-07 03:00] VITALS: BP 100/63
[2019-01-07 07:00] VITALS: BP 84/51
[2019-01-07] MEDS: INSULIN LISPRO 300 UNITS/3 ML INSULN.PEN. SQ SCH ×3 (08:00→17:00)
[2019-01-07] MEDS: ASPIRIN ENTERIC COATED 81 MG TABLET.DR. PO SCH (08:14)
[2019-01-07] MEDS: CLOPIDOGREL BISULFATE 75 MG TABLET PO SCH (08:14)
[2019-01-07] MEDS: LIDOCAINE (700MG/PATCH) PATCH. TD SCH (08:14)
[2019-01-07] MEDS: TAMSULOSIN 0.4 MG CAP.ER.24H. PO SCH (08:14)
[2019-01-07] MEDS: PANTOPRAZOLE 40 MG TABLET.DR. PO SCH (08:15)
[2019-01-07] MEDS: FUROSEMIDE 20 MG TABLET PO SCH (08:15)
[2019-01-07] MEDS: DONEPEZIL HCL 5 MG TABLET. PO SCH (08:15)
[2019-01-07] MEDS: CITALOPRAM 20 MG TABLET. PO SCH (08:15)
[2019-01-07] MEDS: POTASSIUM CHLORIDE 10 MEQ TABLET.ER. PO SCH (08:15)
[2019-01-07] MEDS: POLYETHYLENE GLYCOL 3350 17 GM PACKET. PO SCH (08:16)
[2019-01-07] MEDS: ENOXAPARIN 40 MG/0.4 ML SYRINGE. SQ SCH (08:16)
[2019-01-07] MEDS: DOCUSATE SODIUM 100 MG CAPSULE. PO SCH (08:16)
[2019-01-07] MEDS: DICLOFENAC SODIUM 1% TOPICAL GEL 100GM TUBE. TP SCH ×2 (08:17→21:00)
[2019-01-07] MEDS: METOPROLOL SUCC 24HR ER 25 MG TAB.ER.24H. PO SCH (09:00)
--- NOTE | 2019-01-07 10:46 | PDOC ---
PROGRESS NOTES Chief Complaint Chief Complaint Acute on chronic systolic heart failure. EF 10-15% CAD known s/p CABG Chest pain, angina, w. atypical pain, poss bruise CKD 2-3 Mechanical fall with acquired weakness and debility Severe aortic stenosis s/p valvuloplasty Dementia Transaminitis Hypotension History of Present Illness History of Present Illness Up in chair On hardly any milrinone drip, 1.2 only Last cardiology note says to titrate SNU cannot take milrinone drip Patient has no complaints Hypotensive-RN had to hold some of his BP meds this AM Plan: milrinone drip per cards BP meds with withholding parameters dw RN Pan Vitals Vitals Vital Signs Date Time Temp Pulse Resp B/P (MAP) Pulse Ox O2 Delivery O2 Flow Rate FiO2 01/07/19 08:00 Room Air 1.5 01/07/19 07:00 97.4 83 16 84/51 (62) 99 97.4 Physical Exam General: Alert, Cooperative, No acute distress, Other (oriented to place) Heart: Regular rate (SR), Normal S1, Normal S2, Other (4/6 systolic murmur to NICOLE and 3/6 systolic murmur to LLS border) Lungs: Clear Abdomen: Soft, No tenderness Extremities: No cyanosis, Other (1+ bilateral LE pitting edema) Skin: No breakdown, No significant lesion Labs LABS Laboratory Tests Test 01/06/19 11:33 01/06/19 17:11 01/06/19 21:20 01/07/19 07:42 Glucose (Fingerstick) 126 mg/dL (70-99) 113 mg/dL (70-99) 118 mg/dL (70-99) 125 mg/dL (70-99) Review of Systems Review of Systems A 14 point ROS was completed with the following noted as positive: Other systems reviewed and negative. \CONSTITUTIONAL: No fever or chills EYES: No recent changes SKIN: No rash or itching CARDIOVASCULAR: No chest pain, syncope, palpitations, or edema RESPIRATORY: No SOB or cough GASTROINTESTINAL: No nausea, vomiting or abdominal pain NEUROLOGICAL: No headaches or weakness ENDOCRINE: No cold or heat intolerance GENITOURINARY: No urgency or frequency of urination MUSCULOSKELETAL: No back pain or joint pain LYMPHATICS: No enlarged lymph nodes PSYCHIATRIC: No anxiety or depression Assessment and Plan Assessmemt and Plan Problems Medical Problems: (1) CHF exacerbation Status: Acute (2) Dyspnea Status: Acute Comment Review of Relevant I have reviewed the following items jayce (where applicable) has been applied. Labs Laboratory Tests Test 01/05/19 11:30 01/05/19 16:56 01/05/19 20:22 01/06/19 07:39 Glucose (Fingerstick) 131 mg/dL (70-99) 115 mg/dL (70-99) 130 mg/dL (70-99) 135 mg/dL (70-99) Test 01/06/19 11:33 01/06/19 17:11 01/06/19 21:20 01/07/19 07:42 Glucose (Fingerstick) 126 mg/dL (70-99) 113 mg/dL (70-99) 118 mg/dL (70-99) 125 mg/dL (70-99) Laboratory Tests Test 01/06/19 11:33 01/06/19 17:11 01/06/19 21:20 01/07/19 07:42 Glucose (Fingerstick) 126 mg/dL (70-99) 113 mg/dL (70-99) 118 mg/dL (70-99) 125 mg/dL (70-99) Medications Current Medications Morphine Sulfate (Morphine Sulfate) 4 mg 1X ONCE IV Last administered on 12/25/18 16:10; Start 12/25/18 at 16:00; Stop 12/25/18 at 16:01; Status DC Furosemide (Lasix) 40 mg 1X ONCE IV Last administered on 12/25/18 16:09; Start 12/25/18 at 16:00; Stop 12/25/18 at 16:01; Status DC Temazepam (Restoril) 15 mg PRN QHS PRN PO INSOMNIA Last administered on 12/26/18 21:34; Start 12/25/18 at 22:15; Stop 12/26/18 at 23:33; Status DC Furosemide (Lasix) 40 mg 1X ONCE IVP Last administered on 12/26/18at 11:41; Start 12/26/18 at 11:15; Stop 12/26/18 at 11:19; Status DC Potassium Chloride (Klor-Con) 20 meq 1X ONCE PO Last administered on 12/26/18at 11:41; Start 12/26/18 at 11:15; Stop 12/26/18 at 11:19; Status DC Aspirin (Ecotrin) 81 mg DAILYWBKFT PO Last administered on 01/07/19at 08:14; Start 12/26/18 at 12:00 Enoxaparin Sodium (Lovenox Per Pharmacy Prophylaxis Dosing) 1 each PRN DAILY PRN MC SEE COMMENTS; Start 12/26/18 at 15:15 Tamsulosin HCl (Flomax) 0.4 mg DAILY PO Last administered on 01/07/19at 08:14; Start 12/26/18 at 16:00 Donepezil HCl (Aricept) 5 mg DAILY PO Last administered on 01/07/19at 08:15; Start 12/26/18 at 16:00 Citalopram Hydrobromide (CeleXA) 20 mg DAILY PO Last administered on 01/07/19at 08:15; Start 12/26/18 at 16:00 Non-Formulary Medication (Metoprolol Succinate/Hctz (Metoprolol ER-Hctz 50-12.5 mg)) 1 each DAILY PO ; Start 12/27/18 at 09:00; Status UNV Atorvastatin Calcium (Lipitor) 40 mg QHS PO Last administered on 01/05/19at 21:35; Start 12/26/18 at 21:00; Stop 01/06/19 at 17:01; Status DC Metoprolol Succinate (Toprol Xl) 50 mg DAILY PO ; Start 12/26/18 at 16:00; Stop 12/27/18 at 11:26; Status DC Hydrochlorothiazide (Microzide) 12.5 mg DAILY PO ; Start 12/26/18 at 16:00; Stop 12/27/18 at 11:26; Status DC Enoxaparin Sodium (Lovenox 40mg Syringe) 40 mg Q24H SQ Last administered on 01/07/19at 08:16; Start 12/26/18 at 16:00 Iodixanol (Visipaque 320) 100 ml STK-MED ONCE .ROUTE ; Start 12/26/18 at 16:05; Stop 12/26/18 at 16:06; Status DC Lidocaine HCl (Lidocaine 1% 20ml Vial) 20 ml STK-MED ONCE .ROUTE ; Start 12/26/18 at 16:05; Stop 12/26/18 at 16:06; Status DC Heparin Sodium/ Sodium Chloride 1,000 ml @ As Directed STK-MED ONCE .ROUTE ; Start 12/26/18 at 16:06; Stop 12/26/18 at 16:07; Status DC Fentanyl Citrate (Fentanyl 2ml Vial) 100 mcg STK-MED ONCE .ROUTE ; Start 12/26/18 at 16:15; Stop 12/26/18 at 16:16; Status DC Midazolam HCl (Versed) 2 mg STK-MED ONCE .ROUTE ; Start 12/26/18 at 16:15; Stop 12/26/18 at 16:16; Status DC Heparin Sodium/ Sodium Chloride (HEPARIN for ARTERIAL LINE FLUSH) 1,000 unit 1X ONCE IART Last administered on 12/26/18at 17:22; Start 12/26/18 at 16:45; Stop 12/26/18 at 16:46; Status DC Heparin Sodium/ Sodium Chloride (HEPARIN for ARTERIAL LINE FLUSH) 1,000 unit 1X ONCE IART Last administered on 12/26/18at 17:22; Start 12/26/18 at 16:45; Stop 12/26/18 at 16:46; Status DC Midazolam HCl (Versed) 2 mg 1X ONCE IV Last administered on 12/26/18at 17:25; Start 12/26/18 at 16:45; Stop 12/26/18 at 16:46; Status DC Fentanyl Citrate (Fentanyl 2ml Vial) 100 mcg 1X ONCE IV Last administered on 12/26/18 17:25; Start 12/26/18 at 16:45; Stop 12/26/18 at 16:46; Status DC Iodixanol (Visipaque 320) 100 ml 1X ONCE IART Last administered on 12/26/18at 17:23; Start 12/26/18 at 16:45; Stop 12/26/18 at 16:46; Status DC Lidocaine HCl (Lidocaine 1% 20ml Vial) 20 ml 1X ONCE INJ Last administered on 12/26/18at 17:24; Start 12/26/18 at 16:45; Stop 12/26/18 at 16:46; Status DC Multi-Ingredient Mouthwash/Gargle (Gi Cocktail) 20 ml PRN QID PRN PO CHEST PAIN Last administered on 01/06/19at 20:50; Start 12/26/18 at 21:30 Temazepam (Restoril) 15 mg PRN QHS PRN PO INSOMNIA, MAY REPEAT X1 Last administered on 01/07/19 00:04; Start 12/26/18 at 23:45 Temazepam (Restoril) 15 mg 1X ONCE PO Last administered on 12/27/18 01:40; Start 12/27/18 at 01:00; Stop 12/27/18 at 01:01; Status DC Acetaminophen (Tylenol) 650 mg PRN Q6HRS PRN PO MILD PAIN 1-3 Last administered on 01/06/19 16:51; Start 12/27/18 at 01:30 Oxycodone HCl (Roxicodone) 5 mg PRN Q6HRS PRN PO MODERATE, SEVERE PAIN Last administered on 01/06/19 20:51; Start 12/27/18 at 11:15 Metoprolol Succinate (Toprol Xl) 25 mg DAILY PO Last administered on 01/06/19 08:34; Start 12/28/18 at 09:00 Furosemide (Lasix) 20 mg DAILY PO Last administered on 01/07/19 08:15; Start 12/27/18 at 12:00 Potassium Chloride (Klor-Con) 10 meq DAILYWBKFT PO Last administered on 01/07/19 08:15; Start 12/27/18 at 12:00 Lidocaine (Lidoderm) 1 patch DAILY TD Last administered on 01/07/19 08:14; Start 12/27/18 at 12:00 Miscellaneous (Lidoderm Patch Removal) 1 ea QHS MC Last administered on 01/06/19at 20:55; Start 12/27/18 at 21:00 Docusate Sodium (Colace) 100 mg DAILY PO Last administered on 01/07/19at 08:16; Start 12/27/18 at 13:00 Polyethylene Glycol (miraLAX PACKET) 17 gm PRN DAILY PRN PO CONSTIPATION; Start 12/27/18 at 12:45 Polyethylene Glycol (miraLAX PACKET) 17 gm DAILY PO Last administered on 01/07/19at 08:16; Start 12/27/18 at 13:00 Iodixanol (Visipaque 320) 100 ml STK-MED ONCE .ROUTE ; Start 12/30/18 at 07:48; Stop 12/30/18 at 07:49; Status DC Lidocaine HCl (Lidocaine 1% 20ml Vial) 20 ml STK-MED ONCE .ROUTE ; Start 12/30/18 at 07:48; Stop 12/30/18 at 07:49; Status DC Heparin Sodium/ Sodium Chloride 1,000 ml @ As Directed STK-MED ONCE .ROUTE ; Start 12/30/18 at 07:48; Stop 12/30/18 at 07:49; Status DC Heparin Sodium/ Sodium Chloride 500 ml @ As Directed STK-MED ONCE .ROUTE ; Start 12/30/18 at 07:59; Stop 12/30/18 at 08:00; Status DC Insulin Human Lispro (HumaLOG) 0-5 UNITS TIDWMEALS SQ ; Start 12/30/18 at 12:00 Dextrose (Dextrose 50%-Water Syringe) 12.5 gm PRN Q15MIN PRN IV SEE COMMENTS; Start 12/30/18 at 08:30 Fentanyl Citrate (Fentanyl 2ml Vial) 100 mcg STK-MED ONCE .ROUTE ; Start 12/30/18 at 08:23; Stop 12/30/18 at 08:24; Status DC Midazolam HCl (Versed) 2 mg STK-MED ONCE .ROUTE ; Start 12/30/18 at 08:24; Stop 12/30/18 at 08:25; Status DC Heparin Sodium (Porcine) (Heparin Sodium) 10,000 unit STK-MED ONCE .ROUTE ; Start 12/30/18 at 08:29; Stop 12/30/18 at 08:30; Status DC Iodixanol (Visipaque 320) 100 ml STK-MED ONCE .ROUTE ; Start 12/30/18 at 09:08; Stop 12/30/18 at 09:09; Status DC Dopamine HCl/ Dextrose 0 ml @ As Directed STK-MED ONCE IV ; Start 12/30/18 at 09:14; Stop 12/30/18 at 09:15; Status DC Phenylephrine HCl (PHENYLEPHRINE in 0.9% NACL PF) 1 mg STK-MED ONCE IV ; Start 12/30/18 at 09:14; Stop 12/30/18 at 09:15; Status DC Heparin Sodium/ Sodium Chloride (HEPARIN for ARTERIAL LINE FLUSH) 1,000 unit 1X ONCE IART Last administered on 12/30/18at 10:30; Start 12/30/18 at 10:30; Stop 12/30/18 at 10:31; Status DC Midazolam HCl (Versed) 1 mg 1X ONCE IV Last administered on 12/30/18at 10:30; Start 12/30/18 at 10:30; Stop 12/30/18 at 10:31; Status DC Fentanyl Citrate (Fentanyl 2ml Vial) 50 mcg 1X ONCE IV Last administered on 12/30/18at 10:30; Start 12/30/18 at 10:30; Stop 12/30/18 at 10:31; Status DC Iodixanol (Visipaque 320) 100 ml 1X ONCE IART Last administered on 12/30/18at 10:30; Start 12/30/18 at 10:30; Stop 12/30/18 at 10:31; Status DC Heparin Sodium (Porcine) (Heparin Sodium) 5,500 unit 1X ONCE IV Last administered on 12/30/18 10:30; Start 12/30/18 at 10:30; Stop 12/30/18 at 10:31; Status DC Lidocaine HCl (Lidocaine 1% 20ml Vial) 17 ml 1X ONCE INJ Last administered on 12/30/18at 10:30; Start 12/30/18 at 10:30; Stop 12/30/18 at 10:31; Status DC Info (CONTRAST GIVEN -- Rx MONITORING) 1 each PRN DAILY PRN MC SEE COMMENTS; Start 12/30/18 at 10:30; Stop 01/01/19 at 10:29; Status DC Clopidogrel Bisulfate (Plavix) 600 mg 1X ONCE PO Last administered on 12/30/18at 10:30; Start 12/30/18 at 10:30; Stop 12/30/18 at 10:33; Status DC Aspirin (Ry Aspirin) 325 mg 1X ONCE PO Last administered on 12/30/18at 10:30; Start 12/30/18 at 10:30; Stop 12/30/18 at 10:33; Status DC Clopidogrel Bisulfate (Plavix) 75 mg STK-MED ONCE .ROUTE ; Start 12/30/18 at 10:28; Stop 12/30/18 at 10:29; Status DC Aspirin (Ry Aspirin) 325 mg STK-MED ONCE .ROUTE ; Start 12/30/18 at 10:28; Stop 12/30/18 at 10:29; Status DC Furosemide (Lasix) 20 mg 1X ONCE IVP Last administered on 12/30/18at 16:29; Start 12/30/18 at 16:00; Stop 12/30/18 at 16:01; Status DC Furosemide (Lasix) 20 mg 1X ONCE IVP Last administered on 12/31/18at 14:35; Start 12/31/18 at 13:45; Stop 12/31/18 at 13:53; Status DC Clopidogrel Bisulfate (Plavix) 75 mg DAILYWBKFT PO Last administered on 01/07/19at 08:14; Start 01/01/19 at 08:00 Clopidogrel Bisulfate (Plavix) 75 mg 1X ONCE PO Last administered on 12/31/18at 17:23; Start 12/31/18 at 16:15; Stop 12/31/18 at 16:16; Status DC Pantoprazole Sodium (Protonix) 40 mg DAILYAC PO Last administered on 01/07/19at 08:15; Start 01/01/19 at 07:30 Milrinone Lactate/ Dextrose 100 ml @ 0 mls/hr CONT PRN IV SEE I/O RECORD Last administered on 01/06/19at 08:44; Start 01/01/19 at 11:45 Furosemide (Lasix) 40 mg 1X ONCE IVP Last administered on 01/01/19at 12:35; Start 01/01/19 at 11:45; Stop 01/01/19 at 11:46; Status DC Furosemide (Lasix) 40 mg 1X ONCE IVP Last administered on 01/02/19at 14:39; Start 01/02/19 at 13:30; Stop 01/02/19 at 13:31; Status DC Furosemide (Lasix) 20 mg 1X ONCE IVP Last administered on 01/03/19at 13:24; Start 01/03/19 at 13:00; Stop 01/03/19 at 13:01; Status DC Potassium Chloride (Klor-Con) 20 meq 1X ONCE PO Last administered on 01/03/19 13:24; Start 01/03/19 at 13:00; Stop 01/03/19 at 13:01; Status DC Throat Lozenges (Cepacol Sore Throat Lozenge) 1 nikita PRN Q2HRS PRN PO SORE THROAT Last administered on 01/04/19at 14:42; Start 01/03/19 at 18:30 Diclofenac Sodium (Voltaren) 1 natalie BID TP Last administered on 01/04/19at 20:36; Start 01/03/19 at 21:15 Guaifenesin (Robitussin) 200 mg PRN Q4HRS PRN PO COUGH Last administered on 01/04/19at 13:20; Start 01/04/19 at 10:45 Active Scripts Active Aspirin Ec (Aspirin) 325 Mg Tablet.dr 1 Tab PO DAILY 30 Days Clopidogrel (Clopidogrel Bisulfate) 75 Mg Tablet 1 Tab PO DAILY 30 Days Polyethylene Glycol 3350 17 Gm Powd.pack 17 Gm PO PRN DAILY PRN 30 Days Colace (Docusate Sodium) 100 Mg Capsule 100 Mg PO DAILY 30 Days Furosemide 20 Mg Tablet 20 Mg PO DAILY 30 Days Klor-Con 10 (Potassium Chloride) 10 Meq Tablet.er 10 Meq PO DAILYWBKFT 30 Days Tylenol (Acetaminophen) 325 Mg Tablet 650 Mg PO PRN Q6HRS PRN 30 Days Metoprolol Succinate ( Xl ) (Metoprolol Succinate) 25 Mg Tab.er.24h 25 Mg PO DAILY 30 Days Reported Crestor (Rosuvastatin Calcium) 10 Mg Tablet 10 Mg PO HS Escitalopram Oxalate 10 Mg Tablet 1 Tab PO DAILY Flomax (Tamsulosin Hcl) 0.4 Mg Cap.er.24h 0.4 Mg PO DAILY Vitals/I & O Vital Sign - Last 24 Hours 01/06/19 01/06/19 01/06/19 01/06/19 10:51 15:00 19:36 20:00 Temp 98.2 97.9 98.0 98.2 97.9 98.0 Pulse 82 86 84 Resp 18 16 18 B/P (MAP) 98/56 (70) 87/51 (63) 92/53 (66) Pulse Ox 98 99 99 O2 Delivery Nasal Cannula Nasal Cannula Nasal Cannula Room Air O2 Flow Rate 1.0 1.0 2.0 1.5 01/06/19 01/07/19 01/07/19 01/07/19 23:30 03:00 07:00 08:00 Temp 98.1 98.0 97.4 98.1 98.0 97.4 Pulse 94 89 83 Resp 18 20 16 B/P (MAP) 102/66 (78) 100/63 (75) 84/51 (62) Pulse Ox 97 96 99 O2 Delivery Nasal Cannula Nasal Cannula Nasal Cannula Room Air O2 Flow Rate 2.0 2.0 1.0 1.5 Intake and Output 01/06/19 01/06/19 01/07/19 15:00 23:00 07:00 Intake Total 2100 ml 750 ml Output Total 400 ml 150 ml 550 ml Balance -400 ml 1950 ml 200 ml Nutrition Consultation Dietary Evaluation: Recommendations by RD: Protein supplementation Comments: Continue w/cardaic diet as ordered, honor food preferences, and provide sncaks as requested REC Ensure (strawberry) TID Expected Outcomes/Goals: PO intake to meet >75% est needs - not met, goal ongoing Malnutrition Findings: Food and Nutrition Intake (Mod: <75% est energy req 7days Weight Status: Appropriate KIEL RIZZO MD Jan 07, 2019 10:46
[2019-01-07 11:00] VITALS: BP 87/54
[2019-01-07] MEDS: LIDO:MAALOX 1:1 20 ML SINGLE DOSE. PO PRN (12:34)
--- NOTE | 2019-01-07 14:58 | PDOC ---
Subjective: Subjective: Feels the same, asks who I am. Just drank some Ensure, not hungry otherwise. Objective: Objective: 2 stools charted. Vital Signs: Vital Signs Date Time Temp Pulse Resp B/P (MAP) Pulse Ox O2 Delivery O2 Flow Rate FiO2 01/07/19 11:00 97.7 83 14 87/54 (65) 97 Room Air 97.7 01/07/19 08:00 1.5 Labs: Laboratory Tests Test 01/06/19 17:11 01/06/19 21:20 01/07/19 07:42 01/07/19 12:29 Glucose (Fingerstick) 113 mg/dL 118 mg/dL 125 mg/dL 97 mg/dL PE: GEN: NAD LUNGS: room air ABD: S/ND/NT NEURO/PSYCH: A & O �3 A/P: Elevated LFTs likely 2/2 CHF Anorexia - on PPI and Ensure -- Stable GI-osorio. STEPHANI STONE Jan 07, 2019 14:58
[2019-01-07 15:00] VITALS: BP 87/55
[2019-01-07 15:47] LABS: BASO % 0 % (0-3); EOS # 0.2 x10^3/uL (0.0-0.7); EOS % 2 % (0-3); HEMATOCRIT 32.8 % (39.0-53.0); HEMOGLOBIN 10.9 g/dL (13.0-17.5); LYMPH # 0.8 x10^3/uL (1.0-4.8); LYMPH % 8 % (24-48); MEAN CORPUSCULAR HEMOGLOBIN 30 pg (25-35); MEAN CORPUSCULAR HGB CONC 33 g/dL (31-37); MEAN CORPUSCULAR VOLUME 88 fL (79-100); MONO # 0.8 x10^3/uL (0.0-1.1); MONO % 8 % (0-9); NEUT # 8.3 x10^3uL (1.8-7.7); NEUT % 83 % (31-73); PLATELET COUNT 318 x10^3/uL (140-400); RED BLOOD COUNT 3.72 x10^6/uL (4.30-5.70); RED CELL DISTRIBUTION WIDTH 14.7 % (11.5-14.5)
[2019-01-07 15:59] LABS: CALCIUM 8.5 mg/dL (8.5-10.1); CREATININE 1.1 mg/dL (0.7-1.3); GFR 63.2; MAGNESIUM 2.5 mg/dL (1.8-2.4); POTASSIUM 4.7 mmol/L (3.5-5.1)
[2019-01-07 16:45] LABS: ALBUMIN 2.3 g/dL (3.4-5.0); DIRECT BILIRUBIN 0.2 mg/dL (0.0-0.2); TOTAL BILIRUBIN 0.6 mg/dL (0.2-1.0); TOTAL PROTEIN 6.1 g/dL (6.4-8.2)
--- NOTE | 2019-01-07 17:17 | PDOC ---
GERONIMO BROWN SALARY AND WAGE ADMINISTRATOR 01/07/19 1717: CARDIO Progress Notes Date and Time Date of Service 01/07/2019 Time of Evaluation 1710 Subjective Subjective: No Chest Pain, No shortness of breath, No Palpitations, Other (WOODRUFF) Vitals Vitals Vital Signs Date Time Temp Pulse Resp B/P (MAP) Pulse Ox O2 Delivery O2 Flow Rate FiO2 01/07/19 15:00 97.8 80 16 87/55 (66) 96 Nasal Cannula 1.0 97.8 Weight Weight [ ] Input and Output Intake and Output Intake and Output 01/07/19 07:00 Intake Total 2850 ml Output Total 1100 ml Balance 1750 ml Intake Oral 2850 ml Output Urine Total 1100 ml # Voids 2 # Bowel Movements 1 Laboratory Labs Laboratory Tests Test 01/06/19 21:20 01/07/19 07:42 01/07/19 12:29 01/07/19 15:25 Glucose (Fingerstick) 118 mg/dL (70-99) 125 mg/dL (70-99) 97 mg/dL (70-99) White Blood Count 10.0 x10^3/uL (4.0-11.0) Red Blood Count 3.72 x10^6/uL (4.30-5.70) Hemoglobin 10.9 g/dL (13.0-17.5) Hematocrit 32.8 % (39.0-53.0) Mean Corpuscular Volume 88 fL (79-100) Mean Corpuscular Hemoglobin 30 pg (25-35) Mean Corpuscular Hemoglobin Concent 33 g/dL (31-37) Red Cell Distribution Width 14.7 % (11.5-14.5) Platelet Count 318 x10^3/uL (140-400) Neutrophils (%) (Auto) 83 % (31-73) Lymphocytes (%) (Auto) 8 % (24-48) Monocytes (%) (Auto) 8 % (0-9) Eosinophils (%) (Auto) 2 % (0-3) Basophils (%) (Auto) 0 % (0-3) Neutrophils # (Auto) 8.3 x10^3uL (1.8-7.7) Lymphocytes # (Auto) 0.8 x10^3/uL (1.0-4.8) Monocytes # (Auto) 0.8 x10^3/uL (0.0-1.1) Eosinophils # (Auto) 0.2 x10^3/uL (0.0-0.7) Basophils # (Auto) 0.0 x10^3/uL (0.0-0.2) Sodium Level 135 mmol/L (136-145) Potassium Level 4.7 mmol/L (3.5-5.1) Chloride Level 100 mmol/L (98-107) Carbon Dioxide Level 27 mmol/L (21-32) Anion Gap 8 (6-14) Blood Urea Nitrogen 37 mg/dL (8-26) Creatinine 1.1 mg/dL (0.7-1.3) Estimated GFR (Cockcroft-Gault) 63.2 Glucose Level 170 mg/dL (70-99) Calcium Level 8.5 mg/dL (8.5-10.1) Magnesium Level 2.5 mg/dL (1.8-2.4) Total Bilirubin 0.6 mg/dL (0.2-1.0) Direct Bilirubin 0.2 mg/dL (0.0-0.2) Aspartate Amino Transf (AST/SGOT) 97 U/L (15-37) Alanine Aminotransferase (ALT/SGPT) 213 U/L (16-63) Alkaline Phosphatase 207 U/L (46-116) Total Protein 6.1 g/dL (6.4-8.2) Albumin 2.3 g/dL (3.4-5.0) Physical Exam HEENT: Neck Supple W Full Motion Chest: Symmetric LUNGS: Other (basilar crackles) Heart: RRR (SR with PVCs), murmurs (ssytolic murmur 3/6 to NICOLE border) Extremities: No Edema, No Calf Tenderness Neurology: alert, oriented (to self and place), follow commands Assessment Assessment 1. 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 CAD: remote CABG. [place] to LAD and SVG to RCA patent per [facility] 3. 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 Severe : S/P successful valvuloplasty 5. HTN: marginally low 6. HLP 7. Dementia 8. Transaminitis: per GI. 9. CKD3 10. Ventricular arrhythmia: periods of brief NSVT overnight otherwise SR with PVCs, less per comparison. Recommendations 1. Lasix and PRN.extra dose this afternoon. K replacement. Continue low dose milrinone, will titrate off tomorrow 2. Toprol XL.ASA/plavix. BP on both arms 3. Further conversation with family when present in regards to goals of care and treatment plan with pt's poor prognosis. Consider hospice. 4. Supportive care at this time BINA TOBIN MD 01/07/19 1822: CARDIO Progress Notes Plan Plan Pt. seen and examined. 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 No acute events. Poor [facility] prognosis. Agree with above. Supportive care. GERONIMO BROWN APRN Jan 07, 2019 17:17 BINA TOBIN MD Jan 07, 2019 18:22
[2019-01-07] MEDS ORDERED: FUROSEMIDE 20 MG/2 ML VIAL. IVP ONE (18:00)
[2019-01-07 19:42] VITALS: BP 89/51
[2019-01-07] MEDS: PATCH REMOVAL. MC SCH (21:00)
[2019-01-07] MEDS: oxyCODONE IR 5 MG TABLET PO PRN (21:30)
[2019-01-07 22:00] VITALS: BP 97/65
[2019-01-08 02:02] VITALS: BP 93/54
[2019-01-08] MEDS: ACETAMINOPHEN 325 MG TABLET. PO PRN ×2 (03:49→14:58)
[2019-01-08] MEDS: oxyCODONE IR 5 MG TABLET PO PRN (03:50)
[2019-01-08 05:13] LABS: CALCIUM 8.6 mg/dL (8.5-10.1); CREATININE 1.1 mg/dL (0.7-1.3); GFR 63.2; POTASSIUM 4.8 mmol/L (3.5-5.1)
[2019-01-08 07:00] VITALS: BP 94/58
[2019-01-08] MEDS: INSULIN LISPRO 300 UNITS/3 ML INSULN.PEN. SQ SCH ×2 (08:00→12:00)
[2019-01-08] MEDS: LIDOCAINE (700MG/PATCH) PATCH. TD SCH (08:17)
[2019-01-08] MEDS: CLOPIDOGREL BISULFATE 75 MG TABLET PO SCH (08:19)
[2019-01-08] MEDS: TAMSULOSIN 0.4 MG CAP.ER.24H. PO SCH (08:19)
[2019-01-08] MEDS: ASPIRIN ENTERIC COATED 81 MG TABLET.DR. PO SCH (08:19)
[2019-01-08] MEDS: DONEPEZIL HCL 5 MG TABLET. PO SCH (08:20)
[2019-01-08] MEDS: POTASSIUM CHLORIDE 10 MEQ TABLET.ER. PO SCH (08:20)
[2019-01-08] MEDS: PANTOPRAZOLE 40 MG TABLET.DR. PO SCH (08:20)
[2019-01-08] MEDS: FUROSEMIDE 20 MG TABLET PO SCH (08:20)
[2019-01-08] MEDS: CITALOPRAM 20 MG TABLET. PO SCH (08:20)
[2019-01-08] MEDS: DOCUSATE SODIUM 100 MG CAPSULE. PO SCH (08:21)
[2019-01-08] MEDS: POLYETHYLENE GLYCOL 3350 17 GM PACKET. PO SCH (08:21)
[2019-01-08] MEDS: DICLOFENAC SODIUM 1% TOPICAL GEL 100GM TUBE. TP SCH (08:21)
[2019-01-08] MEDS ORDERED: METOPROLOL SUCC 24HR ER 25 MG TAB.ER.24H. PO SCH (09:00)
--- NOTE | 2019-01-08 09:23 | PDOC ---
Subjective: Subjective: Doesn't feel good. Drinking Ensure, wants more tissues because they seem to run out quickly. Objective: Objective: No GI concerns per RN - on third Ensure. Vital Signs: Vital Signs Date Time Temp Pulse Resp B/P (MAP) Pulse Ox O2 Delivery O2 Flow Rate FiO2 01/08/19 08:19 84 91/55 01/08/19 07:00 97.5 16 99 Nasal Cannula 1.0 97.5 Labs: Laboratory Tests Test 01/07/19 12:29 01/07/19 15:25 01/07/19 17:11 01/07/19 21:15 Glucose (Fingerstick) 97 mg/dL 145 mg/dL 101 mg/dL White Blood Count 10.0 x10^3/uL Red Blood Count 3.72 x10^6/uL Hemoglobin 10.9 g/dL Hematocrit 32.8 % Mean Corpuscular Volume 88 fL Mean Corpuscular Hemoglobin 30 pg Mean Corpuscular Hemoglobin Concent 33 g/dL Red Cell Distribution Width 14.7 % Platelet Count 318 x10^3/uL Neutrophils (%) (Auto) 83 % Lymphocytes (%) (Auto) 8 % Monocytes (%) (Auto) 8 % Eosinophils (%) (Auto) 2 % Basophils (%) (Auto) 0 % Neutrophils # (Auto) 8.3 x10^3uL Lymphocytes # (Auto) 0.8 x10^3/uL Monocytes # (Auto) 0.8 x10^3/uL Eosinophils # (Auto) 0.2 x10^3/uL Basophils # (Auto) 0.0 x10^3/uL Sodium Level 135 mmol/L Potassium Level 4.7 mmol/L Chloride Level 100 mmol/L Carbon Dioxide Level 27 mmol/L Anion Gap 8 Blood Urea Nitrogen 37 mg/dL Creatinine 1.1 mg/dL Estimated GFR (Cockcroft-Gault) 63.2 Glucose Level 170 mg/dL Calcium Level 8.5 mg/dL Magnesium Level 2.5 mg/dL Total Bilirubin 0.6 mg/dL Direct Bilirubin 0.2 mg/dL Aspartate Amino Transf (AST/SGOT) 97 U/L Alanine Aminotransferase (ALT/SGPT) 213 U/L Alkaline Phosphatase 207 U/L Total Protein 6.1 g/dL Albumin 2.3 g/dL Test 01/08/19 03:30 01/08/19 07:48 Sodium Level 137 mmol/L Potassium Level 4.8 mmol/L Chloride Level 100 mmol/L Carbon Dioxide Level 30 mmol/L Anion Gap 7 Blood Urea Nitrogen 42 mg/dL Creatinine 1.1 mg/dL Estimated GFR (Cockcroft-Gault) 63.2 Glucose Level 95 mg/dL Calcium Level 8.6 mg/dL Glucose (Fingerstick) 145 mg/dL PE: GEN: NAD LUNGS: NC HEART: RRR ABD: NABS, S/ND/NT NEURO/PSYCH: A & O �3 A/P: Elevated LFTs likely 2/2 CHF - improved Anorexia - stable, like Ensure -- Continue same per GI. STEPHANI STONE Jan 08, 2019 09:23
[2019-01-08] MEDS ORDERED: METO-239 PO (09:50)
--- NOTE | 2019-01-08 09:50 | SNU/HH DC ---
DISCHARGE ORDERS DISCHARGE INFORMATION: DISCHARGE DATE: Jan 08, 2019 FINAL DIAGNOSIS Problems Medical Problems: (1) CHF exacerbation Status: Acute (2) Dyspnea Status: Acute CONDITION ON DISCHARGE: Stable CODE STATUS: Code Status: DNR/DNI RETIREMENT: SNF STAY <30 DAYS: Yes HOSPICE: HOSPICE: No HOSPICE EVAL & TREAT: No LTAC: ADMIT TO LTAC: No POST DISCHARGE ORDERS: ACTIVITY ORDERS: No restrictions, Activity as tolerated WEIGHT BEARING STATUS: No restrictions, As tolerated DIET AFTER DISCHARGE: Cardiac WOUND/INCISION CARE: Ice to area for comfort CHECKS AFTER DISCHARGE: CHECKS AFTER DISCHARGE: Check blood press - daily, Check blood sugar, ac/hs, Ch madisyn your Temp as needed, Weigh Yourself Daily FOLLOW-UP: PHYSICIAN FOLLOW-UP: Dr. Tim Leroy - Cardiology 2-3 weeks ADDITIONAL FOLLOW-UP: can get HYPOTENSIVE< MEDS with holding parameters pls LAB ORDERS FOR FOLLOW-UP: BMP and Mag 01/07/19 TREATMENT/EQUIPMENT ORDERS: Physical Therapy For: Evalulation/Treatment Occupational Therapy For: Evaluation/Treatment DISCHARGE MEDICATIONS: Home Meds Active Scripts Metoprolol Succinate (METOPROLOL SUCCINATE ( XL )) 25 Mg Tab.er.24h, 0.5 TAB PO DAILY for cardiomyopathy, #30 TAB 5 Refills Prov:KIEL RIZZO MD 01/08/19 Aspirin (ASPIRIN EC) 325 Mg Tablet.dr, 1 TAB PO DAILY for CAD/CHF for 30 Days, #30 TAB 5 Refills Prov:STAS HIGUERA MD 12/31/18 Clopidogrel Bisulfate (CLOPIDOGREL) 75 Mg Tablet, 1 TAB PO DAILY for CD for 30 Days, #30 TAB 5 Refills Prov:STAS HIGUERA MD 12/31/18 Polyethylene Glycol 3350 (POLYETHYLENE GLYCOL 3350) 17 Gm Powd.pack, 17 GM PO PRN DAILY PRN for CONSTIPATION for 30 Days, #30 PKT Prov:STAS HIGUERA MD 12/31/18 Docusate Sodium (COLACE) 100 Mg Capsule, 100 MG PO DAILY for Constipation for 30 Days, #30 CAP Prov:STAS HIGUERA MD 12/31/18 Furosemide (FUROSEMIDE) 20 Mg Tablet, 20 MG PO DAILY for CHF for 30 Days, #30 TAB Prov:STAS HIGUERA MD 12/31/18 Potassium Chloride (KLOR-CON 10) 10 Meq Tablet.er, 10 MEQ PO DAILYWBKFT for CHF/Hypokalemia for 30 Days, #30 TAB.SR Prov:STAS HIGUERA MD 12/31/18 Acetaminophen (TYLENOL) 325 Mg Tablet, 650 MG PO PRN Q6HRS PRN for MILD PAIN 1-3 for 30 Days, #120 TAB Prov:STAS HIGUERA MD 12/31/18 Reported Medications Rosuvastatin Calcium (CRESTOR) 10 Mg Tablet, 10 MG PO HS for FOR CHOLESTEROL, #30 TAB 0 Refills 02/18/18 Escitalopram Oxalate (ESCITALOPRAM OXALATE) 10 Mg Tablet, 1 TAB PO DAILY, #30 TAB 3 Refills 02/18/18 Tamsulosin Hcl (FLOMAX) 0.4 Mg Cap.er.24h, 0.4 MG PO DAILY, TAB 02/18/18 KIEL RIZZO MD Jan 08, 2019 09:50
--- NOTE | 2019-01-08 10:12 | NUR ---
SS following up with discharge planning. Discharge orders received for [facility], ; fax [phone]. SS phoned and faxed updated clinical and discharge orders to [facility]. Pt will discharge today and go to [facility]. [facility] to arrange transportation. Pt, pt's family, and pt's RN notified.
[2019-01-08 11:00] VITALS: BP 85/51
--- NOTE | 2019-01-08 11:09 | NUR ---
SS following up with discharge planning. [facility] contacted SS and notified SS that transportation has been scheduled for 1500.
--- NOTE | 2019-01-08 11:52 | PDOC3 ---
Discharge Summary Visit Information Date of Admission: Dec 25, 2018 Date of Discharge: Jan 08, 2019 Admitting Diagnosis: Acute systolic CHF exacerbation, Severe aortic stenosis Admitting Diagnosis Comment: Acute on chronic systolic heart failure. EF 10-15% CAD known s/p CABG Chest pain, angina, w. atypical pain, poss bruise CKD 2-3 Mechanical fall with acquired weakness and debility Severe aortic stenosis s/p valvuloplasty Dementia Transaminitis Hypotension Final Diagnosis Problems Medical Problems: (1) CHF exacerbation Status: Acute (2) Dyspnea Status: Acute Brief Hospital Course Allergies Allergies Coded Allergies Type Severity Reaction Last Updated Verified No Known Drug Allergies 02/16/18 No Vital Signs Vital Signs Date Time Temp Pulse Resp B/P (MAP) Pulse Ox O2 Delivery O2 Flow Rate FiO2 01/08/19 11:00 97.5 86 18 85/51 (62) 94 97.5 01/08/19 08:00 Room Air 1.5 Lab Results Laboratory Tests Test 01/06/19 17:11 01/06/19 21:20 01/07/19 07:42 01/07/19 12:29 Glucose (Fingerstick) 113 mg/dL (70-99) 118 mg/dL (70-99) 125 mg/dL (70-99) 97 mg/dL (70-99) Test 01/07/19 15:25 01/07/19 17:11 01/07/19 21:15 01/08/19 03:30 White Blood Count 10.0 x10^3/uL (4.0-11.0) Red Blood Count 3.72 x10^6/uL (4.30-5.70) Hemoglobin 10.9 g/dL (13.0-17.5) Hematocrit 32.8 % (39.0-53.0) Mean Corpuscular Volume 88 fL (79-100) Mean Corpuscular Hemoglobin 30 pg (25-35) Mean Corpuscular Hemoglobin Concent 33 g/dL (31-37) Red Cell Distribution Width 14.7 % (11.5-14.5) Platelet Count 318 x10^3/uL (140-400) Neutrophils (%) (Auto) 83 % (31-73) Lymphocytes (%) (Auto) 8 % (24-48) Monocytes (%) (Auto) 8 % (0-9) Eosinophils (%) (Auto) 2 % (0-3) Basophils (%) (Auto) 0 % (0-3) Neutrophils # (Auto) 8.3 x10^3uL (1.8-7.7) Lymphocytes # (Auto) 0.8 x10^3/uL (1.0-4.8) Monocytes # (Auto) 0.8 x10^3/uL (0.0-1.1) Eosinophils # (Auto) 0.2 x10^3/uL (0.0-0.7) Basophils # (Auto) 0.0 x10^3/uL (0.0-0.2) Sodium Level 135 mmol/L (136-145) 137 mmol/L (136-145) Potassium Level 4.7 mmol/L (3.5-5.1) 4.8 mmol/L (3.5-5.1) Chloride Level 100 mmol/L (98-107) 100 mmol/L (98-107) Carbon Dioxide Level 27 mmol/L (21-32) 30 mmol/L (21-32) Anion Gap 8 (6-14) 7 (6-14) Blood Urea Nitrogen 37 mg/dL (8-26) 42 mg/dL (8-26) Creatinine 1.1 mg/dL (0.7-1.3) 1.1 mg/dL (0.7-1.3) Estimated GFR (Cockcroft-Gault) 63.2 63.2 Glucose Level 170 mg/dL (70-99) 95 mg/dL (70-99) Calcium Level 8.5 mg/dL (8.5-10.1) 8.6 mg/dL (8.5-10.1) Magnesium Level 2.5 mg/dL (1.8-2.4) Total Bilirubin 0.6 mg/dL (0.2-1.0) Direct Bilirubin 0.2 mg/dL (0.0-0.2) Aspartate Amino Transf (AST/SGOT) 97 U/L (15-37) Alanine Aminotransferase (ALT/SGPT) 213 U/L (16-63) Alkaline Phosphatase 207 U/L (46-116) Total Protein 6.1 g/dL (6.4-8.2) Albumin 2.3 g/dL (3.4-5.0) Glucose (Fingerstick) 145 mg/dL (70-99) 101 mg/dL (70-99) Test 01/08/19 07:48 Glucose (Fingerstick) 145 mg/dL (70-99) Laboratory Tests Test 01/07/19 12:29 01/07/19 15:25 01/07/19 17:11 01/07/19 21:15 Glucose (Fingerstick) 97 mg/dL (70-99) 145 mg/dL (70-99) 101 mg/dL (70-99) White Blood Count 10.0 x10^3/uL (4.0-11.0) Red Blood Count 3.72 x10^6/uL (4.30-5.70) Hemoglobin 10.9 g/dL (13.0-17.5) Hematocrit 32.8 % (39.0-53.0) Mean Corpuscular Volume 88 fL (79-100) Mean Corpuscular Hemoglobin 30 pg (25-35) Mean Corpuscular Hemoglobin Concent 33 g/dL (31-37) Red Cell Distribution Width 14.7 % (11.5-14.5) Platelet Count 318 x10^3/uL (140-400) Neutrophils (%) (Auto) 83 % (31-73) Lymphocytes (%) (Auto) 8 % (24-48) Monocytes (%) (Auto) 8 % (0-9) Eosinophils (%) (Auto) 2 % (0-3) Basophils (%) (Auto) 0 % (0-3) Neutrophils # (Auto) 8.3 x10^3uL (1.8-7.7) Lymphocytes # (Auto) 0.8 x10^3/uL (1.0-4.8) Monocytes # (Auto) 0.8 x10^3/uL (0.0-1.1) Eosinophils # (Auto) 0.2 x10^3/uL (0.0-0.7) Basophils # (Auto) 0.0 x10^3/uL (0.0-0.2) Sodium Level 135 mmol/L (136-145) Potassium Level 4.7 mmol/L (3.5-5.1) Chloride Level 100 mmol/L (98-107) Carbon Dioxide Level 27 mmol/L (21-32) Anion Gap 8 (6-14) Blood Urea Nitrogen 37 mg/dL (8-26) Creatinine 1.1 mg/dL (0.7-1.3) Estimated GFR (Cockcroft-Gault) 63.2 Glucose Level 170 mg/dL (70-99) Calcium Level 8.5 mg/dL (8.5-10.1) Magnesium Level 2.5 mg/dL (1.8-2.4) Total Bilirubin 0.6 mg/dL (0.2-1.0) Direct Bilirubin 0.2 mg/dL (0.0-0.2) Aspartate Amino Transf (AST/SGOT) 97 U/L (15-37) Alanine Aminotransferase (ALT/SGPT) 213 U/L (16-63) Alkaline Phosphatase 207 U/L (46-116) Total Protein 6.1 g/dL (6.4-8.2) Albumin 2.3 g/dL (3.4-5.0) Test 01/08/19 03:30 01/08/19 07:48 Sodium Level 137 mmol/L (136-145) Potassium Level 4.8 mmol/L (3.5-5.1) Chloride Level 100 mmol/L (98-107) Carbon Dioxide Level 30 mmol/L (21-32) Anion Gap 7 (6-14) Blood Urea Nitrogen 42 mg/dL (8-26) Creatinine 1.1 mg/dL (0.7-1.3) Estimated GFR (Cockcroft-Gault) 63.2 Glucose Level 95 mg/dL (70-99) Calcium Level 8.6 mg/dL (8.5-10.1) Glucose (Fingerstick) 145 mg/dL (70-99) Brief Hospital Course Mr. 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 Needed milrinone drip for a few days, comanage with cardiology. We needed to decrease h is beta letty because of hypotension that was quite persistent in this advanced heart failure patient. He is appropriately DNR. He will go back to [facility] today and cleared by cardiology Only change in medication is decreased beta letty from 25 to 12.5 once a day All Rx on chart, DNR Patient seen and examined, discussed with social work Corinne performed cardiology Procedure performed milrinone drip Discharge Information Condition at Discharge: Improved, Stable Disposition/Orders: Other (snu) Scheduled Aspirin (Aspirin Ec) 325 Mg Tablet.dr, 1 TAB PO DAILY for CAD/CHF for 30 Days, #30 Ref 5 Prescribed by: STAS HIGUERA MD on 12/31/18 1007 Clopidogrel Bisulfate (Clopidogrel) 75 Mg Tablet, 1 TAB PO DAILY for CD for 30 Days, #30 Ref 5 Prescribed by: STAS HIGUERA MD on 12/31/18 1007 Docusate Sodium (Colace) 100 Mg Capsule, 100 MG PO DAILY for Constipation for 30 Days, #30 Prescribed by: STAS HIGUERA MD on 12/31/18 1007 Escitalopram Oxalate (Escitalopram Oxalate) 10 Mg Tablet, 1 TAB PO DAILY, #30 Ref 3 (Reported) Entered as Reported by: JOSHUA LARSON on 02/18/18909 Last Action: Converted on 12/26/181526 by LANIE DAVIS Furosemide (Furosemide) 20 Mg Tablet, 20 MG PO DAILY for CHF for 30 Days, #30 Prescribed by: STAS HIGUERA MD on 12/31/18 1007 Metoprolol Succinate (Metoprolol Succinate ( Xl )) 25 Mg Tab.er.24h, 0.5 TAB PO DAILY for cardiomyopathy, #30 Ref 5 Prescribed by: KIEL RIZZO on 01/08/19 0950 Potassium Chloride (Klor-Con 10) 10 Meq Tablet.er, 10 MEQ PO DAILYWBKFT for CHF/Hypokalemia for 30 Days, #30 Prescribed by: STAS HIGUERA MD on 12/31/18 1007 Rosuvastatin Calcium (Crestor) 10 Mg Tablet, 10 MG PO HS for FOR CHOLESTEROL, #30 Ref 0 (Reported) Entered as Reported by: JOSHUA LARSON on 02/18/18909 Last Action: Converted on 12/26/181526 by LANIE DAVIS Tamsulosin Hcl (Flomax) 0.4 Mg Cap.er.24h, 0.4 MG PO DAILY, (Reported) Entered as Reported by: JOSHUA LARSON on 02/18/18909 Last Action: Continued on 12/26/181526 by LANIE DAVIS Scheduled PRN Acetaminophen (Tylenol) 325 Mg Tablet, 650 MG PO PRN Q6HRS PRN for MILD PAIN 1-3 for 30 Days, #120 Prescribed by: STAS HIGUERA MD on 12/31/18 1007 Polyethylene Glycol 3350 (Polyethylene Glycol 3350) 17 Gm Powd.pack, 17 GM PO PRN DAILY PRN for CONSTIPATION for 30 Days, #30 Prescribed by: STAS HIGUERA MD on 12/31/18 1007 KIEL RIZZO MD Jan 08, 2019 11:52
--- NOTE | 2019-01-08 12:39 | PDOC ---
TYLER BARKER FOOD SAFETY TECHNICIAN 01/08/19 1239: CARDIO Progress Notes Date and Time Date of Service 01/08/19 Time of Evaluation 1215 Subjective Subjective: No Chest Pain, No shortness of breath, No Palpitations, Other (c/o WOODRUFF) Vitals Vitals Vital Signs Date Time Temp Pulse Resp B/P (MAP) Pulse Ox O2 Delivery O2 Flow Rate FiO2 01/08/19 11:00 97.5 86 18 85/51 (62) 94 97.5 01/08/19 08:00 Room Air 1.5 Weight Weight [ ] Input and Output Intake and Output Intake and Output 01/08/19 06:59 Intake Total 980 ml Output Total 775 ml Balance 205 ml Intake Oral 980 ml Output Urine Total 775 ml # Voids 1 # Bowel Movements 3 Laboratory Labs Laboratory Tests Test 01/07/19 15:25 01/07/19 17:11 01/07/19 21:15 01/08/19 03:30 White Blood Count 10.0 x10^3/uL (4.0-11.0) Red Blood Count 3.72 x10^6/uL (4.30-5.70) Hemoglobin 10.9 g/dL (13.0-17.5) Hematocrit 32.8 % (39.0-53.0) Mean Corpuscular Volume 88 fL (79-100) Mean Corpuscular Hemoglobin 30 pg (25-35) Mean Corpuscular Hemoglobin Concent 33 g/dL (31-37) Red Cell Distribution Width 14.7 % (11.5-14.5) Platelet Count 318 x10^3/uL (140-400) Neutrophils (%) (Auto) 83 % (31-73) Lymphocytes (%) (Auto) 8 % (24-48) Monocytes (%) (Auto) 8 % (0-9) Eosinophils (%) (Auto) 2 % (0-3) Basophils (%) (Auto) 0 % (0-3) Neutrophils # (Auto) 8.3 x10^3uL (1.8-7.7) Lymphocytes # (Auto) 0.8 x10^3/uL (1.0-4.8) Monocytes # (Auto) 0.8 x10^3/uL (0.0-1.1) Eosinophils # (Auto) 0.2 x10^3/uL (0.0-0.7) Basophils # (Auto) 0.0 x10^3/uL (0.0-0.2) Sodium Level 135 mmol/L (136-145) 137 mmol/L (136-145) Potassium Level 4.7 mmol/L (3.5-5.1) 4.8 mmol/L (3.5-5.1) Chloride Level 100 mmol/L (98-107) 100 mmol/L (98-107) Carbon Dioxide Level 27 mmol/L (21-32) 30 mmol/L (21-32) Anion Gap 8 (6-14) 7 (6-14) Blood Urea Nitrogen 37 mg/dL (8-26) 42 mg/dL (8-26) Creatinine 1.1 mg/dL (0.7-1.3) 1.1 mg/dL (0.7-1.3) Estimated GFR (Cockcroft-Gault) 63.2 63.2 Glucose Level 170 mg/dL (70-99) 95 mg/dL (70-99) Calcium Level 8.5 mg/dL (8.5-10.1) 8.6 mg/dL (8.5-10.1) Magnesium Level 2.5 mg/dL (1.8-2.4) Total Bilirubin 0.6 mg/dL (0.2-1.0) Direct Bilirubin 0.2 mg/dL (0.0-0.2) Aspartate Amino Transf (AST/SGOT) 97 U/L (15-37) Alanine Aminotransferase (ALT/SGPT) 213 U/L (16-63) Alkaline Phosphatase 207 U/L (46-116) Total Protein 6.1 g/dL (6.4-8.2) Albumin 2.3 g/dL (3.4-5.0) Glucose (Fingerstick) 145 mg/dL (70-99) 101 mg/dL (70-99) Test 01/08/19 07:48 01/08/19 11:59 Glucose (Fingerstick) 145 mg/dL (70-99) 127 mg/dL (70-99) Physical Exam HEENT: Neck Supple W Full Motion Chest: Symmetric LUNGS: Other (fine basilar crackles) Heart: RRR (SR with PVCs), murmurs (ssytolic murmur 3/6 to NICOLE border) Abdomen: Soft N/T Extremities: No Edema, No Calf Tenderness Neurology: alert, oriented (to self and place), follow commands Assessment Assessment 1. Acute on chronic diastolic/systolic CHF. 2. CAD: remote CABG. [place] to LAD and SVG to RCA patent per C 3. 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 Severe : S/P successful valvuloplasty 5. HTN: remains marginal 6. HLP 7. Dementia 8. Transaminitis; better Recommendations Oral Lasix Blood pressure will not tolerate PAUL/ARB Secondary prevention No statin with elevated LFT's May discharge to rehab from a CV standpoint F/u in our office with BINA Yousif MD 01/08/19 1735: CARDIO Progress Notes Plan Plan Patient seen and examined. Agree with above nurse practitioner note. Family history requested admission to rehabilitation for possible improvement in his clinical status. I'm not optimistic that he will have any significant improvement. He is at high risk for recurrent admissions. He would strongly benefit from hospice and we may need to readdress this with the family in the near future. If he does continue to improve then he may ultimately be a candidate for transcatheter aortic valve replacement but this is less likely given his severe LV dysfunction and dementia. TYLER BARKER APRN Jan 08, 2019 12:39 BINA TOBIN MD Jan 08, 2019 17:35
[2019-01-08] MEDS: ENOXAPARIN 40 MG/0.4 ML SYRINGE. SQ SCH (16:00)
--- NOTE | 2019-01-08 17:01 | NUR ---
Discharge Note: PRITI NORTON M [address] [place] [address] Discharge instructions and discharge home medications reviewed with Patient and a copy given. All questions have been answered and understanding verbalized. The following instructions and handouts were given: Discontinued IV lines and drains: intact. Patient discharged to [facility] with transport personnel via wheelchair
== END 2019-01-08 16:34 | DRG 273 ==
LOC: ER 15:29 → 2 SOUTH 17:35
PROVIDERS: ADMIT Internal Medicine; ATTEND Internal Medicine
PROC: 4A023N7 Measurement of Cardiac Sampling and Pressure, Left Heart, Percutaneous Approach (ICD-10-PCS; principal; 2018-12-26)
PROC: B2121ZZ Fluoroscopy of Single Coronary Artery Bypass Graft using Low Osmolar Contrast (ICD-10-PCS; 2018-12-26)
PROC: B2181ZZ Fluoroscopy of Left Internal Mammary Bypass Graft using Low Osmolar Contrast (ICD-10-PCS; 2018-12-26)
PROC: B2111ZZ Fluoroscopy of Multiple Coronary Arteries using Low Osmolar Contrast (ICD-10-PCS; 2018-12-26)
PROC: 027F3ZZ Dilation of Aortic Valve, Percutaneous Approach (ICD-10-PCS; 2018-12-30)
DX: I35.0 Nonrheumatic aortic (valve) stenosis (principal); I50.43 Acute on chronic combined systolic (congestive) and diastolic (congestive) heart failure; I13.0 Hypertensive heart and chronic kidney disease with heart failure and stage 1 through stage 4 chronic kidney disease, or unspecified chronic kidney disease; I47.2 Ventricular tachycardia; I25.119 Atherosclerotic heart disease of native coronary artery with unspecified angina pectoris; F03.90 Unspecified dementia, unspecified severity, without behavioral disturbance, psychotic disturbance, mood disturbance, and anxiety; E78.00 Pure hypercholesterolemia, unspecified; E78.5 Hyperlipidemia, unspecified; N18.3 Chronic kidney disease, stage 3 (moderate); K57.90 Diverticulosis of intestine, part unspecified, without perforation or abscess without bleeding; D64.9 Anemia, unspecified; K64.8 Other hemorrhoids; K44.9 Diaphragmatic hernia without obstruction or gangrene; I49.3 Ventricular premature depolarization; D72.829 Elevated white blood cell count, unspecified; F41.9 Anxiety disorder, unspecified; I27.20 Pulmonary hypertension, unspecified; N40.0 Benign prostatic hyperplasia without lower urinary tract symptoms; R63.0 Anorexia; I25.5 Ischemic cardiomyopathy; Z66 Do not resuscitate; M19.90 Unspecified osteoarthritis, unspecified site; I95.9 Hypotension, unspecified; W07.XXXA Fall from chair, initial encounter; Y93.89 Activity, other specified; Y92.090 Kitchen in other non-institutional residence as the place of occurrence of the external cause; Y99.8 Other external cause status; Z95.1 Presence of aortocoronary bypass graft; Z79.82 Long term (current) use of aspirin; Z83.3 Family history of diabetes mellitus; Z79.02 Long term (current) use of antithrombotics/antiplatelets; Z79.899 Other long term (current) drug therapy; Z90.49 Acquired absence of other specified parts of digestive tract; Z98.49 Cataract extraction status, unspecified eye; Z91.14 Patient's other noncompliance with medication regimen; I44.7 Left bundle-branch block, unspecified
CPT/HCPCS: 33210; 36415; 71046; 71100; 76700; 80048; 80053; 80061; 80076; 81001; 82550; 82962; 83735; 83880; 84439; 84443; 84484; 85007; 85025; 85610; 86705; 86709; 86803; 87340; 92986; 93005; 93306; 93459; 96374; 96375; 99152; 99153; C1713; C1725; C1760; C1769; C1892; C1894; C1898; J1644; J1650; J1815; J1940; J2250; J2260; J2270; J3010; Q9967; 97116; 97530; 97535; 99285-25; C1771